=== PATIENT | female | born 1990 | race Caucasian/White ===

== ENCOUNTER 2021-10-05 15:44 | Outpatient (RCR) | payer OTHER, SELFPAY | END 2022-01-01 23:59 | disposition home or self-care (01) | LOC: ANHLAB 15:44 | PROVIDERS: Visit Provider Obstetrics & Gynecology Gynecology | DX: O26.851 Spotting complicating pregnancy, first trimester (principal); Z3A.00 Weeks of gestation of pregnancy not specified | CPT/HCPCS: 36415; 84702 ==

== ENCOUNTER 2021-10-06 07:20 | Emergency (ER) | payer OTHER, SELFPAY ==
[2021-10-06] VITALS (10 sets, daily range): BP systolic 105–130; BP diastolic 71–97; PULSE 81–110; RESP 13–16; TEMP 36.6; O2SAT 97–100
--- NOTE | ~2021-10-06 | US_ITS ---
EXAMINATION: US OB <=14 wk fetus w TV DATE: 10/06/2021 08:28 INDICATION: Vaginal bleeding during first trimester TECHNIQUE: Real-time pelvic transabdominal and transvaginal ultrasound was performed. COMPARISON: None. FINDINGS: The uterus measures 8.1 x 5.7 x 4.3 cm. Images obtained at 0805 hours demonstrate an approx imately 1.8 x 0.8 cm fluid collection in the endometrial canal. Subsequent images obtained at 0813 ho urs no longer demonstrate the fluid collection in the endometrial canal, likely due to interval passa ge. No definite pole is identified. The left ovary is not visualized however no left adnexal ab normality is seen. The right ovary measures 2.4 x 1.7 x 1.5 cm. There is normal vascular flow in the right ovary. There is a small volume of free fluid in the pelvis. IMPRESSION: 1. Findings consistent with in progress. Reviewed, dictated and finalized at location B[facility]
[2021-10-06 07:58] LABS: Basophils Percent Auto 0.4 % (0.2-1.2); Eosinophils Absolute Auto 0.1 K/mm3 (0-0.3); Eosinophils Percent Auto 0.7 % (0-4.4); Hematocrit 38.2 % (37.0-47.0); Hemoglobin 12.9 g/dL (12.0-15.0); Immature Granulocyte Absolute 0.03 K/mm3 (0.00-0.031); Immature Granulocyte Percent A 0.4 % (0-0.5); Lymphocytes Percent Auto 13.1 % (18.3-44.2); Mean Corpuscular HGB Conc 33.8 g/dl (32-36); Mean Corpuscular Hemoglobin 30.9 pg (26-34); Mean Corpuscular Volume 91.4 fl (80-100); Mean Platelet Volume 9.7 fl (7.4-10.4); Monocytes Absolute Auto 0.5 K/mm3 (0.1-0.6); Monocytes Percent Auto 5.9 % (2.6-8.5); Neutrophils Absolute Auto 6.1 K/mm3 (1.3-6.7); Neutrophils Percent Auto 79.5 % (45.5-73.1); Platelet Count Result 238 k/mm3 (150-375); Red Blood Count 4.18 M/mm3 (4.2-5.4); Red Cell Distribution Width 11.8 % (11.5-14.5); White Blood Count 7.6 K/mm3 (4.5-10.0)
[2021-10-06 08:07] LABS: Alanine Aminotransferase 22 U/L (4-35); Albumin Level 4.5 g/dL (3.5-5.1); Alkaline Phosphatase 47 U/L (38-126); Anion Gap 8 mmol/L (8-16); Aspartate Amino Transferase 30 U/L (14-36); Bilirubin,Total 0.6 mg/dL (0.2-1.3); Blood Urea Nitrogen 8 mg/dL (7-17); Calcium 8.7 mg/dL (8.4-10.2); Carbon Dioxide 25 mmol/L (22-30); Chloride 106 mmol/L (98-107); Estimated Glomerular Filt Rate > 60; Glucose 103 mg/dL (65-110); Potassium 4.3 mmol/L (3.4-5.0); Sodium 139 mmol/L (137-145)
[2021-10-06 08:13] LABS: INR 1.1; Prothrombin Time 13.5 Seconds (11.1-14.7)
[2021-10-06 08:14] LABS: Partial Thromboplastin Time 26.7 SECONDS (22.3-36.8)
[2021-10-06] MEDS: SODIUM CHLORIDE 0.9% IV 1,000 ML 999 ML IV CONT (08:28)
[2021-10-06] MEDS: MORPHINE SULFATE (*CRX) 4 MG/ML INJ IV PUSH ×2 (08:29→10:04)
[2021-10-06] MEDS: METHYLERGONOVINE MALEATE 0.2 MG/ML VIAL IM (10:29)
[2021-10-06] MEDS: KETOROLAC 30 MG/ML VIAL (*BKC) IV PUSH (12:04)
--- NOTE | 2021-10-06 12:56 | ED.FEMALEGU ---
HPI - Female Genitourinary General Chief complaint: Vaginal Bleeding Stated complaint: Vaginal Bleeding Time Seen by Provider: 10/06/21 07:27 History of Present Illness HPI Narrative: Patient is a 31-year-old female who presents ER with vaginal bleeding. Patient started having vaginal bleeding 4 days ago and was seen in [facility] and diagnosed with a threatened miscarriage. She has been following with Dr. Marin and her beta hCG has been decreasing. Patient did receive a RhoGam shot due to the fact that she has a negative blood type. Patient reports she woke this morning and started having heavy vaginal bleeding with clots. Blood was bright red did not appear old. She is having lower abdominal cramping. Related Data Home Medications Medication Instructions Recorded Confirmed bisacodyl [Biscolax] PO 10/06/21 10/06/21 bupropion HCl 300 mg PO QAM 10/06/21 doxylamine succinate [Unisom 10/06/21 (doxylamine)] ergocalciferol (vitamin D2) 1,000 unit PO DAILY 10/06/21 [id number] [Pre-F tablet PO 10/06/21 Vitamin] Allergies Allergy/AdvReac Type Severity Reaction Status Date / Time vancomycin Allergy Unknown Verified 10/06/21 07:34 Review of Systems Review of Systems: All systems reviewed & are unremarkable except as noted in HPI and below Constitutional: Constitutional: Denies chills and Denies fatigue Cardiovascular: Cardiovascular: Denies chest pain, Denies rapid heart rate and Denies radiating jaw, neck or arm pain Respiratory: Respiratory: Denies cough, Denies dyspnea and Denies wheezing Gastrointestinal: Gastrointestinal: Reports abdominal pain, Denies constipation, Denies nausea and Denies vomiting Genitourinary: Genitourinary: Reports abnormal vaginal bleeding, Denies nocturia, Denies dysuria and Denies vaginal discharge PMFSH Past Medical History Medical History (Updated 10/06/21 @ 13:05 by López Nuñez MD) Healthy female adult Surgical History Surgical History (Updated 10/06/21 @ 13:05 by López Nuñez MD) No pertinent past surgical history Social History Social History (Updated 10/06/21 @ 13:05 by López Nuñez MD) Smoking status: Never smoker Exam Narrative: GENERAL: Well-appearing, well-nourished, and in no acute distress. HEAD: Normocephalic, atraumatic. CHEST: Clear to auscultation. No respiratory distress. HEART: Regular rate and rhythm. Normal peripheral pulses. ABDOMEN: Soft, nontender, nondistended. : Normal external genitalia, moderate mount of blood filling the vaginal vault. 4 separate 4 x 4's used to absorb the fluid. Cervix visualized and open approximately 1 cm. No active hemorrhage. No discharge. No cervical lesions. EXTREMITIES: Normal range of motion. No edema. SKIN: Warm, dry, no rash. NEURO: Alert and oriented x3. PSYCH: Normal mood and affect. Course Course Emergency Course: Discussed case with Dr. Marin. Recommends giving patient IM Methergine. Observed for 2 hours. If bleeding decreases patient may be discharged. After observation patient has had decreased amount of bleeding feels comfortable with discharge home. Vital Signs Vital signs: Vital Signs Temperature 97.8 F 10/06/21 07:20 Pulse Rate 110 H 10/06/21 07:20 Respiratory Rate 16 10/06/21 07:20 Blood Pressure 130/97 H 10/06/21 07:20 Pulse Oximetry 97 10/06/21 07:20 Temperature 97.8 F 10/06/21 07:20 Pulse Rate 100 10/06/21 08:32 Respiratory Rate 16 10/06/21 07:20 Blood Pressure 105/75 10/06/21 10:31 Pulse Oximetry 100 10/06/21 10:31 MDM - Female Genitourinary Lab Data Result diagrams: 10/06/21 07:52 10/06/21 07:52 Labs: Lab Results 10/06/21 10/06/21 10/06/21 Range/Units 07:52 07:52 07:52 WBC 7.6 (4.5-10.0) K/mm3 RBC 4.18 L (4.2-5.4) M/mm3 Hgb 12.9 (12.0-15.0) g/dL Hct 38.2 (37.0-47.0) % MCV 91.4 (80-100) fl MCH 30.9 (26-3
== END 2021-10-06 13:46 | disposition home or self-care (01) ==
PROVIDERS: Emergency Provider Emergency Medicine
DX: O03.9 Complete or unspecified spontaneous abortion without complication (principal)
CPT/HCPCS: 36415; 76801; 76817; 80053; 84702; 85025; 85610; 85730; 86850; 86880; 86900; 86901; 86902; 96361; 96372; 96374; 96375; 96376; 99284; J1885; J2210; J2270; J7030

== ENCOUNTER 2021-11-02 17:14 | Outpatient (RCR) | payer OTHER, SELFPAY ==
[2021-10-14 18:29] LABS: Beta HCG Quantitative 32.84 mIU/ML
[2021-10-24 17:15] LABS: Beta HCG Quantitative 6.98 mIU/ML
[2021-11-02 17:54] LABS: Beta HCG Quantitative < 2.39 mIU/ML
== END 2022-01-12 23:59 | disposition home or self-care (01) ==
LOC: ANHLAB 17:14
PROVIDERS: Visit Provider Obstetrics & Gynecology Gynecology
DX: O03.9 Complete or unspecified spontaneous abortion without complication (principal)
CPT/HCPCS: 36415; 84702

== ENCOUNTER 2022-06-09 17:39 | Outpatient (RCR) | payer OTHER, SELFPAY ==
[2022-06-07 17:41] LABS: Beta HCG Quantitative 576.28 mIU/ML
== END 2022-09-05 23:59 | disposition home or self-care (01) ==
LOC: ANHLAB 17:39
PROVIDERS: Visit Provider Obstetrics & Gynecology Gynecology
DX: O26.21 Pregnancy care for patient with recurrent pregnancy loss, first trimester (principal); Z3A.00 Weeks of gestation of pregnancy not specified
CPT/HCPCS: 36415; 84702

== ENCOUNTER 2022-06-13 17:59 | Outpatient (RCR) | payer OTHER, SELFPAY ==
[2022-06-14] MEDS: RHO(D) IMMUNE GLOBULIN 300 MCG/2 ML SYRINGE IM (07:16)
== END 2022-09-11 23:59 | disposition home or self-care (01) ==
LOC: ANHLAB 17:59
PROVIDERS: Visit Provider Obstetrics & Gynecology Gynecology
DX: O26.21 Pregnancy care for patient with recurrent pregnancy loss, first trimester (principal); Z29.13 Encounter for prophylactic Rho(D) immune globulin; O36.0110 Maternal care for anti-D [Rh] antibodies, first trimester, not applicable or unspecified; Z3A.00 Weeks of gestation of pregnancy not specified
CPT/HCPCS: 36415; 85461; 86850; 86900; 86901; 90384; 96372; J2790

== ENCOUNTER 2022-06-15 17:17 | Outpatient (CLI) | payer OTHER, SELFPAY | END 2022-06-15 17:18 | disposition home or self-care (01) | LOC: ANHLAB 17:20 | PROVIDERS: Visit Provider Obstetrics & Gynecology Gynecology | DX: O26.851 Spotting complicating pregnancy, first trimester (principal); Z3A.00 Weeks of gestation of pregnancy not specified | CPT/HCPCS: 36415; 84702 ==

== ENCOUNTER 2022-07-02 11:11 | Emergency (ER) | payer OTHER, SELFPAY ==
--- NOTE | ~2022-07-02 | US_ITS ---
EXAMINATION: US OB <=14 wk fetus w TV DATE: 07/02/2022 12:24 INDICATION: Vaginal bleeding. Subchorionic hemorrhage. TECHNIQUE: Real-time transabdominal and transvaginal obstetric ultrasound. FINDINGS: No prior studies for comparison. The uterus measures 8.2 x 6 x 7.1 cm. There is an intrauterine gestational sac, with pole ident ified. There is a subchorionic hemorrhage measuring 1.3 x 1.2 x 1.9 cm The crown rump length measures 1.65 cm, which correlates with a estimated gestational age of 8 weeks 0 days. heart tones ar e identified measuring 173. IMPRESSION: 1. SL IUP with an EGA of 8 weeks, 0 days (EDC by current ultrasound of 02/11/2023). 2: Subchorionic hemorrhage measuring 1.3 x 1.9 x 1.2 cm. Reviewed, dictated and finalized at location A. COVERER IMPRESSION: 1. SL IUP with an EGA of 8 weeks, 0 days (EDC by current ultrasound of 3). 2: Subchorionic hemorrhage measuring 1.3 x 1.9 x 1.2 cm.
[2022-07-02 11:14] VITALS: BP 123/72; PULSE 94; RESP 16; TEMP 36.5; O2SAT 100
--- NOTE | 2022-07-02 11:41 | ED.FEMALEGU ---
HPI - Female Genitourinary General Chief complaint: Vaginal Bleeding Stated complaint: 8 weeks preg, bleeding Time Seen by Provider: 07/02/22 11:17 Source: patient and old records reviewed Mode of arrival: ambulatory Limitations: no limitations History of Present Illness HPI Narrative: Patient is a 32-year-old female who presents the ED with report of vaginal bleeding. Patient is and currently around 8 weeks gestation, Hx of miscarriage in September 2021. Patient has had a previous ultrasound confirming IUP for this current . Ultrasound did reveal a subchorionic hematoma. Patient reports this morning, she passed two thumb sized blood clots. She has had some mild dark red vaginal bleeding since then. She is concerned she may be miscarrying again. She denies any significant abdominal pain, worsening nausea or vomiting, fevers. Related Data Home Medications Medication Instructions Recorded Confirmed bisacodyl 5 mg tablet,delayed PO 10/06/21 10/06/21 release bupropion HCl 300 mg 24 hr tablet, 300 mg PO QAM 10/06/21 extended release doxylamine succinate 25 mg tablet 10/06/21 (Unisom (doxylamine)) ergocalciferol (vitamin D2) 1,000 1,000 unit PO DAILY 10/06/21 unit capsule [id number] 1 mg tablet PO 10/06/21 tablet Allergies Allergy/AdvReac Type Severity Reaction Status Date / Time vancomycin Allergy Unknown Verified 07/02/22 11:22 Review of Systems Review of Systems: CONSTITUTIONAL: Denies fever, chills, or sweats. CARDIOVASCULAR: Denies chest pain. RESPIRATORY: Denies dyspnea. GASTROINTESTINAL: Denies abdominal pain, nausea, vomiting. GENITOURINARY: Reports vaginal bleeding. Denies dysuria or hematuria. All systems reviewed & are unremarkable except as noted in HPI and below PMFSH Past Medical History Medical History Healthy female adult Surgical History Surgical History No pertinent past surgical history Social History Social History Smoking status: Never smoker Exam Narrative: GENERAL: Well appearing, well-nourished, non-toxic, in no acute distress. HEAD: Normocephalic, atraumatic. NECK: Supple. No adenopathy, no masses. RESPIRATORY: Airway patent, respirations nonlabored. Clear to auscultation bilaterally, no rales, rhonchi, wheezing. CARDIOVASCULAR: Regular rate and rhythm without murmurs, rubs, or gallops. Peripheral pulses 2+ and equal bilaterally. ABDOMINAL: Soft, no significant tenderness throughout abdomen, nondistended, no hepatosplenomegaly. Normoactive BS. PELVIC: Normal external genitalia. Mild amount of dark brown vaginal bleeding. No bright red bleeding or clots. Cervix appears closed. No pooling of blood or signs of hemorrhage. No significant CMT. MUSCULOSKELETAL: Moves all extremities. Strength/ROM intact without gross deformities. SKIN: Warm, dry, normal color. No rashes. NEURO: A&O X3. Speech clear. Cranial nerves II-XII grossly intact. Steady gait. No ataxic movements. PSYCHIATRIC: Appropriate mood and affect. Normal interaction. Course Consultations Consultation #1: Discussed case with Dr. Peck, GROUND INTELLIGENCE OFFICER on-call for [place], agrees with plan. No further recommendations at this time. Date: 07/02/22 Vital Signs Vital signs: Vital Signs Temperature 97.7 F 07/02/22 11:14 Pulse Rate 94 07/02/22 11:14 Respiratory Rate 16 07/02/22 11:14 Blood Pressure 123/72 07/02/22 11:14 Pulse Oximetry 100 07/02/22 11:14 Temperature 97.7 F 07/02/22 11:14 Pulse Rate 94 07/02/22 11:14 Respiratory Rate 16 07/02/22 11:14 Blood Pressure 123/72 07/02/22 11:14 Pulse Oximetry 100 07/02/22 11:14 MDM - Female Genitourinary MDM Narrative Medical decision making narrative: Patient presented to ED with report of vaginal bleeding, G2, P0,
[2022-07-02 12:32] LABS: Basophils Percent Auto 0.3 % (0.2-1.2); Eosinophils Percent Auto 0.3 % (0-4.4); Hematocrit 37.7 % (37.0-47.0); Immature Granulocyte Absolute 0.02 K/mm3 (0.00-0.031); Immature Granulocyte Percent A 0.3 % (0-0.5); Lymphocytes Absolute Auto 1.28 K/mm3 (0.9-3.2); Lymphocytes Percent Auto 16.4 % (18.3-44.2); Mean Corpuscular HGB Conc 34.5 g/dl (32-36); Mean Corpuscular Hemoglobin 31.4 pg (26-34); Mean Corpuscular Volume 91.1 fl (80-100); Mean Platelet Volume 9.6 fl (7.4-10.4); Monocytes Absolute Auto 0.6 K/mm3 (0.1-0.6); Monocytes Percent Auto 8.1 % (2.6-8.5); Neutrophils Absolute Auto 5.8 K/mm3 (1.3-6.7); Neutrophils Percent Auto 74.6 % (45.5-73.1); Platelet Count Result 250 k/mm3 (150-375); Red Blood Count 4.14 M/mm3 (4.2-5.4); Red Cell Distribution Width 11.1 % (11.5-14.5); White Blood Count 7.8 K/mm3 (4.5-10.0)
[2022-07-02 12:50] LABS: Alanine Aminotransferase 26 U/L (6-35); Albumin Level 4.5 g/dL (3.5-5.1); Alkaline Phosphatase 40 U/L (38-126); Anion Gap 4 mmol/L (8-16); Aspartate Amino Transferase 23 U/L (14-36); Bilirubin,Total 0.5 mg/dL (0.2-1.3); Blood Urea Nitrogen 12 mg/dL (7-17); Calcium 8.6 mg/dL (8.4-10.2); Carbon Dioxide 29 mmol/L (22-30); Chloride 101 mmol/L (98-107); Estimated CRCL calculation 125 ml/min; Estimated Glomerular Filt Rate > 60; Glucose 96 mg/dL (65-110); Potassium 3.5 mmol/L (3.4-5.0); Sodium 134 mmol/L (137-145)
[2022-07-02] MEDS: RHO(D) IMMUNE GLOBULIN 300 MCG/2 ML SYRINGE IM (15:28)
[2022-07-02 15:32] VITALS: BP 110/74; PULSE 82; RESP 18; O2SAT 100
== END 2022-07-02 15:34 | disposition home or self-care (01) ==
PROVIDERS: Emergency Provider Physician Assistant; PCP Family Medicine
DX: O20.0 Threatened abortion (principal); Z3A.08 8 weeks gestation of pregnancy
CPT/HCPCS: 36415; 76801; 76817; 80053; 84702; 85025; 85461; 86850; 86880; 86900; 86901; 86902; 90384; 96372; 99284; J2790

== ENCOUNTER 2022-07-26 17:56 | Emergency (ER) | payer OTHER, SELFPAY ==
[2022-07-26 18:51] VITALS: BP 118/67; PULSE 99; RESP 20; TEMP 37.4; O2SAT 99
[2022-07-26 22:09] VITALS: BP 111/69; PULSE 87; O2SAT 100
[2022-07-26 22:29] LABS: Add Urine Microscopic? YES; Appearance Urine Clear (Clear); Bilirubin Urine Negative (Negative); Blood Urine Negative (Negative); Color Urine Light Yellow (Yellow); Glucose Urine UA Negative (Negative); Ketones Urine 3+ mg/dL (Negative); Leukocyte Esterase Ur Negative LEU/UL (Negative); Nitrate Urine Negative (Negative); Protein Urine Negative (Negative); pH Urine 8.5 (5.0-9.0)
[2022-07-26] MEDS: diphenhydrAMINE HCl INJ 50 MG/ML VIAL 25 MG IV PUSH (22:30)
[2022-07-26] MEDS: METOCLOPRAMIDE HCL INJ 10 MG/2 ML VIAL IV PUSH (22:30)
[2022-07-26] MEDS: LACTATED RINGERS 1,000 ML 999 ML IV CONT (22:30)
[2022-07-26 22:35] LABS: Bacteria Urine Trace /hpf; Mucus Urine Rare /lpf; Squamous Epithelial Cell Urine Occasional /hpf (Few); WBC Urine 0-3 /hpf
[2022-07-26 22:46] VITALS: BP 111/64; PULSE 88; O2SAT 98
[2022-07-26 23:02] LABS: Influenza A QL RT-PCR Negative (Negative); Influenza B QL RT-PCR Negative (Negative); RSV RNA, RT-PCR Negative (Negative); SARS-CoV-2 RNA PCR Negative
[2022-07-27] MEDS: LACTATED RINGERS 1,000 ML 999 ML IV CONT (00:17)
--- NOTE | 2022-07-27 00:46 | ED.NAVMDI ---
HPI - Nausea/Vomiting/Diarrhea General Chief complaint: Upper Respiratory Infection Stated complaint: FLU S/SX 11WKS IUP Time Seen by Provider: 07/26/22 22:08 History of Present Illness HPI Narrative: Patient is 11 weeks , has been dealing with hyperemesis, tried Reglan at home which did not help, cannot keep anything down. Also having some URI symptoms. Related Data Home Medications Medication Instructions Recorded Confirmed bisacodyl 5 mg tablet,delayed PO 10/06/21 10/06/21 release bupropion HCl 300 mg 24 hr tablet, 300 mg PO QAM 10/06/21 extended release doxylamine succinate 25 mg tablet 10/06/21 (Unisom (doxylamine)) ergocalciferol (vitamin D2) 1,000 1,000 unit PO DAILY 10/06/21 unit capsule [id number]-FA 1 mg tablet PO 10/06/21 tablet Allergies Allergy/AdvReac Type Severity Reaction Status Date / Time vancomycin Allergy Unknown Verified 07/02/22 11:22 Review of Systems Review of Systems: CONST: Chills HEENT: Congestion C/V: No chest pain RESP cough GI: Reports abdominal pain, nausea, vomiting : No dysuria. M/S: Muscle aches SKIN: No rash. NEURO: [HILL w/o focal numbness or weakness] PSYCH: [No depression] [facility] Past Medical History Medical History Healthy female adult Surgical History Surgical History No pertinent past surgical history Social History Social History Smoking status: Never smoker Exam Narrative: EXAMINATION OF ORGAN SYSTEMS/BODY AREAS: Constitutional: Vital signs per nursing GENERAL: Appears quite uncomfortable in bed HEAD: Normal with no signs of head trauma. EYES: EOMI, conjunctiva normal ENT: Hearing grossly intact LUNGS: Nonlabored breathing. HEART: [Regular rate and rhythm] ABD: [Soft], [nontender to palpation] EXT: Normal range of motion SKIN: [No rashes or lesions.] NEURO: [Alert and oriented x 3. No gross focal sensory or strength deficits.] PSYCH: Normal affect Course Vital Signs Vital signs: Vital Signs Temperature 99.4 F 12/28/22 18:51 Pulse Rate 99 07/26/22 18:51 Respiratory Rate 20 07/26/22 18:51 Blood Pressure 118/67 07/26/22 18:51 Pulse Oximetry 99 07/26/22 18:51 Oxygen Delivery Room Air 07/26/22 18:51 Temperature 99.4 F 07/26/22 18:51 Pulse Rate 88 07/26/22 22:46 Respiratory Rate 20 07/26/22 18:51 Blood Pressure 111/64 07/26/22 22:46 Pulse Oximetry 98 07/26/22 22:46 Oxygen Delivery Room Air 07/26/22 18:51 MDM - Nausea/Vomiting/Diarrhea MDM Narrative Medical decision making narrative: 32-year-old female at 11 weeks presents with nausea, vomiting. Vital signs stable, she will be given IV fluids here and Reglan. On reevaluation, she is feeling much better. Virtually resolved. 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 Lab Data Labs: Lab Results 07/26/22 07/26/22 Range/Units 22:20 22:20 Urine Color Light yellow (Yellow) Urine Appearance Clear (Clear) Urine pH 8.5 (5.0-9.0) Ur Specific [place] 1.010 (1.001-1.035) Urine Protein Negative (Negative) mg/dL Urine Glucose (UA) Negative (Negative) mg/dL Urine Ketones 3+ H (Negative) mg/dL Ur Blood (Man) Negative (Negative) Urine Nitrate Negative (Negative) Urine Bilirubin Negative (Negative) Urine Urobilinogen 1.0 (<2.0) mg/dL Leukocyte Esterase Rfl Negative (Negative) ALEJO/UL Urine RBC 3-5 H (0-2) /hpf Urine WBC 0-3 /hpf Ur Squamous Epith Cells Occasional (Few) /hpf Urine Bacteria Trace /hpf Urine Mucus Rare /lpf Influenza A (RT-PCR) Negative (Negative) Influenza B (RT-PCR) Negative (Negative) RSV (RT-PCR) Negative (Negative) SARS-CoV-2 RNA (RT-PCR) Negative Discharge Plan Discharge Clinical Impression: Nausea &
== END 2022-07-27 00:48 | disposition home or self-care (01) ==
PROVIDERS: Emergency Provider Emergency Medicine; PCP Family Medicine
DX: O21.0 Mild hyperemesis gravidarum (principal); Z20.822 Contact with and (suspected) exposure to COVID-19; Z3A.11 11 weeks gestation of pregnancy
CPT/HCPCS: 81001; 87637; 96361; 96365; 96375; 99284; J0131; J1200; J2765; J7120

== ENCOUNTER 2022-10-09 10:20 | Outpatient (CLI) | payer OTHER, SELFPAY ==
[2022-10-09 10:45] VITALS: BMI 26.6
== END 2022-10-09 11:50 | disposition home or self-care (01) ==
LOC: ANHOBOP 10:26 → ANHOBPP 10:27
PROVIDERS: PCP Family Medicine; Visit Provider Obstetrics & Gynecology Gynecology
DX: O13.9 Gestational [pregnancy-induced] hypertension without significant proteinuria, unspecified trimester (principal)
CPT/HCPCS: 99199

== ENCOUNTER 2022-11-18 14:39 | Outpatient (RCR) | payer OTHER, SELFPAY ==
[2022-11-18 15:24] VITALS: BP 102/65; PULSE 84
== END 2022-12-29 17:36 | disposition hospice, home (50) ==
LOC: ANHOBOP 14:39
PROVIDERS: PCP Family Medicine; Visit Provider Obstetrics & Gynecology Gynecology
DX: O36.8120 Decreased fetal movements, second trimester, not applicable or unspecified (principal); Z3A.27 27 weeks gestation of pregnancy
CPT/HCPCS: 59025

== ENCOUNTER 2022-12-16 19:45 | Inpatient (IN) | payer OTHER, SELFPAY ==
[2022-12-16] VITALS (48 sets, daily range): BP systolic 97–121; BP diastolic 54–67; PULSE 60–80; RESP 12–20; O2SAT 97–100
--- NOTE | 2022-12-16 20:34 | PM.IMHP ---
H&P: HPI History of Present Illness Date/Time: 12/16/22 20:34 Chief Complaint: pain Narrative: Aline is a 32yo @ 32.1wk who presented to L&D with severe pain. She was found to be 7cm dilated. No VB or LOF. Her is complicated by: - Breech malpresentation - Bicornuate uterus PMFSH Past Medical History Medical History Healthy female adult Surgical History Surgical History No pertinent past surgical history Social History Social History Smoking status: Never smoker Meds Home Medications and Allergies Home Medications Medication Instructions Recorded Confirmed Type bisacodyl 5 mg tablet,delayed PO 10/06/21 10/06/21 History release bupropion HCl 300 mg 24 hr tablet, 300 mg PO QAM 10/06/21 History extended release doxylamine succinate 25 mg tablet 10/06/21 History (Unisom (doxylamine)) ergocalciferol (vitamin D2) 1,000 1,000 unit PO DAILY 10/06/21 History unit capsule hydrocodone 5 mg-acetaminophen 325 1 tablet PO Q6H PRN pain #12 tabs 10/06/21 Rx mg tablet methylergonovine 0.2 mg tablet 0.2 mg PO TID 5 days #15 tabs 10/06/21 Rx (Methergine) [id number] 1 mg tablet PO 10/06/21 History tablet Allergies Allergy/AdvReac Type Severity Reaction Status Date / Time vancomycin Allergy Unknown Verified 07/02/22 11:22 Vital Signs Vital Signs - 24 hr 12/16/22 20:03 12/16/22 20:15 12/16/22 20:30 Pulse Rate 60 62 65 Blood Pressure 101/58 L 112/65 104/60 Exam Const: General: cooperative, healthy appearing and in distress moderate (with contractions) Resp: Effort & Inspection: normal respiratory effort Cardio: Rate: regular rate : Other: FHTs: 140/ mod stanislav/ + accels/ no decels - cat 1 Cervix: 7cm, bulging bag breech presentation on bedside US Skin: General skin exam: normal color Neuro: General: patient oriented x3 Extrem: General: normal to inspection Psych: Appearance: grossly normal Assessment and Plan Assessment and plan (1) labor: Qualifiers: labor trimester: third trimester labor delivery status: with delivery in third trimester Fetus number: single or unspecified fetus Qualified Code(s): O60.14X0 - labor third trimester with delivery third trimester, not applicable or unspecified Code(s): O60.00 - labor without delivery, unspecified trimester Status: Acute (2) Breech presentation: Qualifiers: Fetus number: single or unspecified fetus Qualified Code(s): O32.1XX0 - Maternal care for breech presentation, not applicable or unspecified Code(s): O32.1XX0 - Maternal care for breech presentation, not applicable or unspecified Status: Acute Plan - breech malpresentation on bedside US in active labor - proceed with primary
--- NOTE | 2022-12-16 20:41 | WPDHPUPDATE1 ---
History and Physical Update Update Date/Time: 12/16/22 20:41 History and Physical has been reviewed, including an updated exam of the patient. There are NO changes in the patient's condition. Risks, benefits, and alternatives have been discussed and questions answered. Patient agrees to proceed with procedure.
[2022-12-16 20:47] LABS: Basophils Percent Auto 0.2 % (0.2-1.2); Eosinophils Percent Auto 0.1 % (0-4.4); Hematocrit 37.5 % (37.0-47.0); Hemoglobin 13.3 g/dL (12.0-15.0); Immature Granulocyte Absolute 0.12 K/mm3 (0.00-0.031); Immature Granulocyte Percent A 0.7 % (0-0.5); Lymphocytes Absolute Auto 1.25 K/mm3 (0.9-3.2); Lymphocytes Percent Auto 7.4 % (18.3-44.2); Mean Corpuscular HGB Conc 35.5 g/dl (32-36); Mean Corpuscular Hemoglobin 30.9 pg (26-34); Mean Platelet Volume 10.1 fl (7.4-10.4); Monocytes Absolute Auto 0.8 K/mm3 (0.1-0.6); Monocytes Percent Auto 4.7 % (2.6-8.5); Neutrophils Absolute Auto 14.7 K/mm3 (1.3-6.7); Neutrophils Percent Auto 86.9 % (45.5-73.1); Platelet Count Result 212 k/mm3 (150-375); Red Blood Count 4.31 M/mm3 (4.2-5.4); Red Cell Distribution Width 11.9 % (11.5-14.5)
--- NOTE | 2022-12-16 20:49 | P.PNAN_ITS ---
Anes - Eval Pre Procedure Procedure: c section Date/Time: 12/16/22 20:49 Surgeon: Jaiden Preop Diagnosis: Breech presentation Pre Op Diagnosis: Contractions Patient Data Age: 32 Gender: F Height: Weight: Last Vital Signs Pulse 65 12/16/22 20:45 BP 121/67 12/16/22 20:45 Allergies Allergy/AdvReac Type Severity Reaction Status Date / Time vancomycin Allergy Unknown Verified 07/02/22 11:22 Home Medications Medication Instructions Recorded Confirmed Type bisacodyl 5 mg tablet,delayed PO 10/06/21 10/06/21 History release bupropion HCl 300 mg 24 hr tablet, 300 mg PO QAM 10/06/21 History extended release doxylamine succinate 25 mg tablet 10/06/21 History (Unisom (doxylamine)) ergocalciferol (vitamin D2) 1,000 1,000 unit PO DAILY 10/06/21 History unit capsule hydrocodone 5 mg-acetaminophen 325 1 tablet PO Q6H PRN pain #12 tabs 10/06/21 Rx mg tablet methylergonovine 0.2 mg tablet 0.2 mg PO TID 5 days #15 tabs 10/06/21 Rx (Methergine) [id number]-nge-Dj-FA 1 mg tablet PO 10/06/21 History tablet Laboratory Tests 12/16/22 20:42 WBC Pending RBC Pending Hgb Pending Hct Pending MCV Pending MCH Pending MCHC Pending RDW Pending Plt Count Pending MPV Pending Immature Gran % (Auto) Pending Neut % (Auto) Pending Lymph % (Auto) Pending [place] % (Auto) Pending Eos % (Auto) Pending Baso % (Auto) Pending Lymph # (Auto) Pending [place] # (Auto) Pending Eos # (Auto) Pending Baso # (Auto) Pending Abs Immat Gran (auto) Pending Absolute Neuts (auto) Pending Absolute Nucleated RBC Pending Nucleated RBC % Pending RPR Pending Patient hx anesthesia problems: none Family hx anesthesia problems: none Results Review: All pre-operative results and documents have been reviewed as part of the pre- operative evaluation. [facility] Past Medical History Medical History (Updated 12/16/22 @ 20:49 by Carrington Quintana CRNA) Healthy female adult and not yet delivered labor Surgical History Surgical History No pertinent past surgical history Social History Social History Smoking status: Never smoker Exam Day of Procedure 12/16/22 20:49 Patient weight: overweight
[2022-12-16] MEDS: FAMOTIDINE 20 MG/2 ML VIAL IV PUSH (21:00)
[2022-12-16] MEDS: ONDANSETRON INJ 4 MG/2 ML VIAL IV PUSH (21:00)
[2022-12-16] MEDS: OXYTOCIN 30 UNITS/NS 500 ML 30 UNITS/500 ML BAG 999 UNITS IV CONT (21:10)
[2022-12-16] MEDS: OXYTOCIN 30 UNITS/NS 500 ML 30 UNITS/500 ML BAG 125 UNITS IV CONT (21:18)
[2022-12-16] MEDS: KETOROLAC 15 MG/ML VIAL (*BKC) IV PUSH (21:27)
[2022-12-16] MEDS: ceFAZolin 2 GM/D5W 50 ML 2 GM/50 ML BAG 100 GM (21:50)
--- NOTE | 2022-12-16 21:52 | P.PCNOB_ITS ---
OB - Delivery Note Procedure Delivery date: 12/16/22 Procedure: Procedures Operation Date: 12/16/22 21:00 <No data on this case meets the specified criteria> Events: Breech Presentation and Other ( labor) Route of delivery: Quantitative Blood Loss (ml): 685 Anesthesia type: Spinal Disposition: PACU Baby Date of : 12/16/22 Time of : 21:09 Weeks of gestation at delivery: 32 Infant gender: Male Weight (pounds): 4 Weight (ounces): 4 presentation: hadley breech Placenta delivery description: Expressed Cord Vessel Description: 3 Vessels score one minute: 2 score five minutes: 6 score ten minutes: 8 Narrative: She was counseled on all risks and benefits in detail. She was taken to the o perating room where spinal was placed. She was then prepped and draped in the normal sterile fashion. She received 2g Ancef and a time out was performed. A Pfannenstiel incision was made in the skin and carried down to the underlying fascia. The fascia was nicked on either side of the midline and the fascial incision was extended laterally and superiorly. The rectus muscles were then in the midline and the peritoneum was entered bluntly. Once adequate exposure was obtained, a Mobius self retractor was placed within the abdomen. A low transverse incision was made on the lower uterine segment and clear fluid was noted. The buttocks were delivered and normal breech maneuvers were performed. The head was difficult to deliver and decision was made to proceed with T incision using bandage scissors. The head was then delivered. The cord was clamped and cut and the infant was handed off to the awaiting pediatric team. A segment of the cord was collected for cord gases. With pitocin infusing, the placenta delivered with gentle traction on the cord without complications. The uterus was then cleared out of all clots and debris using a clean, moist lap. The hysterotomy was then repaired. The upper incision was closed in a running, interlocking fashion using 0 Vicryl. The low transverse incision was then repaired in a running interlocking fashion. A second layer imbricating suture was then made using 0 Vicryl. The hysterotomy was found to be hemostatic and good uterine tone was noted. The bilateral adnexa were examined and found to be normal. Multiple fibroids were noted. The pelvis was cleared of all clots and fluid. The Mobius retractor was removed from the abdomen. The peritoneum, muscle, and fascia were examined and made hemostatic with bovie cautery. The fascia was then repaired using a 0 Vicryl suture in a running fashion. The subcutaneous tissue was then irrigated and made hemostatic with bovie cautery. The subcutaneous tissue was then reapproximated using 2-0 Vicryl. The skin was then closed using 4-0 Monocryl in a running subcuticular fashion. Sponge, lap, needle and instrument counts were correct at the end of the procedure x2. The patient tolerated the procedure well and was taken to recovery in a stable condition. [facility] [place] Delivery Billing Delivery Delivery: Delivery Charge
[2022-12-16] MEDS: MORPHINE SULFATE INJ (*CRX) 10 MG/ML AMP 2 MG IV PUSH (23:34)
[2022-12-17] VITALS (22 sets, daily range): BP systolic 78–100; BP diastolic 45–67; PULSE 65–81; RESP 16–18; TEMP 36.4–36.9; O2SAT 95–100
[2022-12-17] MEDS: MORPHINE SULFATE INJ (*CRX) 10 MG/ML AMP 2 MG IV PUSH ×3 (00:33→01:14)
--- NOTE | 2022-12-17 01:38 | LDADM ---
This patient, Aline Arriola, was admitted to Labor/Delivery/Recovery 106 on 12/16/22 at 19:45. Plans for labor, pain management and were discussed with patient. Patient/family oriented to hospital policies and general routines including ID bracelet, bed and alarms, visiting hours, pain management, procedures, bathroom and other care routines, personal items, smoking policy, room service/diet and guest tray routines, security routines, and visiting hours. Patient/Family are encouraged to report perceived risks to care and to ask questions if they do not understand what they are told or what they should do. See OBIX for further documentation.
[2022-12-17] MEDS: HYDROcodone/acetaminophen (*CRX) 10-325 MG TABLET 1 TAB PO ×7 (01:45→21:17)
[2022-12-17] MEDS: diphenhydrAMINE HCl INJ 50 MG/ML VIAL 25 MG IV PUSH ×2 (03:27→21:18)
[2022-12-17] MEDS: DEXTROSE 5%/0.45% SOD CHL 1,000 ML 125 ML IV CONT (03:28)
[2022-12-17 06:08] LABS: Basophils Percent Auto 0.1 % (0.2-1.2); Eosinophils Percent Auto 0.1 % (0-4.4); Immature Granulocyte Absolute 0.06 K/mm3 (0.00-0.031); Immature Granulocyte Percent A 0.5 % (0-0.5); Lymphocytes Absolute Auto 1.11 K/mm3 (0.9-3.2); Lymphocytes Percent Auto 8.8 % (18.3-44.2); Mean Corpuscular HGB Conc 34.4 g/dl (32-36); Mean Corpuscular Hemoglobin 30.5 pg (26-34); Mean Corpuscular Volume 88.6 fl (80-100); Mean Platelet Volume 10.5 fl (7.4-10.4); Monocytes Absolute Auto 0.9 K/mm3 (0.1-0.6); Monocytes Percent Auto 7.1 % (2.6-8.5); Neutrophils Absolute Auto 10.6 K/mm3 (1.3-6.7); Neutrophils Percent Auto 83.4 % (45.5-73.1); Platelet Count Result 168 k/mm3 (150-375); Red Blood Count 3.61 M/mm3 (4.2-5.4); Red Cell Distribution Width 11.8 % (11.5-14.5); White Blood Count 12.7 K/mm3 (4.5-10.0)
[2022-12-17] MEDS: KETOROLAC 30 MG/ML VIAL (*BKC) IV PUSH ×3 (07:42→21:20)
[2022-12-17] MEDS: DOCUSATE SODIUM 100 MG CAPSULE PO ×2 (07:43→16:17)
[2022-12-17] MEDS: LANOLIN (LANSINOH) 7.5 GM CREAM 1 APPLIC TOPICAL (07:43)
[2022-12-17] MEDS: MULTIVIT/MIN/PREN/FOL AC/IRON TABLET 1 TAB PO (07:43)
--- NOTE | 2022-12-17 08:20 | WPDANLDPN2 ---
Anes-Prog Note L&D Date/Time: 12/17/22 08:20 Comfortable throughout: section Neuraxial method: spinal Epidural/Spinal procedure site: clean & non-tender Neuro status: Neuro function grossly intact. Cardiovascular status: normal Respiratory status: normal Airway patency: baseline Mental status: baseline Post-Op hydration status: normal Vital Signs: Last Vital Signs Temp 98.1 F 12/17/22 05:20 Pulse 79 12/17/22 05:20 Resp 16 12/17/22 05:20 BP 87/51 L 12/17/22 05:20 Pulse Ox 98 12/17/22 05:20 O2 Del Method Room Air 12/17/22 02:00 Pain score (VAS): 4 I/O: Intake & Output 12/16/22 12/17/22 12/17/22 23:59 07:59 15:59 Intake Total 400 Output Total 548 4211 Balance -685 -1059 Post-procedural complaints: none Patient feedback: Patient satisfied with anesthetic care.
--- NOTE | 2022-12-17 08:20 | WPDANLDNPN2 ---
Anes-Prog Note L&D-Neuraxial Date/Time: 12/17/22 08:20 Neuraxial medications: intrathecal PF morphine Opiod-related complaints: none Patient feedback: Patient satisfied with post-operative pain management.
--- NOTE | 2022-12-17 08:46 | PM.OBPNVD ---
OB - PN: Subj Subjective Date/time seen: 12/17/22 08:46 Narrative: POD#1 Aline reports doing ok today. 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 Her pain is controlled when taking the PO pain meds and not moving. She has tolerating snacks; just received her breakfast. The moe catheter is still in place. She has not passed gas or ambulated. She denies any issues with her incision. She is pumping as her son was transferred to [facility] overnight. OB - PN: Obj Data Labs 12/17/22 05:27 Labs: Laboratory Results - last 24 hr 12/16/22 12/17/22 20:42 05:27 WBC 17.0 H 12.7 H RBC 4.31 3.61 L Hgb 13.3 11.0 L Hct 37.5 32.0 L MCV 87.0 88.6 MCH 30.9 30.5 MCHC 35.5 34.4 RDW 11.9 11.8 Plt Count 212 168 MPV 10.1 10.5 H Immature Gran % (Auto) 0.7 H 0.5 Neut % (Auto) 86.9 H 83.4 H Lymph % (Auto) 7.4 L 8.8 L [place] % (Auto) 4.7 7.1 Eos % (Auto) 0.1 0.1 Baso % (Auto) 0.2 0.1 L Lymph # (Auto) 1.25 1.11 [place] # (Auto) 0.8 H 0.9 H Eos # (Auto) 0.0 0.0 Baso # (Auto) 0.0 0.0 Abs Immat Gran (auto) 0.12 H 0.06 H Absolute Neuts (auto) 14.7 H 10.6 H Absolute Nucleated RBC 0.0 0.0 Nucleated RBC % 0.0 0.0 Blood Type A Negative Antibody Screen Negative OB - PN A/P Assessment and Plan (1) Delivery by section using T-shaped incision: Code(s): O82 - Encounter for delivery without indication Status: Acute Assessment and Plan: - pt informed of t-incision and would not be a candidate for TOLAC (2) Breech presentation: Qualifiers: Fetus number: single or unspecified fetus Qualified Code(s): O32.1XX0 - Maternal care for breech presentation, not applicable or unspecified Code(s): O32.1XX0 - Maternal care for breech presentation, not applicable or unspecified Status: Acute (3) labor: Qualifiers: Fetus number: single or unspecified fetus labor delivery status: with delivery in third trimester labor trimester: third trimester Qualified Code(s): O60.14X0 - labor third trimester with delivery third trimester, not applicable or unspecified Code(s): O60.00 - labor without delivery, unspecified trimester Status: Acute Plan day: 1 Plan: routine care Time Spent With Patient Time: Total time spent is greater than 50% in coordination of care (as documented) at patient's floor/unit and/or counseling patient: Review of Systems Constitutional: Constitutional: Denies chills, Denies fever(s) and Denies headache(s) Eyes: Eyes: Denies change in vision ENT: Denies dizziness and Denies headache(s) Cardiovascular: Cardiovascular: Denies chest pain, Denies palpitations and Denies dyspnea Respiratory: Respiratory: Denies cough and Denies dyspnea Gastrointestinal: Gastrointestinal: Denies nausea and Denies vomiting Genitourinary: Comments: normal bleeding Neurologic: Denies dizziness and Denies headache(s) Endocrine: Endocrine: Denies palpitations Exam Const: General: cooperative, healthy appearing, comfortable and no acute distress Orientation/consciousness: patient oriented x3 Resp: Effort & Inspection: normal respiratory effort Auscultation: clear to auscultation bilaterally Cardio: Rate: regular rate GI: Inspection: non-distended and incision (covered with clean dressing) GI Palp: Yes abdominal tenderness (appropriate) and Yes Soft to palpation Auscultation: normal bowel sounds : Other: fundus firm Urinary Catheter: Urinary Catheter: patent and draining and urine clear Skin: General skin exam: normal color Neuro: General: patient oriented x3 Extrem: General: normal to inspection Psych: Appearance: grossly normal Affect: normal affect Attitude: cooperative
[2022-12-17] MEDS: LORATADINE 10 MG TABLET PO (12:42)
[2022-12-18] MEDS: HYDROcodone/acetaminophen (*CRX) 5-325 MG TABLET 1 TAB PO (03:51)
[2022-12-18] MEDS: SIMETHICONE 80 MG TAB.CHEW PO ×2 (03:51→07:27)
[2022-12-18] MEDS: IBUPROFEN 600 MG TABLET PO ×2 (03:54→10:35)
[2022-12-18] MEDS: DOCUSATE SODIUM 100 MG CAPSULE PO (07:26)
[2022-12-18] MEDS: MULTIVIT/MIN/PREN/FOL AC/IRON TABLET 1 TAB PO (07:26)
[2022-12-18] MEDS: HYDROcodone/acetaminophen (*CRX) 10-325 MG TABLET 1 TAB PO ×3 (07:27→13:39)
[2022-12-18 07:50] VITALS: BP 100/61; PULSE 74; RESP 16; TEMP 36.7; O2SAT 100
[2022-12-18 09:45] LABS: Rapid Plasma Reagin Non-Reactive (NonReactive)
--- NOTE | 2022-12-18 11:27 | PM.OBPNVD ---
OB - PN: Subj Subjective Date/time seen: 12/18/22 11:27 Patient comments: no complaints and pain well controlled baby status: doing well (extubated on cpap now) OB - PN: Obj Data Labs 12/17/22 05:27 Labs: Laboratory Results - last 24 hr 12/16/22 20:42 RPR Non-reactive OB - PN A/P Plan day: 2 Plan: routine care, discharge home, follow up 6 weeks (and 1 week) and other (micronor for bc) Time Spent With Patient Time: Total time spent is greater than 50% in coordination of care (as documented) at patient's floor/unit and/or counseling patient: Exam Narrative: bandage intact : Bimanual exam- vagina & uterus: other (Uterus firm, nt @U)
--- NOTE | 2022-12-18 11:28 | PM.OBDSVD ---
DS: Admitting Diagnosis Discharge Date 12/18/22 Admitting Diagnosis IUP 32 weeks in active labor; breech; bicornuate uterus DS: Discharge Diagnosis Discharge Diagnosis (1) Delivery by section using T-shaped incision: Code(s): O82 - Encounter for delivery without indication Status: Acute OB - DS: Summary OB Procedures : Ultrasound OB Procedures Intrapartum: (LTCS with T-extension) OB Procedures: : None Peripartum Data Infant Delivery Method: Section Procedures: Procedures Operation Date: 12/16/22 21:00 Actual Procedure Side Surgeon p Section Angela Bautista MD complications: none Status at Discharge Functional status at discharge: independent ambulation Overall status at discharge: patient is progressing back to baseline Time Spent with Patient Time attestation: Total time spent providing and/or coordinating discharge services: DS: Data Data Completed and Pending Labs on day of discharge: Labs from last 24 hours 12/16/22 20:42 RPR Non-reactive Discharge Plan Discharge Attending physician on discharge: Sade Marin Discharging Clinician: Sade Marin Anticipated Discharge Date/Time: 12/18/22 11:30 Patient Disposition: Home, Self-Care Activity: may shower, may drive after 2 weeks and pelvic rest Diet: regular Wound Care Instructions: keep dressing dry Patient Instructions: Antibiotic Form Stand Alone Forms: General Discharge Information Follow-up/Referrals: Sade Marin MD [Physician] - 1 Week (and 6 wk) Discharge Medications: Continued bupropion HCl 300 mg Tablet Extended Release 24 Hr 300 mg PO QAM Pre-F Vitamin 1 mg Tablet PO bisacodyl [Biscolax] 5 mg Tablet,Delayed Release (Dr/Ec) PO Unisom (doxylamine) 25 mg Tablet ergocalciferol (vitamin D2) 1,000 unit Capsule 1,000 unit PO DAILY methylergonovine [Methergine] 0.2 mg tablet 0.2 mg PO TID 5 Days Qty: 15 0RF hydrocodone-acetaminophen 5-325 mg tablet 1 tablet PO Q6H PRN (Reason: pain) Qty: 30 0RF Date of admission: 12/16/22 19:45 Primary Care Provider: LichaMaria Antonia Admitting Provider: Sade Marin Attending physician on admission: Sade Marin Condition: Stable Health Concerns: ADMITTED and delivered by Dr. Angela BAUTISTA
== END 2022-12-18 14:10 | disposition home or self-care (01) | DRG 788 ==
LOC: ANHLDR 20:21 → ANHOB2 12-17 01:58
PROVIDERS: Admitting Provider Obstetrics & Gynecology; PCP Family Medicine; Visit Provider Obstetrics & Gynecology Gynecology
PROC: 10D00Z1 Extraction of Products of Conception, Low, Open Approach (ICD-10-PCS; CPT 59514; principal; 2022-12-16 21:00)
DX: O60.14X0 Preterm labor third trimester with preterm delivery third trimester, not applicable or unspecified (principal); O32.1XX0 Maternal care for breech presentation, not applicable or unspecified; O34.03 Maternal care for unspecified congenital malformation of uterus, third trimester; Q51.3 Bicornate uterus; Z3A.32 32 weeks gestation of pregnancy; Z37.0 Single live birth; O34.13 Maternal care for benign tumor of corpus uteri, third trimester; D25.9 Leiomyoma of uterus, unspecified; Z3A.49 Greater than 42 weeks gestation of pregnancy
CPT/HCPCS: 36415; 85025; 86592; 86850; 86900; 86901; A9270; J0690; J1200; J1885; J2250; J2270; J2274; J2405; J2590

== ENCOUNTER 2023-03-05 14:00 | Emergency (ER) | payer OTHER, SELFPAY ==
[2023-03-05] VITALS (12 sets, daily range): BP systolic 107–117; BP diastolic 78–84; PULSE 88–101; RESP 0–22; TEMP 36.3; O2SAT 96–100
--- NOTE | ~2023-03-05 | CT_ITS ---
EXAMINATION: CT brain wo con DATE: 03/05/2023 16:24 INDICATION: Headache. TECHNIQUE: Computed tomography (CT) of the head was performed without intravenous contrast. The mA wa s adjusted according to patient size. Iterative reconstruction technique was employed. The dose-lengt h product was 605.33 mGy-cm. COMPARISON: None FINDINGS: There is no intracranial hemorrhage, acute infarction, or abnormal intracranial mass lesion . The ventricles are normal in size. The paranasal sinuses are clear. The mastoid air cells are sushma l. IMPRESSION: 1. Normal brain. Reviewed, dictated and finalized at location A. IMPRESSION: 1. Normal brain.
--- NOTE | ~2023-03-05 | XR_ITS ---
EXAMINATION: XR chest 2V DATE: 03/05/2023 14:44 INDICATION: Dizziness. TECHNIQUE: Frontal and lateral views of the chest were obtained. COMPARISON: None. FINDINGS: There is no pneumonia, pleural effusion, or pneumothorax. The heart size is normal. IMPRESSION: 1. No acute cardiopulmonary disease. Reviewed, dictated and finalized at location A.
--- NOTE | 2023-03-05 14:13 | ECG_ITS ---
Measurements Intervals [place] Rate: 93 P: 48 MN: 120 QRS: 39 QRSD: 74 T: -2 QT: 346 QTc: 432 Interpretive Statements SINUS RHYTHM NORMAL ELECTROCARDIOGRAM NO PREVIOUS ECG AVAILABLE FOR COMPARISON Electronically Signed On 03-06-2023 13:07:33 CDT by Richard Stoddard M.D.
[2023-03-05 14:29] LABS: Basophils Percent Auto 0.5 % (0.2-1.2); Eosinophils Absolute Auto 0.1 K/mm3 (0-0.3); Hematocrit 41.6 % (37.0-47.0); Hemoglobin 13.7 g/dL (12.0-15.0); Immature Granulocyte Absolute 0.01 K/mm3 (0.00-0.031); Immature Granulocyte Percent A 0.2 % (0-0.5); Lymphocytes Absolute Auto 1.38 K/mm3 (0.9-3.2); Lymphocytes Percent Auto 23.9 % (18.3-44.2); Mean Corpuscular HGB Conc 32.9 g/dl (32-36); Mean Corpuscular Hemoglobin 29.5 pg (26-34); Mean Corpuscular Volume 89.5 fl (80-100); Mean Platelet Volume 9.1 fl (7.4-10.4); Monocytes Absolute Auto 0.5 K/mm3 (0.1-0.6); Monocytes Percent Auto 8.3 % (2.6-8.5); Neutrophils Absolute Auto 3.8 K/mm3 (1.3-6.7); Neutrophils Percent Auto 66.1 % (45.5-73.1); Platelet Count Result 254 k/mm3 (150-375); Red Blood Count 4.65 M/mm3 (4.2-5.4); Red Cell Distribution Width 11.5 % (11.5-14.5); White Blood Count 5.8 K/mm3 (4.5-10.0)
[2023-03-05 14:39] LABS: Alanine Aminotransferase 38 U/L (6-35); Albumin Level 4.8 g/dL (3.5-5.1); Alkaline Phosphatase 72 U/L (38-126); Anion Gap 9 mmol/L (8-16); Aspartate Amino Transferase 33 U/L (14-36); Bilirubin,Total 0.5 mg/dL (0.2-1.3); Blood Urea Nitrogen 20 mg/dL (7-17); Calcium 9.5 mg/dL (8.4-10.2); Carbon Dioxide 24 mmol/L (22-30); Chloride 104 mmol/L (98-107); Estimated CRCL calculation 76 ml/min; Estimated Glomerular Filt Rate > 60; Glucose 102 mg/dL (65-110); Potassium 4.2 mmol/L (3.4-5.0); Sodium 137 mmol/L (137-145)
[2023-03-05 15:32] LABS: Appearance Urine Clear (Clear); Bacteria Urine None Seen /hpf; Bilirubin Urine Negative (Negative); Color Urine Yellow (Yellow); Glucose Urine UA Negative (Negative); Ketones Urine Negative (Negative); Leukocyte Esterase Ur 2+ LEU/UL (Negative); Nitrate Urine Negative (Negative); Non Pathogenic Casts 0-2; Protein Urine Negative (Negative); Specific Grav Ur 1.021 (1.001-1.035); Squamous Epithelial Cell Urine None seen /hpf (Few); Urobilinogen Urine 0.2 mg/dL (<2.0); WBC Urine 21-50 /hpf
[2023-03-05 15:38] LABS: Add Urine Microscopic? YES
[2023-03-05] MEDS: MECLIZINE HCL 25 MG TABLET 50 MG PO (16:30)
--- NOTE | 2023-03-05 16:33 | ED.DIZZY ---
HPI - Dizziness General Chief Complaint: Dizziness Stated Complaint: dizziness Time Seen by Provider: 03/05/23 15:41 History of Present Illness HPI Narrative: Pt presents with dizziness when she moves her head or turns her head side to side. It improves when her head is still. Pt has a mild HILL. Pt is a little nauseated but no vomiting and no one sided weakness. Related Data Home Medications Medication Instructions Recorded Confirmed bisacodyl 5 mg tablet,delayed PO 10/06/21 10/06/21 release bupropion HCl 300 mg 24 hr tablet, 300 mg PO QAM 10/06/21 extended release doxylamine succinate 25 mg tablet 10/06/21 (Unisom (doxylamine)) ergocalciferol (vitamin D2) 1,000 1,000 unit PO DAILY 10/06/21 unit capsule ocjoblrf-rhy-Um-FA 1 mg tablet PO 10/06/21 tablet Allergies Allergy/AdvReac Type Severity Reaction Status Date / Time vancomycin Allergy Unknown Verified 07/02/22 11:22 Review of Systems Review of Systems: All systems reviewed & are unremarkable except as noted in HPI and below PMFSH Past Medical History Medical History (Updated 03/05/23 @ 18:12 by Nohemi Painter III, DO) Healthy female adult and not yet delivered labor Surgical History Surgical History No pertinent past surgical history Social History Social History Smoking status: Never smoker Second hand tobacco smoke exposure: No Lack of Transportation: No Lack of Food: Never True Current Housing: I Have Housing Concerned About Future Housing: No Difficulty Paying Gas/Electric Bills: No Difficulty Paying for Meds: No Currently Unemployed: No Education: Bachelor's Degree Difficulty w/ Childcare or Family Care: No Spiritual care concerns: No Exam Const: General: healthy appearing Nutritional Appearance: well nourished Orientation/consciousness: patient oriented x3 Limitations: no limitations HENMT: Head: normal to inspection Ears: TM's normal bilaterally Mouth: Yes Normal oral and palatal mucosa present Eyes: Conjunctivae: conjunctivae normal Pupils: Equal, round and reactive pupils present EOM: EOMs intact bilaterally Direct Ophthalmoscopy: no photophobia Neck: Neck: normal visual inspection Resp: Effort & Inspection: normal respiratory effort Cardio: Rate: regular rate Rhythm: regular rhythm Skin: General skin exam: normal color Neuro: General: patient oriented x3, moves all extremities, no meningeal signs, no focal motor deficits and CN's II-XI intact bilaterally Cranial nerves: Yes Nystagmus present horizontal and with right lateral gaze Speech: normal speech Other: dizziness reproduced with head movement and better when still Extrem: General: normal to inspection and no clubbing, cyanosis or edema Psych: Mental Status: mental status grossly normal Affect: normal affect Attitude: cooperative Course Vital Signs Vital signs: Vital Signs Temperature 97.3 F L 03/05/23 14:14 Pulse Rate 97 03/05/23 14:14 Respiratory Rate 18 03/05/23 14:14 Blood Pressure 117/83 03/05/23 14:14 Pulse Oximetry 100 03/05/23 14:14 Oxygen Delivery Room Air 03/05/23 14:14 Temperature 97.3 F L 03/05/23 14:14 Pulse Rate 91 03/05/23 16:01 Respiratory Rate 20 03/05/23 16:01 Blood Pressure 107/82 03/05/23 16:01 Pulse Oximetry 100 03/05/23 16:01 Oxygen Delivery Room Air 03/05/23 14:50 MDM - Dizziness MDM Narrative Medical decision making narrative: seems vertiginous but will CT because of hill. will give antivert and tylenol . antivert helped dizziness CT neg ok to go home on antivert Differential Diagnosis Differential diagnosis: Likely benign paroxysmal positional vertigo and acute vestibular neuronitis Lab Data 03/05/23 14:23 03/05/23 14:23 Labs: Lab Results 03/05/23 03/05/23
[2023-03-05] MEDS: SODIUM CHLORIDE 0.9% IV 1,000 ML 999 ML IV CONT (16:38)
[2023-03-05] MEDS: ACETAMINOPHEN 500 MG TABLET 1000 MG PO (16:41)
== END 2023-03-05 18:18 | disposition home or self-care (01) ==
PROVIDERS: Emergency Provider Emergency Medicine; PCP Family Medicine
DX: H81.10 Benign paroxysmal vertigo, unspecified ear (principal); Z79.899 Other long term (current) drug therapy
CPT/HCPCS: 36415; 70450; 71046; 80053; 81001; 81025; 85025; 87086; 87088; 93005; 96360; 96361; 99284; A9270; J7030

== ENCOUNTER 2024-04-22 15:50 | Outpatient (CLI) | payer OTHER, SELFPAY ==
--- NOTE | ~2024-04-22 | US_ITS ---
EXAMINATION: US OB <= 14 weeks fetus DATE: 04/22/2024 16:09 INDICATION: Uncertain dating of first trimester presenting with vaginal spotting TECHNIQUE: Real-time pelvic ultrasound utilizing transabdominal probe was performed. The maribell leone radiologist was not present for the study. COMPARISON: None. FINDINGS: The uterus measures 9.9 x 7.4 x 6.9 cm. There is an intrauterine gestational sac. A yolk sac and fet al pole are identified. The crown rump length measures 11.5 mm, which correlates with an estimated ge stational age of 7 weeks and 2 days. heart motion is identified measuring 166 beats per minute (bpm) by M-mode Doppler. No evident subchorionic hematoma. The right ovary measures 2.6 x 2.1 x 1.8 cm. The left ovary measures 3.4 x 2.7 x 1.7 cm. There is no free fluid in the pelvis. IMPRESSION: 1. Single living fetus with heart rate of 166 bpm. No evident subchorionic hematoma. 2. Gestational age by ultrasound of 7 weeks 2 day(s) +/- 5 day(s) with ultrasound estimated date of delivery (CODY) of 12/07/2024. Reviewed, dictated and finalized at location A. IMPRESSION: 1. Single living fetus with heart rate of 166 bpm. No evident subchorioni c hematoma. 2. Gestational age by ultrasound of 7 weeks 2 day(s) +/- 5 day(s) with ultraso und estimated date of delivery (CODY) of 12/07/2024.
== END 2024-04-22 15:51 | disposition home or self-care (01) ==
LOC: MICIMG 15:51
PROVIDERS: PCP Family Medicine; Visit Provider Advanced Practice Midwife
DX: O26.851 Spotting complicating pregnancy, first trimester (principal); Z3A.00 Weeks of gestation of pregnancy not specified
CPT/HCPCS: 76801

== ENCOUNTER 2024-05-16 07:22 | Outpatient (CLI) | payer OTHER, SELFPAY ==
[2024-05-16 08:26] LABS: Basophils Percent Auto 0.5 % (0.2-1.2); Eosinophils Percent Auto 0.6 % (0-4.4); Hematocrit 40.1 % (37.0-47.0); Hemoglobin 13.5 g/dL (12.0-15.0); Immature Granulocyte Absolute 0.04 K/mm3 (0.00-0.031); Immature Granulocyte Percent A 0.6 % (0-0.5); Lymphocytes Absolute Auto 1.13 K/mm3 (0.9-3.2); Mean Corpuscular HGB Conc 33.7 g/dl (32-36); Mean Corpuscular Hemoglobin 29.6 pg (26-34); Mean Corpuscular Volume 87.9 fl (80-100); Monocytes Absolute Auto 0.4 K/mm3 (0.1-0.6); Neutrophils Absolute Auto 4.6 K/mm3 (1.3-6.7); Neutrophils Percent Auto 73.3 % (45.5-73.1); Platelet Count Result 270 k/mm3 (150-375); Red Blood Count 4.56 M/mm3 (4.2-5.4); White Blood Count 6.3 K/mm3 (4.5-10.0)
[2024-05-16 09:11] LABS: HIV 1/2 Ab P24 Ag Result Negative (Negative)
[2024-05-16 09:25] LABS: Vitamin D 25 Hydroxy 78.7 ng/mL
[2024-05-16 09:42] LABS: Hepatitis B Surface Antigen Negative (Negative); Rubella IgG Antibody 41.1 IU/ML
[2024-05-16 10:01] LABS: Hepatitis C Virus Antibody Negative (Negative)
[2024-05-16 10:12] LABS: Hemoglobin A1C 5.4 % (<5.7)
[2024-05-16 12:42] LABS: Rapid Plasma Reagin Non-Reactive (NonReactive)
== END 2024-05-16 07:23 | disposition home or self-care (01) ==
PROVIDERS: Visit Provider Obstetrics & Gynecology Gynecology
DX: Z36.9 Encounter for antenatal screening, unspecified (principal)
CPT/HCPCS: 36415; 82306; 82728; 83036; 85025; 86592; 86703; 86762; 86803; 86850; 86900; 86901; 87340; G0432

== ENCOUNTER 2024-05-26 09:53 | Outpatient (CLI) | payer OTHER, SELFPAY ==
--- NOTE | ~2024-05-26 | US_ITS ---
EXAMINATION: US OB <= 14 weeks fetus DATE: 05/26/2024 10:52 INDICATION: Threatened . TECHNIQUE: Real-time transabdominal pelvic ultrasound was performed. COMPARISON: Ultrasound 04/22/2024 FINDINGS: The uterus measures 12.3 x 7.9 x 10.3 cm. There is an intrauterine gestational sac. The crown r ump length measures 6.4 cm, which correlates with an estimated gestational age of 12 weeks and 6 days . heart motion is identified measuring 178 beats per minute (bpm) by M-mode Doppler. There is a small subchorionic hematoma. There is a 3.4 cm subserosal fibroid. The right ovary is not visualized . The left ovary measures 4.2 x 1.5 x 2.5 cm. There is no free fluid in the pelvis. IMPRESSION: 1. Single living intrauterine gestation with estimated date of delivery of 12/07/2024 based on the ul trasound from 04/22/2024. 2. Small subchorionic hematoma. 3. Uterine fibroid. Reviewed, dictated and finalized at location B. IMPRESSION: 1. Single living intrauterine gestation with estimated date of delivery of 11/27 based on the ultrasound from 04/22/2024. 2. Small subchorionic hematoma. 3. Uterine fibroid.
== END 2024-05-26 09:54 | disposition home or self-care (01) ==
LOC: ANHIMG 09:54
PROVIDERS: Visit Provider Obstetrics & Gynecology Gynecology
DX: O20.0 Threatened abortion (principal); O34.10 Maternal care for benign tumor of corpus uteri, unspecified trimester; O43.899 Other placental disorders, unspecified trimester; Z3A.00 Weeks of gestation of pregnancy not specified
CPT/HCPCS: 76801

== ENCOUNTER 2024-06-06 15:31 | Outpatient (CLI) | payer OTHER, SELFPAY ==
--- NOTE | ~2024-06-06 | US_ITS ---
EXAMINATION: US OB follow up DATE: 06/06/2024 15:56 INDICATION: Subchronic hematoma TECHNIQUE: Real-time ultrasound of the pelvis was performed. The interpreting radiologist was not pre sent for the study. COMPARISON: None. FINDINGS: There is a single living fetus in stable presentation. The placenta is anterior with caudal margin 3 .0 cm from the internal cervical os. No evident subchorionic hematoma heart rate is 170 beats p er minute (bpm). The amniotic fluid volume is subjectively normal. 2.9 x 2.1 x 2.7 cm hypoechoic fibr oid at the left uterine fundus. IMPRESSION: 1. Single living fetus in variable presentation with heart rate of 170 bpm. 2. Resolution of prior subchorionic hematoma. 3. Uterine fibroid. Reviewed, dictated and finalized at location B. RDS ASSOCIATE IMPRESSION: 1. Single living fetus in variable presentation with heart rate of 170 bp m. 2. Resolution of prior subchorionic hematoma. 3. Uterine fibroid.
== END 2024-06-06 15:32 | disposition home or self-care (01) ==
LOC: MICIMG 15:32
PROVIDERS: PCP Obstetrics & Gynecology Gynecology; Visit Provider Obstetrics & Gynecology Gynecology
DX: O36.8910 Maternal care for other specified fetal problems, first trimester, not applicable or unspecified (principal); D25.9 Leiomyoma of uterus, unspecified; Z3A.00 Weeks of gestation of pregnancy not specified
CPT/HCPCS: 76816

== ENCOUNTER 2024-09-15 07:01 | Outpatient (CLI) | payer OTHER, SELFPAY ==
--- OUTSIDE RECORDS SUMMARY | 2024-09-15 07:06 | XMS_ITS | Referral Summary ---
Author Organization [facility] Address [address] [place] [address] Care Team Providers Care Musical Performer Name Role Phone No, Physician Primary Care Provider [phone] Allergies Active Allergy Reactions Criticality Noted Date Comments Zolpidem Other (See comments) Low 10/02/2019 Insomnia,nightmares. Vancomycin Hives Medium 10/02/2019 Medications ibuprofen (ADVIL,MOTRIN) 600 mg tablet Take 600 mg by mouth every 6 (six) hours as needed for pain Active baclofen (LIORESAL) 10 mg tablet Take 10 mg by mouth 3 (three) times a day Active [id number] cb,nv-snqae-wvo- dha 27-1-50-250 mg combo pack Take by mouth Active DULoxetine DR (CYMBALTA) 20 mg capsule Take 20 mg by mouth daily Active levonorgestreL-e thinyl estrad (LUTERA) 0.1-20 mg-mcg per tablet Take 1 tablet by mouth daily Active Active Problems No known active problems Social History Tobacco Use Types Packs/Day Years Used Date Smoking Tobacco: Never Smokeless Tobacco: Never Alcohol Use Standard Drinks/Week Comments Yes 5 (1 standard drink = 0.6 oz pur e alcohol) Personal Safety Answer Date Recorded Getting School Help Needed Not on file 09/29 Comments No Sex and Gender Information Value Date Recorded Sex Assigned at Not on file Legal Sex Female 12:46 PM [employer] Gender Identity Not on file Sexual Orientation Not on file Last Filed Vital Signs Vital Sign Reading Time Taken Comments Blood Pressure 126/75 10/02/2019 1:13 PM [employer]BESTOS MICROSCOPIST Pulse 87 10/02/2019 1:13 PM [employer]BESTOS MICROSCOPIST Temperature - - Respiratory Rate - - Oxygen Saturation - - Inhaled Oxygen Concentration - - Weight 63.5 kg (140 lb) 10/21/2019 8:08 PM CDT Height 170.2 cm (5' 7 ) 10/21/2019 8:08 PM CDT Body Mass Index 21.93 10/21/2019 8:08 PM CDT Plan of Treatment Not on file Insurance [facility] CHOICE [facility] CLAIMS Care Teams Musical Performer Relationship Specialty Start Date End Date No, Physician PCP - General 09/22/19
--- OUTSIDE RECORDS SUMMARY | 2024-09-15 07:06 | XMS_ITS | Patient Health Summary ---
Author Organization [facility] Address [address] [place] [address] Care Team Providers Care Supervisor [employer] Name Role Phone Benedict Spears MD Primary Care Provider [phone] Note from [facility],non-owned Affiliates and Associated Physician Practices is amultiple site organization consisting of ambulatory clinics and hospital sitesin [place], [place], [place] and [place]. This disclosure is being madepursuant to the Care Everywhere program and may not contain all information available regarding this patient. Last updated 18.[facility] Allergies * Zolpidem(Other) -Medium Criticality * Lunesta(Other,Psychiatric) -Medium Criticality * Trazodone(Shortness of Breath) -High Criticality * Vancomycin(Itching,Rash) -Medium Criticality Medications * Be aware that medications may not be up to date on this document. Alwaysverify current medications with the patient. * docusate sodium (Colace) 100 MG capsule(Started 03/08/2022) Take 1 (one) capsule by mouth 2 times daily as needed for Constipation * vitamin D (Cholecaciferol) 125 MCG (5000 UT) capsule(Started 06/14/2020) Take 1 (one) capsule by mouth once daily * MV-Min-Fe Fum-FA-DHA (/FOLIC ACID+DHA PO)(Started 06/14/2015) Take 1 tablet by mouth once daily * cyclobenzaprine (Flexeril) 10 MG tablet(Started 03/15/2023) Take 1 (one) tablet by mouth 3 times daily as needed for Muscle Spasms * amoxicillin-clavulanate (Augmentin) 875-125 MG tablet(Started 11/15/2023) Take 1 (one) tablet by mouth 2 times daily with morning and evening meal for 7 days * Vyvanse 30 MG capsule(Started 02/11/2024) * vilazodone (Viibryd) 20 MG tablet * methylPREDNISolone (Medrol Dosepak) 4 MG tablet(Started 04/18/2024) Take by mouth as directed Take as directed by mouth per package instructions. * amoxicillin-clavulanate (Augmentin) 875-125 MG tablet(Started 11/15/2023) TAKE ONE TABLET BY MOUTH 2 TIMES A DAY WITH MORNING AND EVENING MEAL FOR 7 DAYS Ended Medications* ondansetron, disintegrating, (Zofran ODT) 4 MG tablet(Started 01/29/2024)(Discontinued) Take 1 (one) tablet by mouth every 6 hours as needed for Nausea/Vomiting Allow tablet to dissolve on the tongue Active Problems Problem Noted Date Diagnosed Date Attention deficit hyperactivity disorder 024 11/14/2023 Pain in throat 10/15/2023 10/30/2023 Skin eruption 07/31/2023 10/30/2023 Poor concentration 05/09/2023 10/30/2023 Chronic back pain 04/03/2023 10/30/2023 Headache 04/03/2023 10/30/2023 Onychomycosis of toenail 04/03/2023 024 Pruritic rash 04/03/2023 10/30/2023 Post-operative state 03/14/2023 External hemorrhoids 10/23/2022 10/30/2023 Cervicalgia 06/30/2022 Degeneration of intervertebral disc of lumbar re gion 06/30/2022 Herniated lumbar intervertebral disc 06/30/2022 Low back pain 06/30/2022 Major depressive disorder, recurrent, mild 06/30 Personal history of other co mplications of , childbirth and the puerperium 06/30/2022 Vitamin D deficiency 06/30/2022 Bilateral tinnitus 02/20/2022 Chronic constipation 02/20/2022 10/30/2023 Lumbar spondylosis 02/20/2022 10/30/2023 Mixed anxiety and depressive disorder 02/09/2022 10/30/2023 Resolved Problems Problem Noted Date Diagnosed Date Resolved Date Cough 07/19/2023 10/30/2023 11/27/2023 Immunizations * INFLUENZA VACCINE, TRIV. (AFLURIA, FLUZONE TRIVALENT; 6MO+) (IIV3)(Given 06/03/2011) * ANTHRAX, HISTORIC VACCINE(Given 11/08/2009, 10/05/2009) * COVID ZOHRA PRIMARY 18+YR(Given 02/08/2021) * Covid Moderna primary monovalent 12+ yr 0.5mL(Given 08/18/2021) * HEP A/HEP B(Given 10/05/2009, 03/06/2009, 04/02/2008, 02/05/2008) * Human Papilloma Virus Quadrivalent Vaccine(Given 11/02/2011) * INFLUENZA A B3Y6-71 VACCINE(Given 08/08/2009) * INFLUENZA VACCINE(Given 04/14/2023, 04/09/2021, 03/30/2020, 04/25/2019, 04/10/2017, 05/20/2016, 04/29/2014, 04/29/2012, 03/30/2011, 06/15/2008) * INFLUENZA VACCINE, QUADR. (AFLURIA, FLUZONE QUADRIVALENT; 6MO+) (IIV4)(Given 07/02/2010, 08/08/2009) * MENINGOCOCCAL CONJUGATE (MCV4P)(Given 02/05/2008) * MMR(Given 02/06/2008) * PNEUMOCOCCAL PPSV23(Given 06/15/2016) * POLIO IPV(Given 02/05/2008) * Rho D Immune Globulin(Given 10/02/2021) * SMALLPOX (VACCINIA) VACCINE, LIVE(Given 10/05/2009) * TD (ADULT), 5 LF TETANUS TOXOID, ADSORBED, PF(Given 07/11/2018) * TDAP (7yrs+)(Given 03/14/2019, 02/05/2008, 07/30/2007, 01/27/2007) * TYPHOID IM(Given 10/05/2009) Social History Tobacco Use Types Packs/Day Years Used Date Smoking Tobacco: Never Smokeless Tobacco: Former Chew Quit: 12/28/2022 Tobacco Cessation:Counseling Given: Not Answered Alcohol Use Standard Drinks/Week Comments Yes 3 (1 standard drink = 0.6 oz pur e alcohol) AUDIT-C Answer Date Recorded Q1: How often do you have a drink containing alc ohol? Never 10/02/2021 Average Number of Drinks Not on file 022 Frequency of Binge Drinking Not on file 12/2021 Hunger Vital Sign Answer Date Recorded Within the past 12 months, y ou worried that your food would run out before you got the money to buy more. Never true 03/15/20 23 Within the past 12 months, t he food you bought just didn't last and you didn't have money to get more. Never true 03/15/2023 Comments Yes Sex and Gender Information Value Date Recorded Sex Assigned at Not on file Gender Identity Not on file Sexual Orientation Not on file Last Filed Vital Signs Vital Sign Reading Time Taken Comments Blood Pressure 116/84 03/10/2024 2:58 PM CDT Pulse 94 03/10/2024 2:58 PM CDT Temperature 36.7 C (98 F) 03/10/2024 2:58 PM CDT Respiratory Rate 16 03/10/2024 2:58 PM CDT Oxygen Saturation 99% 03/15/2023 3:35 PM CDT Inhaled Oxygen Concentration - - Weight 73.9 kg (163 lb) 04/18/2024 9:36 AM CDT Height 167.6 cm (5' 6 ) 04/18/2024 9:36 AM CDT Body Mass Index 26.31 04/18/2024 9:36 AM CDT Medical Devices Implanted Type Area Global Professional Device Identifier Shelf Expiration Date Model / Serial / Lot 1.6mm K Wires Implanted:Qty: 2 on 03/08/2022 by Ganesh Escalante MD at [facility] 10/25/2025 [id number] / [id number] / [id number] Procedures * PAIN MANAGEMENT PROCEDURE TIME(Performed 03/10/2024) Performed for Lumbar radiculopathy * XR FOOT BILAT WT BEARING 2VW(Performed 02/20/2024) Performed for Toe pain, bilateral * VITAMIN D 25-HYDROXY(Performed 12/25/2023) Performed for Avitaminosis D * HEMOGLOBIN A1C(Performed 12/25/2023) Performed for Avitaminosis D * URINALYSIS REFLEX MICROSCOPIC REFLEX CULTURE(Performed 12/25/2023) Performed for Avitaminosis D * TSH REFLEX FREE T4(Performed 12/25/2023) Performed for Avitaminosis D * LIPID PROFILE(Performed 12/25/2023) Performed for Avitaminosis D * COMPREHENSIVE METABOLIC PANEL(Performed 12/25/2023) Performed for Avitaminosis D * CBC W AUTO DIFFERENTIAL(Performed 12/25/2023) Performed for Avitaminosis D * IMAGING/RADIOLOGY/XRAY RESULTS ORDER(Performed 11/14/2023) * XR CERVICAL SPINE 4 OR 5VW(Performed 10/30/2023) Performed for Cervicalgia * XR HIP LEFT 2VW OR MORE(Performed 08/10/2023) Performed for Left hip pain * WV SONO EXAM, TRANSVAGINAL(Performed 07/12/2023) Performed for Uterine anomaly * WV SONO EXAM, HYSTEROSONOGRAPHY(Performed 07/12/2023) Performed for Uterine anomaly * WV CATH/INJECT HYSTEROSALPINGOGRAM(Performed 07/12/2023) Performed for Uterine anomaly * HCG URINE QUALITATIVE - POINT OF CARE (AMB)(Performed 07/12/2023) Performed for Uterine anomaly * IMAGING/RADIOLOGY/XRAY RESULTS ORDER(Performed 07/12/2023) * IMAGING/RADIOLOGY/XRAY RESULTS ORDER(Performed 07/12/2023) * XR FOOT LEFT WT BEARING 3VW(Performed 06/05/2023) Performed for Left foot pain * CARDIAC RHYTHM STRIP ORDER(Performed 03/16/2023) * CBC W/O DIFFERENTIAL(Performed 03/15/2023) Performed for Post-operative state * FIBRINOGEN ACTIVITY(Performed 03/14/2023) Performed for Post-operative state * PTT(Performed 03/14/2023) Performed for Post-operative state * PT-INR(Performed 03/14/2023) Performed for Post-operative state * CBC W AUTO DIFFERENTIAL(Performed 03/14/2023) Performed for Post-operative state * PATHOLOGY TISSUE EXAM (STL)(Performed 03/14/2023) Performed for Diagnosis unknown * HCG URINE QUAL POCT NOTIFICATION(Performed 03/14/2023) * WV HYSTEROSCOPY,ENDOMET ABLATION(Performed 03/14/2023) Performed for Diagnosis unknown * TYPE + SCREEN PANEL(Performed 03/14/2023) * HCG URINE QUALITATIVE - POCT (IP) INTERFACED(Performed 03/14/2023) * WV SONO EXAM, TRANSVAGINAL(Performed 03/07/2023) Performed for Uterine anomaly * IMAGING/RADIOLOGY/XRAY RESULTS ORDER(Performed 03/06/2023) * WV SONO FU OR REPEAT(Performed 11/22/2022) Performed for Uterine congenital anomaly in , second trimester ([facility]), Uterine fibroids affecting in second trimester ([facility]), Encounter for ultrasound to assess growth ([facility]) * IMAGING/RADIOLOGY/XRAY RESULTS ORDER(Performed 11/22/2022) * HGB HCT PANEL(Performed 11/13/2022) Performed for Visit for screening ([facility]) * HIV-1 HIV-2 ANTIBODY + HIV P24 AG PANEL(Performed 11/13/2022) Performed for Visit for screening ([facility]) * VITAMIN D 25-HYDROXY(Performed 11/13/2022) Performed for Visit for screening ([facility]) * GTT 1 HR (50G) GESTATIONAL SCREEN(Performed 11/13/2022) Performed for Visit for screening ([facility]) * XR SHOULDER RIGHT 2VW OR MORE(Performed 10/09/2022) Performed for Acute pain of right shoulder * WV SONO COMPLETE(Performed 09/26/2022) Performed for Personal history of other complications of , childbirth and the puerperium, Uterine congenital anomaly in , second trimester ([facility]), Encounter for anatomic survey([facility]), Uterine fibroids affecting in second trimester ([facility]), Encounter for screening for cervical length ([facility]) * WV ULTRASND,PREG UTER,TRANSVAGIN(Performed 09/26/2022) Performed for Personal history of other complications of , childbirth and the puerperium, Uterine congenital anomaly in , second trimester ([facility]), Encounter for anatomic survey([facility]), Uterine fibroids affecting in second trimester ([facility]), Encounter for screening for cervical length ([facility]) * IMAGING/RADIOLOGY/XRAY RESULTS ORDER(Performed 09/26/2022) * XR WRIST RIGHT 3VW OR MORE(Performed 09/12/2022) Performed for Subluxation of right thumb, subsequent encounter * MRI LUMBAR SPINE WO CONTRAST(Performed 08/11/2022) Performed for Chronic low back pain, unspecified back pain laterality, unspecified whether sciaticapresent, Lumbar radiculopathy * IMAGING/RADIOLOGY/XRAY RESULTS ORDER(Performed 08/01/2022) Performed for Encounter for repeat ultrasound for subchorionic hemorrhage, antepartum (HCC) * TYPE + SCREEN PANEL(Performed 07/28/2022) Performed for First trimester screening (HCC), screening encounter ([facility]) * HEPATITIS B SURFACE ANTIGEN W RFLX CONFIRMATION(Performed 07/28/2022) Performed for screening encounter (HCC) * SYPHILIS ANTIBODY CASCADING REFLEX(Performed 07/28/2022) Performed for screening encounter (HCC) * HEPATITIS C ANTIBODY(Performed 07/28/2022) Performed for screening encounter (HCC) * HIV-1 HIV-2 ANTIBODY + HIV P24 AG PANEL(Performed 07/28/2022) Performed for screening encounter (HCC) * RUBELLA ANTIBODY IGG(Performed 07/28/2022) Performed for screening encounter (HCC) * CBC W AUTO DIFFERENTIAL(Performed 07/28/2022) Performed for screening encounter (HCC) * FERRITIN(Performed 07/28/2022) Performed for screening encounter (HCC) * HEMOGLOBIN A1C(Performed 07/28/2022) Performed for screening encounter (HCC) * VITAMIN D 25-HYDROXY(Performed 07/28/2022) Performed for screening encounter (HCC) * US OB LESS THAN 14 WEEKS(Performed 07/14/2022) Performed for Subchorionic hematoma in first trimester, single or unspecified fetus ([facility]) * US OB LESS 14 WKS W TRANSV W DOPP(Performed 06/16/2022) Performed for Spotting affecting in first trimester ([facility]) * XR HAND RIGHT 3VW OR MORE(Performed 05/29/2022) Performed for Right hand pain * XR HAND RIGHT 3VW OR MORE(Performed 04/11/2022) Performed for Subluxation of right thumb, subsequent encounter * XR HAND RIGHT 3VW OR MORE(Performed 03/14/2022) Performed for Subluxation of right thumb, subsequent encounter * LARYNGEAL MASK AIRWAY(Performed 03/08/2022) * PERCUTANEOUS FIXATION FINGER/THUMB (PHALANX)(Performed 03/08/2022) Performed for Subluxation of right thumb, subsequent encounter * HCG URINE QUALITATIVE - POCT (IP) INTERFACED(Performed 03/08/2022) * XR HAND RIGHT 3VW OR MORE(Performed 02/28/2022) Performed for Right hand pain * XR HAND RIGHT 3VW OR MORE(Performed 02/02/2022) Performed for Right hand pain * XR HAND RIGHT 3VW OR MORE(Performed 01/31/2022) Performed for Right hand pain * URINE MICROSCOPIC ONLY REFLEX TO CULTURE(Performed 10/02/2021) * URINALYSIS REFLEX MICROSCOPIC REFLEX CULTURE(Performed 10/02/2021) * CULTURE URINE(Performed 10/02/2021) * US OB LESS THAN 14 WEEKS(Performed 10/02/2021) Performed for Vaginal bleeding in , first trimester (HCC) * BLOOD TYPE ABO+ RH PANEL(Performed 10/02/2021) * HCG BETA BLOOD QUANTITATIVE(Performed 10/02/2021) Results * Pain Management Procedure Time (03/10/2024 3:27 PM CDT) Anatomical Region Laterality Modality Radio Fluoroscop y Narrative 03/10/2024 2:56 PM CDT Donny Florez MD 03/10/2024 3:47 PM PATIENT NAME: Aline Arriola PATIENT DATE OF SURGERY: 03/10/2024 TITLE OF PROCEDURE: Interlaminar Lumbar Epidural Steroid Injection with fluoroscopic guidance LEVEL ENTERED: L4-L5 PREOPERATIVE DIAGNOSES: M54.16 Lumbar radiculopathy POSTOPERATIVE DIAGNOSES: Same SURGEON: Donny Florez MD ANESTHESIA: Local DESCRIPTION OF OPERATIVE PROCEDURE: Informed consent was obtained. The patient was brought to the Procedure Room and they positioned themselves to their comfort in the prone position. Time-out was conducted with all members of the care team. Standard prep and drape were performed. The appropriate level of the lumbar spine was identified with AP fluoroscopy. 2 ml of lidocaine 1% was injected in the subcutaneous tissue to provide superficial anesthesia. Following this, a 9cm 20 gauge tuohy needle was guided into the epidural space using A/P and lateral or contralateral oblique fluoroscopic images and with a loss of resistance to saline. Correct needle position was confirmed under continuous fluoroscopy with 1 ml of contrast dye. Good dye spread was noted in both the AP and lateral projections, without evidence of intraneural, intrathecal, or intravascular injection. After a negative aspiration, a swirled mixture of PF NS (1ml), 10mg dexamethasone, and 1ml Lidocaine 0.5% for a total volume of 3ml was incrementally injected into the epidural space. A final fluoroscopic image was taken to confirm appropriate medication spread.The needle was then withdrawn. The surgical site preparation was washed off of the patient. Band-Aids were applied. The patient was brought to the recovery area. The patient did very well and the procedure results were discussed. Standard discharge instructions were given to the patient. The patient knows how to contact the clinic should they have any questions or problems. COMPLICATIONS: None -- pt had vasovagal - dizziness and nausea immediately postprocedural - HR 40s BP 60/40s -- improved with soda and crackers -- returned to pt baseline of HR 80s and BP 107/60s -- pt felt better and advised to wait in waiting room until back to baseline. EBL: minimal PLAN: 2 week phone call Donny Florez MD DIAGNOSTIC IMAGIN G ORDERABLES * XR FOOT BILAT WT BEARING 2VW (02/20/2024 8:10 AM CDT) Anatomical Region Laterality Modality Ankle / Foot, Lower Extremity Ra diographic Imaging 02/20/2024 10:1 5 AM CDT Impressions 02/20/2024 10:17 AM CDT IMPRESSION: Normal foot radiographs. > Interpreting Provider: Yina Easley MD on 02/20/2024 10:17 AM Narrative 02/20/2024 10:17 AM CDT PROCEDURE: XR FOOT BILAT WT BEARING 2VW DATE/TIME OF EXAM: 02/20/2024 8:10 AM CLINICAL INFORMATION: None relevant/not provided if blank. Indication: M79.674: Pain in right toe(s) M79.675: Pain in left toe(s) Additional History: COMPARISON: 06/05/2023 FINDINGS: Left foot: There is no fracture. Alignment is normal. Joint spaces are normal. There is no appreciable soft tissue abnormality. Right foot: There is no fracture. Alignment is normal. Joint spaces are normal. There is no appreciable soft tissue abnormality. Procedure Note Yina Easley MD - 02/20/2024 PROCEDURE: XR FOOT BILAT WT BEARING 2VW DATE/TIME OF EXAM: 02/20/2024 8:10 AM CLINICAL INFORMATION: None relevant/not provided if blank. Indication: M79.674: Pain in right toe(s) M79.675: Pain in left toe(s) Additional History: COMPARISON: 06/05/2023 FINDINGS: Left foot: There is no fracture. Alignment is normal. Joint spaces are normal. There is no appreciable soft tissue abnormality. Right foot: There is no fracture. Alignment is normal. Joint spaces are normal. There is no appreciable soft tissue abnormality. IMPRESSION: Normal foot radiographs. > Interpreting Provider: Yina Easley MD on 02/20/2024 10:17 AM Sisi Rodriguez MD DIAGNOSTIC IMAGING O RDERABLES * HEMOGLOBIN A1C (12/25/2023 3:00 PM CDT) Only the most recent of2 resultswithin the time period is included. Hemoglobin A1c 5.3 <5.7 % 12/25/2023 3:26 PM CDT [facility] Estimated Average Glucose 105 mg/dL 12/25/2023 3:26 PM CDT [facility] Blood BLOOD SPECIMEN / Unknown Lab Venipuncture / Unknown 12/25/2023 3:00 PM CDT 12/25/2023 3:06 PM CDT [facility] - 12/25/2023 3:26 PM CDT HbA1c Interpretation: Normal: < 5.7% Pre-diabetes: 5.7-6.4% Diabetes: Equal to or greater than 6.5% Test results diagnostic of diabetes should be repeated for confirmation. Treatment target values recommended by ADA and other clinical organizations should be used to evaluate metabolic control in patients. This test should not replace glucose testing for patients with Type 1 diabetes, pediatric patients, or women. Falsely low HbA1c results may be observed in patients with clinical conditions that shorten erythrocyte life span or decrease mean erythrocyte age such as the presence of unstable hemoglobin variants, elevated hemoglobin F level or other causes of hemolytic anemia. HbA1c may not accurately reflect glycemic control when clinical conditions that affect erythrocyte survival are present. Severe Iron deficiency anemia may yield falsely high results. Hemoglobin A1c assay should not be used to diagnose or monitor diabetes in patients with malignancy, recent blood transfusion, chronic kidney or liver disease. This method may yield falsely low results when hemoglobin (HbF) exceeds 5% in the specimen. The [place] Alinity assay for the measurement of HbA1c is a National Glycohemoglobin Standardization Program (NGSP) certified method. Benedict Spears MD LAB - CHEMISTRY ORDOctavia [place] Performing Organization Address [facility] de Phone Number [facility] [address] [place] [address] [phone] * (ABNORMAL) VITAMIN D 25-HYDROXY (12/25/2023 3:00 PM CDT) Only the most recent of3 resultswithin the time period is included. Vitamin D, 25 Hydroxy 81.3(H) 30 - 80 ng/mL 12/25/2023 4:00 PM CDT [facility] Blood BLOOD SPECIMEN / Unknown Lab Venipuncture / Unknown 12/25/2023 3:00 PM CDT 12/25/2023 3:06 PM CDT Narrative [facility] - 12/25/2023 4:00 PM CDT Vitamin D Status: Deficiency <20 ng/mL Insufficiency 20-30 ng/mL Sufficiency 30-100 ng/mL Toxicity >100 ng/mL Benedict Spears MD LAB - CHEMISTRY ABDIEL [place] Performing Organization Address [facility] de Phone Number [facility] [address] [place] [address] [phone] * (ABNORMAL) URINALYSIS REFLEX MICROSCOPIC REFLEX CULTURE (12/25/2023 2:59 PM CDT) Only the most recent of2 resultswithin the time period is included. Color UA Straw Straw, Yellow 12/25/2023 3:21 PM CDT [facility] Clarity UA Slt Cloudy(A) Clear 12/25/2023 3:21 PM CDT [facility] Glucose UA Negative Negative 12/25/2023 3:21 PM CDT [facility] Bilirubin UA Negative Negative 12/25/2023 3:21 PM CDT [facility] Ketone UA Negative Negative 12/25/2023 3:21 PM CDT [facility] Specific [place] UA 1.004(L) 1.005 - 1.030 12/25/2023 3:21 PM CDT [facility] Blood UA Negative Negative 12/25/2023 3:21 PM CDT [facility] pH UA 6.0 5.0 - 8.0 pH 12/25/2023 3:21 PM CDT [facility] Protein UA Negative Negative 12/25/2023 3:21 PM CDT [facility] Urobilinogen UA Negative Negative mg/dL 12/25/2023 3:21 PM CDT [facility] Nitrite UA Negative Negative 12/25/2023 3:21 PM CDT [facility] Leukocyte UA Negative Negative 12/25/2023 3:21 PM CDT [facility] Urine Microscopy Urine microscopy not indicated 12/25/2023 3:21 PM CDT [facility] Reflex Status Culture not indicated 12/25/2023 3:21 PM CDT [facility] Urine URINE SPECIMEN OBTAINED BY CLEAN CATCH PROCEDURE / Unknown Collection / Unknown 12/25/2023 2:59 PM CDT 12/25/2023 3:06 PM CDT Narrative [facility] - 12/25/2023 3:21 PM CDT Benedict Spears MD LAB - URINALYSIS ORD ERABLES Performing Organization Address City/[facility]/ZIP Co de Phone Number [facility] [address] [place] [phone] * TSH REFLEX FREE T4 (12/25/2023 2:55 PM CDT) TSH 0.951 0.350 - 4.940 uIU/mL 12/25/2023 4:00 PM CDT [facility] Blood BLOOD SPECIMEN / Unknown Lab Venipuncture / Unknown 12/25/2023 2:55 PM CDT 12/25/2023 3:06 PM CDT Benedict Spears MD LAB - CHEMISTRY ORDE RABSCARLETT Performing Organization Address City/[facility]/ZIP Co de Phone Number [facility] [address] [place] [address] * (ABNORMAL) LIPID PROFILE (12/25/2023 2:54 PM CDT) Cholesterol 224(H) <200 mg/dL 12/25/2023 3:41 PM CDT [facility] Triglycerides 69 <150 mg/dL 12/25/2023 3:41 PM CDT [facility] HDL Cholesterol 72 >40 mg/dL 4 3:41 PM CDT [facility] LDL Calculated 138(H) <130 mg/dL 12/25/2023 3:41 PM CDT [facility] VLDL Calculated 14 <=30 mg/dL 3:41 PM CDT [facility] Chol HDL Ratio 3.1 <4.5 12/25/2023 3:41 PM CDT [facility] LDL/HDL Ratio 1.9 <5.0 12/25/2023 3:41 PM CDT [facility] Blood BLOOD SPECIMEN / Unknown Lab Venipuncture / Unknown 12/25/2023 2:54 PM CDT 12/25/2023 3:06 PM CDT Benedict Spears MD [facility] Organization Address City/State/ZIP Co de Phone Number [facility] [address] [place] [address] * COMPREHENSIVE METABOLIC PANEL (12/25/2023 2:53 PM CDT) Glucose 93 70 - 105 mg/dL 12/25/2023 3:32 PM CDT [facility] Sodium 139 136 - 145 mmol/L 12/25/2023 3:32 PM CDT [facility] Potassium 3.7 3.5 - 5.1 mmol/L 12/25/2023 3:32 PM CDT [facility] Chloride 101 98 - 107 mmol/L 12/25/2023 3:32 PM CDT [facility] CO2 25 22 - 29 mmol/L 12/25/2023 3:32 PM CDT [facility] Calcium 9.5 8.4 - 10.4 mg/dL 12/25/2023 3:32 PM CDT [facility] Anion Gap 13 6 - 16 mmol/L 12/25/2023 3:32 PM CDT [facility] BUN 9 5.3 - 18.7 mg/dL 12/25/2023 3:32 PM CDT [facility] Creatinine 0.79 0.57 - 1.11 mg/dL 12/25/2023 3:32 PM CDT [facility] Alkaline Phosphatase 73 40 - 150 U/L 12/25/2023 3:32 PM CDT [facility] ALT 16 0 - 55 U/L 12/25/2023 3:32 PM CDT [facility] AST 18 5 - 34 U/L 12/25/2023 3:32 PM CDT [facility] Protein Total 7.7 6.4 - 8.3 gm/dL 12/25/2023 3:32 PM CDT [facility] Albumin 4.5 3.4 - 5.0 gm/dL 12/25/2023 3:32 PM CDT [facility] Bilirubin Total 0.9 0.2 - 1.2 mg/dL 12/25/2023 3:32 PM CDT [facility] eGFR by CKD-EPI >90 >=90 mL/min/1.7 3 m2 12/25/2023 3:32 PM CDT [facility] Blood BLOOD SPECIMEN / Unknown Lab Venipuncture / Unknown 12/25/2023 2:53 PM CDT 12/25/2023 3:06 PM CDT Benedict Spears MD [facility] Organization Address City/State/[facility] Co de Phone Number [facility] [address] [place] [address] * CBC WITH DIFFERENTIAL (12/25/2023 2:52 PM CDT) Only the most recent of3 resultswithin the time period is included. WBC 6.0 4.0 - 10.7 x10E9/L 12/25/2023 3:18 PM CDT [facility] RBC Count 4.61 3.90 - 5.20 x10E12/L 12/25/2023 3:18 PM CDT [facility] Hemoglobin 13.0 11.9 - 15.8 g/dL 12/25/2023 3:18 PM CDT [facility] Hematocrit 40.1 34.8 - 46.1 % 12/25/2023 3:18 PM CDT [facility] MCV 87.0 80.0 - 98.0 fL 12/25/2023 3:18 PM CDT [facility] MCH 28.2 26.7 - 33.6 pg 12/25/2023 3:18 PM CDT [facility] MCHC 32.4 31.7 - 36.3 g/dL 12/25/2023 3:18 PM [facility] RDW-CV 11.5 11.3 - 14.8 % 12/25/2023 3:[facility] Platelet Count 286 150 - 420 x10E9/L 12/25/2023 3:18 PM CDT [facility] MPV 9.5 7.8 - 11.4 fL 12/25/2023 3:18 PM [facility] Neutrophil % 69.4 41.0 - 74.0 % 12/25/2023 3:18 PM [facility] Lymphocyte % 24.4 17.0 - 47.0 % 12/25/2023 3:18 [address] [facility] Monocyte % 5.2 3.0 - 11.0 % 12/25/2023 3:18 PM [facility] Eosinophil % 0.3 0.0 - 7.0 % 12/25/2023 3:18 [address] [facility] Basophil % 0.5 0.0 - 1.6 % 12/25/2023 3:18 PM [facility] Immature Granulocytes % 0.2 0.0 - 1.0 % 12/25/2023 3:18 PM [facility] Neutrophil Absolute 4.15 1.60 - 7.50 x10E9/L 12/25/2023 3:18 PM [facility] Lymphocyte Absolute 1.46 1.00 - 4.40 x10E9/L 12/25/2023 3:18 PM CDT [facility] Monocyte Absolute 0.31 0.15 - 1.00 x10E9/L 12/25/2023 3:18 PM CDT [facility] Eosinophil Absolute 0.02 0.00 - 0.60 x10E9/L 12/25/2023 3:18 PM CDT [facility] Basophil Absolute 0.03 0.00 - 0.13 x10E9/L 12/25/2023 3:18 PM CDT [facility] Blood BLOOD SPECIMEN / Unknown Lab Venipuncture / Unknown 12/25/2023 2:52 PM CDT 12/25/2023 3:06 PM CDT Benedict Spears MD LAB - HEMATOLOGY ORD ERABLES [facility] [address] [place] [address] * IMAGING RADIOLOGY XRAY RESULTS ORDER (11/14/2023) Only the most recent of7 resultswithin the time period is included. Anatomical Region Laterality Modality Other 11/14/2023 Narrative 11/14/2023 Ordered by an unspecified provider. Scanned Document IMAGING * XR CERVICAL SPINE 4 OR 5VW (10/30/2023 2:51 PM CDT) Anatomical Region Laterality Modality Spine Radiographic Melissa ging 10/30/2023 3:29 PM CDT Impressions 10/30/2023 3:32 PM CDT IMPRESSION: As above. > Interpreting Provider: Richard Blue MD on 10/30/2023 3:32 PM Narrative 10/30/2023 3:32 PM CDT PROCEDURE: XR CERVICAL SPINE 4 OR 5VW DATE/TIME OF EXAM: 10/30/2023 2:51 PM CLINICAL INFORMATION: None relevant/not provided if blank. Indication: M54.2: Cervicalgia Additional History: COMPARISON: None. FINDINGS: There is minimal approximately 2 mm retrolisthesis of C3 on C4 during extension which normalizes in neutral and flexion. Up to moderate multilevel degenerative disc disease most pronounced at C6-7. Vertebral body heights are maintained. No evidence of prevertebral soft tissue swelling. Procedure Note Richard Blue MD - 10/30/2023 PROCEDURE: XR CERVICAL SPINE 4 OR 5VW DATE/TIME OF EXAM: 10/30/2023 2:51 PM CLINICAL INFORMATION: None relevant/not provided if blank. Indication: M54.2: Cervicalgia Additional History: COMPARISON: None. FINDINGS: There is minimal approximately 2 mm retrolisthesis of C3 on C4 during extension which normalizes in neutral and flexion. Up to moderate multilevel degenerative disc disease most pronounced at C6-7. Vertebral body heights are maintained. No evidence of prevertebral soft tissue swelling. IMPRESSION: As above. > Interpreting Provider: Richard Blue MD on 10/30/2023 3:32 PM David Manriquez MD DIAGNOSTIC IMAGING O RDERABLES * XR HIP LEFT 2VW OR MORE (08/10/2023 1:02 PM TEST DESK SUPERVISOR) Anatomical Region Laterality Modality Pelvis, Lower Extremity Radiogra phic Imaging 08/10/2023 1:17 PM TEST DESK SUPERVISOR Impressions 08/10/2023 1:19 PM TEST DESK SUPERVISOR IMPRESSION: Normal left hip x-ray. Report dictated by Yemi Taylor DO (radiology practitioner assistant). I, Aung Webster MD have personally reviewed and interpreted this examination/study. > Interpreting Provider: Aung Webster MD on 08/10/2023 1:19 PM Narrative 08/10/2023 1:19 PM TEST DESK SUPERVISOR PROCEDURE: XR HIP LEFT 2VW OR MORE, DATE/TIME OF EXAM: 08/10/2023 1:02 PM, LOCATION [facility] INDICATION: M25.552: Left hip pain ADDITIONAL CLINICAL INFORMATION: Ordering Provider Reason For Exam: pain Technologist Note: Additional: COMPARISON: None. FINDINGS: The osseous structures are intact and well aligned without acute fracture or dislocation. The hip joint space is preserved. Bone density and texture are normal. Procedure Note Aung Webster MD - 08/10/2023 PROCEDURE: XR HIP LEFT 2VW OR MORE, DATE/TIME OF EXAM: 08/10/2023 1:02PM, LOCATION [facility] INDICATION: M25.552: Left hip pain ADDITIONAL CLINICAL INFORMATION: Ordering Provider Reason For Exam: pain Technologist Note: Additional: COMPARISON: None. FINDINGS: The osseous structures are intact and well aligned without acutefracture or dislocation. The hip joint space is preserved. Bone density andtexture are normal. IMPRESSION: Normal left hip x-ray. Report dictated by Yemi Taylor DO (radiology practitioner assistant). I, Aung Webster MD have personally reviewed and interpreted this examination/study. > Interpreting Provider: Aung Webster MD on 08/10/2023 1:19 PM Ree Neville MD DIAGNOSTIC IMAGING O RDERABLES * WV CATH/INJECT HYSTEROSALPINGOGRAM, W[place] SONO EXAM, HYSTEROSONOGRAPHY, [place] SONO EXAM, TRANSVAGINAL (07/12/2023 9:28 AM TEST DESK SUPERVISOR) Narrative Aline Daniel - 07/12/2023 9:28 AM TEST DESK SUPERVISOR Aline Daniel 07/12/2023 9:29 AM Documentation in digisonics Richard Thompson MD PROCEDURE/MINOR EMILIE GICAL ORDERABLES * HCG URINE QUALITATIVE - POINT OF CARE (AMB) (07/12/2023 8:00 AM TEST DESK SUPERVISOR) HCG Qual Urine Negative Negative [facility] [address] QC Verified Yes Yes [facility] [address] Urine URINE / Unknown 07/12/2023 8 :00 AM TEST DESK SUPERVISOR Richard Thompson MD LAB - POINT OF CARE ORDERABLES [facility] [address] [place] [address], [facility] [phone] * XR FOOT LEFT WT BEARING 3VW (06/05/2023 3:49 PM TEST DESK SUPERVISOR) Anatomical Region Laterality Modality Ankle / Foot Radiographic Melissa ging 06/06/2023 10:3 4 AM TEST DESK SUPERVISOR Impressions 06/06/2023 10:35 AM TEST DESK SUPERVISOR Impression: No evidence of fracture. > Interpreting Provider: Hernandez Barton MD on 06/06/2023 10:35 AM Narrative 06/06/2023 10:35 AM TEST DESK SUPERVISOR Procedure: XR FOOT LEFT WT BEARING 3VW Exam Date: 06/05/2023 3:49 PM Location: [facility] Indication: M79.672: Pain in left foot Injury Findings: There is no evidence of fracture. The joint spaces are well-maintained. There is no bony destruction. Procedure Note Hernandez Barton MD - 06/06/2023 Procedure: XR FOOT LEFT WT BEARING 3VW Exam Date: 06/05/2023 3:49 PM Location: [facility] Indication: M79.672: Pain in left foot Injury Findings: There is no evidence of fracture. The joint spaces are well-maintained. There is no bony destruction. Impression: No evidence of fracture. > Interpreting Provider: Hernandez Barton MD on 06/06/2023 10:35 AM Nita Benjamin PA-C DIAGNOSTIC IMAGING ORDERABLES * CARDIAC RHYTHM STRIP ORDER (03/16/2023 6:44 PM CDT) Narrative 03/16/2023 6:44 PM CDT Ordered by an unspecified provider. Scanned Document CARDIAC SERVICES ORD ERABLES * (ABNORMAL) CBC W/O DIFFERENTIAL (03/15/2023 4:27 AM CDT) WBC 7.9 4.4 - 10.7 x10E9/L 03/15/2023 5:18 AM CDT [facility] RBC 3.77(L) 3.80 - 5.20 x10E12/L 03/15/2023 5:18 AM CDT [facility] Hemoglobin 11.5(L) 12.0 - 15.6 gm/dL 03/15/2023 5:18 AM CDT [facility] Hematocrit 33.7(L) 35.9 - 45.5 % 03/15/2023 5:18 AM CDT [facility] MCV 89.4 80.7 - 98.3 fl 03/15/2023 5:18 AM CDT [facility] MCH 30.5 26.7 - 34.0 pg 03/15/2023 5:18 AM CDT [facility] MCHC 34.1 30.8 - 35.9 gm/dL 03/15/2023 5:18 AM CDT [facility] Platelet Count 215 153 - 416 x10E9/L 03/15/2023 5:18 AM CDT [facility] RDW-CV 11.5(L) 12.1 - 14.9 % 03/15/2023 5:18 AM CDT [facility] MPV 10.1 9.4 - 12.9 fl 03/15/2023 5:18 AM CDT [facility] Blood BLOOD SPECIMEN / Unknown Lab Venipuncture / Unknown 03/15/2023 4:27 AM CDT 03/15/2023 4:50 AM CDT Richard Thompson MD LAB - HEMATOLOGY OR DERABLES Performing Organization Address [facility] de Phone Number [facility] [address] [place], [place] [id number] * FIBRINOGEN ACTIVITY (03/14/2023 7:37 PM CDT) Fibrinogen 259 200 - 400 mg/dL 03/14/2023 8:14 PM CDT [facility] Blood BLOOD SPECIMEN / Unknown Lab Venipuncture / Unknown 03/14/2023 7:37 PM CDT 03/14/2023 7:57 PM CDT Richard Thompson MD LAB - COAGULATION O HODA Performing Organization Address [facility] de Phone Number [facility] [address] [place], [place] [phone] * PTT (03/14/2023 7:37 PM CDT) PTT 27.8 23.0 - 38.4 sec 03/14/2023 8:14 PM CDT [facility] Blood BLOOD SPECIMEN / Unknown Lab Venipuncture / Unknown 03/14/2023 7:37 PM CDT 03/14/2023 7:57 PM CDT Narrative [facility] - 03/14/2023 8:14 PM CDT Heparin Therapeutic Range for PTT: 69.0 - 110.0 seconds. Richard Thompson MD LAB - COAGULATION O HODA Performing Organization Address [facility] Co de Phone Number [facility] [address] [place] [phone] * PT-INR (03/14/2023 7:37 PM CDT) PT 13.6 12.1 - 14.8 sec 03/14/2023 8:14 PM CDT [facility] INR 1.1 0.9 - 1.1 03/14/2023 8:14 PM CDT [facility] Blood BLOOD SPECIMEN / Unknown Lab Venipuncture / Unknown 03/14/2023 7:37 PM CDT 03/14/2023 7:57 PM CDT Narrative [facility] - 03/14/2023 8:14 PM CDT Conventional Warfarin Anticoagulant Therapy: INR Reference Range: 2.0-3.0 Intensive Warfarin Anticoagulant Therapy: INR Reference Range: 2.5-3.5 Richard Thompson MD LAB - COAGULATION O RDERABLES [facility] [address] [place] [address] * PATHOLOGY TISSUE EXAM (STL) (03/14/2023 1:19 PM CDT) Case Report Surgical Pathology Report Case: [id number] Authorizing Provider: Richard Thompson MD Collected: 03/14/2023 01:19 PM Ordering Location: [facility] Received: 03/14/2023 02:13 PM Pathologist: Grant Vargas MD Specimen: Soft Tissue, intrauterine adhesions 03/15/2023 3:01 PM CDT [facility] Final Diagnosis Intrauterine adhesions, lysis and removal: - Inactive endometrium with tubal metaplasia - 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 03/15/2023 3:01 PM CDT [facility] Gross Description The specimen is identified with patient's name and date of . Received in formalin, specimen A , intrauterine adhesions is an aggregate of pink-red tissues, and associated material (4 x 2 x 0.3 cm). Entirely submitted in cassette A1-A2. LJ 03/15/2023 3:01 PM CDT [facility] Microscopic Description Microscopic examination substantiates the above diagnosis. 03/15/2023 3:01 PM CDT [facility] Pathologist Location at [facility] 03/15/2023 3:01 PM CDT [facility] Disclaimer All histochemical and/or immunohistochemical results are interpreted with controls that demonstrate appropriate staining reactions before reporting results. Note on use of immunocytochemistry reagents: This test was developed and its performance characteristic determined by [facility], Department of Laboratory Medicine. It has not been cleared or approved by the U.S. Food and Drug Administration (FDA). The FDA has determined that such clearance or approval is not necessary. The test is used for clinical purpose. It should not be regarded as investigational or for research. This laboratory is certified to perform high complexity testing. The performance characteristics of the IHC/MARCE assays have been validated on formalin-fixed paraffin embedded tissues only. The assays have not been validated on decalcified tissues. Results should be interpreted with caution. 03/15/2023 3:01 PM CDT [facility] Embedded Images 03/15/2023 3:01 PM CDT [facility] Pathology/Cytolo gy SOFT TISSUE BIOPSY SPECIMEN / Unknown 03/14/2023 1:19 PM CDT 03/14/2023 2:13 PM CDT Comment:Pre-op diagnosis: Diagnosis unknown [R69] Richard Thompson MD LAB - PATHOLOGY/CYT OLOGY ORDERABLES [facility] [address] [place] [address] * HCG URINE QUAL POCT NOTIFICATION (03/14/2023 12:00 PM CDT) Comment Notification Label Only - See Separate Report 03/14/2023 12:00 PM CDT [facility] Urine URINE / Unknown 10:46 AM CDT Richard Thompson MD LAB - URINALYSIS OR DERABLES Performing Organization Address [facility] Co de Phone Number [facility] [address] [place] [phone] * TYPE + SCREEN PANEL (03/14/2023 11:09 AM CDT) Only the most recent of2 resultswithin the time period is included. ABO Rh A NEG 03/14/2023 11:57 AM CDT [facility] Comment:History checked. Antibody Screen NEG 11:57 AM CDT [facility] Blood Bank BLOOD SPECIMEN / Unknown Venipuncture / Unknown 03/14/2023 11:09 AM CDT 03/14/2023 11:12 AM CDT Richard Thompson MD LAB - BLOOD BANK OR DERABLES Performing Organization Address [facility] Co de Phone Number [facility] [address] [place] [address] * HCG URINE QUALITATIVE - POCT (IP) INTERFACED (03/14/2023 10:57 AM CDT) Only the most recent of2 resultswithin the time period is included. HCG Qual Urine Negative Negative 03/14/2023 11:02 AM CDT [facility] Urine URINE / Unknown 03/14/2023 1 0:57 AM CDT 03/14/2023 11:02 AM CDT Richard Thompson MD LAB - POINT OF CARE ORDERABLES Performing Organization Address [facility] Co de Phone Number [facility] [address] [place] [id number] * [place] SONO EXAM, TRANSVAGINAL (03/07/2023 8:23 AM CDT) Narrative Aline Daniel - 03/07/2023 8:23 AM CDT Aline Daniel 03/07/2023 8:23 AM Documentation in digisonics Richard Thompson MD PROCEDURE/MINOR EMILIE GICAL ORDERABLES * W[place] SONO FU OR REPEAT (11/22/2022 3:40 PM CDT) Narrative Fredy Aline - 11/22/2022 3:40 PM CDT Aline Daniel 11/22/2022 3:40 PM Documentation in digisonics Nataliia Gutierrez MD PROCEDURE/MARIPOSA R SURGICAL ORDERABLES * HIV-1 HIV-2 ANTIBODY + HIV P24 AG PANEL (11/13/2022 10:20 AM CDT) Only the most recent of2 resultswithin the time period is included. [facility] HIV1/2 Ab + P24 Ag Non Reactive Non Reactive 11/13/2022 11:04 AM CDT [facility] Blood BLOOD SPECIMEN / Unknown Lab Venipuncture / Unknown 11/13/2022 10:20 AM CDT 11/13/2022 10:19 AM CDT Narrative [facility] - 11/13/2022 11:04 AM CDT No Laboratory evidence of HIV infection. Cristina Mccann APRN-BRAD LAB - CHEMISTRY ORDERABLES [facility] [address] [place], [place] [phone] * HGB HCT PANEL (11/13/2022 10:20 AM CDT) [facility] Hemoglobin 12.6 12.0 - 15.6 gm/dL 11/13/2022 10:26 AM CDT [facility] Hematocrit 37.7 35.9 - 45.5 % 11/13/2022 10:26 AM CDT [facility] Blood BLOOD SPECIMEN / Unknown Lab Venipuncture / Unknown 11/13/2022 10:20 AM CDT 11/13/2022 10:19 AM CDT Cristina Mccann APRN-BRAD LAB - HEMATOLOG Y ORDERABLES [facility] [address] [place] [id number] * GTT 1 HR (50G) GESTATIONAL SCREEN (11/13/2022 9:35 AM CDT) Glucose Dose Gestational 50 gm 11/13/2022 10:43 AM CDT [facility] Gestational Diabetes Screen 88 54 - <140 mg/dL 11/13/2022 10:43 AM CDT [facility] Blood BLOOD SPECIMEN / Unknown Lab Venipuncture / Unknown 11/13/2022 9:35 AM CDT 11/13/2022 10:19 AM CDT Cristina Mccann APRN-MONYM LAB - CHEMISTRY ORDERABLES [facility] [address] [place] [address] * XR SHOULDER RIGHT 2VW OR MORE (10/09/2022 9:24 AM CDT) Anatomical Region Laterality Modality Upper Extremity Radiographic Melissa ging 10/09/2022 9:53 AM CDT Impressions 10/09/2022 10:32 AM CDT IMPRESSION: Unremarkable study. Edited by Annemarie Luther on 10/09/2022 10:07 AM > Interpreting Provider: Killian Mckinney MD on 10/09/2022 10:32 AM Narrative 10/09/2022 10:32 AM CDT PROCEDURE: XR SHOULDER RIGHT 2VW OR MORE, DATE/TIME OF EXAM: 10/09/2022 9:25 AM, LOCATION [facility] INDICATION: M25.511: Pain in right shoulder FINDINGS: Views of the right shoulder demonstrate no fracture or dislocation or lytic or blastic lesion. Procedure Note Killian Mckinney MD - 10/09/2022 PROCEDURE: XR SHOULDER RIGHT 2VW OR MORE, DATE/TIME OF EXAM: 10/09/2022 9:25 AM, LOCATION [facility] INDICATION: M25.511: Pain in right shoulder FINDINGS: Views of the right shoulder demonstrate no fracture or dislocation orlytic or blastic lesion. IMPRESSION: Unremarkable study. Edited by Annemarie Luther on 10/09/2022 10:07 AM > Interpreting Provider: Killian Mckinney MD on 10/09/2022 10:32 AM Ree Neville MD DIAGNOSTIC IMAGING O RDERABLES * WV ULTRASND,PREG UTER,TRANSVAGIN, [place] SONO COMPLETE (09/26/2022 3:17 PM TEST DESK SUPERVISOR) Narrative Aline Daniel - 09/26/2022 3:17 PM TEST DESK SUPERVISOR Aline Daniel 09/26/2022 3:18 PM Documentation in digisonics Tara Hunter MD PROCEDU RE/MINOR SURGICAL ORDERABLES * XR WRIST RIGHT 3VW OR MORE (09/12/2022 8:02 AM TEST DESK SUPERVISOR) Anatomical Region Laterality Modality Wrist / Hand Radiographic Melissa ging 09/12/2022 10:3 1 AM TEST DESK SUPERVISOR Impressions 09/12/2022 10:32 AM TEST DESK SUPERVISOR IMPRESSION: Unremarkable > Interpreting Provider: Ira Houston MD on 09/12/2022 10:32 AM Narrative 09/12/2022 10:32 AM TEST DESK SUPERVISOR PROCEDURE: XR WRIST RIGHT 3VW OR MORE, DATE/TIME OF EXAM: 09/12/2022 8:03 AM, LOCATION [facility] INDICATION: S63.101D: Unspecified subluxation of right thumb, subsequent encounter ADDITIONAL CLINICAL INFORMATION: Ordering Provider Reason For Exam: right thumb pain Technologist Note: Additional: COMPARISON: None. FINDINGS: There is no fracture, dislocation or joint space narrowing. No soft tissue swelling. Procedure Note Ira Houston MD - 09/12/2022 PROCEDURE: XR WRIST RIGHT 3VW OR MORE, DATE/TIME OF EXAM: 38:03 AM, LOCATION [facility] INDICATION: S63.101D: Unspecified subluxation of right thumb, subsequent encounter ADDITIONAL CLINICAL INFORMATION: Ordering Provider Reason For Exam: right thumb pain Technologist Note: Additional: COMPARISON: None. FINDINGS: There is no fracture, dislocation or joint space narrowing. No softtissue swelling. IMPRESSION: Unremarkable > Interpreting Provider: Ira Houston MD on 09/12/2022 10:32 AM Cyndy Shannon [place] DIAGNOSTIC IMAGING ORDERABLES * MRI LUMBAR SPINE WO CONTRAST (08/11/2022 5:30 PM TEST DESK SUPERVISOR) Anatomical Region Laterality Modality Spine Magnetic Resonan ce 08/14/2022 8:12 AM TEST DESK SUPERVISOR Narrative 08/14/2022 8:17 AM TEST DESK SUPERVISOR MRI Lumbar Spine Indication for examination: Low back pain, lumbar radiculopathy. Patient is 14 weeks .. Technique: Noncontrast T1 and T2-weighted sagittal and axial images of the lumbar spine are obtained. No prior lumbar imaging studies are available. Sagittal images demonstrate degenerative change with reduced height L5-S1 with mild broad-based annular bulge at L5-S1. There is early degenerative change L4-5, with localized right lateral disc protrusion at L4-5 which results in mild encroachment right L4 foramen bilaterally. There is early degenerative change at L1-L2. No other disc protrusion identified in sagittal projection. Thecal sac terminates at L5-S1. There is no spinal stenosis or high-grade thecal sac compression. There is no soft tissue mass or fluid collection. No abnormal signal intensity identified at the conus. Bony structures demonstrate normal marrow signal intensity. Axial images are obtained from T12-L1 through the level of L5-S1. T12-L1: Normal in axial projection. L1-L2: Normal in axial projection. Foramina are patent. L2-3, L3-4: Normal in axial projection. L4-5: Localized right lateral disc protrusion, with mild encroachment right L4 foramen bilaterally. Mild facet hypertrophy. No high-grade thecal sac compression. L5-S1: Mild broad-based annular bulge most prominent centrally. No nerve root or foraminal encroachment. No thecal sac compression. CONCLUSION: Degenerative change L5-S1 with mild broad-based annular bulge most prominent centrally. No nerve root or foraminal encroachment identified at this level. No thecal sac compression. Degenerative change with small right lateral disc protrusion L4-5. There is mild encroachment right L4 foramen bilaterally at this level. No thecal sac compression. Early degenerative change L1-L2.. > Interpreting Provider: Marcus Salvador MD on 08/14/2022 8:17 AM Procedure Note Marcus Salvador MD - 08/14/2022 MRI Lumbar Spine Indication for examination: Low back pain, lumbar radiculopathy. Patientis 14 weeks .. Technique: Noncontrast T1 and T2-weighted sagittal and axial images ofthe lumbar spine are obtained. No prior lumbar imaging studies areavailable. Sagittal images demonstrate degenerative change with reduced heightL5-S1 with mild broad-based annular bulge at L5-S1. There is earlydegenerative change L4-5, with localized right lateral disc protrusion at L4-5 which results in mild encroachment right L4 foramen bilaterally. There isearly degenerative change at L1-L2. No other disc protrusion identified in sagittal projection. Thecal sac terminates at L5-S1. There is no spinal stenosis orhigh-grade thecal sac compression. There is no soft tissue mass or fluid collection. No abnormal signal intensity identified at the conus. Bony structures demonstrate normal marrow signal intensity. Axial images are obtained from T12-L1 through the level of L5-S1. T12-L1: Normal in axial projection. L1-L2: Normal in axial projection. Foramina are patent. L2-3, L3-4: Normal in axial projection. L4-5: Localized right lateral disc protrusion, with mild encroachmentright L4 foramen bilaterally. Mild facet hypertrophy. No high-grade thecal sac compression. L5-S1: Mild broad-based annular bulge most prominent centrally. No nerve root or foraminal encroachment. No thecal sac compression. CONCLUSION: Degenerative change L5-S1 with mild broad-based annular bulge most prominent centrally. No nerve root or foraminal encroachment identifiedat this level. No thecal sac compression. Degenerative change with small right lateral disc protrusion L4-5. Thereis mild encroachment right L4 foramen bilaterally at this level. No thecalsac compression. Early degenerative change L1-L2.. > Interpreting Provider: Marcus Salvador MD on 08/14/2022 8:17 AM David Manriquez MD MR ORDERABLES * SYPHILIS ANTIBODY CASCADING REFLEX (07/28/2022 5:05 PM TEST DESK SUPERVISOR) [facility] Treponema pallidum Antibody Non Reactive Non Reactive 07/29/2022 11:39 AM TEST DESK SUPERVISOR [facility] Comment: No Laboratory evidence of syphilis infection. Note: Circulating antibodies may be low or undetectable in early infection. If recent exposure is suspected, re-draw sample in 2-4 weeks and repeat testing. Blood BLOOD SPECIMEN / Unknown Lab Venipuncture / Unknown 07/28/2022 5:05 PM TEST DESK SUPERVISOR 07/29/2022 6:37 AM TEST DESK SUPERVISOR Sade Marin MD LAB - SEROLOGY ABDIEL EAGLE Performing Organization Address City/[facility]/ZIP Co de Phone Number [facility] [address] [place], [place] [id number] * RUBELLA ANTIBODY IGG (07/28/2022 5:05 PM TEST DESK SUPERVISOR) Rubella Antibody 3.36 Immune >0.99 index 07/30/2022 7:07 AM TEST DESK SUPERVISOR [facility] ([facility]) Comment: Non-immune <0.90 Equivocal 0.90 - 0.99 Immune >0.99 Blood BLOOD SPECIMEN / Unknown Lab Venipuncture / Unknown 07/28/2022 5:05 PM TEST DESK SUPERVISOR 07/28/2022 5:20 PM TEST DESK SUPERVISOR Narrative [facility] ([facility]) - 07/30/2022 7:07 AM TEST DESK SUPERVISOR Performed at: - [facility] [id number] Geometry Tutor: Michael Fernandez PhD, Phone: [phone] Sade Marin MD LAB - SEROLOGY ABDIEL EAGLE Performing Organization Address City/[facility] Co de Phone Number [facility] ([facility]) [address] [place] [address] * HEPATITIS B SURFACE ANTIGEN W RFLX CONFIRMATION (07/28/2022 5:05 PM TEST DESK SUPERVISOR) HBsAg Non Reactive Non Reactive 07/29/2022 11:39 AM TEST DESK SUPERVISOR [facility] Blood BLOOD SPECIMEN / Unknown Lab Venipuncture / Unknown 07/28/2022 5:05 PM TEST DESK SUPERVISOR 07/29/2022 6:37 AM TEST DESK SUPERVISOR Sade Marin MD LAB - CHEMISTRY ORD MAYCOL Performing Organization Address City/[facility]/ZIP Co de Phone Number [facility] [address] [place] [address] * HEPATITIS C ANTIBODY (07/28/2022 5:05 PM TEST DESK SUPERVISOR) Pathologist [facility] HCV Antibody Screen Non Reactive Non Reactive 07/28/2022 6:06 PM TEST DESK SUPERVISOR [facility] Blood BLOOD SPECIMEN / Unknown Lab Venipuncture / Unknown 07/28/2022 5:05 PM TEST DESK SUPERVISOR 07/28/2022 5:20 PM TEST DESK SUPERVISOR Narrative [facility] - 07/28/2022 6:06 PM TEST DESK SUPERVISOR Non Reactive - Antibodies to Hepatitis C virus (HCV) were not detected, result does not exclude early acute HCV infection. Sade Marin MD LAB - CHEMISTRY ORD ERABLES [facility] [address] [place] [address] * FERRITIN (07/28/2022 5:04 PM TEST DESK SUPERVISOR) [facility] Ferritin 143 5 - 204 ng/mL 07/28/2022 6:02 PM TEST DESK SUPERVISOR [facility] Blood BLOOD SPECIMEN / Unknown Lab Venipuncture / Unknown 07/28/2022 5:04 PM TEST DESK SUPERVISOR 07/28/2022 5:20 PM TEST DESK SUPERVISOR Sade Marin MD LAB - CHEMISTRY ORD ERABLES Performing Organization Address City/[facility]/ZIP Co de Phone Number [facility] [address] [place] [address] * US OB LESS THAN 14 WEEKS (07/14/2022 8:38 AM TEST DESK SUPERVISOR) Only the most recent of2 resultswithin the time period is included. Anatomical Region Laterality Modality Abdomen Ultrasound 07/14/2022 8:50 AM TEST DESK SUPERVISOR Impressions 07/14/2022 9:29 AM TEST DESK SUPERVISOR IMPRESSION: 1.Single live intrauterine gestation, 10 weeks, 0 days. 2.Small subchorionic hemorrhage . > Dictated by Sendy Darnell MD (radiology practitioner assistant). I, Ira Houston MD have personally reviewed and interpreted this examination/study. > Interpreting Provider: Ira Houston MD on 07/14/2022 9:29 AM Narrative 07/14/2022 9:29 AM TEST DESK SUPERVISOR PROCEDURE: US OB LESS THAN 14 WEEKS, DATE/TIME OF EXAM: 07/14/2022 8:38 AM, LOCATION [facility] INDICATION: O41.8X10: Other specified disorders of amniotic fluid and membranes, first trimester, not applicable or unspecified O46.8X1: Other antepartum hemorrhage, first trimester COMPARISON: Ultrasound OB less than 14 weeks with transvaginal Doppler dated 06/16/2022. TECHNIQUE: Real time transvaginal pelvic ultrasound was performed by the costing manager with DICOM image capture. Obstetric follow-up care is recommended possibly including follow-up laboratory evaluation and dedicated obstetric ultrasound examinations at OB's discretion. This exam does not constitute a survey. FINDINGS: A gestational sac is seen within the uterus. A pole is identified. Evaluation of anatomy was not performed. cardiac activity is identified, with the heart rate measuring 172 bpm. The crown-rump length measures 31 mm. Estimated date of delivery by ultrasound: 02/09/2023 Estimated gestational age by ultrasound: 10 weeks and 0 days Estimated delivery date by LMP: 01/31/2023 Estimated gestational age by LMP: 11 weeks and 2 days Uterus: 11.3 x 7.4 x 6.5 cm There is redemonstration of a bicornuate uterus. There is redemonstration of a heterogenous, primarily hypoechoic, structure of the uterus measuring 2.4 x 2.7 x 2.2 cm, likely representing a fibroid. There is a small crescentic fluid collection with elevation of the chorionic membrane measuring 0.8 x 0.4 x 0.6 cm, most consistent with a subchorionic hemorrhage. Right ovary: 3.9 x 2.0 x 2.1 cm Left ovary: 3.9 x 2.0 x 2.1 cm No adnexal masses are identified. Procedure Note Ira Houston MD - 07/14/2022 PROCEDURE: US OB LESS THAN 14 WEEKS, DATE/TIME OF EXAM: 28:38 AM, LOCATION [facility] INDICATION: O41.8X10: Other specified disorders of amniotic fluid and membranes,first trimester, not applicable or unspecified O46.8X1: Other antepartum hemorrhage, first trimester COMPARISON: Ultrasound OB less than 14 weeks with transvaginal Doppler dated 06/16/2022. TECHNIQUE: Real time transvaginal pelvic ultrasound was performed by thesonographer with DICOM image capture. Obstetric follow-up care is recommended possibly including follow-up laboratory evaluation and dedicated obstetric ultrasound examinations at OB's discretion. This exam does not constitute a survey. FINDINGS: A gestational sac is seen within the uterus. A pole is identified. Evaluation of anatomy was not performed. cardiac activity is identified, with the heart rate measuring 172 bpm. The crown-rump length measures 31 mm. Estimated date of delivery by ultrasound: 02/09/2023 Estimated gestational age by ultrasound: 10 weeks and 0 days Estimated delivery date by LMP: 01/31/2023 Estimated gestational age by LMP: 11 weeks and 2 days Uterus: 11.3 x 7.4 x 6.5 cm There is redemonstration of a bicornuate uterus. There isredemonstration of a heterogenous, primarily hypoechoic, structure of the uterusmeasuring 2.4 x 2.7 x 2.2 cm, likely representing a fibroid. There is a small crescentic fluid collection with elevation of the chorionic membrane measuring 0.8 x 0.4 x 0.6 cm, most consistent with a subchorionic hemorrhage. Right ovary: 3.9 x 2.0 x 2.1 cm Left ovary: 3.9 x 2.0 x 2.1 cm No adnexal masses are identified. IMPRESSION: 1.Single live intrauterine gestation, 10 weeks, 0 days. 2.Small subchorionic hemorrhage . > Dictated by Sendy Darnell MD (radiology practitioner assistant). I, Ira Houston MD have personally reviewed and interpreted this examination/study. > Interpreting Provider: Ira Houston MD on 07/14/2022 9:29 AM Sade Marin MD US ORDERABLES * US OB LESS14 WK TRANS/TRNSAB/DOP (06/16/2022 3:20 PM TEST DESK SUPERVISOR) Anatomical Region Laterality Modality Pelvis Ultrasound 06/16/2022 4:24 PM TEST DESK SUPERVISOR Impressions 06/16/2022 4:49 PM TEST DESK SUPERVISOR IMPRESSION: 1. Bicornuate uterus. 2. Probable fibroid at the anterior aspect of the uterus. 3. Single live intrauterine with a heart rate of 130 bpm. The gestational age is 6 weeks 0 days by ultrasound. There is a small subchorionic hematoma. 4. Small complex cyst or follicle at the right ovary which is most likely a corpus luteum cyst. Edited by Evelyn Greenberg on 06/16/2022 4:34 PM > Interpreting Provider: Dieudonne Ward MD on 06/16/2022 4:49 PM Narrative 06/16/2022 4:49 PM TEST DESK SUPERVISOR PROCEDURE: US OB LESS 14 WKS W TRANSV W DOPP, DATE/TIME OF EXAM: 06/16/2022 3:20 PM, LOCATION [facility] INDICATION: O26.851: Spotting complicating , first trimester HISTORY: . COMPARISON: None. TECHNIQUE: Real time transvaginal pelvic ultrasound was performed by the costing manager with DICOM image capture. Obstetric follow-up care is recommended possibly including follow-up laboratory evaluation and dedicated obstetric ultrasound examinations at OB's discretion. This exam does not constitute a survey. FINDINGS: Ultrasound images of the pelvis were performed. There is a bicornuate uterus. There is a heterogenous but primarily hypoechoic structure of the uterus which appears to be more anterior which measures 31 x 27 x 21 mm and is most likely a fibroid. There is a single live intrauterine with a heart rate of 130 bpm. The crown-rump length is 3.3 mm corresponding to a 6 week 0 day gestation. There is a small area of decreased echogenicity adjacent to the gestational sac which is probably a subchorionic hematoma measuring 10 x 7 mm. The right ovary measures 24 x 13 x 15 mm. There is a heterogenous primarily hypoechoic structure at the right ovary measuring 19 x 22 x 16 mm which is likely a corpus luteum cyst. There is normal flow at the right ovary on color Doppler. The left ovary measures 24 x 17 x 16 mm diameter and is normal in echogenicity. There is normal flow at the left ovary on color Doppler. There is no free fluid at the pelvic cul-de-sac. Procedure Note Dieudonne Ward MD - 06/16/2022 PROCEDURE: US OB LESS 14 WKS W TRANSV W DOPP, DATE/TIME OF EXAM: 06/16/2022 3:20 PM, LOCATION [facility] INDICATION: O26.851: Spotting complicating , first trimester HISTORY: . COMPARISON: None. TECHNIQUE: Real time transvaginal pelvic ultrasound was performed by thesonographer with DICOM image capture. Obstetric follow-up care is recommended possibly including follow-up laboratory evaluation and dedicated obstetric ultrasound examinations at OB's discretion. This exam does not constitute a survey. FINDINGS: Ultrasound images of the pelvis were performed. There is a bicornuate uterus. There is a heterogenous but primarily hypoechoic structure ofthe uterus which appears to be more anterior which measures 31 x 27 x 21 mmand is most likely a fibroid. There is a single live intrauterine with a heart rate of 130 bpm. The crown-rump length is 3.3 mmcorresponding to a 6 week 0 day gestation. There is a small area of decreased echogenicity adjacent to the gestational sac which is probably a subchorionic hematoma measuring 10 x 7 mm. The right ovary measures 24 x 13 x 15 mm. There is a heterogenousprimarily hypoechoic structure at the right ovary measuring 19 x 22 x 16 mm whichis likely a corpus luteum cyst. There is normal flow at the right ovary on color Doppler. The left ovary measures 24 x 17 x 16 mm diameter and is normal in echogenicity. There is normal flow at the left ovary on color Doppler. There is no free fluid at the pelvic cul-de-sac. IMPRESSION: 1. Bicornuate uterus. 2. Probable fibroid at the anterior aspect of the uterus. 3. Single live intrauterine with a heart rate of 130 bpm. The gestational age is 6 weeks 0 days by ultrasound. There is a small subchorionic hematoma. 4. Small complex cyst or follicle at the right ovary which is most likelya corpus luteum cyst. Edited by Evelyn Greenberg on 06/16/2022 4:34 PM > Interpreting Provider: Dieudonne Ward MD on 06/16/2022 4:49 PM Sade Marin MD US ORDERABLES * XR HAND RIGHT 3VW OR MORE (05/29/2022 8:16 AM CDT) Only the most recent of6 resultswithin the time period is included. Anatomical Region Laterality Modality Wrist / Hand Radiographic Melissa ging 05/29/2022 9:45 AM CDT Impressions 05/29/2022 9:58 AM CDT IMPRESSION: Unremarkable study. > Interpreting Provider: Killian Mckinney MD on 05/29/2022 9:58 AM Narrative 05/29/2022 9:58 AM CDT PROCEDURE: XR HAND RIGHT 3VW OR MORE, DATE/TIME OF EXAM: 05/29/2022 8:17 AM, LOCATION [facility] INDICATION: M79.641: Pain in right hand FINDINGS: Views of the right hand are compared to a prior exam of 04/11/2022. K-wires have been removed at the base of the thumb. There is no fracture or dislocation or lytic or blastic lesion. Procedure Note Killian Mckinney MD - 05/29/2022 PROCEDURE: XR HAND RIGHT 3VW OR MORE, DATE/TIME OF EXAM: 28:17 AM, LOCATION [facility] INDICATION: M79.641: Pain in right hand FINDINGS: Views of the right hand are compared to a prior exam of 04/11/2022.K-wires have been removed at the base of the thumb. There is no fracture or dislocation or lytic or blastic lesion. IMPRESSION: Unremarkable study. > Interpreting Provider: Killain Mckinney MD on 05/29/2022 9:58 AM Cnydy Shannon PA-C DIAGNOSTIC IMAGING ORDERABLES * LARYNGEAL MASK AIRWAY (03/08/2022 3:28 PM CDT) Narrative Karrie Nguyen APRN-JELLY MAKER - 03/08/2022 3:28 PM CDT Karrie Nguyen APRN-CRNA 03/08/2022 3:56 PM LMA Placement Procedure/LDA Note: LMA Insertion Date/Time: 03/08/2022 3:11 PM Procedure: LMA. Pretreatment: 100% O2 Induction: standard IV Patient position: sniffing. Mask Ventilation: easy Type: LMA Size: 3 Number of Attempts: 1. Cuff volume (mL): 10 Placement verified by: direct visualization, bilateral breath sounds and CO2 monitor Procedure Start Time: 03/08/2022 3:11 PM. Procedure End Time: 03/08/2022 3:50 PM. Procedure Total Time: 39 minutes. Staff Section Anesthesia Provider: Karrie Nguyen APRN-STEWART, Performed the procedure Provider #1: Maciel Villar MD, Performed the procedure. Maciel Villar MD GENERAL ANESTHESIA O RDERABLES * (ABNORMAL) URINE MICROSCOPIC ONLY REFLEX TO CULTURE (10/02/2021 9:02 AM TEST DESK SUPERVISOR) Reflex Status Culture to follow 10/02/2021 9:24 AM TEST DESK SUPERVISOR [facility] RBC UA >100(A) None Seen, 0-2, 3-5 # /hpf 10/02/2021 9:24 AM TEST DESK SUPERVISOR [facility] WBC UA 6-10(A) None Seen, 0-5 # /hpf 10/02/2021 9:24 AM TEST DESK SUPERVISOR [facility] Bacteria UA Trace(A) None Seen 10/02/2021 9:24 AM TEST DESK SUPERVISOR [facility] Squamous Epithelial Cells 3-5 None Seen, 0-2, 3-5 /hpf 10/02/2021 9:24 AM TEST DESK SUPERVISOR [facility] Mucus UA 1+ /LPF 10/02/2021 9:24 AM TEST DESK SUPERVISOR [facility] Urine URINE SPECIMEN OBTAINED BY CLEAN CATCH PROCEDURE / Unknown Collection / Unknown 10/02/2021 9:02 AM TEST DESK SUPERVISOR 10/02/2021 9:07 AM TEST DESK SUPERVISOR Narrative [facility] - 10/02/2021 9:24 AM TEST DESK SUPERVISOR José Miguel Henson MD LAB - URINALYSIS ORDERABLES [facility] [address] [place], [place] [address] * CULTURE URINE (10/02/2021 9:02 AM TEST DESK SUPERVISOR) Culture Urine <10,000 CFU/mL urogenital sherry JUAN 10/04/2021 12:56 AM TEST DESK SUPERVISOR [facility] Urine URINE SPECIMEN OBTAINED BY CLEAN CATCH PROCEDURE / Unknown Collection / Unknown 10/02/2021 9:02 AM TEST DESK SUPERVISOR 10/02/2021 9:07 AM TEST DESK SUPERVISOR José Miguel Henson MD LAB - MICROBIOLO GY ORDERABLES [facility] [address] [place] [address], [facility] [phone] * BLOOD TYPE ABO+ RH PANEL (10/02/2021 8:17 AM TEST DESK SUPERVISOR) ABO Rh A NEG 10/02/2021 8:5 6 AM TEST DESK SUPERVISOR [facility] Blood BLOOD SPECIMEN / Unknown Venipuncture / Unknown 10/02/2021 8:17 AM TEST DESK SUPERVISOR 10/02/2021 8:23 AM TEST DESK SUPERVISOR José Miguel Henson MD LAB - BLOOD BANK ORDERABLES Performing Organization Address City/[facility]/ZIP Co de Phone Number [facility] [address] * (ABNORMAL) HCG BETA BLOOD QUANTITATIVE (10/02/2021 8:17 AM TEST DESK SUPERVISOR) hCG Quantitative 6,453.26( H) 0.0 - 5 mIU/mL 10/02/2021 8:51 AM TEST DESK SUPERVISOR [facility] Blood BLOOD SPECIMEN / Unknown Venipuncture / Unknown 10/02/2021 8:17 AM TEST DESK SUPERVISOR 10/02/2021 8:23 AM TEST DESK SUPERVISOR Narrative [facility] - 10/02/2021 8:51 AM TEST DESK SUPERVISOR Interpretation Comment: Non- pre-menopausal........ < 5.0 mIU/mL Post-menopausal........ < 9.5 mIU/mL HCG LEVELS IN WEEKS FROM LAST MENSTRUAL PERIOD (GESTATIONAL AGE) 3 Weeks LMP: 5-50 mIU/mL 4 Weeks LMP: 5-426 mIU/mL 5 Weeks LMP: 18-7,340 mIU/mL 6 Weeks LMP: 1,080-56,500 mIU/mL 7-8 Weeks LMP: 7,650-229,000 mIU/mL 9-12 Weeks LMP: 25,700-288,000 mIU/mL 13-16 Weeks LMP: 13,300-254,000 mIU/mL 17-24 Weeks LMP: 4,060-165,400 mIU/mL 25-40 Weeks LMP: 3,640-117,000 mIU/mL Non- females: <5.0 mIU/mL Postmenopausal females: <9.5 mIU/mL José Miguel Henson MD LAB - CHEMISTRY ORDERABLES [facility] [address] [place] [place] [id number] [place] [address] Care Teams Supervisor Electric Motor Testing Relationship Specialty Start Date End Date Benedict Spears MD [address] [place] [address] PCP - General Family Medicine 12/25/23
--- OUTSIDE RECORDS SUMMARY | 2024-09-15 07:06 | XMS_ITS ---
Author Organization [facility] Address [address] [facility] [address] [place] [address] Care Team Providers Care Sterilizer Machine Operator Name Role Phone Regan HENRY, [facility] Primary Care Provider UnavailJm Blecher Unavailable [phone] REASON FOR VISIT vyvanse Medications Medication SIG (Take, Route, Frequency, Duration) Notes Start Date End Date Status Lisdexamfetamine Dimesylate 50 MG 1 capsule in the morning Orally Once a day for 30 days 08/19/2024 Active Social History Sex Assigned At : Social History Observation Description Sex Assigned At Female Encounters Encounter Location Date Provider Diagnosis [facility] [employer] [address] [address] 08/18/2024 Jm Waters Attention deficit hyperactivity disorder (ADHD), combined type F90.2 Assessments Encounter Date Diagnosis (ICD Code) Assessment Notes Treatment Notes Treatment Clinical Notes Section Notes 08/18/2024 Attention deficit hyperactivity disorder (ADHD), combined type (ICD-10 - F90.2) Plan Of Treatment Medication Medication Name Sig Start Date Stop Date Notes Lisdexamfetamine Dimesylate 50 MG 1 caps ule in the morning Orally Once a day for 30 days 08/19/2024 Progress Notes * ZAFAR CERDADOB:1989 (34 yo F)Acc No.[id number]:08/18/2024 Patient: ZAFAR PARTIDA :1990 A ge:34 Y S ex:Female Address:[address] [facility], [place], [address] * Refills Refill Lisdexamfetamine Dimesylate Capsule, 50 MG, Orally, 30 Capsule, 1 capsule in the morning, Once a day, 30 days, Refills=0 * true * Date: Generated for Johnnie little/Justine/Yoni on: 0 09/15/2024 07:06 AM 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
--- OUTSIDE RECORDS SUMMARY | 2024-09-15 07:06 | XMS_ITS | Clinical Summary ---
Author Organization [facility] Address [address] [place] [address] Care Team Providers Care Quality Specialist Name Role Phone No, Physician Primary Care Provider [phone] Allergies Active Allergy Reactions Criticality Noted Date Comments Zolpidem Other (See comments) Low 10/02/2019 Insomnia,nightmares. Vancomycin Hives Medium 10/02/2019 Medications ibuprofen (ADVIL,MOTRIN) 600 mg tablet Take 600 mg by mouth every 6 (six) hours as needed for pain Active baclofen (LIORESAL) 10 mg tablet Take 10 mg by mouth 3 (three) times a day Active WVC29-vesl cb,we-gupdh-edo- dha 27-1-50-250 mg combo pack Take by mouth Active DULoxetine DR (CYMBALTA) 20 mg capsule Take 20 mg by mouth daily Active levonorgestreL-e thinyl estrad (LUTERA) 0.1-20 mg-mcg per tablet Take 1 tablet by mouth daily Active Active Problems No known active problems Family History Medical History Relation Name Comments Heart disease Paternal Grandfather Heart disease Paternal Grandmother Relation Name Status Comments Paternal Grandfather Paternal Grandmother Social History Tobacco Use Types Packs/Day Years [...] on file Legal Sex Female 12:46 PM [facility] Gender Identity Not on file Sexual Orientation Not on file Obstetrics History Last Filed Vital Signs Vital Sign Reading Time Taken Comments Blood Pressure 126/75 10/02/2019 1:13 PM [facility] Pulse 87 10/02/2019 1:13 PM [facility] Temperature - - Respiratory Rate - - Oxygen Saturation - - Inhaled Oxygen Concentration - - Weight 63.5 kg (140 lb) 10/21/2019 8:08 PM CDT Height 170.2 cm (5' 7 ) 10/21/2019 8:08 PM CDT Body Mass Index 21.93 10/21/2019 8:08 PM CDT Plan of Treatment Health Maintenance Due Date Last Done Comments Cervical Cancer Screening 1989 Depression Screening 1989 Hepatitis C Screening 1989 Varicella Vaccines (1 of 2 - 13+ 2-dose series) 2002 Hepatitis B Screening 2007 Regular Well Visit/Exam 18-64 2007 Influenza Vaccine (#1) 2024 05/10/2023 DTaP/Tdap/Td Vaccine (2 - Td or Tdap) 07/20/2027 07/20/2017 HPV Vaccines Aged Out No longer eligi ble based on patient's age to complete this topic Pneumococcal vaccine <65 Aged Out No longer eligible based on patient's age to complete this topic Insurance [facility] CHOICE [facility] CLAIMS Care Teams Quality Specialist Relationship Specialty Start Date End Date No, Physician PCP - General 09/22/19
--- OUTSIDE RECORDS SUMMARY | 2024-09-15 07:06 | XMS_ITS | Clinical Summary ---
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 34.5 mm 20w 6d68% Hadlock Humerus 33.6 mm 21w 3d90% Sofía HC / AC 1.08 7%Nicolaides Weight Calculation: EFW 438 g 21w 3d 98%Hadlock EFW (lb,oz) 0 lb 15 oz EFW by Hadlock ([id number]) Head / Face / Neck Biometry: Meter Readers Supervisor 5.7 mm CM 3.6 mm 10%Nicolaides Outer IOD 34.8 mm 22w 1d 73%Sofía Extremities / Bony Struc Biometry: FL / BPD 0.69 38%Hadlock FL / HC 0.18 24%Hadlock FL / AC 0.20 5%Hadlock GENERAL EVALUATION ----- Cardiac activity present. FHR 148 bpm. movements: present.Presentation: cephalic Placenta: Placental site: anterior Umbilical cord: Cord vessels: 3 vessel cord. Insertion site: placentalinsertion: normal Amniotic fluid: Amount of AF: normal amount. MVP 4.6 cm ANATOMY ----- The following structures appear normal: Head / Neck Cranium. Lateral ventricles. Choroid plexus.Midline falx. Cavum septi pellucidi. Cerebellum. Cisterna magna. Nuchal fold. Face Lips. Profile. Nose. Palate. Orbits. Heart / Thorax LVOT view. 3-vessel view. 0-twujtr-qswsjjq view.Situs. Aortic arch view. Ductal arch view. Superior vena cava. Inferior vena cava. High short axis view.Cardiac rhythm. Diaphragm. Abdomen Cord insertion. Stomach. Kidneys. Bladder. Extremities / Arms. Right hand. Legs. Right foot. Left foot. Skeleton The following structures could not be adequately visualized: Heart / Thorax 4-chamber view. RVOT view. Spine Cervical spine. Thoracic spine. Lumbar spine.Sacral spine. Extremities / Left hand. Skeleton MATERNAL STRUCTURES ----- Cervix Visualized Approach - Transvaginal: Cervical length 12.5 mm Right Ovary Not visualized Left Ovary Not visualized GROWTH OVERVIEW ----- Exam date GA BPD (mm) HC (mm) AC (mm) FL(mm) HL (mm) EFW (g) 07/21/2024 20w 1d 49.9 85% 188.2 83% 174.7 96%34.5 68% 33.6 90% 438 98% COMMENT ----- Patient's name and date of were verified by the security systems technician beforethe exam. Saida Irvin RN was present for the transvaginal ultrasound and served as achaperone. IMPRESSION ----- Rao @ 20w 1d complicated by resected uterine septum andprior . - The biometry is consistent with dates. - Amniotic fluid indices are within normal limits. - The placenta is anterior with a central cord insertion and no evidenceof previa or low-lying placenta. - Visualized anatomy is unremarkable. However some views werelimited due to persistent poor position and maternal body acoustics. - Transvaginal ultrasound was performed to evaluate the cervix; the cervixis short measuring 1.1 cm in length. The findings were discussed with the patient over video. The increasedrisk of PTB was discussed as well as management strategies. She opts for cerclage. She will come to [facility] to be admitted forpossible cerclage today. Dr. Cruz aware. Phone call out to Dr. James to inform her as well. Cristina Mccann NP informed ofresults and recommendations. A follow up ultrasound is scheduled in 4 weeks to check growth andto complete the anatomy. Thank you for allowing us to participate in the care of your patient. ADDENDUM ----- re-trigger order us Sade James MD ORDERABLES Edited Re sult - Final from Last 3 Months Insurance [employer] [facility]
--- OUTSIDE RECORDS SUMMARY | 2024-09-15 07:06 | XMS_ITS | Clinical Summary ---
Author Organization [facility] Address [address] [place] [address] Care Team Providers Care Chief Risk Officer Name Role Phone Benedict Spears MD Primary Care Provider [phone] Source Comments [facility],non-owned Affiliates and Associated Physician Practices is amultiple site organization consisting of ambulatory clinics and hospital sitesin [place], [place] and [place]. This disclosure is being madepursuant to the Care Everywhere program and may not contain all information available regarding this patient. Last updated 18.[facility] Allergies Active Allergy Reactions Criticality Noted Date Comments Zolpidem Other Medium 10/02/2019 Insomnia,nightmares. Lunesta Other,Psychiatric Medium 05/10/2012 Night walking, nightmares Trazodone Shortness of Breath High 05/10/2012 Vancomycin Itching,Rash Medium 10/02/2021 Medications * Be aware that medications may not be up to date on this document. Alwaysverify current medications with the patient. Medication Sig Dispensed Refills Start Date End Date Status docusate sodium (Colace) 100 MG capsule Take 1 (one) capsule by mouth 2 times daily as needed for Constipation 30 capsule 03/08/2022 Active vitamin D (Cholecaciferol) 125 MCG (5000 UT) capsule Take 1 (one) capsule by mouth once daily 06/14/2020 Active MV-Min-Fe Fum-FA-DHA (/FOLIC ACID+DHA PO) Take 1 tablet by mouth once daily 06/14/2015 Active cyclobenzaprine (Flexeril) 10 MG tablet Take 1 (one) tablet by mouth 3 times daily as needed for Muscle Spasms 10 tablet 03/15/2023 Active amoxicillin-clav ulanate (Augmentin) 875-125 MG tablet Take 1 (one) tablet by mouth 2 times daily with morning and evening meal for 7 days 14 tablet 11/15/2023 Active Additional Information Patient taking differently:875 mg Oral 2 TIMES DAILY WITH MEALS,Ends 11/22/23- TS, Reported on 11/15/2023 Vyvanse 30 MG capsule 02/11/2024 Active vilazodone (Viibryd) 20 MG tablet Active methylPREDNISolo ne (Medrol Dosepak) 4 MG tablet Take by mouth as directed Take as directed by mouth per package instructions. 21 tablet 04/18/2024 Active amoxicillin-clav ulanate (Augmentin) 875-125 MG tablet TAKE ONE TABLET BY MOUTH 2 TIMES A DAY WITH MORNING AND EVENING MEAL FOR 7 DAYS 14 tablet 11/15/2023 5 Active ondansetron, disintegrating, (Zofran ODT) 4 MG tablet Take 1 (one) tablet by mouth every 6 hours as needed for Nausea/Vomiting Allow tablet to dissolve on the tongue 20 tablet 01/29/2024 Discontinue d(No Pharm No AVS) Active Problems Problem Noted Date Diagnosed Date [...] Mixed anxiety and depressive disorder 02/09/2022 10/30/2023 Comments Yes Resolved Problems Problem Noted Date Diagnosed Date Resolved Date Cough 07/19/2023 10/30/2023 11/27/2023 Immunizations Name Administration Dates Next Due INFLUENZA VACCINE, TRIV. (AF LURIA, FLUZONE TRIVALENT; 6MO+) (IIV3) 06/03/2011 ANTHRAX, HISTORIC VACCINE 11/08/2009,10/05/2009 COVID ZOHRA PRIMARY 18+YR 02/08/2021 Covid Moderna primary monova lent 12+ yr 0.5mL 08/18/2021 HEP A/HEP B 10/05/2009, 9,04/02/2008,02/04 Human Papilloma Virus Chichi valent Vaccine 11/02/2011 INFLUENZA A [id number] VACCINE 08/08/2009 INFLUENZA VACCINE 04/14/2023, 1,03/30/2020,04/25,04/10/2017,05/20/2016,04/29/2014 ,04/29/2012,03/30/2011,06/15/2008 INFLUENZA VACCINE, QUADR. (A FLURIA, FLUZONE QUADRIVALENT; 6MO+) (IIV4) 07/02/2010,08/08/2009 MENINGOCOCCAL CONJUGATE (MCV4P) 02/05/2008 MMR 02/06/2008 PNEUMOCOCCAL PPSV23 06/15/2016 POLIO IPV 02/05/2008 Rho D Immune Globulin 10/02/2021 SMALLPOX (VACCINIA) VACCINE, LIVE 10/05/2009 TD (ADULT), 5 LF TETANUS TOX OID, ADSORBED, PF 07/11/2018 TDAP (7yrs+) 03/14/2019, 8,07/30/2007,01/27 TYPHOID IM 10/05/2009 Family History Medical History Relation Name Comments CAD (Coronary Artery Disease) Father Relation Name Status Comments Father Social History Tobacco Use Types Packs/Day Years [...] Mass Index 26.31 04/18/2024 9:36 AM CDT Plan of Treatment Health Maintenance Due Date Last Done Comments PAP SMEAR 1989 HPV VACCINE (2 - 3-dose series) 11/30/2011 11/02/2011 COVID-19 VACCINE ( season) 2024 08/18/2021, 02/08/2021 DEPRESSION SCREENING 07/30/2024 DTAP/TDAP/TD VACCINES (6 - Td or Tdap) 03/14/2029 03/14/2019, 07/11/2018, 02/05/2008, Additional history exists ZOSTER VACCINE (1 of 2) 2039 Respiratory Syncytial Virus (RSV) Vaccine Pt: or over 60 yrs (1 - 1-dose 75+ series) 2064 MENINGOCOCCAL VACCINE Completed 02/05/2008 HEPATITIS B VACCINE Completed 10/05/2009, 03/06/2009, 04/02/2008, Additional history exists PNEUMOCOCCAL VACCINE Aged Out 06/15/2016 No long er eligible based on patient's age to complete this topic HEPATITIS C SCREENING Completed 07/28/2022 HIV SCREENING Completed 11/13/2022, 07/28/2022 INFLUENZA VACCINE Completed 05/10/2024, , 04/29/2022, Additional history exists HIB VACCINE Aged Out No longer eligi ble based on patient's age to complete this topic MENINGOCOCCAL (Group B) VACCINE Aged Out No longer eligible based on patient's age to complete this topic Medical Devices Implanted Type Area Tool Keeper Device Identifier Shelf Expiration Date Model / Serial / Lot 1.6mm K Wires Implanted:Qty: 2 on 03/08/2022 by Ganesh Escalante MD at [facility] 10/25/2025 [id number] / [id number] / [id number] Procedures Procedure Name Priority Date/Time Associated Diagnosis Comments HIV-1 HIV-2 ANTIBODY + HIV P24 AG PANEL Routine 11/13/2022 10:20 AM CDT Visit for screening (HCC) GTT 1 HR (50G) GESTATIONAL SCREEN Routine 11/13/2022 9:35 AM CDT Visit for screening (HCC) HEPATITIS C ANTIBODY Routine 07/28/2022 5:05 PM ARCADE TECHNICIAN screening encounter (HCC) from Last 3 Months or Most Recently Relevant to Health Maintenance Results * HIV-1 HIV-2 ANTIBODY + HIV P24 AG PANEL (11/13/2022 10:20 AM CDT) HIV1/2 Ab + P24 Ag Non Reactive Non Reactive 11/13/2022 11:04 AM CDT [facility] Blood BLOOD SPECIMEN / Unknown Lab Venipuncture / Unknown 11/13/2022 10:20 AM CDT 11/13/2022 10:19 AM CDT Narrative [facility] - 11/13/2022 11:04 AM CDT No Laboratory evidence of HIV infection. Cristina Mccann APRN-BRAD LAB - CHEMISTRY ORDERABLES Performing Organization Address [facility] Co de Phone Number [facility] [address] [place] [phone] * GTT 1 HR (50G) GESTATIONAL SCREEN (11/13/2022 9:35 AM CDT) Pathologist [facility] Glucose Dose Gestational 50 gm 11/13/2022 10:43 AM CDT [facility] Gestational Diabetes Screen 88 54 - <140 mg/dL 11/13/2022 10:43 AM CDT [facility] Blood BLOOD SPECIMEN / Unknown Lab Venipuncture / Unknown 11/13/2022 9:35 AM CDT 11/13/2022 10:19 AM CDT Cristina Mccann APRN-BRAD LAB - CHEMISTRY ORDERABLES Performing Organization Address [facility] Co de Phone Number [facility] [address] [place] [phone] * HEPATITIS C ANTIBODY (07/28/2022 5:05 PM ARCADE TECHNICIAN) [facility] HCV Antibody Screen Non Reactive Non Reactive 07/28/2022 6:06 PM ARCADE TECHNICIAN [facility] Blood BLOOD SPECIMEN / Unknown Lab Venipuncture / Unknown 07/28/2022 5:05 PM ARCADE TECHNICIAN 07/28/2022 5:20 PM ARCADE TECHNICIAN Narrative [facility] - 07/28/2022 6:06 PM ARCADE TECHNICIAN Non Reactive - Antibodies to Hepatitis C virus (HCV) were not detected, result does not exclude early acute HCV infection. Sade Marin MD LAB - CHEMISTRY ORD ERABLES [facility] [address] [place] [address] [phone] from Last 3 Months or Most Recently Relevant to Health Maintenance Care Teams Chief Risk Officer Relationship Specialty Start Date End Date Benedcit Spears MD [address] [place] [phone] PCP - General Family Medicine 12/25/23
--- OUTSIDE RECORDS SUMMARY | 2024-09-15 07:06 | XMS_ITS | Referral Summary ---
Author Organization [facility] Address [address] [place] [address] Care Team Providers Care Cork Insulation Installer Name Role Phone Benedict Spears MD Primary Care Provider [phone] Source Comments [facility],non-owned Affiliates and Associated Physician Practices is amultiple site organization consisting of ambulatory clinics and hospital sitesin [place], [place], [place] and [place]. This disclosure is being madepursuant to the Care Everywhere program and may not contain all information available regarding this patient. Last updated 18.[facility] [employer] Allergies Active Allergy Reactions Criticality Noted Date [...] Virus Chichi valent Vaccine 11/02/2011 INFLUENZA A [id number] VACCINE 08/08/2009 INFLUENZA VACCINE 04/14/2023, 1,03/30/2020,04/25,04/10/2017,05/20/2016,04/29/2014 ,04/29/2012,03/30/2011,06/15/2008 INFLUENZA VACCINE, QUADR. (A FLURIA, FLUZONE QUADRIVALENT; 6MO+) (IIV4) 07/02/2010,08/08/2009 MENINGOCOCCAL CONJUGATE (MCV4P) 02/05/2008 MMR 02/06/2008 PNEUMOCOCCAL PPSV23 06/15/2016 POLIO IPV 02/05/2008 Rho D Immune Globulin 10/02/2021 SMALLPOX (VACCINIA) VACCINE, LIVE 10/05/2009 TD (ADULT), 5 LF TETANUS TOX OID, ADSORBED, PF 07/11/2018 TDAP (7yrs+) 03/14/2019, 8,07/30/2007,01/27 TYPHOID IM 10/05/2009 Social History Tobacco Use Types Packs/Day Years [...] 04/18/2024 9:36 AM CDT Plan of Treatment Not on file Medical Devices Implanted Type Area Medical Claims Analyst Device Identifier Shelf Expiration Date Model / Serial / Lot 1.6mm K Wires Implanted:Qty: 2 on 03/08/2022 by Ganesh Escalante MD at [facility] 10/25/2025 [id number] / [id number] / [id number] Procedures Procedure Name Priority Date/Time Associated Diagnosis Comments HIV-1 HIV-2 ANTIBODY + HIV P24 AG PANEL Routine 11/13/2022 10:20 AM CDT Visit for screening (HCC) GTT 1 HR (50G) GESTATIONAL SCREEN Routine 11/13/2022 9:35 AM CDT Visit for screening (HCC) HEPATITIS C ANTIBODY Routine 07/28/2022 5:05 PM PROPERTY SUPERVISOR screening encounter (HCC) from Last 3 Months or Most Recently Relevant to Health Maintenance Results * HIV-1 HIV-2 ANTIBODY + HIV P24 AG PANEL (11/13/2022 10:20 AM CDT) HIV1/2 Ab + P24 Ag Non Reactive Non Reactive 11/13/2022 11:04 AM CDT [facility] Blood BLOOD SPECIMEN / Unknown Lab Venipuncture / Unknown 11/13/2022 10:20 AM CDT 11/13/2022 10:19 AM CDT Narrative [facility] - 11/13/2022 11:04 AM CDT No Laboratory evidence of HIV infection. Cristnia Mccann [facility] LAB - CHEMISTRY ORDERABLES Performing Organization Address City/[facility]/ZIP Co de Phone Number [facility] [address] [place], [place] [id number] * GTT 1 HR (50G) GESTATIONAL SCREEN (11/13/2022 9:35 AM CDT) Glucose Dose Gestational 50 gm 11/13/2022 10:43 AM CDT [facility] Gestational Diabetes Screen 88 54 - <140 mg/dL 11/13/2022 10:43 AM CDT [facility] Blood BLOOD SPECIMEN / Unknown Lab Venipuncture / Unknown 11/13/2022 9:35 AM CDT 11/13/2022 10:19 AM CDT Cristina Mccann [facility] LAB - CHEMISTRY ORDERABLES [facility] [address] [place] [address] * HEPATITIS C ANTIBODY (07/28/2022 5:05 PM PROPERTY SUPERVISOR) HCV Antibody Screen Non Reactive Non Reactive 07/28/2022 6:06 PM PROPERTY SUPERVISOR [facility] Blood BLOOD SPECIMEN / Unknown Lab Venipuncture / Unknown 07/28/2022 5:05 PM PROPERTY SUPERVISOR 07/28/2022 5:20 PM PROPERTY SUPERVISOR Narrative [facility] - 07/28/2022 6:06 PM PROPERTY SUPERVISOR Non Reactive - Antibodies to Hepatitis C virus (HCV) were not detected, result does not exclude early acute HCV infection. Sade Marin MD LAB - CHEMISTRY ORD ERABLES [facility] [address] [place] [address] from Last 3 Months or Most Recently Relevant to Health Maintenance Care Teams Cork Insulation Installer Relationship Specialty Start Date End Date Benedict Spears MD [address] [place] [phone] PCP - General Family Medicine 12/25/23
--- OUTSIDE RECORDS SUMMARY | 2024-09-15 07:07 | XMS_ITS ---
Author Organization [facility] [employer] Address [address] [place] [address] Care Team Providers Care Supervisor Dimension Warehouse Name Role Phone Regan HENRY, [facility] Primary Care Provider UnavailJm Belcher Unavailable [phone] REASON FOR VISIT Lisdexamfetamine chewable pa Social History Sex Assigned At : Social History Observation Description Sex Assigned At Female Encounters Encounter Location Date Provider Diagnosis [facility] [employer] [facility] [address] [place] [address] 08/19/2024 Jm Waters Attention deficit hyperactivity disorder (ADHD), combined type F90.2 Assessments Encounter Date Diagnosis (ICD Code) Assessment Notes Treatment Notes Treatment Clinical Notes Section Notes 08/19/2024 Attention deficit hyperactivity disorder (ADHD), combined type (ICD-10 - F90.2) Electronic Prior Authorization was requested for Lisdexamfetamine Dimesylate 50 MG Capsule. Provider can order medication once approval received. Plan Of Treatment Treatment Notes Assessment Notes Attention deficit hyperactiv ity disorder (ADHD), combined type Electronic Prior Authorization was reque sted for Lisdexamfetamine Dimesylate 50 MG Capsule. Provider can order medication once approval received. Progress Notes * ZAFAR CERDADOB:1989 (34 yo F)Acc No.[id number]:08/19/2024 Patient: Asha ZAFAR SHOEMAKER :1990 A ge:34 Y S ex:Female Address:[address] [place] [address] Subjective: * Chief Complaints: * L isdexamfetamine chewable pa * Medical History: * Surgical History: * Hospitalization/Major Diagno stic Procedure: * Medications: Objective: * Vitals: * Physical Examination: Assessment: * Assessment: 1. A ttention deficit hyperactivity disorder (ADHD), combined type - F90.2 (Primary) Plan: * Treatment: * Procedure Codes: * true * Date: Generated for Johnnie little/Justine/Yoni on: 0 09/15/2024 07:07 AM PRODUCTION COST ESTIMATOR
--- OUTSIDE RECORDS SUMMARY | 2024-09-15 07:07 | XMS_ITS | Data Portability ---
Author Organization [place] [facility] [employer], Main Office Address [address] [place] [address] Care Team Providers [employer] Consultant Name Role Phone BENEDICT SPEARS Primary Care Provider [phone] Assessment Encounter Date Assessment Date Assessment LastModified by Organization Details LastModified Time 12/13/2023 12/13/2023 33 yo F with - WELL ADULT VISIT - CHRONIC CONSTIPATION - ADD - BIPOLAR DEPRESSION - ANXIETY - CHRONIC NECK AND LOW BACK PAIN - VIT D DEFICIENCY - OVERWEIGHT CT head wo: 03/05/23. D/w pt about her findings, recent labs & imagines and further plan of care. Will do routine labs. Will refer pt to Psych. Until then, will take care of [place]. [place] Meds as directed. Diet and exercise explained in detail. Advised pt to avoid any strenuous activities until cleared by Ortho. F/u with Psych as per schedule. Cont f/u with Ortho at [facility] as per schedule. Cont f/u with [facility] as per schedule. Educated pt about alarming symptoms to monitor at home. HM: WWE - 03/21, normal as per pt. Cont f/u with Gyne as per schedule. Flu - 05/21. Tdap - 2020. Gardasil - Pt had it. F/u in 2-3 weeks. Pt to bring MRI results. Annual labs in 12/21. [email or web address] Not available 12/13/2023 17:59:28 01/28/2024 01/28/2024 33 yo F with - HLD, new - CHRONIC CONSTIPATION - ADD - BIPOLAR DEPRESSION - ANXIETY - CHRONIC NECK AND LOW BACK PAIN - OVERWEIGHT - H/O VIT D DEFICIENCY Annual labs: 12/25/23. CT head wo: 03/05/23. D/w pt about her findings, recent labs & imagines and further plan of care. Pt declined for any statin at this time. [place]. Meds as directed. Diet and exercise explained in detail. Advised pt to avoid any strenuous activities until cleared by Ortho. F/u with Psych as per schedule. [facility]. Cont f/u with [facility] as per schedule. Educated pt about alarming symptoms to monitor at home. HM: WWE - 03/21, normal as per pt. Cont f/u with Gyne as per schedule. Flu - 05/21. Tdap - 2020. Gardasil - Pt had it. F/u in 3-4 months. Lipids in 05/22. Pt to bring MRI results. Annual labs in 12/21. [email or web address] Not available 01/28/2024 18:02:43 05/05/2024 05/05/2024 34 yo F with - HLD (diet controlled), improved - CHRONIC CONSTIPATION - ADD - BIPOLAR DEPRESSION - ANXIETY - CHRONIC NECK AND LOW BACK PAIN - H/O OVERWEIGHT - H/O VIT D DEFICIENCY Annual labs: 12/25/23. CT head wo: 03/05/23. D/w pt about her findings, recent labs & imagines and further plan of care. Pt declined for any statin at [place] time. [place] Meds as directed. Diet and exercise explained in detail. Advised pt to avoid any strenuous activities until cleared by Ortho. Cont f/u with Psych at [facility] as per schedule. Cont f/u with Ortho at [facility] as per schedule. Cont f/u with Gyne as per schedule. Educated pt about alarming symptoms to monitor at home. HM: WWE - 03/21, normal as per pt. Cont f/u with Gyne as per schedule. Flu - Pt gets at her work. Tdap - 2020. Gardasil - Pt had it. F/u PRN/Annually. Pt to bring MRI results. Annual labs in 12/21. [email or web address] Not available 05/05/2024 18:01:30 Plan of Treatment Reminders Order Date Submit Date Provider Last Modified By Organization Details Last Modified Time Details Appointments Physical/ Annual Wellness 30 2024 04:30P Kenneth Spears MD Not available Not available Not available Lab lipid panel, serum [address] (Lab), [address] [place], [address], 04/28/2024 10:45:22 glycohemo globin, total, blood [address] (Lab), [address] [place], [address], 12/20/2023 07:59:24 CBC w/ auto diff [address] (Lab), [address] [place], [address], 12/20/2023 07:59:23 CMP, serum or plasma [address] (Lab), [address] [place], [address], 12/20/2023 07:59:23 lipid panel, serum [address] (Lab), [address] [place], [address], 12/20/2023 07:59:23 TSH, serum, reflex free T4 [address] (Lab), [address] [place], [address], 12/20/2023 07:59:23 urinalysi s complete, reflex culture [address] (Lab), [address] [place], [address], 12/20/2023 07:59:23 vitamin D, 25-hydrox y, total, serum [address] (Lab), [address] [place], [address], 12/20/2023 07:59:23 Referral psychiatr ist referral 2023 024 [email or web address] Roderick Mckeon MD, [address], [facility] [address], [place], [address], 12/20/2023 17:15:41 Procedures None recorded. Surgeries None recorded. Imaging None recorded. Medication Orders docusate sodium 100 mg capsule 2023 [facility] #00731, [address] [place], [place], [id number], 05/05/2024 17:55:07 ciproflox acin 500 mg tablet [address] [facility] #59768, [address] [place], [place], [id number], 05/05/2024 17:50:50 phenazopy ridine 200 mg tablet [address] [facility] #30487, [address] [place], [place], [id number], 05/05/2024 17:50:58 lurasidon e 40 mg tablet [address] [facility] #74284, [address] [place], [place], [id number], 05/05/2024 17:51:51 venlafaxi ne ER 75 mg capsule,e xtended release 24 hr [address]23 [address] [facility] [address] [place], [place], [id number], 05/05/2024 17:51:11 methylphe nidate ER 54 mg tablet,ex tended release 24 hr [address] [facility] #56861, [address] [facility], [place], [place], [id number], 05/05/2024 17:51:46 methylphe nidate ER 54 mg tablet,ex tended release 24 hr [address] [facility] #33335, [address] [facility], [place], [place], [id number], 05/05/2024 17:51:46 lurasidon e 40 mg tablet [address] [facility] #16422, [address] [facility], [place], [place], [id number], 05/05/2024 17:51:51 venlafaxi ne ER 75 mg capsule,e xtended release 24 hr [address] [facility] #06361, [address] [facility], [place], [place], [id number], 05/05/2024 17:51:11 methylphe nidate ER 36 mg tablet,ex tended release 24 hr 2023 024 [email or web address] [facility] #34145, [address], [place], [id number], 11/21/2023 13:16:12 triamcino lone acetonide 0.1 % topical cream 2023 024 REBECCA [facility] #14439, [address] [facility], [place], [place], [id number], 08/01/2023 14:50:38 Patient TargetsNo targets recorded. Patient Instructions Encounter Date Encounter Id Patient Instructions Last Modified By Organization Details Last Modified Time 01/28/2024 [id number] high cholesterol : care instructions [email or web address] Not available 01/28/2024 17:55:48 05/05/2024 [id number] high cholesterol : care instructions Not available 05/05/2024 17:53:14 Reason for Referral Psychiatrist Referral for At tention deficit hyperactivity disorder, predominantly inattentive type ADHD, bipolar, anxiety - Full management Referring Physician: Benedict Spears, Family Medicine, Encounter Date: 12/13/2023 Results Created Date Observation Date Name Description Value Unit Range Abnormal Flag Note LastModifiedBy Organization Detail LastModifiedTime 04/22/20 24 04/22/2024 US, obste tric, 1st trime ster No observ ation record ed. [facility] [address], [place], [address], 05/05/2024 17:50:21 Result Notes None recorded. Problems Name Problem SNOMED Code Status Onset Date Resolution Date Notes Provider Name and Address Organization Details Recorded Time Mixed anxiety and depressive disorder 287870934 Active 2021 Not Available [facility] 3 00:58:23 Chronic constipati on 141135970 Active 2021 Not Available [facility] 3 00:58:23 Lumbar spondylosi s 976373575 Active 2021 Not Available [facility] 3 00:58:23 Bilateral tinnitus 3143422872429 Active 2021 Not Available [facility] 3 00:58:23 Hemorrhoid s 55667637 Active 2022 Maria Antonia Ding MD [address], [facility] [address], [place], [address] , [employer] 3 16:11:21 External hemorrhoid s 87472312 Active 2022 Maria Antonia Ding MD [address] [facility] [address], [place], [address] , [employer] 3 12:35:27 Onychomyco sis of toenails 327581720 Active 2022 KASSIE Turner [address], [place], [address] , [employer] 3 08:34:08 Headache 05974724 Active 2022 Fredrick LeonardoCORINNE savageP [address], [address], [place], [address] , [employer] [place] [facility] [employer] [facility] 3 08:42:23 Pruritic rash 02436188 Active 2022 Fredrick LeonardoCORINNE savageP [address], [address], [place], [address] , [employer] [place] [employer] [facility] 3 08:47:49 Chronic back pain 560843069 Active 2022 Fredrick CORINNE SykesP [address], [address], [place], [address] , [employer] [place] [employer] [facility] [employer] 3 13:25:02 Poor concentrat ion 00526919 Active 2022 Maria Antonia Ding MD [address], [address], [place], [address] , [employer] [facility] [employer] [facility] 3 14:21:11 Cough 73269582 Active 2022 Maria Antonia Ding MD [address], [address], [place], [address] , [employer] [facility] 3 12:46:51 Eruption 435400216 Active 2023 Maria Antonia Ding MD [address], [address], [place], [address] , [employer] [facility] 4 14:47:06 Pain in throat 540857053 Active 2023 Maria Antonia Ding MD [address], [address], [place], [address] , [employer] [place] [employer] [facility] 4 13:21:33 Attention deficit hyperactiv ity disorder 915786121 Active 2023 Maria Antonia Ding MD [address], [address], [place], [address] , [employer] [place] [facility] 4 17:15:32 Bipolar disorder 51313729 Active 2023 Benedict Spears MD [address], [address], [place], [address] , [employer] [employer] [facility] 4 17:33:41 Depressive disorder 13686085 Active 2023 Benedict Spears MD [address], [address], [place], [address] , [employer] [facility] 4 17:33:47 Anxiety disorder 763508110 Active 2023 Benedict Spears MD [address], [address], [place], [address] , [employer] [facility] 4 17:33:53 Chronic neck pain 0536974775028 Active 2023 Benedict Spears MD [address], [place] [address], [place], [address] , [employer] [facility] 4 17:34:12 Chronic low back pain 569779265 Active 2023 Benedict Spears MD [address], [address], [place], [address] , [employer] [facility] 4 17:34:20 Overweight 881541739 Active 2023 Benedict Spears MD [address], [place] [address], [place], [address] , [facility] [facility] [employer] [facility] 4 17:34:41 Chronic idiopathic constipati on 11207570 Active 2023 Benedict Spears MD [address], [address], [place], [address] , [employer] [facility] [employer] [facility] 4 17:34:55 Vitamin D deficiency 63385607 Active 2023 Benedict Spears MD [address], [address], [place], [address] , [employer] [facility] [employer] [facility] 4 17:35:12 Attention deficit hyperactiv ity disorder, predominan tly inattentiv e type 34844143 Active 2023 Benedict Spears MD [address], [address], [place], [address] , [employer] 17:38:49 Urinary tract infectious disease 20949471 Active 2023 Benedict Spears MD [address], [address], [place], [address] , [employer] 17:51:24 Hyperlipid emia 35131099 Active 2023 Benedict Spears MD [address], [address], [place], [address] , [employer] 17:54:30 Problem Notes None recorded. Procedures Surgical History Date Name Laterality Status Provider Name and Address Organization Details Recorded Time 03/14/20 23 excision of septum of uterus completed KASSIE Turner [address], [address], [place], [address], [employer] 04/03/2023 08:40:59 03/08/20 22 open reduction of fracture with internal fixation completed Not Available [facility] 09/28/2022 00:57:24 07/30/19 22 Date of Last Pap Smear completed Benedict Spears MD [address], [address], [place], [address], [employer] 12/13/2023 17:29:18 nasal septoplasty completed Not Available [facility] 09/28/2022 00:57:24 Imaging Results Imaging Date Name Status LastModified by Organiz ation Details LastModified Time 04/22/2024 US, obstetric, 1st trimester completed [email or web address] [facility] [address], [place], [address], 05/05/2024 17:50:21 Procedure Notes None recorded. Medical Equipment None Reported. Allergies Allergen ID Allergen Name Allergen Category Reaction Reaction Severity Criticality Documentation Date Start Date Code Code System Note Provider Name and Address Organization Details Recorded Time 43196 vancomyci n medicatio n Not available Not available Not available 09/28/2022 19400 RxNorm Red Man Not Available [employer] 3 00:59:51 19449 vaccine adjuvant system, AS01B liposomal medicatio n rash Not available Not available 09/28/2022 19977 UNK Not Available [facility] 3 00:59:52 Medications Name Sig Start Date Stop Date Status Note LastModified by Organization Details LastModified Time cyclobenzap rine 10 mg tablet Take 1 tablet 3 times a day by oral route as needed. active Not Available Not Available No t Available venlafaxine ER 37.5 mg capsule,ext ended release 24 hr 05/05 completed Not Available Not Available Not Available venlafaxine ER 75 mg capsule,ext ended release 24 hr Take 1 tab po once a day as directed. 05/05 completed Not Available Not Available Not Available azithromyci n 250 mg tablet TAKE 2 TABLETS (500 MG) BY ORAL ROUTE ONCE DAILY FOR 1 DAY THEN 1 TABLET (250 MG) BY ORAL ROUTE ONCE DAILY FOR 4 DAYS 08/01 completed Not Available Not Available Not Available fluconazole 150 mg tablet 05/05 completed Not Available Not Available Not Available hydrocodone 5 mg-acetamin ophen 325 mg tablet TAKE 1 TABLET BY MOUTH EVERY 6 HOURS NEEDED FOR PAIN 04/03 completed Not Available Not Available Not Available phenazopyri dine 200 mg tablet Take 1 tablet every 8 hours by oral route as needed for 10 days. 05/05 completed Not Available Not Available Not Available methylpheni date 5 mg tablet 05/05 completed Not Available Not Available Not Available prednisone 20 mg tablet 02/09 completed Not Available Not Available Not Available sertraline 100 mg tablet Take 1.5 tablets every day by oral route. 04/03 completed Not Available Not Available Not Available venlafaxine ER 150 mg capsule,ext ended release 24 hr Take 1 capsule(s ) every day by oral route. 10/31 completed Not Available Not Available Not Available methylergon ovine 0.2 mg tablet TAKE 1 TABLET BY MOUTH THREE TIMES DAILY FOR 5 DAYS 04/03 completed Not Available Not Available Not Available methylpheni date ER 54 mg tablet,exte nded release 24 hr Take 1 tablet every day by oral route. 05/05 completed Not Available Not Available Not Available tretinoin 0.05 % topical cream 05/05 completed Not Available Not Available Not Available ciprofloxac in 500 mg tablet Take 1 tablet every 12 hours by oral route as directed for 5 days. 05/05 completed Not Available Not Available Not Available sulfamethox azole 800 mg-trimetho prim 160 mg tablet 05/05 completed Not Available Not Available Not Available acetaminoph en 500 mg tablet TAKE 1 TABLET BY MOUTH EVERY 6 HOURS NEEDED FOR FEVER OR PAIN. MAX 8 TABLETS IN 24 HOURS 04/03 completed Not Available Not Available Not Available triamcinolo ne acetonide 0.1 % topical cream APPLY A THIN LAYER TO THE AFFECTED AREA(S) BY TOPICAL ROUTE 2 TIMES PER DAY prn rash 12/06 completed Not Available Not Available Not Available butalbital- acetaminoph en-caffeine 50 mg-325 mg-40 mg tablet 04/03 completed Not Available Not Available Not Available hydrocortis one 2.5 % topical cream with perineal applicator APPLY A THIN LAYER TO THE AFFECTED AREA(S) BY TOPICAL ROUTE 2-4 TIMESDAIL Y prn 12/06 completed Not Available Not Available Not Available amoxicillin 875 mg tablet Take 1 tablet every 12 hours by oral route for 7 days. 10/31 completed Not Available Not Available Not Available citalopram 20 mg tablet Take 1 tablet(s) every day by oral route. 04/03 completed Not Available Not Available Not Available meclizine 25 mg tablet 04/03 completed Not Available Not Available Not Available nystatin 100,000 unit/gram topical cream 12/12 completed Not Available Not Available Not Available docusate sodium 100 mg capsule TAKE 1 CAPSULE BY MOUTH TWICE DAILY NEEDED FOR CONSTIPAT ION 2023 active Not Available Not Available Not Avai lable lidocaine HCl 3 % topical cream APPLY TO THE AFFECTED AREA(S) BY TOPICAL ROUTE 2 TIMES PER DAY 12/12 completed Not Available Not Available Not Available ibuprofen 600 mg tablet TAKE 1 TABLET BY MOUTH EVERY 6 HOURS NEEDED FOR PAIN 04/03 completed Not Available Not Available Not Available methylpredn isolone 4 mg tablets in a dose pack 05/05 completed Not Available Not Available Not Available norethindro ne (contracept miguelito) 0.35 mg tablet 05/05 completed Not Available Not Available Not Available ondansetron 4 mg disintegrat ing tablet DISSOLVE 1 TABLET ON THE TONGUE EVERY 6 HOURS NEEDED FOR NAUSEA OR VOMITING active Not Available Not Available No t Available methylpheni date ER 36 mg tablet,exte nded release 24 hr Take 1 tablet every day by oral route. 11/20 completed Not Available Not Available Not Available metoclopram faisal 10 mg tablet TAKE 1 TABLET BY MOUTH EVERY 6 HOURS NEEDED 12/12 completed Not Available Not Available Not Available oxycodone 5 mg tablet 04/03 completed Not Available Not Available Not Available hydroxyzine pamoate 25 mg capsule Take 1 capsule 4 times a day by oral route as needed. 04/03 completed Not Available Not Available Not Available escitalopra m 10 mg tablet 1/2 po qday with food x 2 weeks then increase to 1 po qday with food active Not Available Not Available No t Available atomoxetine 25 mg capsule 10/31 completed Not Available Not Available Not Available atomoxetine 60 mg capsule 10/31 completed Not Available Not Available Not Available bupropion HCl XL 300 mg 24 hr tablet, extended release 1 po qday with 150 mg daily active Not Available Not Available No t Available bupropion HCl XL 150 mg 24 hr tablet, extended release 1 po qday with 300 mg tablet 10/31 completed Not Available Not Available Not Available nitrofurant oin monohydrate /macrocryst als 100 mg capsule 01/27 completed Not Available Not Available Not Available Vyvanse 30 mg capsule active Not Available Not Available N ot Available Vyvanse 50 mg capsule active Not Available Not Available N ot Available Vitamin D 2,000 unit capsule active Not Available Not Available Not Available 10 mg-400 mcg capsule 1 capsule every day by oral route. 2004 active Not Available Not Available Not Avai lable lurasidone 40 mg tablet TAKE 1 TABLET BY MOUTH EVERY DAY DIRECTED 05/05 completed Not Available Not Available Not Available vilazodone 20 mg tablet active Not Available Not Available Not Available vilazodone 10 mg tablet 05/05 completed Not Available Not Available Not Available + DHA active Not Available Not Available Not Available Nurtec ODT 75 mg disintegrat ing tablet 12/06 completed Not Available Not Available Not Available ID NOW COVID-19 Test Kit USE 1 KIT TODAY DIRECTED 12/12 completed Not Available Not Available Not Available Vitals Date Recorded Body height Body mass index (BMI) Body weight Body temperature Heart rate Oxygen saturation Oxygen saturation in Arterial blood by Pulse oximetry Systolic blood pressure Diastolic blood pressure Provider Name and Address Organization Details Last Updated DateTime 4 170.18 cm 27.3 kg/m2 81553.0 7 g 97.7 [degF] 94 /min 99 % 99 % 122 mm[Hg] 80 mm[Hg] Yashira Daniel RN [facility] [employer] 14:33:45 Date Recorded Body height Body mass index (BMI) Body weight Body temperature Heart rate Oxygen saturation Oxygen saturation in Arterial blood by Pulse oximetry Provider Name and Address Organization Details Last Updated DateTime 4 170.18 cm 27.6 kg/m2 10221.2 6 g 98 [degF] 87 /min 96 % 96 % Yashira Daniel RN [facility] 4 16:58:43 Date Recorded Systolic blood pressure Diastolic blood pressure Provider Name and Address Organization Details Last Updated DateTime 11/01/2023 138 mm[Hg] 79 mm[Hg] Maria Antonia Ding MD [address] [place] [address], [address], [place] [employer] [facility] [employer] 11/01/2023 17:07:43 Date Recorded Body height Body mass index (BMI) Body weight Body temperature Heart rate Respiratory rate Oxygen saturation Oxygen saturation in Arterial blood by Pulse oximetry Systolic blood pressure Diastolic blood pressure Provider Name and Address Organization Details Last Updated DateTime 4 170.18 cm 27.3 kg/m2 07296.0 7 g 98.1 [degF] 78 /min 16 /min 97 % 97 % 106 mm[Hg] 78 mm[Hg] Eleazar Calixto [employer] [facility] [employer] 4 17:27:14 Date Recorded Body height Body mass index (BMI) Body weight Body temperature Heart rate Respiratory rate Oxygen saturation Oxygen saturation in Arterial blood by Pulse oximetry Systolic blood pressure Diastolic blood pressure Provider Name and Address Organization Details Last Updated DateTime 4 170.18 cm 25.5 kg/m2 34962.9 1 g 98.1 [degF] 76 /min 20 /min 98 % 98 % 110 mm[Hg] 70 mm[Hg] Eleazar Calixto [facility] 4 17:45:19 Date Recorded Body height Body mass index (BMI) Body weight Body temperature Heart rate Respiratory rate Oxygen saturation Oxygen saturation in Arterial blood by Pulse oximetry Systolic blood pressure Diastolic blood pressure Provider Name and Address Organization Details Last Updated DateTime 4 170.18 cm 24.6 kg/m2 58559 g 98.1 [degF] 80 /min 20 /min 98 % 98 % 102 mm[Hg] 70 mm[Hg] Eleazar Calixto [facility] 4 17:48:06 Social History Question Answer Notes LastModified by [employer] ion Details LastModified Time Tobacco Smoking Status [email or web address]/01/2023 14:29:20 Do You Have An Advance Directive? No [email or web address] Information not available 12/13/2023 What Is Your Level Of Alcohol Consumption? Moderate [email or web address] Information not available 12/13/2023 What Is Your Level Of Caffeine Consumption? Moderate [email or web address] Information not available 12/13/2023 How Much Tobacco Do You Chew? 2-4/day [email or web address] Information not available 12/13/2023 What Type Of Diet Are You Following? REGULAR [id number] Information not available 09/28/2022 What Was The Date Of Your Most Recent Tobacco Screening? 02/09/2022 [email or web address] Information not available 08/01/2023 What Is Your Relationship Status? Information not available 12/13/2023 Do You Or Have You Ever Used Smokeless Tobacco? Former Smokeless Tobacco User [email or web address] Information not available 12/13/2023 How Much Tobacco Do You Smoke? No [email or web address] Information not available 12/13/2023 Do You Have Any Dietary Restrictions? No [email or web address] Information not available 08/01/2023 How Many Years Have You Used Smokeless Tobacco? 10 [email or web address] Information not available 12/13/2023 Sex: Unknown Functional Status Question Answer Note LastModified by Organization D etails LastModified Time What is your exercise level? Moderate [email or web address] Information not available 12/13/2023 Mental Status None recorded. Family History Relationship Description Onset Age of this Age Resolved Age Notes LastModified by Organization Details LastModified Time Father Heart disease [id number] Not available 09/28/2022 00:57:24 Mother Seizure disorder [email or web address] Not available 2023 17:29:07 Mother Seizure 1 [email or web address] Not available 12/13/2023 17:29:07 Maternal Grandmother Seizure 1 [email or web address] Not available 11/27 17:29:07 Medical History Condition Response BLINDNESS N RHEUMATIC FEVER N BLADDER PROBLEMS N KIDNEY STONES N MRSA N OTHER # 1 N POLIO N LUNG DISEASE/DISORDER N HISTORY OF DRUG ABUSE N RADIATION / CHEMOTHERAPY N COPD N Other # 2 N BLOOD DISEASES N SURGERY N EAR OR HEARING PROBLEMS N MUMPS N SHINGLES N BOWEL PROBLEMS N DEPRESSION (INCLUDING POST ) N FEMALE PROBLEMS / INFECTIONS N STROKE/TIA N THYROID DISEASE N ULCERS N BENIGN PROSTATIC HYPERPLASIA N MEASLES N CERVICALGIA N TB SKIN TEST N HYPOTENSION N MYOCARDIAL INFARCTION N PARAPELGIA N OBESITY N GERD/NAUSEA N ANEURYSM N URINARY/BLADDER/KIDNEY PROBLEMS N CORONARY ARTERY DISEASE (CAD) N MENIERE'S DISEASE N ADDICTION CONCERNS N ENDOMETRIOSIS N USE OF BLOOD THINNERS N SKIN PROBLEMS N EMPHYSEMA N GASTROINTESTINAL DISORDER N MUSCLE,JOINT OR BONE PROBLEMS N GASTROINTESTINAL BLEEDING N BLOOD CLOTS N ASTHMA N CATARACTS N ERECTILE DYSFUNCTION N GI PROBLEMS N CHF N Low Testosterone N NEUROPATHY N INFERTILITY N AIDS/HIV N FRACTURES N CHEMOTHERAPY / RADIATION N VISION/EYE PROBLEMS N LIVER DISEASE N MALE HYPOGONADISM N HYPERTENSION N TOURETTE'S N ANXIETY DISORDER N BLOOD TRANSFUSION N ANEMIA/BLOOD DISORDER N CHRONIC EAR INFECTIONS N BRONCHITIS N TUBERCULOSIS N GLAUCOMA N FOOT PROBLEM N DIVERTICULITIS N SLEEP APNEA N CHICKENPOX N ALLERGIES/HAYFEVER N INFECTIOUS DISEASE N PROSTATE N HEART ARRHYTHMIA N INSOMNIA N HIGH CHOLESTEROL / HYPERLIPIDEMIA N EYE PROBLEMS N HYPERTHYROIDISM N EATING DISORDER N EDEMA N CHRONIC PAIN SYNDROME N CAROTID BLOCKAGE N CONSTIPATION N BACK / NECK PROBLEMS N HAVE YOU BEEN HOSPITALIZED OR SEEN IN [facility] IN THE PAST YEAR ? N ATHEROSCLEROSIS N BREAST PROBLEMS N DIALYSIS N ECZEMA N FIBROMYALGIA N OSTEOPOROSIS N ARTHRITIS N NO SIGNIFICANT PAST MEDICAL HISTORY N APPENDICITIS N DIABETES, TYPE N BAD TEETH N HEARTBURN / REFLUX N ADD/ADHD N AUTISM SPECTRUM DISORDER (ASD) N HEPATITIS / LIVER DISEASE N PULMONARY DISEASE N GOUT N SLEEP DISORDER N ALZHEIMER'S DISEASE N PAIN N DEMENTIA N HERPES N SEIZURES/EPILEPSY N HEADACHES/MIGRAINES N VASCULAR DISEASE N PACEMAKER N DIZZINESS N HEART DISEASE/HEART PROBLEMS N KIDNEY DISEASE N SCARLET FEVER N MULTIPLE SCLEROSIS N DEVELOPMENTAL OR BEHAVIORAL DISORDERS N MENTAL DISORDER/ILLNESS N CANCER: SPECIFY N CARDIAC ARRHYTHMIA N PNEUMONIA N ATRIAL FIBRILLATION N Gall Stones N PULMONARY EMBOLISM N AUTOIMMUNE DISEASE N Gynecological History Statement/Question Response Abnormal Pap N Date of LMP 04/26/2022 Sexually Active? Y STIs/STDs N HPV Vaccine Y Date of Last Pap Smear 07/30/2021 Current Control Method None Age at Menarche 10 N Obstetrics History GPAL:G 0 P 0 0 0 0 Immunizations Vaccine Type Date Status Note Provider Nam e and Address Organization Details Recorded Time Influenza, adjuvanted, quadrivalent, PF 05/13/2023 completed Benedict Spears MD [address] [facility], [place], [address], [facility] [employer] 12/13/2023 17:29:02 SARS-COV-2 (COVID-19) vaccine, UNSPECIFIED 02/15/2021 completed Benedict Spears MD [address] [facility], [address], [place], [address], [employer] 12/13/2023 17:29:02 SARS-COV-2 (COVID-19) vaccine, UNSPECIFIED 02/15/2022 completed Benedict Spears MD [address] [facility], [address], [place], [address], [employer] 12/13/2023 17:29:02 Past Encounters Encounter ID Performer Location Encounter Start Date Encounter Closed Date Diagnosis/Indication Diagnosis SNOMED-CT Code Diagnosis ICD10 Code Diagnosis Note [id number] [facility] [place] [facility] [address] [facility] [address] [place] [address] 02/09/2022 00:00:00 02/20/2022 16:24:03 [id number] S_G Primary Care [facility] [address] [facility] [address] [place] [place] [address] 03/20/2022 00:00:00 03/20/2022 08:23:[id number] [facility] Primary Care [facility] jacobe [address] [place] [address] [address] [place] [place], [place] [address] 04/24/2022 00:00:00 04/24/2022 08:19:[id number] [facility] Primary Care Sander jamese [address] [place] [address] [address] [place] [address] 05/29/2022 00:00:00 05/29/2022 08:16:[id number] [facility] [place] Sander jamese [address] [place] [address] [address] [place] [address] 07/10/2022 00:00:00 07/10/2022 08:17:01 [id number] S_[facility] Primary Care [place] [address] [place] [address] [address] [place] [address] 08/09/2022 00:00:00 08/09/2022 08:21:00 [id number] Maria Antonia Ding MD [facility] Primary Care [place] [address] [place] [address] [address] [place] [address] 10/24/2022 12:07:21 10/24/2022 12:54:50 External hemorrhoids 46677559 K64.4 Avoid dry toilet paperIncre ase water/fibe r and avoid straining with stoolsSitz baths TID prnf/u in 1 week or sooner if needed [id number] KASSIE Turner [place] [place] [address] [place] [address] [address] [place] [address] 04/03/2023 08:09:22 04/03/2023 09:52:54 Mixed anxiety and depressive disorder 126865561 F41.8 Improved but not to goal on current dose. Will add venlafaxin e 75mg back to the 150mg. Highly encouraged pt to consider counseling . Denies any SI/HI at this time. Pt to stop medication and be seen if s/e develop. Pt to call or send update through portal in 2 weeks. Onychomyco sis of toenails 785239819 B35.1 ChronicCon tinue with topical antifungal treatment. Unable to take oral meds as she is still breastfeed ing. Advised to perform brown mouthwash soaks and apply vapor rub to affected nails daily in the meantime.R TO 3-6 months for f/u Headache 47570872 R51.9 New problemNot able to manage with otc pain relievers alone.Head ache prevention techniques reviewed. Importance of lifestyle measures reviewed including managing stress, good sleep hygiene, avoiding headache triggers. Ensure take daily preventati ve meds, avoid overuse of headache treatment meds. Will give trial of Nurtec as topiramate , and other migraine meds, may impact milk supply and pt is still breastfeed ing her 3 month-old. Pruritic rash 77580485 L 28.2 New problemLik tomy candidal. Advised to apply otc topical yeast medication to external tissues.Cu stomary discussion of prescribed medication benefits, side effects, and compliance was done. Patient was instructed on proper skin care. If no improvemen t over the next week, will consider rx strength medication . [id number] Maria Antonia Ding MD [facility] Primary Care [address] [place] [address] 08/01/2023 14:28:31 08/01/2023 14:52:45 Eruption [id number] R21 eczemadisc ussed care of dry, sensitive skinshorte r, cooler showersavo id lotions/so aps/produc ts with perfumes/d yesemollie nt lotions regularly [id number] Maria Antonia Ding MD [facility] Primary Care [address] [place] [address] 11/01/2023 16:49:38 11/01/2023 17:18:35 Attention deficit hyperactivity disorder 741611688 F90.9 Dx by psychiatry failed nonstimula ntstrial of methylphen idate ER 36 mg dailyPt understand s this medication has risk for abuse/depe ndence and agrees to take it only as prescribed and to guard from loss/theft f/u in 4 weeks or sooner if needed [id number] Benedict Spears MD [address] [address] 12/13/2023 17:21:01 12/13/2023 17:58:15 Adult health examination [id number] Z00.00 Bipolar disorder 2103772 4 F31.9 Depressive disorder 3548 9007 F32.A Anxiety disorder 9703020 06 F41.9 Chronic neck pain 573199 0608 107 M54.2 Chronic low back pain 27 1611568 M54.50 Overweight 466706365 E66 .3 Chronic id iopathic constipation 98811627 K59.04 Vitamin D deficiency 347 31425 E55.9 Attention deficit hyperactivity disorder, 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 [id number] Benedict Spears MD [place] [address] 01/28/2024 17:39:47 01/28/2024 17:59:48 Bipolar disorder 12763047 F31.9 Depressive disorder 3548 9007 F32.A Anxiety disorder 9623646 06 F41.9 Chronic neck pain 667480 2987 107 M54.2 Chronic low back pain 27 8112634 M54.50 Overweight 710948578 E66 .3 Chronic id iopathic constipation 34379406 K59.04 Vitamin D deficiency 347 67551 E55.9 Improved Attention deficit hyperactivity disorder, predominantly inattentive type 63997551 F90.0 Urinary tr act infectious disease 10197181 N39.0 Hyperlipidemia 26034948 E78.5 [id number] Benedict Spears MD [place] [address] 05/05/2024 17:37:46 05/05/2024 17:57:56 Depressive disorder 44429593 F32.A Bipolar disorder 0417325 4 F31.9 Anxiety disorder 4712050 06 F41.9 Chronic neck pain 400919 5207 107 M54.2 Chronic low back pain 27 4848599 M54.50 Chronic id iopathic constipation 75241069 K59.04 Vitamin D deficiency 347 33477 E55.9 Improved Attention deficit hyperactivity disorder, predominantly inattentive type 18191587 F90.0 Hyperlipidemia 59708290 E78.5 Diet controlled Health Concerns Section Related Observation LastModified by Organization Detai ls LastModified Time None Recorded Concern Status LastModified by Organization Details LastModified Time None Recorded Advance Directives Directive N: Payers Encounter Date Sequence Insurance Name Policy Number Policy Garcia Covered Member ID Garcia Member ID Guarantor Name 08/01/2023 1 [place] - DOS PRIOR TO 2024 - [employer] ( - PPO) Trevor Zeinab [id number] Aline Arriola 11/01/2023 1 [place] - [place] PRIOR TO 2024 - [employer] - [employer] ( - PPO) Trevorhiram Arriola [id number] Aline Arriola 12/13/2023 1 [place] - DOS PRIOR TO 2024 - [employer] - [employer] ( - PPO) Trevorhiram Arriola [id number] Aline Arriola 01/28/2024 1 [place] - DOS PRIOR TO 2024 - [employer] - [employer] ( - PPO) Trevorhiram Arriola [id number] Aline Arriola 05/05/2024 1 [place] - DOS PRIOR TO 2024 - [employer] - [employer] ( - PPO) Trevorabimbola Arriola [id number] Aline Arriola Notes Date Note Type Note Provider Name and Address Organization Details Recorded Time 08/01/2023 text/html Weight is stable but needs to be down to 165 at her 1 year weigh in for work some vaginal dryness, decreased libido, no painful intercourse. Venlafaxine was decreased recently and latuda was started, will be started on atomoxetine. Will be d/c norethindrone soon. Has rash gluteal cleft, improved but not resolved. Still very itchy-hydrocortison e, frequent showers but not yet resolved. Maria Antonia Ding MD [address], [address], [place], [address], [facility] [employer] 08/29/2023 11:59:50 11/01/2023 text/html did not notice a ny improvement with nonstimulant medication for ADHD. She was doing telehealth with psychiatry and they referred her back here since they cannot prescribe stimulants from his state. No chest pain or sob. Focus/concentration issues affect her quality of life. Maria Antonia Ding MD [address], [address], [place], [address], [employer] 12/10/2023 09:49:55 12/13/2023 text/html New pt visit: 33 yo F is here to establish her care. Pt was seeing PCP at [place] in the past. Pt needs refill on her meds. Pt was seeing Psychiatrist in the past and her previous PCP was managing her meds. Pt says she is doing well with this regimen and wants to cont with it. Denies any mood swings/SI/HI. Pt is planning to become too. Pt has chronic neck and low back pain due to workman's comp and she is f/u with Ortho at [facility] for it. Benedict Spears MD [address], [facility] [address], [place], [address], [employer] 12/13/2023 17:59:42 01/28/2024 text/html Pt is here for f /u on her annual labs. Doing overall better. Denies any problem with meds. C/o urinary urgency, burning and frequency for last 2 days. Pt has UTI in the past and it feels same. Pt has tried some azos for this. Pt needs refill on her meds. Pt was seeing Psychiatrist in the past and her previous PCP was managing her meds. Pt says she is doing well with this regimen and wants to cont with it. Denies any mood swings/SI/HI. Pt is planning to become too. Pt has chronic neck and low back pain due to workman's comp and she is f/u with Ortho at [facility] for it. Benedict Spears MD [address], [facility] [address], [place], [address], [employer] 01/28/2024 18:03:20 05/05/2024 text/html Pt is here for f /u on her lab and chronic conditions. Doing overall better. Denies any problem with meds. Pt is 9 weeks . A0 and she is f/u with her OB for this. Her OB and her Psych has talked about her medications to continue during this . Pt is f/u with Psych at [place] for her mood and is on meds by them. Denies any mood swings/SI/HI. Pt has chronic neck and low back pain due to workman's comp and she is f/u with Ortho at [facility] for it. Benedict Spears MD [address] [place] [address], [place], [address], [place] [facility] 05/05/2024 18:01:52 OBGyn Episode No OBEpisode recorded.
--- OUTSIDE RECORDS SUMMARY | 2024-09-15 07:07 | XMS_ITS | Continuity of Care Document ---
Author Name [facility] Organization [facility] Care Team Providers Care Anesthesiology Teacher Name Role Phone [facility] Unavailable Unavailable Problems Combined list of problems from Department of Defense and Veterans Affairs facilities. It does not include entries that were removed or entered in error. Problem Status Onset Date Problem Type Date of Resolution Comments Source Allergic rhinitis due to allergen Active Condition [facility] Cervicalgia Active Condition [facility] Cervicovaginal cytology: Low grade squamous intraepithelial lesion (SNOMED CT 189629249) Active Condition May 10, 2012 Entered By: PETRA WOODWARD PA-C Comment: colposcopy 10/2011 [facility] CN - Constipation Active Condition [facility] Depressive disorder Active Condition [facility] Dysmenorrhea Active Condition [facility] Dysmenorrhoea Active Condition [facility] FAMILY HISTORY Active Condition May Entered By: DULCE MATHIS Comment: MGM: epilepsy, grand mal seizureNov 2009 Entered By: DULCE MATHIS Comment: MGF: , unknown causeNov 2009 Entered By: DULCE MATHIS Comment: PGM: old age, 70sNov 2009 Entered By: DULCE MATHIS Comment: Dad: crohnsNov 2009 Entered By: DULCE MATHIS Comment: Mom: seizure d/o, healthyNov 2009 Entered By: DULCE MATHIS Comment: paternal uncles/nephew: crohnsNov 2009 Entered By: DULCE MATHIS Comment: Sister: addiction, biopolar, borderline personality d/oNov 2009 Entered By: DULCE MATHIS Comment: brother: healthyNov 2009 Entered By: DULCE MATHIS Comment: no children [facility] Insomnia (SNOMED CT 843641550) Active Condition [facility] Irritable bowel syndrome characterised by alternating bowel habit Active Condition [facility] Low back pain (SNOMED CT 454667970) Active Condition [facility] Low Back Pain * (ICD-9-CM 724.2) Active Condition [facility] Lumbar radiculopathy Active Condition [facility] Oral contraception Active Condition [facility] Other and unspecified ovarian cyst Active Condition May 10, 2012 Entered By: PETRA WOODWARD PA-C Comment: functional cysts, controlled w/ OCPs [facility] Past surgical history Active Condition May 30, 2010 Entered By: DULCE MATHIS Comment: surgical resection of MRSA infection, abdomen 2009 Entered By: DULCE MATHIS Comment: wisdom tooth resection [facility] Superficial mixed 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 [facility] Tinnitus Active Condition [facility] Tobacco use Active Condition [facility] Vitamin D deficiency Active Condition [facility] gastroenteritis Active Condition Do[facility] axis V global assess of functioning (GAF) scale ___ (100-0) Active Condition [facility] adjustment disorder Active Condition Do[facility] interpersonal relationship problems Inactive Condition [facility] Other Physical Therapy Active Condition Do[facility] contusion with intact skin surface Inactive Condition [facility] dysmenorrhea Active Condition Do[facility] amenorrhea Active Condition Do[facility] insomnia Active Condition Do[facility] intervertebral disc degeneration - lumbar Active Condition DoD herniated intervertebral disc lumbar Active Condition DoD nicotine dependence Active Condition DoD lumbar radiculopathy Active Condition DoD lumbago Active Condition DoD bulging disc (L5 - S1) Active Condition Do[facility] visit for: services physical Active Condition [facility] assessment of patient condition work-related Active Condition DoD pharyngitis Inactive Condition DoD viral syndrome Inactive Condition DoD herniated disc (L5 - S1) right Active Condition DoD tingling (paresthesia) Active Condition Do[facility] joint pain, localized in the hip Active Condition DoD finger sprain right hand Active Condition DoD non-neoplastic nevus Active Condition DoD foot pain (soft tissue) Active Condition DoD upper respiratory infection Active Condition DoD patellofemoral syndrome Active Condition Do[facility] visit for: screening exam Active Condition DoD acute meniscal tear Active Condition DoD dizziness Inactive Condition DoD [employer] Fitting Monofocal Except For Aphakia Active Condition DoD knee sprain Active Condition DoD severe menstrual pain (dysmenorrhea) Active Condition DoD plantar fasciitis Inactive Condition St retches ordered and demonstrated. DoD congenital foot deformity - pes cavus Inactive Condition [employer], arch supports issued. DoD astigmatism Active Condition [facility] visit for: examination of subpopulation Active Condition [facility] visit for: ears / hearing exam Inactive Condition DoD Patient Education - Injury Prevention Active Condition DoD assess patient condition work-related occupational disease Active Condition DoD Diagnosis: ICD-10-CM F31.31 Bipolar disorder, current episode depressed, mild Active Diagnosis [facility] Medications Combined list of outpatient medications from Department of Defense and Veterans Affairs facilities.Medications provided include 1) outpatient medications from the last 15 months, and 2) patient-reported medications. Medication Details Route Status Patient Instructions Prescription Expires Prescription Number Last Dispense Date Ordering Provider Order Date Order Qty Source AMOXICILLIN (AMOXICILLI N), 875MG, TABLET, ORAL, [facility], 100 ea. BOTTLE Active [id number] 2023 14 Pharmac y Data Transac tion Service Facilit y ATOMOXETINE HCL (atomoxetin e HCl), 25 MG, CAPSULE, ORAL, CAMBER PHARMACE, 30 ea. BOTTLE Cancele d [id number] : 2023 0 Pharmac y Data Transac tion Service Facilit y ATOMOXETINE HCL (atomoxetin e HCl), 25 MG, CAPSULE, ORAL, CAMBER PHARMACE, 30 ea. BOTTLE Active [id number] 2023 30 Pharmac y Data Transac tion Service Facilit y ATOMOXETINE HCL (atomoxetin e HCl), 25 MG, CAPSULE, ORAL, CAMBER PHARMACE, 30 ea. BOTTLE Active [id number] 2023 30 Pharmac y Data Transac tion Service Facilit y ATOMOXETINE HCL (atomoxetin e HCl), 60 MG, CAPSULE, ORAL, CAMBER PHARMACE, 30 ea. BOTTLE Cancele d [id number] : 2023 0 Pharmac y Data Transac tion Service Facilit y ATOMOXETINE HCL (atomoxetin e HCl), 60 MG, CAPSULE, ORAL, CAMBER PHARMACE, 30 ea. BOTTLE Active [id number] 2023 30 Pharmac y Data Transac tion Service Facilit y ATOMOXETINE HCL (atomoxetin e HCl), 60 MG, CAPSULE, ORAL, CAMBER PHARMACE, 30 ea. BOTTLE Active [id number] 2023 30 Pharmac y Data Transac tion Service Facilit y AZITHROMYCI N (azithromyc in), 250 MG, TABLET, ORAL, AUROBINDO PHARM, 6 ea. BLIST PACK Active [id number] 3 2022 6 Pharmac y Data Transac tion Service Facilit y BUPROPION XL (bupropion HCl), 150 MG, TAB ER 24H, ORAL, LUPIN PHARMACEU, 90 ea. BOTTLE Active [id number] 2023 30 Pharmac y Data Transac tion Service Facilit y CHOLECALCIF JOB 25MCG (1,000UNIT) TAB TAKE ONE TABLET BY MOUTH ONCE DAILY ORAL ACTIVE AMINA WOODWARD PA-C 2017 [facility] CHOLECALCIF JOB 50MCG (2,000UNIT) TAB TAKE ONE TABLET BY MOUTH ONCE A DAY ORAL ACTIVE LUCIANO RIVERA 2020 [facility] CITALOPRAM HYDROBROMID E 40MG TAB TAKE ONE-HALF TABLET BY MOUTH EVERY MORNING ORAL ACTIVE SAMANTA SHIRLEY 2022 [facility] FLUCONAZOLE (FLUCONAZOL E), 150 MG, TABLET, ORAL, [facility], 1 ea. BLIST PACK Active [id number] 2023 1 Pharmac y Data Transac tion Service Facilit y HYDROCODONE 5/ACETAMINO PHEN 500MG TAB TAKE ONE TABLET BY MOUTH PRN ORAL ACTIVE ESTEBAN WALDRON 2009 [facility] IBUPROFEN TAB TAKE BY MOUTH EVERY 8 HOURS ORAL ACTIVE SADIE RAGLAND MD 2014 [facility] LURASIDONE HCL (lurasidone HCl), 40 MG, TABLET, ORAL, [employer], 30 ea. BOTTLE Cancele d [id number] : 2023 0 Pharmac y Data Transac tion Service Facilit y LURASIDONE HCL (lurasidone HCl), 40 MG, TABLET, ORAL, [employer], 30 ea. BOTTLE Active [id number] 2023 30 Pharmac y Data Transac tion Service Facilit y LURASIDONE HCL (lurasidone HCl), 40 MG, TABLET, ORAL, AUROBINDO PHARM, 30 ea. BOTTLE Active [id number] 2023 30 Pharmac y Data Transac tion Service Facilit y LURASIDONE HCL (lurasidone HCl), 40 MG, TABLET, ORAL, A[employer]O PHARM, 30 ea. BOTTLE Active [id number] 2023 30 Pharmac y Data Transac tion Service Facilit y LURASIDONE HCL (lurasidone HCl), 40 MG, TABLET, ORAL, AUROBINDO PHARM, 30 ea. BOTTLE Active [id number] 2023 30 Pharmac y Data Transac tion Service Facilit y LURASIDONE HCL (lurasidone HCl), 40 MG, TABLET, ORAL, [employer], 30 ea. BOTTLE Active [id number] 2023 30 Pharmac y Data Transac tion Service Facilit y LURASIDONE HCL (lurasidone HCl), 40 MG, TABLET, ORAL, [employer]ARMA, 30 ea. BOTTLE Active [id number] 2023 30 Pharmac y Data Transac tion Service Facilit y LURASIDONE HCL (lurasidone HCl), 40 MG, TABLET, ORAL, SUN PHARMACEUTI , 30 ea. BOTTLE Active [id number] 2022 30 Pharmac y Data Transac tion Service Facilit y LURASIDONE HCL 40MG TAB TAKE ONE TABLET BY MOUTH ONCE A DAY ORAL ACTIVE SAMANTA SHIRLEY 2023 [facility] METHYLPHENI DATE ER (methylphen idate HCl), 36 MG, TAB ER 24, ORAL, [employer] [facility], 100 ea. BOTTLE Active [id number] 2023 30 Pharmac y Data Transac tion Service Facilit y METHYLPHENI DATE ER (methylphen idate HCl), 54 MG, TAB ER 24, ORAL, [employer], 100 ea. BOTTLE Active [id number] 2023 30 Pharmac y Data Transac tion Service Facilit y METHYLPHENI DATE ER (methylphen idate HCl), 54 MG, TAB ER 24, ORAL, [employer], 100 ea. BOTTLE Active [id number] 2023 30 Pharmac y Data Transac tion Service Facilit y METHYLPHENI DATE HCL (EQV-CONCER TA) 36MG TAB,SA TAKE ONE TABLET BY MOUTH ONCE A DAY ORAL ACTIVE SAMANTA SHIRLEY 2023 [facility] METHYLPHENI DATE HCL (METHYLPHEN IDATE HCL), 5 MG, TABLET, ORAL, MALLINCKROD T PH, 100 ea. BOTTLE Active [id number] 2023 30 Pharmac y Data Transac tion Service Facilit y METHYLPREDN ISOLONE (methylpred nisolone), 4 MG, TAB DS PK, ORAL, [employer], 21 ea. DOSE-PACK Active [id number] 2023 21 Pharmac y Data Transac tion Service Facilit y METOCLOPRAM PRETTY HCL (METOCLOPRA MIDE HCL), 10MG, TABLET, ORAL, [employer] [place], 500 ea. BOTTLE Active [id number] 3 2022 30 Pharmac y Data Transac tion Service Facilit y MULTIVITAMI N W/MINERALS () CAP/TAB TAKE BY MOUTH ONCE DAILY ORAL ACTIVE SADIE RAGLAND MD 2017 [facility] MULTIVITAMI NS W/MINERALS, CAP/TAB TAKE ONE TABLET BY MOUTH ONCE A DAY ORAL ACTIVE LUCIANO RIVERA 2020 [facility] NITROFURANT OIN MONO-MACRO (nitrofuran toin monohydrate /macrocryst als), 100 MG, CAPSULE, ORAL, ReInnervate PHARMA, 100 ea. BOTTLE Active [id number] 2023 10 Pharmac y Data Transac tion Service Facilit y TEMAZEPAM CAP,ORAL TAKE BY MOUTH EVERY DAY ORAL ACTIVE ESTEBAN WALDRON 2009 [facility] Tretionin ([employer] 1 TUBE in 1 CARTON > 20 g in 1 TUBE Active [id number] 12/25/19 2 4 2023 20 Pharmac y Data Transac tion Service Facilit y TRIAMCINOLO NE ACETONIDE (TRIAMCINOL ONE ACETONIDE), 0.1%, CREAM(GM), TOPICAL, [employer], 30 g TUBE Cancele d [id number] : 2023 0 Pharmac y Data Transac tion Service Facilit y VENLAFAXINE HCL 75MG 24HR TAB,SA TAKE ONE TABLET BY MOUTH ONCE A DAY ORAL ACTIVE BETTEQUSEAN, SAMANTA 2023 [facility] VENLAFAXINE HCL ER (VENLAFAXIN E HCL), 150 MG, CAP ER 24H, ORAL, [employer] PHARM, 90 ea. BOTTLE Cancele d [id number] : 2023 0 Pharmac y Data Transac tion Service Facilit y VENLAFAXINE HCL ER (VENLAFAXIN E HCL), 75 MG, CAP ER 24H, ORAL, [employer]O PHARM, 90 ea. BOTTLE Active [id number] 2023 30 Pharmac y Data Transac tion Service Facilit y VENLAFAXINE HCL ER (VENLAFAXIN E HCL), 75 MG, CAP ER 24H, ORAL, [employer]O PHARM, 90 ea. BOTTLE Active [id number] 2023 30 Pharmac y Data Transac tion Service Facilit y VENLAFAXINE HCL ER (VENLAFAXIN E HCL), 75 MG, CAP ER 24H, ORAL, AUROBINDO PHARM, 90 ea. BOTTLE Active [id number] 2023 30 Pharmac y Data Transac tion Service Facilit y VENLAFAXINE HCL ER (VENLAFAXIN E HCL), 75 MG, CAP ER 24H, ORAL, A[employer]O PHARM, 90 ea. BOTTLE Active [id number] 2023 30 Pharmac y Data Transac tion Service Facilit y Allergies, Adverse Reactions, Alerts Combined list of allergies from Department of Defense and Veterans Affairs facilities. It does not include entries that were removed or entered in error. Substance Category Reaction Severity Reaction type Status Date Reported Comments Source AMBIEN Propensity to adverse reactions to drug (finding) active 2 [facility] LUNESTA Propensity to adverse reactions to drug (finding) Nightmares active 2 [facility] TRAZODONE Propensity to adverse reactions to drug (finding) active 2 [facility] VANCOMYCIN Propensity to adverse reactions to drug (finding) Eruption active 0 [place] [facility] VANCOMYCIN Propensity to adverse reactions to drug (finding) Itching, Urticaria active 2 [facility] VANCOMYCIN Propensity to adverse reactions to drug (finding) Urticaria active 9 [facility] VANCOMYCIN HCL (VANCOMYCIN HCL) Drug allergy (disorder) Rash active 9 [place] [address] Immunizations Combined list of available immunizations from the Department of Defense and Veterans Affairs facilities. 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 (MOD) Not Given COVID-19, mRNA, LNP-S, PF, 100 mcg or 50 mcg dose [facility] INFLUENZA, UNSPECIFIED FORMULATION 2020 88 complet [facility] DIVISIO N COVID-19 (ZOHRA), VECTOR-NR, RS-AD26, PF, 0.5 ML 1 2020 212 complet [facility] ARE [facility] COVID-19 vaccine, vector-nr, rS-Ad26, PF, 0.5 mL 2020 JULI [employer] (JSN) Not Given COVID-19 vaccine, vector-nr , rS-Ad26, PF, 0.5 mL [facility] INFLUENZA, UNSPECIFIED FORMULATION 2019 88 complet ed [facility] INFLUENZA, UNSPECIFIED FORMULATION 2018 88 complet ed [facility] TDAP 2018 115 complet ed Right Deltoid [facility] TD (ADULT), 5 LF TETANUS TOXOID, PRESERVATIVE FREE, ADSORBED 2017 113 complet ed [facility] INFLUENZA, UNSPECIFIED FORMULATION 2016 88 complet ed received at [facility] PNEUMOCOCCAL POLYSACCHARID E PPV23 2015 NONE 33 complet ed Right Deltoid [facility] INFLUENZA, UNSPECIFIED FORMULATION 2015 88 complet ed [facility] INFLUENZA, UNSPECIFIED FORMULATION 2013 88 complet [facility] INFLUENZA, UNSPECIFIED FORMULATION 2011 88 complet [facility] HPV, QUADRIVALENT 2011 SARA CHONG 62 complet ed [facility] INFLUENZA (HISTORICAL) 2010 88 complet [facility] Influenza, seasonal, injectable 1 2010 [id number] 141 [employer] (SKB) complet ed Influenza , seasonal, injectabl e DoD INFLUENZA, UNSPECIFIED FORMULATION 2010 88 complet [facility] INFLUENZA (HISTORICAL) 2009 88 complet [facility] influenza virus vaccine, split virus (incl. purified surface antigen)-reti red CODE 1 2009 [id number] Unknown (UNK) comple t ed influenza virus vaccine, split virus (incl. purified surface antigen)- retired CODE [facility] anthrax vaccine 2 2009 [id number] [employer] [place] ([facility]) complet ed anthrax vaccine DoD HEP A-HEP B 2009 104 complet [facility] anthrax vaccine 1 2009 [id number] [employer] [place] (MIP) complet ed anthrax vaccine DoD vaccinia (smallpox) vaccine 1 2009 [id number] 75 [facility] ([facility]) complet ed vaccinia (smallpox ) vaccine DoD typhoid Vi capsular polysaccharid e vaccine 1 2009 [id number] Sanofi Pasteur (PMC) complet ed typhoid Vi capsular polysacch aride vaccine DoD INFLUENZA (HISTORICAL) 2009 88 complet [facility] influenza virus vaccine, split virus (incl. purified surface antigen)-reti red CODE 1 2009 UNK 15 Unknown (UNK) comple t ed influenza virus vaccine, split virus (incl. purified surface antigen)- retired CODE DoD Novel influenza-H1N 1-09, injectable 1 2009 UNK 127 Unknown (UNK) comple t ed Novel influenza -U1W5-16, injectabl e DoD HEP A-HEP B 2008 104 complet [facility] hepatitis A and hepatitis B vaccine 3 2008 [id number] 104 [employer] (SKB) complet ed hepatitis A and hepatitis B vaccine DoD INFLUENZA (HISTORICAL) 2007 88 complet [facility] influenza virus vaccine, live, attenuated, for intranasal use 1 2007 [id number] [employer]. (MED) complet influenza virus vaccine, live, attenuate d, for intranasa l use DoD HEP A-HEP B 2007 104 complet [facility] hepatitis A and hepatitis B vaccine 2 2007 [id number] 104 [employer] (SKB) complet ed hepatitis A and hepatitis B vaccine DoD MMR 2007 03 complet [facility] measles, mumps and rubella virus vaccine 1 2007 UNK 03 Unknown (UNK) Not Given measles, mumps and rubella virus vaccine DoD varicella virus vaccine 1 2007 UNK 21 Unknown (UNK) Not Given varicella virus vaccine DoD TDAP 2007 115 complet [facility] poliovirus vaccine, inactivated 1 2007 [id number] Sanofi Pasteur (PMC) complet ed polioviru s vaccine, inactivat ed [facility] hepatitis A and hepatitis B vaccine 1 2007 [id number] 104 [employer] (SKB) complet ed hepatitis A and hepatitis B vaccine DoD meningococcal polysaccharid e (groups A, C, Y and W-135) diphtheria toxoid conjugate vaccine (MCV4P) 1 2007 [id number] Sanofi Pasteur (PMC) complet ed meningoco ccal polysacch aride (groups A, C, Y and W-135) diphtheri a toxoid conjugate vaccine (MCV4P) [facility] tetanus toxoid, reduced diphtheria toxoid, and acellular pertu is vaccine, adsorbed 1 2007 [id number] 115 Sanofi Pasteur (PMC) complet ed tetanus toxoid, reduced diphtheri a toxoid, and acellular pertussis vaccine, adsorbed DoD TDAP 2007 115 complet ed [place] [facility] [id number] ULAR PERTUSSIS (ADULT) (HISTORICAL) 2006 139 complet ed [facility] Encounters Combined list of: 1) Encounters from Department of Veterans Affairs facilities going backup to the last 18 months, not all VA inpatient encounters are included; 2) Encounters from the Department of Defense facilities going backup to 280 months. Location Location Details Encounter Type Encounter Number Reason For Visit Attending Provider ADM Date DC Date Status Disposition Source [facility] GERARD Dunn(IEP Hearing Conservat ion Exam) OUTPATIENT [id number] LUKE COCO Fadi 02/03 Released w/o Limitations [facility] Simone Hayes [facility] GERARD Corea(IEP Hearing Conserv ation Exam) [facility] Simone Hayes [facility] GERARD Corea(IEP Optometry ) OUTPATIENT [id number] ISIDRO IBARRA 02/10 Released w/o Limitations [facility] Simone Hayes [facility] GERARD Corea(IEP Optomet ry) [facility] Simone Hayes [facility] GERARD Corea(C-TMC Er Module) OUTPATIENT [id number] foot pain BETZAIDA WEEMS 03/12 Released with Work/Duty Limitations [facility] GERARD Dunn(C-TM C Er Module) [place] [address](FMS , [employer]) OUTPATIENT [id number] SCALL MARILINA SOILA JESS 04/20 Released with Work/Duty Limitations [facility] [place] [address](F MS, [employer] [place]) [place] [address](BDO Optometry [facility]) OUTPATIENT [id number] CARLYN Farrell 04/27 Released w/o Limitations [facility] [place] [address](B DO Optomet ry [facility]) [place] [address](FMS , [employer]) OUTPATIENT [id number] SARAH PRINCE 05/04 Released with Work/Duty Limitations [facility] [place] [address](F MS, [employer]) [place] [address](FMS , [employer]) OUTPATIENT [id number] YONATAN BLAIR 05/12 Released w/o Limitations [facility] [place] [address](F MS, [employer]) [place] [address](FMS , [employer]) OUTPATIENT [id number] SELFCAR Octavia GLYNN TY Berenice 05/19 Released w/o Limitations [facility] [place] [address](F MS, [employer]) [place] [address](FMS , [employer]) OUTPATIENT [id number] YONATAN BLAIR 05/21 Released w/o Limitations [facility] [place] [address](F MS, [employer]) [place] [address](FMS , [employer]) OUTPATIENT [id number] SELFCAR E ORTEGAJIME YENNY, TALA 05/27 Released w/o Limitations [facility] [place] [address](F MS, [employer]) [place] [address](FMS , [employer]) OUTPATIENT [id number] SELF CARE ORTEGAJIME YENNY, TALA 06/03 Released w/o Limitations [facility] [place] [address](F MS, [employer]) [place] [address](FMS , [employer]) OUTPATIENT [id number] WALK/TR ERMIAS GARAY L 06/12 Released w/o Limitations [facility] [place] [address](F MS, [employer]) [place] [address](FMS , [employer]) OUTPATIENT [id number] SANTO JEONG L 06/16 Released w/o Limitations [facility] [place] [address](F MS, [employer]) [place] [address](FMS , [employer]) OUTPATIENT [id number] HECTOR MCGOVERN L 06/16 Released w/o Limitations [facility] [place] [place] [address](F MS, [employer]) [place] [address](FMS , [employer]) OUTPATIENT [id number] SUSHILA VYASMONLILI TateCINDYENRIQUE MORALES 07/07 Released w/o Limitations [facility] [place] [address](F MS, [employer]) [place] [address](Ort hotic Prostheti c Lab [facility]) OUTPATIENT [id number] NUVIA Perez 07/07 Released w/o Limitations [facility] [place] [address](O rthotic Prosthe tic Lab [facility]) [place] [address](FMS , [employer]) OUTPATIENT [id number] SARAH PRINCE 07/16 Released with Work/Duty Limitations [facility] [place] [address](F MS, [employer]) LOTTIE Mata([facility]) OUTPATIENT [id number] GURPREET JIMENEZ 11/09 Released w/o Limitations LOTTIE Mata([facility]) LOTTIE Mata([facility]) OUTPATIENT [id number] right back and leg sx KYRA MASSEY 11/09 Released w/o Limitations [facility] [place], [place]([facility] ) [facility] [place]) OUTPATIENT [id number] right anterio r pelvis and right leg sx NIEBUHR, KYRA A 11/10 Released w/o Limitations [facility] [place] ) [facility] [place]) OUTPATIENT [id number] GURPREET Jimenez 11/10 Released with Work/Duty Limitations [facility] [place]) [facility] [place]([facility]) OUTPATIENT [id number] right pelvis and leg sx NIEBUHR, KYRA A 11/11 Released w/o Limitations [facility] [place] [place] [facility] [place] OUTPATIENT [id number] right low back and leg sx NIEBUHR, KYRA A 11/15 Released w/o Limitations [facility] [place] [place] [facility] [place] [facility]IENT [id number] inproce ssing CHIARELLI, PETRA NEBZYDOS 11/17 Released w/o Limitations [facility] [place] [facility] [facility] [place] [facility]PATIENT [id number] c/o dizzine ss, bodyach es, headach e, sorethr oat CHIARELLI, PETRA NEBZYDOS 11/18 Sick at Home/Quarter s [facility] [place] [facility] [facility] [place] [facility] OUTPATIENT [id number] [facility] YANET GU R 11/18 Released with Work/Duty Limitations [facility] [place] [facility] [place] [facility] [place] [facility] [id number] Herniat ed disc (L5 - S1) right NENA HOLLAND 11/19 Released with Work/Duty Limitations [facility] [place] [facility] [place] [facility] [id number] YANET GU 11/25 Released with Work/D[place]itations [facility] [place] [facility] [place] [facility] [place] [facility] [id number] initial f/u PENNFRANH A 11/29 Released w/o Limitations [facility] [place] [facility] [facility] [place] [id number] Pas entered the order MARYANA MAY R 11/30 [place]ased [place]itations [facility] [place] [facility] [place] [facility] [id number] Weekly Case Managem ent Appoint [facility] YANET GU 11/30 Released with Work/D[place]itations [facility] [place] [facility] [facility] [place]) [place] [id number] MARYANA MAY 12/02 Released w[place]o Limitations [facility] [place] [facility] [place] [id number] MARYANA MAY 12/03 Released w/o Limitations [facility] [place] [facility] [place] [facility] [id number] YANET GU 12/07 Released with Work/D[place] Limitations [facility] [place] [facility] [facility] [place] [id number] MARYANA MAY R 12/08 [place]ased w[place]o Limitations [facility] [place] [facility] [place] [facility] [id number] c/o sleepin g issues HUONG PENN A 12/10 Released with Work/Duty Limitations [facility] [place] [facility] [facility] [place] [id number] BAGDADMARYANA R 12/10 Released w/o Limitations [facility] [place] [facility] [place] [facility] [id number] GAO CLINT, YANET R 12/14 Released with Work/Duty Limitations [facility] [place] [facility] [facility] [place] [facility] [id number] GAO CLINT, YANET R 12/21 Released w/o Limitations [facility] [place] [facility] [place] [facility] [facility] [place] [id number] BAGDADMARYANA R 12/23 Released w/o Limitations [facility] [place] [facility] [place] [id number] follow up after PT NENA HOLLAND 12/23 Released with Work/D[place] Limitations [facility] [place] [facility] [place] [id number] BAGDAD MARYANA R 12/28 Released w/o Limitations [facility] [place] [facility] [place] [facility] [id number] GAO CLINT, YANET R 12/28 Released w/o Limitations [facility] [place] [facility] [facility] [place] [facility] [id number] med refill/ issue BOTU, BANKOLE O 12/29 Released with Work/Duty Limitations [facility] [place] [facility] [facility] [place] [facility] [id number] YANET GU 01/04 Released w/o Limitations [facility] [place] [facility] [facility] [place] [facility] [id number] LILY GUTIERREZ 01/05 Released with Work/Duty Limitations [facility] [place] [facility] [facility] [place] [id number] MARYANA MAY R 01/07 Released w/o Limitations [facility] [place] [facility] [place] [facility] [id number] JAZ CHACKO 01/11 Released w/o Limitations [facility] [place] [facility] [place] [facility] [place] [facility] [id number] periodi c f/u BOTU, BANKOLE O 01/14 Released with Work/Duty Limitations [facility] [place] [facility] [facility] [place] [id number] MARYANA MAY R 01/18 Released w[place]o Limitations [facility] [place] [facility] [place] [id number] SERGIO TINSLEY 01/19 Released w[place]o Limitations [facility] [place] [facility] [place] [facility] [id number] LISA MARSHALL 01/19 Released w/o Limitations [facility] [place] [facility] [facility] [place] [facility] [id number] f/u from ER for left had injury LILY GUTIERREZ R 01/20 Released with Work/Duty Limitations [facility] [place] [facility] [facility] [place] [id number] SERGIO TINSLEY 01/21 Released w/o Limitations [facility] [place] [facility] [place] [facility] [id number] YANET GU R 01/24 Released w/o Limitations [facility] [place] [facility] [facility] [place] [id number] SERGIO TINSLEY 01/25 Released w[place]o Limitations [facility] [place] [facility] [place] [id number] PAM RESENDIZ 01/25 Released w[place]o Limitations [facility] [place] [facility] [place] [id number] SERGIO TINSLEY 01/27 Released w/o Limitations [facility] [place] [facility] [place] [id number] follow up after PT NENA HOLLAND 01/27 Released with Work/Duty Limitations [facility] [place] [facility] [place] [facility] [id number] u periodi c f/u BOTU, BANKOLE O 02/01 Released with Work/Duty Limitations [facility] [place] [facility] [facility] [place] [facility] [id number] YANET GU R 02/01 Released with Work/Duty Limitations [facility] [place] [facility] [facility] [place] [id number] HUYEN HORTON 02/03 Released w/o Limitations [facility] [place] [facility] [place] [facility] [id number] YANET GU R 02/08 Released with Work/Duty Limitations [facility] [place] [facility] [place] [facility] [place] [id number] f/u MARYANA MAY R 02/08 Released w/o Limitations [facility] [place] [facility] [place] [facility] [id number] DYSMENO RRHEA ANA GOLDSMITH 02/14 Released w/o Limitations [facility] [place] [facility] [facility] [place] [facility] [id number] VIERA, RAZA R 02/15 Released with Work/Duty Limitations [facility] [place] [facility] [facility] [place] [facility] [id number] VIERA, RAZA R 02/22 Released with Work/Duty Limitations [facility] [place] [facility] [facility] [place] [facility] [id number] LILY Montez R 02/22 Released with Work/Duty Limitations [facility] [place] [facility] [facility] [place] [facility] [id number] wtu periodi c f/u BOTU, BANKOLE O 03/01 Released with Work/Duty Limitations [facility] [place] [facility] [facility] [place] [facility] [id number] VIERA, RAZA R 03/01 Released with Work/Duty Limitations [facility] [place] [facility] [facility] [place] [id number] f/u per maryanaMARYANA Rocha R 03/02 Released w/o Limitations [facility] [place] [facility] [place] [facility] [id number] YANET GU R 03/08 Released with Work/Duty Limitations [facility] [place] [facility] [facility] [place] [id number] LALOMARYANA PARTIDA R 03/08 Released w/o Limitations [facility] [place] [facility] [place] [id number] PAM RESENDIZ 03/11 Released w/o Limitations [facility] [place] [facility] [place] [id number] SERGIO TINSLEY 03/14 Released w/o Limitations [facility] [place] [facility] [place] [facility] [id number] YANET GU R 03/15 Released with Work/Duty Limitations [facility] [place] [facility] [facility] [place] [facility] [id number] c/o of vomitin g BOTU, BANKOLE O 03/15 Released with Work/Duty Limitations [facility] [place] [facility] [facility] [place] [id number] SERGIO TINSLEY 03/16 Released w/o Limitations [facility] [place] [facility] [place] [facility] [id number] Weekly Case Managem ent Appoint YANET Smith R 03/25 Released with Work/Duty Limitations [facility] [place] [facility] [place] [facility] [facility]) OUTPATIENT [id number] SERGIO TINSLEY 03/28 Released w/o Limitations [facility] OUTPATIENT [id number] YANET UG R 03/28 Released with Work/Duty Limitations [facility] OUTPATIENT [id number] MARYANA Vaughn 03/31 Released w/o Limitations [facility] Outpatient Encounter [id number] Dar SHIRLEY HERE 04/16 [facility] Outpatient Encounter [id number] DARNELL CORNEJO 08/24 [facility] Outpatient Encounter [id number] LUTHER BARRIENTOS I 09/27 [facility] OFFICE O/P EST MOD 30 MIN [id number] Diagnos is: ICD-10- CM F31.31 Bipolar disorde r, current episode depress ed, mild MCQUAIDE,T HERESA 11/05 [facility] Procedures Combined list of: 1) Procedures from Department of Veterans Affairs facilities going back up to thelast 18 months, not all VA non-surgical procedures are included; 2) All procedures from the Department of Defense facilities. Procedure Procedure Type Code Date Perfomer Comments Sour e HEPATITIS A AND HEPATITIS B VACCINE (HEPA-HEPB), ADULT DOSAGE, FOR INTRAMUSCULAR USE 04/06/20 08 [facility] ORTHOTIC(S) MANAGEMENT AND TRAINING (INCLUDING ASSESSMENT AND FITTING WHEN NOT OTHERWISE REPORTED),UPPER EXTREMITY(IES),LOW ER EXTREMITY(IES) AND/OR TRUNK,INITIAL ORTHOTIC(S) ENCOUNTER,EACH 15 MINUTES 03/12/20 08 [facility] FITTING OF SPECTACLES, EXCEPT FOR APHAKIA; MONOFOCAL 02/11/20 08 [facility] BUPRENORPHINE IMPLANT, 74.2 MG 02/06/20 08 [facility] EAR MOLD/INSERT, NOT DISPOSABLE, ANY TYPE 02/04/20 08 [facility] COLLECTION OF VENOUS BLOOD BY VENIPUNCTURE 02/03/20 08 [facility] INJECTION, KETOROLAC TROMETHAMINE, PER 15 MG 08/01/19 09 [facility] FOOT, ARCH SUPPORT, REMOVABLE, PREMOLDED, LONGITUDINAL, EACH 07/07/20 08 [facility] BUPRENORPHINE IMPLANT, 74.2 MG 05/15/20 08 [facility] FITTING OF SPECTACLES, EXCEPT FOR APHAKIA; MONOFOCAL 04/27/20 08 [facility] LIGHT COMPRESSION BANDAGE, ELASTIC, KNITTED/WOVEN, WIDTH LESS THAN THREE INCHES, PER YARD 04/18/20 08 [facility] THERAPEUTIC PROCEDURE, 1 OR MORE AREAS, EACH 15 MINUTES; THERAPEUTIC EXERCISES TO DEVELOP STRENGTH AND ENDURANCE, RANGE OF MOTION AND FLEXIBILITY 03/31/20 10 [facility] APPLICATION OF A MODALITY TO 1 OR MORE AREAS; HOT OR COLD PACKS 03/28/20 10 [facility] APPLICATION OF A MODALITY TO 1 OR MORE AREAS; ELECTRICAL STIMULATION (MANUAL), EACH 15 MINUTES 03/16/20 10 [facility] APPLICATION OF A MODALITY TO 1 OR MORE AREAS; HOT OR COLD PACKS 03/14/20 10 [facility] APPLICATION OF A MODALITY TO 1 OR MORE AREAS; ELECTRICAL STIMULATION (MANUAL), EACH 15 MINUTES 03/11/20 10 [facility] APPLICATION OF A MODALITY TO 1 OR MORE AREAS; ELECTRICAL STIMULATION (MANUAL), EACH 15 MINUTES 03/08/20 10 [facility] THERAPEUTIC PROCEDURE, 1 OR MORE AREAS, EACH 15 MINUTES; THERAPEUTIC EXERCISES TO DEVELOP STRENGTH AND ENDURANCE, RANGE OF MOTION AND FLEXIBILITY 03/02/20 10 [facility] CASE MANAGEMENT, EACH 15 MINUTES 03/01/20 10 [facility] CASE MANAGEMENT, EACH 15 MINUTES 02/23/20 10 [facility] CASE MANAGEMENT, EACH 15 MINUTES 02/16/20 10 [facility] INDIVIDUAL PSYCHOTHERAPY, INSIGHT ORIENTED, BEHAVIOR MODIFYING AND/OR SUPPORTIVE, IN AN OFFICE OR OUTPATIENT FACILITY, APPROXIMATELY 45 TO 50 MINUTES [id number] WITH THE PATIENT 02/12/20 10 [facility] PSYCHIATRIC DIAGNOSTIC INTERVIEW EXAMINATION 02/10/20 10 [facility] THERAPEUTIC PROCEDURE, 1 OR MORE AREAS, EACH 15 MINUTES; THERAPEUTIC EXERCISES TO DEVELOP STRENGTH AND ENDURANCE, RANGE OF MOTION AND FLEXIBILITY 02/09/20 10 [facility] APPLICATION OF A MODALITY TO 1 OR MORE AREAS; ELECTRICAL STIMULATION (MANUAL), EACH 15 MINUTES 02/04/20 10 [facility] COORDINATED CARE FEE, MAINTENANCE RATE 02/03/20 10 [facility] APPLICATION OF A MODALITY TO 1 OR MORE AREAS; HOT OR COLD PACKS 01/28/20 10 [facility] THERAPEUTIC PROCEDURE, 1 OR MORE AREAS, EACH 15 MINUTES; THERAPEUTIC EXERCISES TO DEVELOP STRENGTH AND ENDURANCE, RANGE OF MOTION AND FLEXIBILITY 01/26/20 10 [facility] APPLICATION OF A MODALITY TO 1 OR MORE AREAS; ELECTRICAL STIMULATION (MANUAL), EACH 15 MINUTES 01/26/20 10 [facility] APPLICATION OF A MODALITY TO 1 OR MORE AREAS; HOT OR COLD PACKS 01/22/20 10 [facility] CASE MANAGEMENT, EACH 15 MINUTES 01/20/20 10 [facility] APPLICATION OF A MODALITY TO 1 OR MORE AREAS; HOT OR COLD PACKS 01/20/20 10 [facility] APPLICATION OF A MODALITY TO 1 OR MORE AREAS; ELECTRICAL STIMULATION (MANUAL), EACH 15 MINUTES 01/19/20 10 [facility] APPLICATION OF A MODALITY TO 1 OR MORE AREAS; ELECTRICAL STIMULATION (MANUAL), EACH 15 MINUTES 01/08/20 10 [facility] INDIVIDUAL PSYCHOTHERAPY, INSIGHT ORIENTED, BEHAVIOR MODIFYING AND/OR SUPPORTIVE, IN AN OFFICE OR OUTPATIENT FACILITY, APPROXIMATELY 20 TO 30 MINUTES [id number] WITH THE PATIENT 01/06/20 10 [facility] APPLICATION OF A MODALITY TO 1 OR MORE AREAS; ELECTRICAL STIMULATION (MANUAL), EACH 15 MINUTES 12/29/19 10 [facility] APPLICATION OF A MODALITY TO 1 OR MORE AREAS; TRACTION, MECHANICAL 12/24/19 10 [facility] THERAPEUTIC PROCEDURE, 1 OR MORE AREAS, EACH 15 MINUTES; THERAPEUTIC EXERCISES TO DEVELOP STRENGTH AND ENDURANCE, RANGE OF MOTION AND FLEXIBILITY 12/11/19 10 [facility] PHYSICAL THERAPY RE-EVALUATION 12/09/19 10 [facility] THERAPEUTIC PROCEDURE, 1 OR MORE AREAS, EACH 15 MINUTES; THERAPEUTIC EXERCISES TO DEVELOP STRENGTH AND ENDURANCE, RANGE OF MOTION AND FLEXIBILITY 12/04/19 10 [facility] APPLICATION OF A MODALITY TO 1 OR MORE AREAS; TRACTION, MECHANICAL 12/03/19 10 [facility] APPLICATION OF A MODALITY TO 1 OR MORE AREAS; ELECTRICAL STIMULATION (MANUAL), EACH 15 MINUTES 12/01/19 10 [facility] INFECTIOUS AGENT ANTIGEN DETECTION BY IMMUNOASSAY WITH DIRECT OPTICAL (IE, VISUAL) OBSERVATION; STREPTOCOCCUS, GROUP A 11/20/19 10 [facility] INDIVIDUAL PSYCHOTHERAPY, INSIGHT ORIENTED, BEHAVIOR MODIFYING AND/OR SUPPORTIVE, IN AN OFFICE OR OUTPATIENT FACILITY, APPROXIMATELY 20 TO 30 MINUTES [id number] WITH THE PATIENT 11/19/19 10 [facility] APPLICATION OF A MODALITY TO 1 OR MORE AREAS; TRACTION, MECHANICAL 11/16/19 10 [facility] SELF-CARE/HOME MANAGMENT TRAIN (EG,ACT OF DAILY LIVING (ADL) &COMPENSAT TRAIN,MEAL PREPARATION,SAFETY PROCS,AND INSTRUCT IN USE OF ASST TECHNOLOGY DEV/ADPT EQUIP) DIR ONE-ON-ONE CONT,EA 15 MINUTES 11/12/19 10 [facility] APPLICATION OF A MODALITY TO 1 OR MORE AREAS; ULTRASOUND, EACH 15 MINUTES 11/11/19 10 [facility] APPLICATION OF A MODALITY TO 1 OR MORE AREAS; HOT OR COLD PACKS 11/10/19 10 [facility] SCREENING TEST OF VISUAL ACUITY, QUANTITATIVE, BILATERAL 10/07/19 10 [facility] IMMUNIZATION ADMINISTRATION (INCLUDES PERCUTANEOUS, INTRADERMAL, SUBCUTANEOUS, OR INTRAMUSCULAR INJECTIONS); EACH ADDITIONAL VACCINE (SINGLE OR COMBINATION VACCINE/TOXOID) 10/07/19 10 [facility] Physical Therapy: ___ Se ion Segments, 15 Minutes Each Physical Therapy: ___ Session Segments, 15 Minutes Each [id number] 03/31/20 10 [facility] Physical Therapy Service Re-Evaluation Physical Therapy Service Re-Evaluation [id number] 03/31/20 10 [facility] Modalities Heat Hot Packs Modalities Heat Hot Packs 34585 03/28/20 10 WALKER, SERGIO [facility] Modalities Electrical Stimulation Modalities Electrical Stimulation 32460 03/28/20 10 WALKER, SERGIO M [facility] Modalities Heat Hot Packs Modalities Heat Hot Packs 59890 03/16/20 10 WALKER SERGIO M [facility] Modalities Electrical Stimulation Modalities Electrical Stimulation 01521 03/16/20 10 WALKER SERGIO M [facility] Modalities Heat Hot Packs Modalities Heat Hot Packs 46208 03/14/20 10 WALKER, SERGIO M [facility] Modalities Electrical Stimulation Modalities Electrical Stimulation 00729 03/14/20 10 WALKER, SERGIO M [facility] Modalities Electrical Stimulation Modalities Electrical Stimulation 27297 03/11/20 10 ASTRID, October [facility] Modalities Heat Hot Packs Modalities Heat Hot Packs 99216 03/11/20 10 ASTRID, October [facility] Modalities Electrical Stimulation Modalities Electrical Stimulation 41562 03/08/20 10 [facility] Physical Therapy: ___ Se ion Segments, 15 Minutes Each Physical Therapy: ___ Session Segments, 15 Minutes Each 10188 03/08/20 10 BAGDAD, MARYANA R [facility] Physical Therapy Service Re-Evaluation Physical Therapy Service Re-Evaluation 17802 03/08/20 10 LALO, MARYANA R [facility] Modalities Heat Hot Packs Modalities Heat Hot Packs 49273 03/07/20 10 HUYEN HORTON [facility] Modalities Electrical Stimulation Modalities Electrical Stimulation 40527 03/07/20 10 HUYEN HORTON [facility] Physical Therapy: ___ Se ion Segments, 15 Minutes Each Physical Therapy: ___ Session Segments, 15 Minutes Each 14802 03/02/20 10 LALO, MARYANA R [facility] Physical Therapy Service Re-Evaluation Physical Therapy Service Re-Evaluation 90105 03/02/20 10 BAGDAD, MARYANA R [facility] Clinical Social Work Individual Outpatient Counseling 30 Minutes Clinical Social Work Individual Outpatient Counseling 30 Minutes [id number] 03/02/20 10 RAZ DODSON [facility] Case Management, each 15 minutes 03/01/20 10 RAZA VIERA R [facility] Case Management, each 15 minutes 02/24/20 10 RAZA VIERA [facility] Case Management, each 15 minutes 02/18/20 10 RAZA VIERA R [facility] Psychiatric Diagnostic Evaluation Comprehensive Examination Psychiatric Diagnostic Evaluation Comprehensive Examination 28017 02/15/20 10 KATIE COOK [facility] Clinical Social Work Individual Outpatient Counseling 45 Minutes Clinical Social Work Individual Outpatient Counseling 45 Minutes [id number] 02/12/20 10 PAM KEITH [facility] Physical Therapy: ___ Se ion Segments, 15 Minutes Each Physical Therapy: ___ Session Segments, 15 Minutes Each [id number] 02/09/20 10 BAGDAD, MARYANA R [facility] Physical Therapy Service Re-Evaluation Physical Therapy Service Re-Evaluation 54557 02/09/20 10 BAGDAD, MARYANA R [facility] Modalities Heat Hot Packs Modalities Heat Hot Packs 45143 02/04/20 10 SERGIO TINSLEY [facility] Modalities Electrical Stimulation Modalities Electrical Stimulation 54782 02/04/20 10 SERGIO TINSLEY [facility] Clinical Social Work Individual Outpatient Counseling 30 Minutes Clinical Social Work Individual Outpatient Counseling 30 Minutes [id number] 02/03/20 10 RAZ DODSON [facility] Modalities Electrical Stimulation Modalities Electrical Stimulation 58941 02/02/20 10 SERGIO TINSLEY [facility] Mod[facility] Heat Hot Packs Modalities Heat Hot Packs 35711 02/02/20 10 SERGIO TINSLEY [facility] Modalities Electrical Stimulation Modalities Electrical Stimulation 42258 01/28/20 10 SERGIO TINSLEY M [facility] Modalities Heat Hot Packs Modalities Heat Hot Packs 38465 01/28/20 10 SERGIO TINSLEY M [facility] Physical Therapy: ___ Se ion Segments, 15 Minutes Each Physical Therapy: ___ Session Segments, 15 Minutes Each [id number] 01/28/20 10 SERGIO TINSLEY M [facility] Physical Therapy: ___ Se ion Segments, 15 Minutes Each Physical Therapy: ___ Session Segments, 15 Minutes Each 59493 01/27/20 10 PAM RESENDIZ [facility] Mod[facility] Heat Hot Packs Modalities Heat Hot Packs 35614 01/25/20 10 SERGIO TINSLEY M [facility] Modalities Electrical Stimulation Modalities Electrical Stimulation 46389 01/25/20 10 SERGIO TINSLEY M [facility] Case Management, each 15 minutes 01/21/20 10 LISA MARSHALL [facility] Modalities Electrical Stimulation Modalities Electrical Stimulation 32582 01/19/20 10 BAGDAD, MARYANA R [facility] Physical Therapy Service Re-Evaluation Physical Therapy Service Re-Evaluation 18292 01/19/20 10 BAGDAD, MARYANA R [facility] Psychiatric Diagnostic Evaluation Comprehensive Examination Psychiatric Diagnostic Evaluation Comprehensive Examination 19915 01/08/20 10 RAZ DODSON [facility] Modalities Electrical Stimulation Modalities Electrical Stimulation [id number] 01/08/20 10 BAGDAD, MARYANA R [facility] Modalities Traction Modalities Traction 70343 01/08/20 10 BAGDAD, MARYANA R [facility] Physical Therapy Service Re-Evaluation Physical Therapy Service Re-Evaluation 63359 01/08/20 10 BAGDAD, MARYANA R [facility] Modalities Electrical Stimulation Modalities Electrical Stimulation 11481 12/29/19 10 BAGDAD, MARYANA R [facility] Modalities Traction Modalities Traction 90440 12/29/19 10 BAGDAD, MARYANA R [facility] Physical Therapy Service Re-Evaluation Physical Therapy Service Re-Evaluation 90913 12/29/19 10 BAGDAD, MARYANA R [facility] Modalities Traction Modalities Traction 37832 12/24/19 10 BAGDAD, MARYANA R [facility] Modalities Electrical Stimulation Modalities Electrical Stimulation 54420 12/24/19 10 BAGDAD, MARYANA R [facility] Physical Therapy Service Re-Evaluation Physical Therapy Service Re-Evaluation 76733 12/24/19 10 BAGDAD, MARYANA R [facility] Physical Therapy: ___ Se ion Segments, 15 Minutes Each Physical Therapy: ___ Session Segments, 15 Minutes Each 82996 12/11/19 10 BAGDAD, MARYANA R [facility] Physical Therapy Service Re-Evaluation Physical Therapy Service Re-Evaluation 45446 12/11/19 10 BAGDAD, MARYANA R [facility] Modalities Electrical Stimulation Modalities Electrical Stimulation 07734 12/11/19 10 BAGDAD, MARYANA R [facility] Physical Therapy Service Re-Evaluation Physical Therapy Service Re-Evaluation 36054 12/09/19 10 BAGDAD, MARYANA R [facility] Physical Therapy: ___ Se ion Segments, 15 Minutes Each Physical Therapy: ___ Session Segments, 15 Minutes Each 48829 12/09/19 10 BAGDAD, MARYANA R [facility] Modalities Electrical Stimulation Modalities Electrical Stimulation 20745 12/09/19 10 BAGDAD, MARYANA R [facility] Physical Therapy: ___ Se ion Segments, 15 Minutes Each Physical Therapy: ___ Session Segments, 15 Minutes Each 95456 12/04/19 10 BAGDAD, MARYANA R [facility] Modalities Electrical Stimulation Modalities Electrical Stimulation 68155 12/04/[address] [place] [address], MARYANA R [facility] Physical Therapy Service Re-Evaluation Physical Therapy Service Re-Evaluation 88191 12/04/19 10 BAGDAD, MARYANA R [facility] Modalities Traction Modalities Traction 83436 12/03/19 10 BAGDAD, MARYANA R [facility] Modalities Electrical Stimulation Modalities Electrical Stimulation 47611 12/03/[address] [place] [address], MARYANA R [facility] Physical Therapy Service Re-Evaluation Physical Therapy Service Re-Evaluation 84953 12/03/19 10 BAGDAD, MARYANA R [facility] Modalities Electrical Stimulation Modalities Electrical Stimulation 03439 12/01/19 10 BAGDAD, MARYANA R [facility] Modalities Traction Modalities Traction 02387 12/01/19 10 BAGDAD, MARYANA R [facility] Physical Therapy Service Evaluation Physical Therapy Service Evaluation 33380 12/01/19 10 BAGDAD, MARYANA R [facility] Clinical Social Work Individual Outpatient Counseling 30 Minutes Clinical Social Work Individual Outpatient Counseling 30 Minutes 37900 11/19/19 10 RAZ DODSON Traction Pelvic Traction Pelvic 54691 11/16/19 10 KYRA MASSEY Phys Therapy Education Self Care Training - Per 15 Minutes Phys Therapy Education Self Care Training - Per 15 Minutes 99280 11/16/19 10 KYRA MASSEY A isted Exercises For ROM Assisted Exercises For ROM 19729 11/16/19 10 BRYSON, KYRA A [facility] Phys Therapy Education Self Care Training - Per 15 Minutes Phys Therapy Education Self Care Training - Per 15 Minutes 86247 11/12/19 10 KYRA MASSEY A [place] Modalities Heat Hot Packs Modalities Heat Hot Packs 53580 11/12/19 10 KYRA MASSEY A [place] Modalities Electrical Stimulation Unattended Modalities Electrical Stimulation Unattended 70283 11/12/19 10 KYRA MASSEY A [place] A isted Exercises For ROM Assisted Exercises For ROM 09462 11/12/19 10 KYRA MASSEY A [place] Modalities Ultrasound Modalities Ultrasound 53593 11/11/19 10 KYRA MASSEY A [facility] Physical Therapy Neuromuscular Re-education Physical Therapy Neuromuscular Re-education 33507 11/11/19 10 KYRA MASSEY A 30 min of one on one time with physical therapist for neuromuscular re-education techniques and counterstrain techniques for the right rectus femoris muscle. [facility] Physical Therapy Service Evaluation Physical Therapy Service Evaluation 35123 11/10/19 10 KYRA MASSEY A [facility] Physical Therapy Neuromuscular Re-education Physical Therapy Neuromuscular Re-education 42277 11/10/19 10 KYRA MASSEY A [facility] Modalities Cryotherapy Cold Packs Modalities Cryotherapy Cold Packs 93312 11/10/19 10 KYRA MASSEY A [facility] Foot, arch support, removable, premolded, longitudinal, each 07/20/20 08 NUVIA BEY [facility] Spectacles Services Fitting Monofocal Except For Aphakia Spectacles Services Fitting Monofocal Except For Aphakia 37109 04/27/20 08 CARLYN TRIPP [facility] Physical Therapy Education Orthotics Training 03/12/20 08 BETZAIDA WEEMS [facility] Spectacles Services Fitting Monofocal Except For Aphakia Spectacles Services Fitting Monofocal Except For Aphakia 28061 02/12/20 08 ISIDRO IBARRA [facility] Screening Test Of Visual Acuity, Quantitative, Bilateral Screening Test Of Visual Acuity, Quantitative, Bilateral 25648 02/12/20 08 ISIDRO IBARRA [facility] Determination Of Refractive State Determination Of Refractive State 44301 02/12/20 08 ISIDRO IBARRA [facility] Audiometry Group Testing Audiometry Group Testing 64515 02/05/20 COCO MEEHAN [facility] Ear mold/insert, not disposable, any type 02/05/20 08 COCO BUTLER [facility] Social History Combined list of available smoking, tobacco, and other 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 Social History Type Response Date Comment Sourc e Tobacco smoking status NHIS VA-TOBACCO FORMER USER 11/06/2023 [facility] History of tobacco use VA-TOBACCO QUIT 1 TO < 5 YRS 11/06/2023 [facility] History of tobacco use VA-TOBACCO FORMER USER 10/31/2022 [facility] History of tobacco use VA-TOBACCO USER S OME DAYS 11/11/2021 [facility] History of tobacco use VA-TOBACCO USER E VERY DAY 03/04/2020 [facility] History of tobacco use VA-TOBACCO QUIT < 1 YEAR 03/03/2019 [facility] History of tobacco use VA-TOBACCO DOESNT USE WI 30 MIN WAKEUP 08/23/2017 [facility] History of tobacco use QUIT TOBACCO IN T HE LAST 12 MONTHS 05/24/2017 [facility] History of tobacco use TOBACCO OFFERRED PT MED[facility] (PROVIDER) 06/15/2016 [facility] History of tobacco use TOBACCO OFFERRED PT MEDS (PROVIDER) 10/09/2014 [facility] History of tobacco use TOBACCO OFFERRED PT MEDS (PROVIDER) 03/18/2014 [facility] History of tobacco use QUIT TOBACCO >12 MO and <7 YRS AGO 05/10/2012 [facility] History of tobacco use CURRENT TOBACCO USER 03/25/2012 [facility] History of tobacco use CURRENT TOBACCO USER 06/23/2011 [facility] History of tobacco use CURRENT TOBACCO USER 05/30/2010 [facility] This section is an empty social history section. DoD Plan of Care List of future care activities from Department of Veterans Affairs facilities. Additional future care activities may be listed in the Assessment and Plan section. Date/Time Care Activity Care Activity Detail Facili ty 09/23/2024 AMBULATORY - MEDICINE AMBULATORY - MEDICI NE [facility]
--- OUTSIDE RECORDS SUMMARY | 2024-09-15 07:07 | XMS_ITS ---
Author Organization [facility] [employer] [facility] Address [facility] [address] [facility] [address] [place] [address] Care Team Providers Care Devil Tender Name Role Phone Regan HENRY, [facility] Primary Care Provider UnavailJm Belcher Unavailable [phone] Medications Medication SIG (Take, Route, Frequency, Duration) Notes Start Date End Date Status Lisdexamfetamine Dimesylate 50 MG 1 capsule in the morning Orally Once a day for 30 days 08/19/2024 Active Social History Sex Assigned At : Social History Observation Description Sex Assigned At Female Encounters Encounter Location Date Provider Diagnosis [facility] [employer] [address] [address] 08/20/2024 Jm Waters Attention deficit hyperactivity disorder (ADHD), combined type F90.2 Assessments Encounter Date Diagnosis (ICD Code) Assessment Notes Treatment Notes Treatment Clinical Notes Section Notes 08/20/2024 Attention deficit hyperactivity disorder (ADHD), combined type (ICD-10 - F90.2) Plan Of Treatment Medication Medication Name Sig Start Date Stop Date Notes Lisdexamfetamine Dimesylate 50 MG 1 caps ule in the morning Orally Once a day for 30 days 08/19/2024 Progress Notes * ZAFAR CERDADOB:1989 (34 yo F)Acc No.[id number]:08/20/2024 Patient: ZAFAR PARTIDA :1990 A ge:34 Y S ex:Female Address:[address] [place], [address] * Refills Refill Lisdexamfetamine Dimesylate Capsule, 50 MG, Orally, 30 Capsule, 1 capsule in the morning, Once a day, 30 days, Refills=0 * true * Date: Generated for Johnnie little/Justine/Yoni on: 0 09/15/2024 07:06 AM [employer]
--- OUTSIDE RECORDS SUMMARY | 2024-09-15 07:07 | XMS_ITS | Patient Health Record ---
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 Primary Care Provider UnavailJm Belcher Unavailable [phone] Migration, Provider Unavailable Unavailable Allergies Allergen (clinical drug ingredient) Drug/Non Drug Allergy documented on EMR Reaction Allergy Type Onset Date Status VACCINE ADJUVANT SYSTEM, AS01B LIPOSOMAL (uncoded) Unknown Allergy Active zolpidem Ambien CR anaphylaxis Drug Allergy Activ e trazodone traZODone HCl shortness of breath Drug Allergy Active vancomycin Vancomycin Unknown Drug Allergy Activ e Results Component Value Reference Range Notes UDT Reviewed date:02/11/2024 03:35:01 PM Interpretation: Performing Lab: Notes/Report: THC Negative 0 - 50 ng/ml Cocaine Negative 0 - 300 ng/ml Amphetamine Negative 0 - 1000 ng/ml Buprenorphine (BUP) Negative 0 - 10 ng/ml Secobarbital (Bar) Negative 0 - 300 ng/ml Oxazepam (BZO) Negative 0 - 300 ng/ml 4-elbexzndoz-5,9-dlyphudy-0, 3-diphenylpyrrolidine (EDDP) Negative 0 - 300 ng/ml Methamphetamine (MET) Negative 0 - 1000 ng/ml Methylenedioxymethamphetamine (MDMA) Negative 0 - 500 ng/ml Morphine (MOP 300/[id number]) Negative 0 - 300 ng/ml Methadone (MTD) Negative 0 - 300 ng/ml Phencyclidine (PCP) Negative 0 - 25 ng/ml Propoxyphene (PPX) Negative 0 - 300 ng/ml Nortriptyline (TCA) Negative 0 - 1000 ng/ml Oxycodone Negative 0 - 300 ng/ml Reason For Referral No Information Medications Medication SIG (Take, Route, Frequency, Duration) Notes Start Date End Date Status Vilazodone HCl 20 MG 1 tablet with food Orally Once a day for 90 days Active Lisdexamfetamine Dimesylate 50 MG 1 capsule in the morning Orally Once a day for 30 days 09/10/2024 Active Social History Tobacco Use: Social History Observation Description Date Details (start date - stop date) Former Smoker 07/30/2009 - 03/30/2024 Sex Assigned At : Social History Observation Description Sex Assigned At Female Tobacco Control (Standard) Question Answer Notes Tobacco use: Former smoker When did you start smoking? 07/30/2009 When did you stop smoking? 03/30/2024 How long has it been since you last smoked? 1-3 months AUDIT-C (Standard) Question Answer Notes Points 4 Did you have a drink contain ing alcohol in the past year? Yes How often did you have six o r more drinks on one occasion in the past year? Less than monthly (1 point) How many drinks did you have on a typical day when you were drinking in the past year? 1 or 2 drinks (0 point) How often did you have a dri nk containing alcohol in the past year? 2 to 3 times a week (3 points) Problems Problem Type SNOMED Code ICD Code Onset Dates Problem Status W/U Status Risk Notes Problem 59649448 Generalized anxiety disorder (F41.1) Active confirmed Problem Attention deficit hyperactivity disorder (794886673) Attention deficit hyperactivity disorder (ADHD), combined type (F90.2) Active confirmed Problem [id number] Depression, major, recurrent, mild (F33.0) Active confirmed Problem Moderate recurrent major depression (53962361) Moderate recurrent major depression (F33.1) Active confirmed Vital Signs Heart Rate 69 /min 04/16/2024 Height-cm 167.64 cm 04/16/2024 Blood pressure diastolic 83 mm Hg 04/16/2024 Weight-kg 73.48 kg 04/16/2024 Height 66in in 02/11/2024 Blood pressure systolic 125 mm Hg 04/16/2024 Weight 162 lbs 04/16/2024 BMI 26.14 kg/m2 04/16/2024 Procedures Procedure Date Ordered Date Performed Result Body Sit e ADHD Testing 02/11/2024 N/A Encounters Encounter Location Date Provider Diagnosis [facility], [facility] [address] [place] [address] 02/11/2024 Jm Waters Moderate recurrent major depression F33.1 ; Generalized anxiety disorder F41.1 and Attention deficit hyperactivity disorder (ADHD), combined type F90.2 [facility], [facility] [address] [place] [address] 03/13/2024 Jm Waters Moderate recurrent major depression F33.1 ; Generalized anxiety disorder F41.1 and Attention deficit hyperactivity disorder (ADHD), combined type F90.2 [facility] [address] [place] [address] 04/16/2024 Jm Waters Moderate recurrent major depression F33.1 ; Generalized anxiety disorder F41.1 ; Attention deficit hyperactivity disorder (ADHD), combined type F90.2 and First trimester Z34.91 [facility] [address] [place] [address] 06/13/2024 Jm Waters Moderate recurrent major depression F33.1 ; Generalized anxiety disorder F41.1 ; Attention deficit hyperactivity disorder (ADHD), combined type F90.2 and Depression, major, recurrent, mild F33.0 [facility] [address] [place] [address] 12/15/2023 Provider Migration [facility], [facility] [address] [place] [address] 12/16/2023 Provider Migration [facility], [facility] [address] [place] [address] 03/17/2024 Jm Waters [facility] [address] [place] [address] 04/24/2024 Jm Waters Attention deficit hyperactivity disorder (ADHD), combined type F90.2 [facility] [address] [place] [address] 08/19/2024 Jm Waters Attention deficit hyperactivity disorder (ADHD), combined type F90.2 [facility] [address] [place] [address] 08/20/2024 Jm Waters Attention deficit hyperactivity disorder (ADHD), combined type F90.2 [facility], [facility] [address] [place] [address] 02/28/2024 Jm Waters [facility], [facility] [address] [place] [address] 03/10[facility], [facility] [address] [place] [address] 03/10/2024 Jm Waters [facility], [facility] [address] [place] [address] 03/18/2024 Jmphillip Briggsoza [facility], [facility] [address] [place] [address] 05/12/2024 Jm Waters Attention deficit hyperactivity disorder (ADHD), combined type F90.2 [facility] [address] [place] [address] 06/06/2024 Jm Waters Attention deficit hyperactivity disorder (ADHD), combined type F90.2 [facility] [address] [place] [address] 07/20/2024 Jm Waters Attention deficit hyperactivity disorder (ADHD), combined type F90.2 [facility] [address] [place] [address] 08/15/2024 Jm Waters Attention deficit hyperactivity disorder (ADHD), combined type F90.2 [facility] [address] [place] [address] 08/18/2024 Jm Waters Attention deficit hyperactivity disorder (ADHD), combined type F90.2 Assessments Encounter Date Diagnosis (ICD Code) Assessment Notes Treatment Notes Treatment Clinical Notes Section Notes 02/11/2024 Generalized anxiety disorder (ICD-10 - F41.1) 1. ADHD: - Continue methylphenidate ER 54mg daily - Add methylphenidate IR 5mg in the afternoon as needed - Perform ADHD test to evaluate the severity of symptoms - Consider changing medication to Vyvanse 30mg daily if symptoms persist 2. Depression and Anxiety: - Taper off Venlafaxine ER 75mg by reducing to 37.5mg daily for two weeks, then discontinue - Discontinue Latuda 40mg daily - Initiate Vilazodone 10mg daily for 14 days, then reevaluate - Consider newer antidepressants such as Viibryd or Trintellix if needed, pending OBGYN approval during 3. Bipolar Disorder (not meeting criteria): - Monitor mood fluctuations and symptoms - Reevaluate diagnosis if symptoms worsen or new symptoms emerge 4. planning: - Consult with OBGYN regarding medication safety during - Utilize [email or web address] for information on medication safety during and - Consider Abilify for mood stabilization if needed, as it is safe during and less sedating 5. Sleep issues: - Monitor sleep patterns and quality - Adjust medication timing if needed to improve morning wakefulness Follow-up: - Schedule a follow-up appointment in one month to evaluate medication changes and symptom management 02/11/2024 Moderate recurrent major depression (ICD-10 - F33.1) Electronic Prior Authorization was requested for Vilazodone HCl 10 MG Tablet. Provider can order medication once approval received. Electronic Prior Authorization was requested for Vilazodone HCl 20 MG Tablet. Provider can order medication once approval received. 1. ADHD: - Continue methylphenidate ER 54mg daily - Add methylphenidate IR 5mg in the afternoon as needed - Perform ADHD test to evaluate the severity of symptoms - Consider changing medication to Vyvanse 30mg daily if symptoms persist 2. Depression and Anxiety: - Taper off Venlafaxine ER 75mg by reducing to 37.5mg daily for two weeks, then discontinue - Discontinue Latuda 40mg daily - Initiate Vilazodone 10mg daily for 14 days, then reevaluate - Consider newer antidepressants such as Viibryd or Trintellix if needed, pending OBGYN approval during 3. Bipolar Disorder (not meeting criteria): - Monitor mood fluctuations and symptoms - Reevaluate diagnosis if symptoms worsen or new symptoms emerge 4. planning: - Consult with OBGYN regarding medication safety during - Utilize [email or web address] for information on medication safety during and - Consider Abilify for mood stabilization if needed, as it is safe during and less sedating 5. Sleep issues: - Monitor sleep patterns and quality - Adjust medication timing if needed to improve morning wakefulness Follow-up: - Schedule a follow-up appointment in one month to evaluate medication changes and symptom management 03/13/2024 Moderate recurrent major depression (ICD-10 - F33.1) 1. ADHD, Combined Type: - Patient reports inadequate symptom control with current lisdexamfetamine 30 mg daily. Plan: - Increase lisdexamfetamine to 50 mg daily. Prescription sent to pharmacy. 2. Major Depressive Disorder: - Patient reports significant depression symptoms, including difficulty taking care of themselves, feeling useless, frustrated, and helpless. - Currently on vilazodone 20 mg daily with no reported negative effects. Plan: - Continue vilazodone at 20 mg daily. 3. Medication-induced fatigue: - Patient reports fatigue and low motivation, possibly related to Latuda. Plan: - Decrease Latuda to 20 mg daily for four days, then discontinue. Patient has enough medication to break in half. 4. Discontinuation symptoms from venlafaxine taper: - Patient reports experiencing discontinuation symptoms after tapering from 75 mg to 37.5 mg. Plan: - Monitor and provide support as needed. 5. Counseling referral: - Patient requests virtual counseling options due to work schedule constraints. Plan: - Advise patient to check their insurance under [employer] for covered counselors offering virtual sessions. Follow-up: - Schedule a follow-up appointment to assess the effectiveness of the adjusted medication regimen and discuss progress in finding a virtual counselor. 04/16/2024 Generalized anxiety disorder (ICD-10 - F41.1) 1. ADHD: - Continue lisdexamfetamine 50 mg daily Plan: - Obtain clearance from OBGYN regarding the use of lisdexamfetamine during - Monitor for any changes in symptoms or side effects - Consider transitioning to short-acting stimulant medication during 2. Depression: - Continue vilazodone 20 mg daily Plan: - Monitor for any changes in symptoms or side effects - Encourage patient to continue weekly counseling sessions with [facility] - Reevaluate the need for a change in counselor if the patient does not feel a connection after several sessions 3. : Plan: - Collaborate with OBGYN to ensure safe medication management during - Monitor blood pressure and growth - Discuss potential risks and benefits of continuing lisdexamfetamine during and - Educate the patient on potential infant withdrawal symptoms and side effects if continuing stimulant medication during 4. Medication refill: Plan: - Refill lisdexamfetamine prescription - Instruct the patient to inform the provider if there are any issues with the pharmacy regarding the refill - Ensure no prior authorization is required for the refill 5. Follow-up: - Schedule a follow-up appointment to assess the patient's progress and medication management - Encourage the patient to reach out to the provider if any concerns or issues arise between appointments 04/16/2024 Moderate recurrent major depression (ICD-10 - F33.1) 1. ADHD: - Continue lisdexamfetamine 50 mg daily Plan: - Obtain clearance from OBGYN regarding the use of lisdexamfetamine during - Monitor for any changes in symptoms or side effects - Consider transitioning to short-acting stimulant medication during 2. Depression: - Continue vilazodone 20 mg daily Plan: - Monitor for any changes in symptoms or side effects - Encourage patient to continue weekly counseling sessions with [facility] - Reevaluate the need for a change in counselor if the patient does not feel a connection after several sessions 3. : Plan: - Collaborate with OBGYN to ensure safe medication management during - Monitor blood pressure and growth - Discuss potential risks and benefits of continuing lisdexamfetamine during and - Educate the patient on potential infant withdrawal symptoms and side effects if continuing stimulant medication during 4. Medication refill: Plan: - Refill lisdexamfetamine prescription - Instruct the patient to inform the provider if there are any issues with the pharmacy regarding the refill - Ensure no prior authorization is required for the refill 5. Follow-up: - Schedule a follow-up appointment to assess the patient's progress and medication management - Encourage the patient to reach out to the provider if any concerns or issues arise between appointments 05/12/2024 Attention deficit hyperactivity disorder (ADHD), combined type (ICD-10 - F90.2) 06/06/2024 Attention deficit hyperactivity disorder (ADHD), combined type (ICD-10 - F90.2) 06/13/2024 Generalized anxiety disorder (ICD-10 - F41.1) 1. (14 weeks): - Patient reports feeling better in the second trimester, with improved energy levels and reduced nausea. - Plan: Continue care with OB-INVESTMENT ASSOCIATE, including upcoming anatomy scan in June. Encourage patient to maintain a healthy lifestyle and report any concerns or changes in symptoms to the OB-INVESTMENT ASSOCIATE. 2. Depression, Anxiety: - Patient reports doing well on current medications and has approval from [facility]OC[facility]. - Continue Vilazodone 20 mg and Lisdexamfetamine 50 mg - Plan: Refill Lisdexamfetamine prescription and ensure the generic version is being dispensed. Follow up in three months or sooner if needed for medication adjustments or concerns. 06/13/2024 Moderate recurrent major depression (ICD-10 - F33.1) 1. (14 weeks): - Patient reports feeling better in the second trimester, with improved energy levels and reduced nausea. - Plan: Continue care with OB-INVESTMENT ASSOCIATE, including upcoming anatomy scan in June. Encourage patient to maintain a healthy lifestyle and report any concerns or changes in symptoms to the OB-INVESTMENT ASSOCIATE. 2. Depression, Anxiety: - Patient reports doing well on current medications and has approval from [facility]IN[facility]MENT [facility]OCI[facility]. - Continue Vilazodone 20 mg and Lisdexamfetamine 50 mg - Plan: Refill Lisdexamfetamine prescription and ensure the generic version is being dispensed. Follow up in three months or sooner if needed for medication adjustments or concerns. 07/20/2024 Attention deficit hyperactivity disorder (ADHD), combined type (ICD-10 - F90.2) 08/15/2024 Attention deficit hyperactivity disorder (ADHD), combined type (ICD-10 - F90.2) 08/18/2024 Attention deficit hyperactivity disorder (ADHD), combined type (ICD-10 - F90.2) 08/19/2024 Attention deficit hyperactivity disorder (ADHD), combined type (ICD-10 - F90.2) Electronic Prior Authorization was requested for Lisdexamfetamine Dimesylate 50 MG Capsule. Provider can order medication once approval received. 08/20/2024 Attention deficit hyperactivity disorder (ADHD), combined type (ICD-10 - F90.2) 06/13/2024 Attention deficit hyperactivity disorder (ADHD), combined type (ICD-10 - F90.2) 1. (14 weeks): - Patient reports feeling better in the second trimester, with improved energy levels and reduced nausea. - Plan: Continue care with OB-INVESTMENT ASSOCIATE, including upcoming anatomy scan in June. Encourage patient to maintain a healthy lifestyle and report any concerns or changes in symptoms to the OB-INVESTMENT ASSOCIATE. 2. Depression, Anxiety: - Patient reports doing well on current medications and has approval from [facility]IN[facility]STMENT ASSOCIATE. - Continue Vilazodone 20 mg and Lisdexamfetamine 50 mg - Plan: Refill Lisdexamfetamine prescription and ensure the generic version is being dispensed. Follow up in three months or sooner if needed for medication adjustments or concerns. 04/16/2024 Attention deficit hyperactivity disorder (ADHD), combined type (ICD-10 - F90.2) 1. ADHD: - Continue lisdexamfetamine 50 mg daily Plan: - Obtain clearance from OBGYN regarding the use of lisdexamfetamine during - Monitor for any changes in symptoms or side effects - Consider transitioning to short-acting stimulant medication during 2. Depression: - Continue vilazodone 20 mg daily Plan: - Monitor for any changes in symptoms or side effects - Encourage patient to continue weekly counseling sessions with [facility] - Reevaluate the need for a change in counselor if the patient does not feel a connection after several sessions 3. : Plan: - Collaborate with OBGYN to ensure safe medication management during - Monitor blood pressure and growth - Discuss potential risks and benefits of continuing lisdexamfetamine during and - Educate the patient on potential infant withdrawal symptoms and side effects if continuing stimulant medication during 4. Medication refill: Plan: - Refill lisdexamfetamine prescription - Instruct the patient to inform the provider if there are any issues with the pharmacy regarding the refill - Ensure no prior authorization is required for the refill 5. Follow-up: - Schedule a follow-up appointment to assess the patient's progress and medication management - Encourage the patient to reach out to the provider if any concerns or issues arise between appointments 03/13/2024 Generalized anxiety disorder (ICD-10 - F41.1) 1. ADHD, Combined Type: - Patient reports inadequate symptom control with current lisdexamfetamine 30 mg daily. Plan: - Increase lisdexamfetamine to 50 mg daily. Prescription sent to pharmacy. 2. Major Depressive Disorder: - Patient reports significant depression symptoms, including difficulty taking care of themselves, feeling useless, frustrated, and helpless. - Currently on vilazodone 20 mg daily with no reported negative effects. Plan: - Continue vilazodone at 20 mg daily. 3. Medication-induced fatigue: - Patient reports fatigue and low motivation, possibly related to Latuda. Plan: - Decrease Latuda to 20 mg daily for four days, then discontinue. Patient has enough medication to break in half. 4. Discontinuation symptoms from venlafaxine taper: - Patient reports experiencing discontinuation symptoms after tapering from 75 mg to 37.5 mg. Plan: - Monitor and provide support as needed. 5. Counseling referral: - Patient requests virtual counseling options due to work schedule constraints. Plan: - Advise patient to check their insurance under [employer] for covered counselors offering virtual sessions. Follow-up: - Schedule a follow-up appointment to assess the effectiveness of the adjusted medication regimen and discuss progress in finding a virtual counselor. 02/11/2024 Attention deficit hyperactivity disorder (ADHD), combined type (ICD-10 - F90.2) Electronic Prior Authorization was requested for Lisdexamfetamine Dimesylate 30 MG Capsule. Provider can order medication once approval received. 1. ADHD: - Continue methylphenidate ER 54mg daily - Add methylphenidate IR 5mg in the afternoon as needed - Perform ADHD test to evaluate the severity of symptoms - Consider changing medication to Vyvanse 30mg daily if symptoms persist 2. Depression and Anxiety: - Taper off Venlafaxine ER 75mg by reducing to 37.5mg daily for two weeks, then discontinue - Discontinue Latuda 40mg daily - Initiate Vilazodone 10mg daily for 14 days, then reevaluate - Consider newer antidepressants such as Viibryd or Trintellix if needed, pending OBGYN approval during 3. Bipolar Disorder (not meeting criteria): - Monitor mood fluctuations and symptoms - Reevaluate diagnosis if symptoms worsen or new symptoms emerge 4. planning: - Consult with OBGYN regarding medication safety during - Utilize [email or web address] for information on medication safety during and - Consider Abilify for mood stabilization if needed, as it is safe during and less sedating 5. Sleep issues: - Monitor sleep patterns and quality - Adjust medication timing if needed to improve morning wakefulness Follow-up: - Schedule a follow-up appointment in one month to evaluate medication changes and symptom management 04/24/2024 Attention deficit hyperactivity disorder (ADHD), combined type (ICD-10 - F90.2) Electronic Prior Authorization was requested for Lisdexamfetamine Dimesylate 50 MG Capsule. Provider can order medication once approval received. 03/13/2024 Attention deficit hyperactivity disorder (ADHD), combined type (ICD-10 - F90.2) 1. ADHD, Combined Type: - Patient reports inadequate symptom control with current lisdexamfetamine 30 mg daily. Plan: - Increase lisdexamfetamine to 50 mg daily. Prescription sent to pharmacy. 2. Major Depressive Disorder: - Patient reports significant depression symptoms, including difficulty taking care of themselves, feeling useless, frustrated, and helpless. - Currently on vilazodone 20 mg daily with no reported negative effects. Plan: - Continue vilazodone at 20 mg daily. 3. Medication-induced fatigue: - Patient reports fatigue and low motivation, possibly related to Latuda. Plan: - Decrease Latuda to 20 mg daily for four days, then discontinue. Patient has enough medication to break in half. 4. Discontinuation symptoms from venlafaxine taper: - Patient reports experiencing discontinuation symptoms after tapering from 75 mg to 37.5 mg. Plan: - Monitor and provide support as needed. 5. Counseling referral: - Patient requests virtual counseling options due to work schedule constraints. Plan: - Advise patient to check their insurance under [employer] for covered counselors offering virtual sessions. Follow-up: - Schedule a follow-up appointment to assess the effectiveness of the adjusted medication regimen and discuss progress in finding a virtual counselor. 04/16/2024 First trimester (ICD-10 - Z34.91) 8 weeks 1. ADHD: - Continue lisdexamfetamine 50 mg daily Plan: - Obtain clearance from OBGYN regarding the use of lisdexamfetamine during - Monitor for any changes in symptoms or side effects - Consider transitioning to short-acting stimulant medication during 2. Depression: - Continue vilazodone 20 mg daily Plan: - Monitor for any changes in symptoms or side effects - Encourage patient to continue weekly counseling sessions with [facility] - Reevaluate the need for a change in counselor if the patient does not feel a connection after several sessions 3. : Plan: - Collaborate with OBGYN to ensure safe medication management during - Monitor blood pressure and growth - Discuss potential risks and benefits of continuing lisdexamfetamine during and - Educate the patient on potential withdrawal symptoms and side effects if continuing stimulant medication during 4. Medication refill: Plan: - Refill lisdexamfetamine prescription - Instruct the patient to inform the provider if there are any issues with the pharmacy regarding the refill - Ensure no prior authorization is required for the refill 5. Follow-up: - Schedule a follow-up appointment to assess the patient's progress and medication management - Encourage the patient to reach out to the provider if any concerns or issues arise between appointments 06/13/2024 Depression, major, recurrent, mild (ICD-10 - F33.0) 1. (14 weeks): - Patient reports feeling better in the second trimester, with improved energy levels and reduced nausea. - Plan: Continue care with OB-INVESTMENT ASSOCIATE, including upcoming anatomy scan in June. Encourage patient to maintain a healthy lifestyle and report any concerns or changes in symptoms to the OB-INVESTMENT ASSOCIATE. 2. Depression, Anxiety: - Patient reports doing well on current medications and has approval from OB-INVESTMENT ASSOCIATE. - Continue Vilazodone 20 mg and Lisdexamfetamine 50 mg - Plan: Refill Lisdexamfetamine prescription and ensure the generic version is being dispensed. Follow up in three months or sooner if needed for medication adjustments or concerns. 02/11/2024 Other Learning About Depression Screening material was printed 1. ADHD: - Continue methylphenidate ER 54mg daily - Add methylphenidate IR 5mg in the afternoon as needed - Perform ADHD test to evaluate the severity of symptoms - Consider changing medication to Vyvanse 30mg daily if symptoms persist 2. Depression and Anxiety: - Taper off Venlafaxine ER 75mg by reducing to 37.5mg daily for two weeks, then discontinue - Discontinue Latuda 40mg daily - Initiate Vilazodone 10mg daily for 14 days, then reevaluate - Consider newer antidepressants such as Viibryd or Trintellix if needed, pending OBGYN approval during 3. Bipolar Disorder (not meeting criteria): - Monitor mood fluctuations and symptoms - Reevaluate diagnosis if symptoms worsen or new symptoms emerge 4. planning: - Consult with OBGYN regarding medication safety during - Utilize [email or web address].org for information on medication safety during and - Consider Abilify for mood stabilization if needed, as it is safe during and less sedating 5. Sleep issues: - Monitor sleep patterns and quality - Adjust medication timing if needed to improve morning wakefulness Follow-up: - Schedule a follow-up appointment in one month to evaluate medication changes and symptom management 06/13/2024 Other 14 weeks 1. (14 weeks): - Patient reports feeling better in the second trimester, with improved energy levels and reduced nausea. - Plan: Continue care with OB-INVESTMENT ASSOCIATE, including upcoming anatomy scan in June. Encourage patient to maintain a healthy lifestyle and report any concerns or changes in symptoms to the OB-INVESTMENT ASSOCIATE. 2. Depression, Anxiety: - Patient reports doing well on current medications and has approval from OB-INVESTMENT ASSOCIATE. - Continue Vilazodone 20 mg and Lisdexamfetamine 50 mg - Plan: Refill Lisdexamfetamine prescription and ensure the generic version is being dispensed. Follow up in three months or sooner if needed for medication adjustments or concerns. Plan Of Treatment Pending Test Test Name Order Date ADHD Testing 02/11/2024 Insurance Providers Payer Name Payer Address Payer Phone Subscriber Number Group Number Insured Name Patient Relationship to Insured Coverage Start Date Coverage End Date [facility] [address] [place] [address] [id number] ZAFAR ARRIOLA Self - patient is the insured Medical (General) History Medical History History ICD Code Past Psychiatric History: An xiety Disorder,Major Depressive Episode,Bipolar Disorder abdominal aortic aneurysm: No atrial fibrillation: No chronic fatigue syndrome: No essential tremor: No hyperlipidemia: Yes hypertension: No restless leg syndrome: No stroke: No subdural hematoma: No type 1 diabetes mellitus: No type 2 diabetes mellitus: No vitamin B12 deficiency: No vitamin D deficiency: Yes
--- OUTSIDE RECORDS SUMMARY | 2024-09-15 07:08 | XMS_ITS | Encounter Summary ---
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 This section includes the names of all active insurance providers for the patient. Insurance Provider Type of Coverage Plan Name Start of Policy Coverage End of Policy Coverage Group Number Member ID Insurance Provider's Telephone Number Policy Garcia's Name Patient's Relationship to Policy Garcia [facility] RESER VE SELEC T WNR Jul 26, 2021 [place] [id number] [place] SELE[place] T WNR Jun 30, 2018 SELECT [id number] ARACELIS CASTILLO PATIENT [facility] 2024 [place] RE SELEC T Jul 30, 2024 [facility] [id number] ARACELIS CASTILLO PATIENT Selected Encounter This section includes the information on record at [place] for the Encounter. Date/Time Encounter Type Encounter Description Reason Provider Source Nov 06, 2023 02:00 PM OFFICE O/P EST MOD 30 MIN PRIMARY CARE/MEDICINE ICD-10-CM F31.31 Bipolar disorder, current episode depressed, mild [place] Encounter Template Text not used by [place] Assessments - Encounter Diagnoses This section includes the primary and secondary diagnoses documented for the Encounter. Date/Time Primary/Secondary Diagnosis Diagnosis Name Provider Source Nov 06, 2023 02:25 PM PRIMARY Bipolar disorder, current episode depressed, mild [place] Nov 06, 2023 02:25 PM SECONDARY Attention and concentration deficit [facility] Nov 06, 2023 02:25 PM SECONDARY Cervicalgia [place] Nov 06, 2023 02:25 PM SECONDARY Obesity, unspecified [facility] Social History: Smoking Status (Most current) and Tobacco Use (All prior to encounter date) This section includes the most current, and the historical, smoking and tobacco- related health factors from the [place] facility where the Encounter took place. Current Smoking Status This section includes the most current smoking, or tobacco-related health factor, from the [place] facility where the Encounter took place. Date/Time Current Smoking Status Comment Sherri ity Nov 06, 2023 02:00 PM VA-TOBACCO FORMER USER [facility] Tobacco Use History This section includes a history of the smoking, or tobacco-related health factors, that were collected on or before the date of the Encounter. The data comes from the [place] facility where the Encounter took place. Date/Time Smoking Status/Tobacco Use Comment F acility Nov 06, 2023 02:00 PM VA-TOBACCO QUIT 1 TO < 5 YRS [facility] Oct 31, 2022 10:00 AM VA-TOBACCO FORMER USER [facility] Oct 31, 2022 10:00 AM VA-TOBACCO QUIT 1 TO < 5 YRS [facility] Nov 11, 2021 10:00 AM VA-TOBACCO DOESNT USE WI 30 MIN WAKEUP [facility] Nov 11, 2021 10:00 AM VA-TOBACCO USE < 1 YEAR [facility] Nov 11, 2021 10:00 AM VA-TOBACCO USE ADVICE [facility] Nov 11, 2021 10:00 AM VA-TOBACCO USE HEARING CARE PRACTITIONER NO [facility] Nov 11, 2021 10:00 AM VA-TOBACCO USE MED NO [facility] Nov 11, 2021 10:00 AM VA-TOBACCO USER SOME DAYS [facility] Mar 03, 2019 01:33 PM VA-TOBACCO FORMER USER [facility] Mar 03, 2019 01:33 PM VA-TOBACCO QUIT < 1 YEAR [facility] Encounter Notes: All associated encounter notes This section contains the clinical notes associated to the Encounter. Date/Time Encounter Note(s) Provider Source Nov 06, 2023 02:07 PM TELEHEALTH NOTE: LOCAL TITLE: PRIMARY CARE VIDEO CONNECT [facility] STANDARD TITLE: TELEHEALTH NOTE DATE OF NOTE: NOV 06, 2023@14:07 ENTRY DATE: NOV 06, 2023@14:08:06 AUTHOR: SAMANTA SHIRLEY COSIGNER: URGENCY: STATUS: COMPLETED PRIMARY CARE VVC CONNECT Chief Complaint: I would like to lose weight and have some degenerative changes in my neck and back. History of Present Illness: Bipolar disorder/ADD, being followed in private sector, reports she is taking Concerta 36mg daily, Latuda 40mg daily and Effexor XR 75mg daily. I feel better now that I have in some time. Denies SI/HI. 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 Completed C-spine x-ray and lumbar MRI, noted to have dengerative changes at C3/4. I would just to like to have the information in my record. s/p delivery of her son in 2022 per . Wants to conceieve later this year. Still breast-feeding until December 16, 2023. Weight is 175#. Expressing issues with weight loss and interested in assistance. 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 3) Irritable bowel syndrome characterised by alternating bowel habit 4) Allergic rhinitis due to allergen 5) Dysmenorrhoea 6) CN - Constipation 7) Cervicalgia Comment: SOCIAL HISTORY: NICOTINE: Nicotine User: Yes Type of Nicotine: Chewing tobacco Chewing Tobacco Mild Amount of usage/PPD Quit 02/2022 ILLICIT DRUGS: Never used Comment/Type of Drug: OTHER: ETOH - none Review of Systems: weight 175#, cervical and lumbar pain Allergies/Adverse Drug Reactions: VANCOMYCIN Active and Medication List: Active and Recently Outpatient Medications (excluding Supplies): Active Outpatient Medications Status 1) NICOTINE 14MG/24HR PATCH APPLY 1 PATCH TO SKIN SITE ACTIVE EVERY MORNING REMOVE OLD PATCH BEFORE APPLYING NEW ONE. ROTATE SITES. DO NOT SMOKE WHILE WEARING PATCH. 2) NICOTINE POLACRILEX 4MG MINI LOZENGE DISSOLVE 1 ACTIVE LOZENGE BY MOUTH EVERY 4 HOURS NEEDED .DO NOT SMOKE WHILE USING THIS MEDICATION. Inactive Outpatient Medications Status 1) NURSING TOP CREAM W/LANOLIN APPLY LIGHTLY TO AFFECTED AREA(S) ONCE A DAY FOR SKIN PROTECTION Active Non-VA Medications Status 1) Non-VA CHOLECALCIF 50MCG (D3-2,000UNIT) TAB 50MCG BY ACTIVE MOUTH ONCE A DAY 2) Non-VA CITALOPRAM HYDROBROMIDE 40MG TAB 20MG BY MOUTH ACTIVE EVERY MORNING 3) Non-VA MULTIVIT W/MINERALS, CAP/TAB 1 TABLET ACTIVE BY MOUTH ONCE A DAY 6 Total Medications Medication Reconciliation Completed: Most Recent Vital Signs: Measurement DT TEMP PULSE RESP BP HT WT F(C) IN(CM) LB(KG)[BMI] ---- ----- ---- -- ------ 10/31/2022 09:55 98.2(36.8) 92 16 108/71 66.0(168) 177(80.3)[29*] 11/11/2021 09:59 98.5(36.9) 82 20 121/82 66.0(168) 159(72.1)[26] Measurement DT CVP POx CG CMH20(MMHG) (L/MIN)(%) IN(CM) ------ 10/31/2022 09:55 97 11/11/2021 09:59 98 Measurement DT Pain ---- 10/31/2022 09:55 3 11/11/2021 09:59 2 Physical Exam General: General: Conversational, appropriate Labs CMP: SODIUM 137 mEq/L 11/11/2021 10:51 POTASSIUM 4.0 mEq/L 11/11/2021 10:51 CHLORIDE 104 mEq/L 11/11/2021 10:51 UREA NITROGEN 13 mg/dL 11/11/2021 10:51 CREATININE 0.80 mg/dL 11/11/2021 10:51 CALCIUM 9.2 mg/dL 11/11/2021 10:51 PROTEIN 7.9 g/dL 11/11/2021 10:51 ALBUMIN 4.7 g/dL 11/11/2021 10:51 ALKALINE PHOSPHATASE 48 U/L 11/11/2021 10:51 ALT/SGPT 20 U/L 11/11/2021 10:51 AST/SGOT 19 U/L 11/11/2021 10:51 TOTAL BILIRUBIN 0.7 mg/dL 11/11/2021 10:51 CARBON DIOXIDE 24 mEq/L 11/11/2021 10:51 GLUCOSE 95 mg/dL 11/11/2021 10:51 EGFR (CKD-EPI 2020) 100.33 11/11/2021 10:51 CBC: WBC 6.06 10*3/uL 11/11/2021 10:52 RBC 4.45 10*6/uL 11/11/2021 10:52 HGB 13.6 g/dL 11/11/2021 10:52 HCT 39.9 % 11/11/2021 10:52 MCV 89.7 fL 11/11/2021 10:52 MCH 30.6 pg 11/11/2021 10:52 MCHC 34.1 g/dL 11/11/2021 10:52 RDW 11.5 L % 11/11/2021 10:52 PLT 260 10*3/uL 11/11/2021 10:52 MPV 9.6 fL 11/11/2021 10:52 NEUTROPHILS, AUTO % 72.8 % 11/11/2021 10:52 LYMPHOCYTES, AUTO % 17.3 % 11/11/2021 10:52 MONOCYTES, AUTO % 8.7 % 11/11/2021 10:52 EOSINOPHILS, AUTO % 0.2 % 11/11/2021 10:52 BASOPHILS, AUTO % 0.7 % 11/11/2021 10:52 IMMATURE GRANS, AUTO % 0.3 % 11/11/2021 10:52 NEUTROPHILS, ABSOLUTE 4.41 10*3/uL 11/11/2021 10:52 LYMPHOCYTES, ABSOLUTE 1.05 10*3/uL 11/11/2021 10:52 MONOCYTES, ABSOLUTE 0.53 10*3/uL 11/11/2021 10:52 EOSINOPHILS, ABSOLUTE 0.01 10*3/uL 11/11/2021 10:52 BASOPHILS, ABSOLUTE 0.04 10*3/uL 11/11/2021 10:52 IMMATURE GRANS, AUTO ABS 0.02 10*3/uL 11/11/2021 10:52 INR: No INR EO data found HgA1C: HGB A1C Collection DT Specimen Test Name Result Units Ref Range 11/11/2021 10:52 BLOOD HGA1C 4.9 % 4.0 - 6.0 Lipid Panel: TRIGLYCERIDE 62 mg/dL 11/11/2021 10:51 CHOLESTEROL 204 H mg/dL 11/11/2021 10:51 HDL(New) 94 mg/dL 11/11/2021 10:51 CALCULATED LDL 98 mg/dL 11/11/2021 10:51 HIV: No HIV SCREENING EO data found Comment: Assessment/Plan: 1)Bipolar disorder/ADD, being followed in private sector, taking Concerta 36mg daily, Latuda 40mg daily and Effexor XR 75mg daily. Denies SI/HI. 2) Cervicalgia, chronic, discussed pt obtaining a copy of the report and CD of x-rays and MRI for her records. 3) Obesity, discussed with pt participating in MOVE program and then considering oral weight loss medication. Aware she will need to call and request to participate. Discussed medications would be considered when she stopped breast-feeding, voiced understanding. Follow-Up: >>>>>>>>>>>>>> AUG 2024 Suicide Screen: C-SSRS Screening [place]-Suicide Severity Rating Scale (C-SSRS Screener) 1. Over the past month, have you wished you were or wished you could go to sleep and not wake up? No 2. Over the past month, have you had any actual thoughts of killing yourself? No 3. Over the past month, have you been thinking about how you might do this? Response not required due to responses to other questions. 4. Over the past month, have you had these thoughts and had some intention of acting on them? Response not required due to responses to other questions. 5. Over the past month, have you started to work out or worked out the details of how to kill yourself? Response not required due to responses to other questions. 6. If yes, at any time in the past month did you intend to carry out this plan? Response not required due to responses to other questions. 7. In your lifetime, have you ever done anything, started to do anything, or prepared to do anything to end your life (for example, collected pills, obtained a gun, gave away valuables, went to the roof but didn't jump)? No 8. If YES, was this within the past 3 months? Response not required due to responses to other questions. Sexual Orientation: The patient thinks of their sexual orientation as: Straight or Heterosexual Alcohol Use Screen (AUDIT-C): Alcohol Screen: SCREEN FOR ALCOHOL (AUDIT-C) An alcohol screening test (AUDIT-C) was negative (score=3). 1. How often did you have a drink containing alcohol in the past year? Consider a drink to be a 12 ounce can or bottle of regular beer, 8 ounces of malt liquor, a 5 ounce glass of table wine, or a 1.5 ounce shot of liquor (like scotch, gin, or vodka). Two to three times per week 2. How many drinks containing alcohol did you have on a typical day when you were drinking in the past year? One or two drinks 3. How often did you have 4 or more drinks on one occasion in the past year? Never Cervical Cancer Screening: The patient declined a Pap smear. Comment: SCHEDULED WITH INTERACTIVE PRODUCER Depression Screening: Perform PHQ-2 A PHQ-2 screen was performed. The score was 0 which is a negative screen for depression. Over the past two weeks, how often have you been bothered by the following problems? 1. Little interest or pleasure in doing things Not at all 2. Feeling down, depressed, or hopeless Not at all Homelessness/Food Insecurity Screen: In the past 2 months, have you been living in stable housing that you own, rent, or stay in as part of a household? Yes - Living in stable housing. Are you worried or concerned that in the next 2 months you may NOT have stable housing that you own, rent, or stay in as part of a household? No - Not worried about housing near future The [facility]ie reports the following: Within the past 12 months, you worried whether your food would run out before you got money to buy more. Never true Within the past 12 months, the food you bought just didn't last and you didn't have money to get more. 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 Handwritten corrections, additions and/or deletions were made to the list, as appropriate. Corrected Outpatient Medication List was provided to the patient/caregiver. Tobacco Use Screening: The patient is a former tobacco user. The patient quit one to less than 5 years ago. /michelle/ SAMANTA ROTHMAN [facility] ADULT NURSE PRACTITIONER Signed: 11/06/2023 14:26 SAMANTA SHIRLEY [facility]
[2024-09-15 08:38] LABS: Hematocrit 38.8 % (37.0-47.0); Hemoglobin 12.8 g/dL (12.0-15.0)
[2024-09-15 08:50] LABS: Glucose 1 Hour PP 50gm Dose 116 mg/dL
[2024-09-15 09:14] LABS: Vitamin D 25 Hydroxy 58.1 ng/mL
[2024-09-15 09:31] LABS: HIV 1/2 Ab P24 Ag Result Negative (Negative)
[2024-09-15 10:07] LABS: Syphilis IgG/IgM Antibody Negative (Negative)
== END 2024-09-15 07:02 | disposition home or self-care (01) ==
LOC: ANHLAB 07:04
PROVIDERS: PCP Family Medicine; Visit Provider Obstetrics & Gynecology Gynecology
DX: Z34.93 Encounter for supervision of normal pregnancy, unspecified, third trimester (principal)
CPT/HCPCS: 36415; 82306; 82947; 85014; 85018; 86593; 86703; G0432

== ENCOUNTER 2024-10-30 13:07 | Observation (INO) | payer OTHER, SELFPAY ==
[2024-10-30] VITALS (97 sets, daily range): BP systolic 109–122; BP diastolic 72–84; PULSE 76–145; RESP 18; TEMP 36.3; O2SAT 87–100; BMI 29.0
--- OUTSIDE RECORDS SUMMARY | 2024-10-30 13:29 | XMS_ITS | Clinical Summary ---
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 Vancomycin Hives Medium 10/02/2019 Medications ibuprofen (ADVIL,MOTRIN) 600 mg tablet Take 600 mg by mouth every 6 (six) hours as needed for pain Active baclofen (LIORESAL) 10 mg tablet Take 10 mg by mouth 3 (three) times a day Active MDX85-klzb cb,ca-pjrez-zmy -dha 27-1-50-250 mg combo pack Take by mouth Active DULoxetine DR (CYMBALTA) 20 mg capsule Take 20 mg by mouth daily Active levonorgestreL- ethinyl estrad (LUTERA) 0.1-20 mg-mcg per tablet Take 1 tablet by mouth daily Active Vyvanse 50 mg capsule TAKE 1 CAPSULE BY MOUTH DAILY IN THE MORNING Active vilazodone (VIIBRYD) 20 mg tablet Take by mouth daily Active docusate sodium (COLACE) 100 mg capsule Take 1 capsule (100 mg total) by mouth 2 (two) times a day 03/08/2022 Active cholecalciferol (VITAMIN D-3) 25 mcg (1,000 unit) tablet Take 1 tablet (1,000 Units total) by mouth daily 11/13/2017 Active magnesium gluconate 200 mg tabletIndicatio ns:hypomagnesem ia 1 tablet (200 mg total) Active Active Problems No known active problems Encounters Date Type Department Care Team Description 09/25/2024 3:30 PM BRAND ANALYST Office Visit [facility] Surgery [address] [place] [address] Randell Man MD Hemorrhoids, unspecified hemorrhoid type from Last 3 Months Surgical History Surgery Date Site/Laterality Comments SECTION 07/30/2022 - 07/29/2023 SEPTOPLASTY 07/30/2022 - 07/29/2023 uterine Medical History Medical History Date Comments No pertinent past medical history Family History Medical History Relation Name Comments Crohn's disease Cousin No Known Problems Father No Known Problems Mother Heart disease Paternal Grandfather Heart disease Paternal Grandmother Relation Name Status Comments Cousin Father Mother Paternal Grandfather Paternal Grandmother Social History Tobacco Use Types Packs/Day Years Used Date Smoking Tobacco: Never Smokeless Tobacco: Never Tobacco Cessation:Counseling Given: Not Answered Alcohol Use Standard Drinks/Week Comments Yes 5 (1 standard drink = 0.6 oz pur e alcohol) Comments No Sex and Gender Information Value Date Recorded Sex Assigned at Not on file Legal Sex Female 12:46 PM BRAND ANALYST Gender Identity Not on file Sexual Orientation Not on file Obstetrics History Last Filed Vital Signs Vital Sign Reading Time Taken Comments Blood Pressure 132/80 09/25/2024 3:05 PM BRAND ANALYST Pulse 75 09/25/2024 3:05 PM BRAND ANALYST Temperature - - Respiratory Rate - - Oxygen Saturation 100% 09/25/2024 3:05 PM BRAND ANALYST Inhaled Oxygen Concentration - - Weight 79.8 kg (176 lb) 09/25/2024 3:05 PM BRAND ANALYST Height 167.6 cm (5' 6 ) 09/25/2024 3:05 PM BRAND ANALYST Body Mass Index 28.41 09/25/2024 3:05 PM BRAND ANALYST Plan of Treatment Health Maintenance Due Date Last Done Comments Cervical Cancer Screening 1989 Depression Screening 1989 Hepatitis C Screening 1989 Regular Well Visit/Exam 18-64 2007 Varicella Vaccines (1 of 2 - 13+ 2-dose series) 07/13/2008 HPV Vaccines (2 - 3-dose series) 11/30/2011 11/02/2011 Covid-19 Vaccine ( season) 2024 08/18/2021, 02/08/2021 Influenza Vaccine (Season Ended) 2025 05/10/2023, 04/14/2023, 04/29/2022, Additional history exists DTaP/Tdap/Td Vaccine (8 - Td or Tdap) 03/14/2029 03/14/2019, 07/11/2018, 07/20/2017, Additional history exists Hepatitis B Screening Completed 10/05/2009 , 03/06/2009, 04/02/2008, Additional history exists Pneumococcal vaccine <65 Aged Out 06/15/2016 No longer eligible based on patient's age to complete this topic Insurance [facility] CHOICE [facility] CLAIMS Care Teams Selenium Plant Operator Relationship Specialty Start Date End Date No, Physician PCP - General 2/24/20 Randell Man MD [id number] [place] [address] Surgeon Colon and Rectal Surgery 09/25/24
--- OUTSIDE RECORDS SUMMARY | 2024-10-30 13:29 | XMS_ITS ---
Author Organization [facility] Address [address] [place] [address] Care Team Providers Care Leather Stitcher Name Role Phone Regan HENRY, [facility] Primary Care Provider UnavailJm Belcher Unavailable [phone] REASON FOR VISIT New Refill Request Medications Medication SIG (Take, Route, Frequency, Duration) Notes Start Date End Date Status Lisdexamfetamine Dimesylate 50 MG 1 capsule in the morning Orally Once a day for 30 days 10/20/2024 Active Social History Sex Assigned At : Social History Observation Description Sex Assigned At Female Encounters Encounter Location Date Provider Diagnosis [facility] [place] [id number] [facility] [address] [facility] [address] [place] [address] 10/19/2024 Jm Waters Attention deficit hyperactivity disorder (ADHD), combined type F90.2 Assessments Encounter Date Diagnosis (ICD Code) Assessment Notes Treatment Notes Treatment Clinical Notes Section Notes 10/19/2024 Attention deficit hyperactivity disorder (ADHD), combined type (ICD-10 - F90.2) Plan Of Treatment Medication Medication Name Sig Start Date Stop Date Notes Lisdexamfetamine Dimesylate 50 MG 1 caps ule in the morning Orally Once a day for 30 days 10/20/2024 Next Appt Details Provider Name:Jm mccarty, 11/07/2024 03:45:00 PM, [address], [address], [place], [address], Progress Notes * ZAFAR CERDADOB:1989 (34 yo F)Acc No.[id number]:10/19/2024 Patient: ZAFAR PARTIDA :1990 A ge:34 Y S ex:Female Address:[address] [place] [id number] * Refills Refill Lisdexamfetamine Dimesylate Capsule, 50 MG, Orally, 30 Capsule, 1 capsule in the morning, Once a day, 30 days, Refills=0 * true * Date: Generated for Johnnie little/Justine/Jaileneitting on: 0 10/30/2024 01:29 PM CDT
--- OUTSIDE RECORDS SUMMARY | 2024-10-30 13:29 | XMS_ITS | Clinical Summary ---
Author Organization [facility] Address [address] [facility] [place] [address] Care Team Providers Care Merchant Tailor Name Role Phone Benedict Spears MD Primary Care Provider [phone] Source Comments [facility],non-owned Affiliates and Associated Physician Practices is amultiple site organization consisting of ambulatory clinics and hospital sitesin [place], [place], [place] and [place]. This disclosure is being madepursuant to the Care Everywhere program and may not contain all information available regarding this patient. Last updated 18.[facility] [employer] Allergies Active Allergy Reactions Criticality Noted Date [...] Virus Chichi valent Vaccine 11/02/2011 INFLUENZA A [id number] VACCINE 08/08/2009 INFLUENZA VACCINE 04/14/2023, 1,03/30/2020,04/25,04/10/2017,05/20/2016,04/29/2014 ,04/29/2012,03/30/2011,06/15/2008 INFLUENZA VACCINE, QUADR. (A FLURIA, FLUZONE QUADRIVALENT; 6MO+) (IIV4) 07/02/2010,08/08/2009 MENINGOCOCCAL ACWY (MCV4P) VAC IM 02/05/2008 MMR 02/06/2008 PNEUMOCOCCAL PPSV23 06/15/2016 POLIO [...] (1 - 1-dose 75+ series) 2064 MENINGOCOCCAL GROUPS A/C/Y/W VACCINE Completed 02/05/2008 HEPATITIS B VACCINE Completed [...] complete this topic MENINGOCOCCAL (Group B) VACCINE SHARED DECISION-MAKING Aged Out No longer eligible based on patient's age to complete this topic Medical Devices Implanted Type Area Contract Technician Device Identifier Shelf Expiration Date Model / Serial / Lot 1.6mm K Wires Implanted:Qty: 2 on 03/08/2022 by Ganesh Escalante MD at [facility] 10/25/2025 [id number] / [id number] / [id number] Procedures Procedure Name Priority Date/Time Associated Diagnosis Comments HIV-1 HIV-2 ANTIBODY + HIV P24 AG PANEL Routine 11/13/2022 10:20 AM CDT Visit for screening GTT 1 HR (50G) GESTATIONAL SCREEN Routine 11/13/2022 9:35 AM CDT Visit for screening HEPATITIS C ANTIBODY Routine 07/28/2022 5:05 PM ENVIRONMENTAL ISSUES INSTRUCTOR screening encounter from Last 3 Months or Most Recently Relevant to Health Maintenance Results * HIV-1 HIV-2 ANTIBODY + HIV P24 AG PANEL (11/13/2022 10:20 AM CDT) [facility] HIV1/2 Ab + P24 Ag Non Reactive Non Reactive 11/13/2022 11:04 AM CDT [facility] Blood BLOOD SPECIMEN / Unknown Lab Venipuncture / Unknown 11/13/2022 10:20 AM CDT 11/13/2022 10:19 AM CDT Narrative [facility] - 11/13/2022 11:04 AM CDT No Laboratory evidence of HIV infection. Cristina GALLOWAY LAB - CHEMISTRY ORDERABLES Performing Organization Address [facility] Co de Phone Number [facility] [address] [place] [address] * GTT 1 HR (50G) GESTATIONAL SCREEN (11/13/2022 9:35 AM CDT) Glucose Dose Gestational 50 gm 11/13/2022 10:43 AM CDT [facility] Gestational Diabetes Screen 88 54 - <140 mg/dL 11/13/2022 10:43 AM CDT [facility] Blood BLOOD SPECIMEN / Unknown Lab Venipuncture / Unknown 11/13/2022 9:35 AM CDT 11/13/2022 10:19 AM CDT Cristina Mccann APRN-BRAD LAB - CHEMISTRY ORDERABLES Performing Organization Address [facility] Co de Phone Number [facility] [address] [place] [address] * HEPATITIS C ANTIBODY (07/28/2022 5:05 PM ENVIRONMENTAL ISSUES INSTRUCTOR) [facility] HCV Antibody Screen Non Reactive Non Reactive 07/28/2022 6:06 PM ENVIRONMENTAL ISSUES INSTRUCTOR [facility] Blood BLOOD SPECIMEN / Unknown Lab Venipuncture / Unknown 07/28/2022 5:05 PM ENVIRONMENTAL ISSUES INSTRUCTOR 07/28/2022 5:20 PM ENVIRONMENTAL ISSUES INSTRUCTOR Narrative [facility] - 07/28/2022 6:06 PM ENVIRONMENTAL ISSUES INSTRUCTOR Non Reactive - Antibodies to Hepatitis C virus (HCV) were not detected, result does not exclude early acute HCV infection. Sade Marin MD LAB - CHEMISTRY ORD ERABLES [facility] [address] [place], [place] [id number] from Last 3 Months or Most Recently Relevant to Health Maintenance Care Teams Merchant Tailor Relationship Specialty Start Date End Date Benedict Spears MD [address] [place] [address] RAYO Ramírez [phone] PCP - General Family Medicine 12/25/23
--- OUTSIDE RECORDS SUMMARY | 2024-10-30 13:29 | XMS_ITS | Clinical Summary ---
Author Organization [facility] Address [address] [place] [id number] Care Team Providers Care News Production Assistant Name Role Phone Unavailable Primary Care Provider [...] daily. 60 Capsule 1 07/21/2024 5:48 PM LIBRARY MEDIA TECHNICIAN Active doxylamine (UNISOM) 25 mg Tablet Take by mouth. Activ e Active Problems Problem Noted Date Diagnosed Date Short cervix affecting 07/21/2024 Comments Yes Encounters Date Type Department Care Team Description 10/15/2024 External Device Data STL ABSTRACTION Provider, Abstract 10/15/2024 External Device Data STL ABSTRACTION Provider, Abstract 10/13/2024 7:08 AM CDT - 10/13/2024 11:59 PM CDT Hospital Encounter [facility] Maternal and Health [facility] [address] [place] [address] Sade Marin MD Discharge Disposition: Home or Self Care 10/04/2024 External Device Data STL ABSTRACTION Provider, Abstract 10/03/2024 External Device Data STL ABSTRACTION Provider, Abstract 09/30/2024 External Device Data STL ABSTRACTION Provider, Abstract 09/17/2024 External Device Data STL ABSTRACTION Provider, Abstract 09/16/2024 External Device Data STL ABSTRACTION Provider, Abstract 08/21/2024 7:11 AM LIBRARY MEDIA TECHNICIAN - 08/21/2024 11:59 PM LIBRARY MEDIA TECHNICIAN Hospital Encounter [facility] Maternal and Health [facility] [address] [place] [address] Miriam Chanel MD Discharge Disposition: Home or Self Care 08/20/2024 External Device Data STL ABSTRACTION Provider, Abstract 08/19/2024 External Device Data STL ABSTRACTION Provider, Abstract 08/12/2024 External Device Data STL ABSTRACTION Provider, Abstract 08/01/2024 1:00 PM LIBRARY MEDIA TECHNICIAN Video Visit [facility] Maternal and Medicine - [facility] [address] [facility] [address] [place] [address] Odette Cruz MD Short cervix affecting (Primary Dx) from Last 3 Months Social History Tobacco [...] Sex Assigned at Female 07/21/2024 9:38 AM LIBRARY MEDIA TECHNICIAN Legal Sex Female 7:37 PM CDT Gender Identity Not on file Sexual Orientation Not on file Last Filed Vital Signs Vital Sign Reading Time Taken Comments Blood Pressure 112/64 07/21/2024 5:15 PM LIBRARY MEDIA TECHNICIAN Pulse 88 07/21/2024 5:17 PM LIBRARY MEDIA TECHNICIAN Temperature 36.6 C (97.9 F) 07/21/2024 3:37 PM LIBRARY MEDIA TECHNICIAN Respiratory Rate 22 07/21/2024 5:17 PM LIBRARY MEDIA TECHNICIAN Oxygen Saturation 99% 07/21/2024 5:17 PM LIBRARY MEDIA TECHNICIAN Inhaled Oxygen Concentration - - Weight 74.4 kg (164 lb) 07/21/2024 11:15 AM LIBRARY MEDIA TECHNICIAN Height 167.6 cm (5' 6 ) 07/21/2024 11:15 AM LIBRARY MEDIA TECHNICIAN Body Mass Index 26.47 07/21/2024 11:15 AM LIBRARY MEDIA TECHNICIAN Plan of Treatment Upcoming Encounters Date Type Department Care Team (Late st Contact Info) Description 12/07/2024 Hospital Encounter [facility] Labor & [address] [place] [address] Odette Cruz MD [address] [place] [address] Health Maintenance Due Date Last Done Comments HPV/Cotest (21-29) 2010 HPV VACCINES (2 - 3-dose series) 11/30/2011 11/02/19 12 CERVICAL CANCER SCREENING 2019 HPV/Cotest (30-65) 2019 PAP SMEAR 2019 COVID-19 Vaccine (3 - 2023-2 5 [...] US OB FOLLOW UP PER FETUS Routine 10/13/2024 7:41 AM CDT Encounter for ultrasound to assess growth US OB FOLLOW UP PER FETUS Routine 08/21/2024 7:47 AM LIBRARY MEDIA TECHNICIAN History of delivery, currently from Last 3 Months Results * US OB FOLLOW UP PER FETUS (10/13/2024 7:41 AM CDT) Only the most recent of2 resultswithin the time period is included. Anatomical Region Laterality Modality Pelvis Ultrasound 10/13/2024 7:11 AM CDT Narrative 10/13/2024 8:23 AM CDT STL FOLLOW UP ----- Pat. Name: ALINE CERDA Study Date: 10/13/2024 7:11am Pat. NO: [id number] Referring MD: SADE MARIN MD Site: [facility] Case Loader Operator: Holly Petit RDMS : 1990 Age: 34 ----- INDICATION ----- Advanced Maternal Age (AMA), Multigravida w/History Labor Screening Follow-Up Cervix, Incompetent with or without Cerclage CODING ----- Diagnoses Z3A.32: Weeks of gestation O34.33: Maternal care for cervical incompetence Z36.2: Encounter for other screening follow-up O09.213: Supervision of with history of pre-term labor O09.523: Supervision of elderly multigravida Procedures 58764: Ultrasound, uterus, real time with image documentation, follow up, transabdominal approach per fetus HISTORY ----- OB History 3. Para 1 METHOD ----- Transabdominal ultrasound examination ----- Rao . Number of fetuses: 1 DATING ----- GA by prior assessment 32 w + 1 d CODY by prior assessment: 12/07/2024 Ultrasound examination on: 10/13/2024 GA by U/S based upon: AC, BPD, EFW, Femur, HC GA by U/S 33 w + 4 d CODY by U/S: 11/27/2024 Method of dating: Restore dating from previous exam Assigned: based on stated CODY, selected on 07/21/2024 Assigned GA 32 w + 1 d Assigned CODY: 12/07/2024 BIOMETRY ----- BPD 82.7 mm 33w 2d 74% Hadlock OFD 116.5 mm -/- >99% Sofía HC 319.2 mm 36w 0d 96% Hadlock AC 300.0 mm 34w 0d 92% Hadlock Femur 60.1 mm 31w 2d 16% Hadlock HC / AC 1.06 50% Nicolaides Weight Calculation: EFW 2,173 g 33w 0d 76% Hadlock EFW (lb,oz) 4 lb 13 oz EFW by Hadlock ([id number]) Extremities / Bony Struc Biometry: FL / BPD 0.73 FL / HC 0.19 FL / AC 0.20 GENERAL EVALUATION ----- Cardiac activity present. FHR 133 bpm. movements: present. Presentation: cephalic Placenta: Placental site: anterior Umbilical cord: Cord vessels: 3 vessel cord. Insertion site: placental insertion: normal Amniotic fluid: Amount of AF: normal amount. MVP 6.3 cm. MARK 17.3 cm. Q1 3.8 cm, Q2 6.3 cm, Q3 3.9 cm, Q4 3.3 cm ANATOMY ----- The following structures appear normal: Head / Neck Cranium. Choroid plexus. Midline falx. Cavum septi pellucidi. Cerebellum. Heart / Thorax Diaphragm. Abdomen Stomach. Kidneys. Bladder. GROWTH OVERVIEW ----- Exam date GA BPD (mm) HC (mm) AC (mm) FL (mm) HL (mm) EFW (g) 07/21/2024 20w 1d 49.9 85% 188.2 83% 174.7 96% 34.5 68% 33.6 90% 438 98% 08/21/2024 24w 4d 61.2 54% 236.4 72% 221.1 92% 46.1 61% 870 92% 10/13/2024 32w 1d 82.7 74% 319.2 96% 300.0 92% 60.1 16% 2,173 76% COMMENT ----- Patient's name and date of were verified by the paint prepper prior to the exam IMPRESSION ----- Impression: Rao viable intrauterine at 32w 1d in cephalic presentation. Estimated weight is 2173 g (76%ile) with abdominal circumference at the 92%ile. Amniotic fluid volume is normal amount (Amniotic fluid index = 17.3 cm, maximum vertical pocket = 6.3 cm). Recommendation: Follow up as clinically indicated. Thank you for inviting us to participate in your patient's care. Procedure Note Cyndi Urbina MD - 10/13/2024 STL FOLLOW UP ----- Pat. Name:Maikol CERDA Date:10/13/2024 7:11am Pat. NO: [id number] MD:SADE MARIN [facility]Holly Petit RDMS :1990Age:34 ----- INDICATION ----- Advanced Maternal Age (AMA), Multigravida w/History Labor Screening Follow-Up Cervix, Incompetent with or without Cerclage CODING ----- Diagnoses Z3A.32: Weeks of gestation O34.33: Maternal care for cervical incompetence Z36.2: Encounter for other screeningfollow-up O09.213: Supervision of with history ofpre-term labor O09.523: Supervision of elderly multigravida Procedures 60699: Ultrasound, uterus, real time withimage documentation, follow up, transabdominal approach per fetus HISTORY ----- OB History 3. Para 1 METHOD ----- Transabdominal ultrasound examination ----- Rao . Number of fetuses: 1 DATING ----- GA by prior [id number] w + 1 d CODY by prior assessment:12/07/2024 Ultrasound examination on:10/13/2024 GA by U/S based upon:AC, BPD, EFW, Femur, HC GA by U/S33 w + 4 d CODY by U/S:11/27/2024 Method of dating:Restore dating from previous exam Assigned:based on stated CODY, selected on 07/21/2024 Assigned GA32 w + 1 d Assigned CODY:12/07/2024 BIOMETRY ----- BPD 82.7 mm 33w 2d 74%Hadlock OFD 116.5 mm -/- >99%Sofía HC 319.2 mm 36w 0d 96%Hadlock AC 300.0 mm 34w 0d 92%Hadlock Femur 60.1 mm 31w 2d 16%Hadlock HC / AC 1.06 50%Nicolaides Weight Calculation: EFW 2,173 g 33w 0d76% Hadlock EFW (lb,oz) 4 lb 13 oz EFW by Hadlock ([id number]-FL) Extremities / Bony Struc Biometry: FL / BPD 0.73 FL / HC 0.19 FL / AC 0.20 GENERAL EVALUATION ----- Cardiac activity present. FHR 133 bpm. movements: present.Presentation: cephalic Placenta: Placental site: anterior Umbilical cord: Cord vessels: 3 vessel cord. Insertion site: placentalinsertion: normal Amniotic fluid: Amount of AF: normal amount. MVP 6.3 cm. MARK 17.3 cm. Q13.8 cm, Q2 6.3 cm, Q3 3.9 cm, Q4 3.3 cm ANATOMY ----- The following structures appear normal: Head / Neck Cranium. Choroid plexus. Midline falx. Cavum septipellucidi. Cerebellum. Heart / Thorax Diaphragm. Abdomen Stomach. Kidneys. Bladder. GROWTH OVERVIEW ----- Exam date GA BPD (mm) HC (mm) AC (mm) FL(mm) HL (mm) EFW (g) 07/21/2024 20w 1d 49.9 85% 188.2 83% 174.7 96%34.5 68% 33.6 90% 438 98% 08/21/2024 24w 4d 61.2 54% 236.4 72% 221.1 92%46.1 61% 870 92% 10/13/2024 32w 1d 82.7 74% 319.2 96% 300.0 92%60.1 16% 2,173 76% COMMENT ----- Patient's name and date of were verified by the paint prepper prior tothe exam IMPRESSION ----- Impression: Rao viable intrauterine at 32w 1d in cephalicpresentation. Estimated weight is 2173 g (76%ile) with abdominal circumference atthe 92%ile. Amniotic fluid volume is normal amount (Amniotic fluid index = 17.3 cm,maximum vertical pocket = 6.3 cm). Recommendation: Follow up as clinically indicated. Thank you for inviting us to participate in your patient's care. us Sade Marin MD ORDERABLES Final Res ult from Last 3 Months Insurance [employer] [facility]
--- OUTSIDE RECORDS SUMMARY | 2024-10-30 13:29 | XMS_ITS | Encounter Summary ---
Author Name [facility] Organization [facility] Address [address] [place] [address] Care Team Providers Care Ear Pull Machine Operator Name Role Phone GEOFFREY RAGLAND Primary Care Provider SAMANTA Crain Primary Care Provider Pallavi ble Insurance Providers: All historical and current Section Date Range: From patient's date of to the date document was created. This section includes the names of all active insurance providers for the patient. Insurance Provider Type of Coverage Plan Name Start of Policy Coverage End of Policy Coverage Group Number Member ID Insurance Provider's Telephone Number Policy Garcia's Name Patient's Relationship to Policy Garcia [facility] SELEC T WNR Jun 30, 2018 SELECT [id number] ARACELIS CASTILLO PATIENT [facility] 2024 TRICA RE SELEC T Jul 30, 2024 SELECT [id number] ARACELIS CASTILLO PATIENT Selected Encounter This section includes the information on record at [place] for the Encounter. Date/Time Encounter Type Encounter Description Reason Provider Source Nov 06, 2023 02:00 PM OFFICE O/P EST MOD 30 MIN PRIMARY CARE/MEDICINE ICD-10-CM F31.31 Bipolar disorder, current episode depressed, mild [place],THERE [facility] Encounter Template Text not used by [place] Assessments - Encounter Diagnoses This section includes the primary and secondary diagnoses documented for the Encounter. Date/Time Primary/Secondary Diagnosis Diagnosis Name Provider Source Nov 06, 2023 02:25 PM PRIMARY Bipolar disorder, current episode depressed, mild [facility],THERE [facility] Nov 06, 2023 02:25 PM SECONDARY Attention and concentration deficit [facility]ERE [facility] Nov 06, 2023 02:25 PM SECONDARY Cervicalgia [facility],THERE [facility] Nov 06, 2023 02:25 PM SECONDARY Obesity, unspecified [facility],THERE [facility] Social History: Smoking Status (Most current) and Tobacco Use (All prior to encounter date) This section includes the most current, and the historical, smoking and tobacco- related health factors from the [place] facility where the Encounter took place. Current Smoking Status This section includes the most current smoking, or tobacco-related health factor, from the [place] facility where the Encounter took place. Date/Time Current Smoking Status Comment Sherri lund Nov 06, 2023 02:00 PM VA-TOBACCO QUIT 1 TO < 5 YRS [facility] Tobacco Use History This section includes a history of the smoking, or tobacco-related health factors, that were collected on or before the date of the Encounter. The data comes from the [place] facility where the Encounter took place. Date/Time Smoking Status/Tobacco Use Comment F acility Nov 06, 2023 02:00 PM VA-TOBACCO QUIT 1 TO < 5 YRS [facility] Oct 31, 2022 10:00 AM VA-TOBACCO FORMER USER [facility] Oct 31, 2022 10:00 AM VA-TOBACCO QUIT 1 TO < 5 YRS [facility] Nov 11, 2021 10:00 AM VA-TOBACCO DOESNT USE WI 30 MIN WAKEUP [facility] Nov 11, 2021 10:00 AM VA-TOBACCO USE < 1 YEAR [facility] Nov 11, 2021 10:00 AM VA-TOBACCO USE ADVICE [facility] Nov 11, 2021 10:00 AM VA-TOBACCO USE PANEL BEATER NO [facility] Nov 11, 2021 10:00 AM VA-TOBACCO USE MED NO [facility] Nov 11, 2021 10:00 AM VA-TOBACCO USER SOME DAYS [facility] Mar 03, 2019 01:33 PM VA-TOBACCO FORMER USER [facility] Mar 03, 2019 01:33 PM VA-TOBACCO QUIT < 1 YEAR [facility] Encounter Notes: All associated encounter notes This section contains the clinical notes associated to the Encounter. Date/Time Encounter Note(s) Provider Source Nov 06, 2023 02:07 PM TELEHEALTH NOTE: LOCAL TITLE: PRIMARY CARE VIDEO CONNECT [facility] STANDARD TITLE: TELEHEALTH NOTE DATE [...] >>>>>>>>>>>>>> AUG 2024 Suicide Screen: C-SSRS Screening Crowley-Suicide Severity Rating Scale (C-SSRS Screener) 1. Over [...] declined a Pap smear. Comment: SCHEDULED WITH DIGITAL ASSISTANT Depression Screening: Perform PHQ-2 A PHQ-2 screen [...] Not worried about housing near future [facility] reports the following: Within the past 12 [...] (including active outpatient prescriptions dispensed from this [facility] (local) and dispensed from another [place] or DoD facility (remote) as well as inpatient orders (local pending and active), local clinic medications, locally documented non-VA medications, and local prescriptions that have or been discontinued in the past 90 days.) with the patient and/or his/her care-airveyor operator. Handwritten corrections, additions and/or deletions were made to the list, as appropriate. Corrected Outpatient Medication List was provided to the patient/caregiver. Tobacco Use Screening: The patient is a former tobacco user. The patient quit one to less than 5 years ago. /michelle/ SAMANTA ROTHMAN [facility] ADULT NURSE PRACTITIONER Signed: 11/06/2023 14:26 [facility]
--- OUTSIDE RECORDS SUMMARY | 2024-10-30 13:29 | XMS_ITS | Referral Summary ---
Author Organization [facility] Address [address] [place] [address] Care Team Providers Care Certified Marine Mechanic Name Role Phone No, Physician Primary Care Provider [phone] Randell Man MD Unavailable [phone] Encounters Date Type Department Care Team Description 09/25/2024 3:30 PM MARKETING ANALYST Office Visit [facility] Surgery [address] [place] [address] Medical Office Building [address] [place] [address] Randell Man MD Hemorrhoids, unspecified hemorrhoid type from Last 3 Months Allergies Active Allergy Reactions Criticality Noted Date Comments Zolpidem Other (See comments) Low 10/02/2019 Insomnia,nightmares. Vancomycin Hives Medium 10/02/2019 Medications ibuprofen (ADVIL,MOTRIN) 600 mg tablet Take 600 mg by mouth every 6 (six) hours as needed for pain Active baclofen (LIORESAL) 10 mg tablet Take 10 mg by mouth 3 (three) times a day Active TDN19-hpze cb,ie-eyarj-byw -dha 27-1-50-250 mg combo pack Take by [...] on file Legal Sex Female 12:46 PM MARKETING ANALYST Gender Identity Not on file Sexual Orientation Not on file Last Filed Vital Signs Vital Sign Reading Time Taken Comments Blood Pressure 132/80 09/25/2024 3:05 PM MARKETING ANALYST Pulse 75 09/25/2024 3:05 PM MARKETING ANALYST Temperature - - Respiratory Rate - - Oxygen Saturation 100% 09/25/2024 3:05 PM MARKETING ANALYST Inhaled Oxygen Concentration - - Weight 79.8 kg (176 lb) 09/25/2024 3:05 PM MARKETING ANALYST Height 167.6 cm (5' 6 ) 09/25/2024 3:05 PM MARKETING ANALYST Body Mass Index 28.41 09/25/2024 3:05 PM MARKETING ANALYST Plan of Treatment Not on file Insurance [facility] CHOICE [facility] CLAIMS Care Teams Certified Marine Mechanic Relationship Specialty Start Date End Date No, Physician PCP - General 09/22/19 Randell Man MD [phone] [place] [address] Surgeon Colon and Rectal Surgery 09/25/24
--- OUTSIDE RECORDS SUMMARY | 2024-10-30 13:30 | XMS_ITS | Data Portability ---
Author Organization [place] [facility] [employer], Main Office Address [address] [place] [address] Care Team Providers Care Sap Basis Consultant Name Role Phone BENEDICT SPEARS Primary Care Provider Assessment Encounter Date Assessment Date Assessment LastModified [...] bring MRI results. Annual labs in 12/21. [email or web address] Not available 12/13/2023 17:59:28 01/28/2024 01/28/2024 33 [...] bring MRI results. Annual labs in 12/21. Not available 01/28/2024 18:02:43 05/05/2024 05/05/2024 35 [...] by Ortho. Cont f/u with Psych at [facility] as per schedule. Cont f/u with Ortho at [facility] as per schedule. Cont f/u with Gyne as per schedule. Educated pt about alarming symptoms to monitor at home. HM: WWE - 03/21, normal as per pt. Cont f/u with Gyne as per schedule. Flu - Pt gets at her work. Tdap - 2020. Gardasil - Pt had it. F/u PRN/Annually. Pt to bring MRI results. Annual labs in 12/21. [email or web address] Not available 05/05/2024 18:01:30 Plan of Treatment Reminders Order Date Submit Date Provider Last Modified By Organization Details Last Modified Time Details Appointments Physical/ Annual Wellness 30 2024 04:30P Kenneth Spears MD Not available Not available Not available Lab lipid panel, serum [address] (Lab), [address] [place], [address], 04/28/2024 10:45:22 glycohemo globin, total, blood [address] (Lab), [address] [place], [address], 12/20/2023 07:59:24 CBC w/ auto diff [address] (Lab), [address] [place], [address], 12/20/2023 07:59:23 CMP, serum or plasma [address] (Lab), [address] [place], [address], 12/20/2023 07:59:23 lipid panel, serum [address] (Lab), [address] [place], [address], 12/20/2023 07:59:23 TSH, serum, reflex free T4 [address] (Lab), [address] [place], [address], 12/20/2023 07:59:23 urinalysi s complete, reflex culture [address] (Lab), [address] [place], [address], 12/20/2023 07:59:23 vitamin D, 25-hydrox y, total, serum [address] (Lab), [address] [place], [address], 12/20/2023 07:59:23 Referral psychiatr ist referral 2023 024 [email or web address] Roderick Mckeon MD, [address], [facility] [address], [place], [address], 12/20/2023 17:15:41 Procedures None recorded. Surgeries None recorded. Imaging None recorded. Medication Orders docusate sodium 100 mg capsule 2023 [facility]40891, [address] [place], [place], [id number], 05/05/2024 17:55:07 ciproflox acin 500 mg tablet [address] [facility] #81350, [address] [place], [place], [id number], 05/05/2024 17:50:50 phenazopy ridine 200 mg tablet [address] [facility] #52587, [address] [place], [place], [id number], 05/05/2024 17:50:58 lurasidon e 40 mg tablet [address] [facility] #36653, [address] [place], [place], [id number], 05/05/2024 17:51:51 venlafaxi ne ER 75 mg capsule,e xtended release 24 hr 2023 [address]24 [address], [address], [place], [id number], 05/05/2024 17:51:11 methylphe nidate ER 54 mg tablet,ex tended release 24 hr [address] [facility] #54811, [address] [facility], [place], [place], [id number], 05/05/2024 17:51:46 methylphe nidate ER 54 mg tablet,ex tended release 24 hr [address] [facility] #25363, [address] [facility], [place], [place], [id number], 05/05/2024 17:51:46 lurasidon e 40 mg tablet [address] [facility] #39606, [address] [facility], [place], [place], [id number], 05/05/2024 17:51:51 venlafaxi ne ER 75 mg capsule,e xtended release 24 hr [address] [facility] #25642, [address] [facility], [place], [place], [id number], 05/05/2024 17:51:11 methylphe nidate ER 36 mg tablet,ex tended release 24 hr 2023 024 [email or web address] [facility] #51540, [address], [place], [id number], 11/21/2023 13:16:12 triamcino lone acetonide 0.1 % topical cream 2023 024 REBECCA [facility] #37494, [address] [facility], [place], [place], [id number], 08/01/2023 14:50:38 Patient TargetsNo targets recorded. Patient Instructions Encounter Date Encounter Id Patient Instructions Last Modified By Organization Details Last Modified Time 01/28/2024 [id number] high cholesterol : care instructions [email or web address] Not available 01/28/2024 17:55:48 05/05/2024 [id number] high cholesterol : care instructions [email or web address] Not available 05/05/2024 17:53:14 Reason for Referral [...] trime ster No observ ation record ed. [email or web address] [facility] [address], [place], [address], 05/05/2024 17:50:21 Result Notes None recorded. Problems Name Problem SNOMED Code Status Onset Date Resolution Date Notes Provider Name and Address Organization Details Recorded Time Mixed anxiety and depressive disorder 384176413 Active 2021 Not Available [facility] 3 00:58:23 Chronic constipati on 969344417 Active 2021 Not Available [facility] 3 00:58:23 Lumbar spondylosi s 400195988 Active 2021 Not Available [facility] 3 00:58:23 Bilateral tinnitus 5265086455727 Active 2021 Not Available [facility] 3 00:58:23 Hemorrhoid s 04807917 Active 2022 Maria Antonia Ding MD [address], [address], [place], [address] , [employer] 3 16:11:21 External hemorrhoid s 80540620 Active 2022 Maria Antonia Ding MD [address], [place], [address] , [employer] 3 12:35:27 Onychomyco sis of toenails 584026010 Active 2022 KASSIE Turner [address], [place], [address] , [employer] 3 08:34:08 Headache 23007917 Active 2022 Fredrick LeonardoCORINNE savageP [address], [address], [place], [address] , [employer] [place] [employer] [facility] [employer] 3 08:42:23 Pruritic rash 99080491 Active 2022 Fredrick LeonardoCORINNE savageP [address], [address], [place], [address] , [employer] [place] [employer] [facility] 3 08:47:49 Chronic back pain 846989407 Active 2022 Fredrick CORINNE SykesP [address], [address], [place], [address] , [employer] [place] [employer] [facility] [employer] 3 13:25:02 Poor concentrat ion 53700808 Active 2022 Maria Antonia Ding MD [address], [address], [place], [address] , [employer] [facility] [employer] 3 14:21:11 Cough 79384752 Active 2022 Maria Antonia Ding MD [address], [address], [place], [address] , [employer] [facility] [employer] 3 12:46:51 Eruption 992247447 Active 2023 Maria Antonia Ding MD [address], [address], [place], [address] , [employer] [facility] 4 14:47:06 Pain in throat 466988306 Active 2023 Maria Antonia Ding MD [address], [address], [place], [address] , [employer] [place] [employer] [facility] 4 13:21:33 Attention deficit hyperactiv ity disorder 762490455 Active 2023 Maria Antonia Ding MD [address], [address], [place], [address] , [employer] [place] [facility] [employer] 4 17:15:32 Bipolar disorder 84432667 Active 2023 Benedict Spears MD [address], [address], [place], [address] , [employer] 4 17:33:41 Depressive disorder 88503507 Active 2023 Benedict Spears MD [address], [address], [place], [address] , [employer] 4 17:33:47 Anxiety disorder 353380207 Active 2023 Benedict Spears MD [address], [address], [place], [address] , [employer] 4 17:33:53 Chronic neck pain 8180755872916 Active 2023 Benedict Spears MD [address], [place] [address], [place], [address] , [employer] S [employer] [facility] 4 17:34:12 Chronic low back pain 259972298 Active 2023 Benedict Spears MD [address], [address], [place], [address] , [employer] [facility] 4 17:34:20 Overweight 892831791 Active 2023 Benedict Spears MD [address], [place] [address], [place], [address] , [employer] [facility] [employer] [facility] 4 17:34:41 Chronic idiopathic constipati on 41417845 Active 2023 Benedict Spears MD [address], [address], [place], [address] , [employer] [facility] [employer] [facility] 4 17:34:55 Vitamin D deficiency 36761260 Active 2023 Benedict Spears MD [address], [address], [place], [address] , [employer] [facility] [employer] [facility] 4 17:35:12 Attention deficit hyperactiv ity disorder, predominan tly inattentiv e type 10150635 Active 2023 Benedict Spears MD [address], [address], [place], [address] , [employer] 17:38:49 Urinary tract infectious disease 37195612 Active 2023 Benedict Spears MD [address], [address], [place], [address] , [employer] 17:51:24 Hyperlipid emia 96875580 Active 2023 Benedict Spears MD [address], [address], [place], [address] , [employer] 17:54:30 Problem Notes None recorded. Procedures Surgical History Date Name Laterality Status Provider Name and Address Organization Details Recorded Time 03/14/20 23 excision of septum of uterus completed KASSIE Turner [address], [address], [place], [address], [employer] 04/03/2023 08:40:59 03/08/20 22 open reduction of fracture with internal fixation completed Not Available [facility] 09/28/2022 00:57:24 07/30/19 22 Date of Last Pap Smear completed Benedict Spears MD [address], [address], [place], [address], [employer] 12/13/2023 17:29:18 nasal septoplasty completed Not Available [facility] 09/28/2022 00:57:24 Imaging Results Imaging Date Name Status LastModified by Organiz ation Details LastModified Time 04/22/2024 US, obstetric, 1st trimester completed [email or web address] [facility] [address], [place], [address], 05/05/2024 17:50:21 Procedure Notes None recorded. Medical Equipment None Reported. Allergies Allergen ID Allergen Name Allergen Category Reaction Reaction Severity Criticality Documentation Date Start Date Code Code System Note Provider Name and Address Organization Details Recorded Time 50484 vancomyci n medicatio n Not available Not available Not available 09/28/2022 02000 RxNorm Red Man Not Available [facility] 3 00:59:51 54904 vaccine adjuvant system, AS01B liposomal medicatio n rash Not available Not available 09/28/2022 04738 UNK Not Available [facility] 3 00:59:52 Medications Name Sig Start Date [...] Updated DateTime 4 170.18 cm 27.3 kg/m2 43453.0 7 g 97.7 [degF] 94 /min 99 % 99 % 122 mm[Hg] 80 mm[Hg] Yashira Daniel RN [facility] [employer] 14:33:45 Date Recorded Body height Body mass index (BMI) Body weight Body temperature Heart rate Oxygen saturation Oxygen saturation in Arterial blood by Pulse oximetry Provider Name and Address Organization Details Last Updated DateTime 4 170.18 cm 27.6 kg/m2 17122.2 6 g 98 [degF] 87 /min 96 % 96 % Yashira Daniel RN [facility] [employer] 4 16:58:43 Date Recorded Systolic blood pressure Diastolic blood pressure Provider Name and Address Organization Details Last Updated DateTime 11/01/2023 138 mm[Hg] 79 mm[Hg] Maria Antonia Ding MD [address] [place] [address], [address], [employer] [facility] [employer] 11/01/2023 17:07:43 Date Recorded Body height Body mass index (BMI) Body weight Body temperature Heart rate Respiratory rate Oxygen saturation Oxygen saturation in Arterial blood by Pulse oximetry Systolic blood pressure Diastolic blood pressure Provider Name and Address Organization Details Last Updated DateTime 4 170.18 cm 27.3 kg/m2 47589.0 7 g 98.1 [degF] 78 /min 16 /min 97 % 97 % 106 mm[Hg] 78 mm[Hg] Eleazar Calixto [employer] [facility] [employer] 4 17:27:14 Date Recorded Body height Body mass index (BMI) Body weight Body temperature Heart rate Respiratory rate Oxygen saturation Oxygen saturation in Arterial blood by Pulse oximetry Systolic blood pressure Diastolic blood pressure Provider Name and Address Organization Details Last Updated DateTime 4 170.18 cm 25.5 kg/m2 62394.9 1 g 98.1 [degF] 76 /min 20 /min 98 % 98 % 110 mm[Hg] 70 mm[Hg] Eleazar Calixto [facility] 4 17:45:19 Date Recorded Body height Body mass index (BMI) Body weight Body temperature Heart rate Respiratory rate Oxygen saturation Oxygen saturation in Arterial blood by Pulse oximetry Systolic blood pressure Diastolic blood pressure Provider Name and Address Organization Details Last Updated DateTime 4 170.18 cm 24.6 kg/m2 58949 g 98.1 [degF] 80 /min 20 /min 98 % 98 % 102 mm[Hg] 70 mm[Hg] Eleazar Calixto [facility] 4 17:48:06 Social History Question Answer Notes LastModified by [employer] ion Details LastModified Time Tobacco Smoking Status Never [facility] 08/01/2023 14:29:20 Do You Have An Advance Directive? No [email or web address] Information not available 12/13/2023 What Is Your Level Of Alcohol Consumption? Moderate [email or web address] Information not available 12/13/2023 What Is Your Level Of Caffeine Consumption? Moderate [email or web address] Information not available 12/13/2023 How Much Tobacco Do You Chew? 2-4/day [email or web address] Information not available 12/13/2023 What Type Of Diet Are You Following? REGULAR [id number] Information not available 09/28/2022 What Was The Date Of Your Most Recent Tobacco Screening? 02/09/2022 [email or web address] Information not available 08/01/2023 What Is Your Relationship Status? [email or web address] Information not available 12/13/2023 Do You Or Have You Ever Used Smokeless Tobacco? Former Smokeless Tobacco User [email or web address] Information not available 12/13/2023 How Much Tobacco Do You Smoke? No [email or web address] Information not available 12/13/2023 Do You Have Any Dietary Restrictions? No [email or web address] Information not available 08/01/2023 How Many Years Have You Used Smokeless Tobacco? 10 [email or web address] Information not available 12/13/2023 Sex: Unknown Functional Status Question Answer Note LastModified by Organization D etails LastModified Time What is your exercise level? Moderate Information not available 12/13/2023 Mental Status None recorded. Family History Relationship Description Onset Age of this Age Resolved Age Notes LastModified by Organization Details LastModified Time Father Heart disease [id number] Not available 09/28/2022 00:57:24 Mother Seizure disorder [email or web address] Not available 2023 17:29:07 Mother Seizure 1 Not available 12/13/2023 17:29:07 Maternal Grandmother Seizure 1 Not available 11/27 17:29:07 Medical History Condition Response BLINDNESS N RHEUMATIC FEVER N BLADDER PROBLEMS N KIDNEY STONES N MRSA N OTHER # 1 N POLIO N LUNG DISEASE/DISORDER N HISTORY OF DRUG ABUSE N RADIATION / CHEMOTHERAPY N COPD N Other # 2 N BLOOD DISEASES N SURGERY N EAR OR HEARING PROBLEMS N MUMPS N SHINGLES N DEPRESSION (INCLUDING POST ) N FEMALE PROBLEMS / INFECTIONS N BOWEL PROBLEMS N STROKE/TIA N THYROID DISEASE N ULCERS N BENIGN PROSTATIC HYPERPLASIA N MEASLES N CERVICALGIA N HYPOTENSION N TB SKIN TEST N MYOCARDIAL INFARCTION N PARAPELGIA N OBESITY [...] GLAUCOMA N FOOT PROBLEM N DIVERTICULITIS N CHICKENPOX N SLEEP APNEA N ALLERGIES/HAYFEVER N INFECTIOUS DISEASE N HEART ARRHYTHMIA N PROSTATE N INSOMNIA N HIGH CHOLESTEROL / HYPERLIPIDEMIA N HYPERTHYROIDISM N EYE PROBLEMS N EATING DISORDER N EDEMA N CHRONIC PAIN SYNDROME N CONSTIPATION N CAROTID BLOCKAGE N BACK / NECK PROBLEMS N HAVE YOU BEEN HOSPITALIZED OR SEEN IN [facility] IN THE PAST YEAR ? [...] DISORDER N ALZHEIMER'S DISEASE N PAIN N HERPES N DEMENTIA N HEADACHES/MIGRAINES N SEIZURES/EPILEPSY N VASCULAR DISEASE N PACEMAKER N DIZZINESS N HEART DISEASE/HEART PROBLEMS N KIDNEY DISEASE N DEVELOPMENTAL OR BEHAVIORAL DISORDERS N MULTIPLE SCLEROSIS N SCARLET FEVER N MENTAL DISORDER/ILLNESS N CARDIAC ARRHYTHMIA N CANCER: SPECIFY N PNEUMONIA N ATRIAL FIBRILLATION N Gall [...] PF 05/13/2023 completed Benedict Spears MD [address] [facility], [address], [place], [address], [employer] 12/13/2023 17:29:02 SARS-COV-2 (COVID-19) vaccine, UNSPECIFIED 02/15/2021 completed Benedict Spears MD [address] [facility], [address], [place], [address], [employer] 12/13/2023 17:29:02 SARS-COV-2 (COVID-19) vaccine, UNSPECIFIED 02/15/2022 completed Benedict Spears MD [address] [facility], [address], [place], [address], [employer] 12/13/2023 17:29:02 Past Encounters Encounter ID Performer Location Encounter Start Date Encounter Closed Date Diagnosis/Indication Diagnosis SNOMED-CT Code Diagnosis ICD10 Code Diagnosis Note [id number] [facility] [facility] [address] [facility] [facility] [place] [address] 02/09/2022 00:00:00 02/20/2022 16:24:03 [id number] S_G Primary Care [facility] [address] [facility] [place] [address] 03/20/2022 00:00:00 03/20/2022 08:23:17 [id number] [facility] Primary Care [facility] jacobe [address] [place] [address] [address] [place] [place], [place] [address] 04/24/2022 00:00:00 04/24/2022 08:19:45 [id number] [facility] Primary Care Sander jamese [address] [place] [address] [address] [place] [address] 05/29/2022 00:00:00 05/29/2022 08:16:56 [id number] [facility] [place] Sander jamese [address] [place] [address] [address] [place] [address] 07/10/2022 00:00:00 07/10/2022 08:17:01 [id number] S_[facility] Primary Care [place] [address] [place] [address] [address] [place] [address] 08/09/2022 00:00:00 08/09/2022 08:21:00 [id number] Maria Antonia Ding MD [facility] Primary Care [place] [address] [place] [address] [address] [place] [address] 10/24/2022 12:07:21 10/24/2022 12:54:50 External hemorrhoids 72785666 K64.4 Avoid dry toilet paperIncre ase water/fibe r and avoid straining with stoolsSitz baths TID prnf/u in 1 week or sooner if needed [id number] KASSIE Turner [place] [place] [address] [place] [address] [address] [place] [address] 04/03/2023 08:09:22 04/03/2023 09:52:54 Mixed anxiety and depressive disorder 817589929 F41.8 Improved but not to goal on current dose. Will add venlafaxin e 75mg back to the 150mg. Highly encouraged pt to consider counseling . Denies any SI/HI at this time. Pt to stop medication and be seen if s/e develop. Pt to call or send update through portal in 2 weeks. Onychomyco sis of toenails 881989876 B35.1 ChronicCon tinue with topical antifungal treatment. Unable to take oral meds as she is still breastfeed ing. Advised to perform brown mouthwash soaks and apply vapor rub to affected nails daily in the meantime.R TO 3-6 months for f/u Headache 57213914 R51.9 New problemNot able to manage with [...] breastfeed ing her 3 month-old. Pruritic rash 15763444 L 28.2 New problemLik tomy candidal. Advised to apply otc topical yeast medication to external tissues.Cu stomary discussion of prescribed medication benefits, side effects, and compliance was done. Patient was instructed on proper skin care. If no improvemen t over the next week, will consider rx strength medication . [id number] Maria Antonia Ding MD [facility] Primary Care [address] [place] [address] 08/01/2023 14:28:31 08/01/2023 14:52:45 Eruption 587151414 R21 eczemadisc ussed care of dry, sensitive skinshorte r, cooler showersavo id lotions/so aps/produc ts with perfumes/d yesemollie nt lotions regularly [id number] Maria Antonia Ding MD [facility] Primary Care [address] [place] [address] 11/01/2023 16:49:38 11/01/2023 17:18:35 Attention deficit hyperactivity disorder 259930439 F90.9 Dx by psychiatry failed nonstimula ntstrial of methylphen idate ER 36 mg dailyPt understand s this medication has risk for abuse/depe ndence and agrees to take it only as prescribed and to guard from loss/theft f/u in 4 weeks or sooner if needed [id number] Benedict Spears MD [address] [address] 12/13/2023 17:21:01 12/13/2023 17:58:15 Adult health examination 564188614 Z00.00 Bipolar disorder 8175606 4 F31.9 Depressive disorder 3548 9007 F32.A Anxiety disorder 1017493 06 F41.9 Chronic neck pain 704814 7041 107 M54.2 Chronic low back pain 27 1784995 M54.50 Overweight 009076938 E66 .3 Chronic id iopathic constipation 54463616 K59.04 Vitamin D deficiency 347 92412 E55.9 Attention deficit hyperactivity disorder, predominantly inattentive type 60696411 F90.0 [id number] Benedict Spears MD [place] [address] 01/28/2024 17:39:47 01/28/2024 17:59:48 Bipolar disorder 02717991 F31.9 Depressive disorder 3548 9007 F32.A Anxiety disorder 9457711 06 F41.9 Chronic neck pain 746214 2280 107 M54.2 Chronic low back pain 27 9840056 M54.50 Overweight 003724146 E66 .3 Chronic id iopathic constipation 71504183 K59.04 Vitamin D deficiency 347 19689 E55.9 Improved Attention deficit hyperactivity disorder, predominantly inattentive type 88645633 F90.0 Urinary tr act infectious disease 41712111 N39.0 Hyperlipidemia 67137087 E78.5 [id number] Benedict Spears MD [place] [address] 05/05/2024 17:37:46 05/05/2024 17:57:56 Depressive disorder 77585726 F32.A Bipolar disorder 1370549 4 F31.9 Anxiety disorder 0924526 06 F41.9 Chronic neck pain 455433 9102 107 M54.2 Chronic low back pain 27 0211434 M54.50 Chronic id iopathic constipation 50239006 K59.04 Vitamin D deficiency 347 27831 E55.9 Improved Attention deficit hyperactivity disorder, predominantly inattentive type 18656801 F90.0 Hyperlipidemia 39665141 E78.5 Diet controlled Health Concerns Section Related [...] - SELECT ( - PPO) Trevor Zeinab [id number] Aline Arriola 11/01/2023 1 EAST - DOS PRIOR TO 2024 - [employer] - [place] ( - PPO) Trevorhiram Arriola [id number] Aline Arriola 12/13/2023 1 EAST - DOS PRIOR TO 2024 - [employer] - [place] ( - PPO) Trevorhiram Arriola [id number] Aline Arriola 01/28/2024 1 EAST - DOS PRIOR TO 2024 - [employer] - [place] ( - PPO) Trevorhiram Arriola [id number] Aline Arriola 05/05/2024 1 EAST - DOS PRIOR TO 2024 - [employer] - [place] ( - PPO) Trevorabimbola Arriola [id number] Aline Arriola Notes Date Note Type Note [...] Maria Antonia Ding MD [address], [address], [place], [address], [facility] [employer] 08/29/2023 11:59:50 11/01/2023 text/html did not notice a ny improvement with nonstimulant medication for ADHD. She was doing telehealth with psychiatry and they referred her back here since they cannot prescribe stimulants from his state. No chest pain or sob. Focus/concentration issues affect her quality of life. Maria Antonia Ding MD [address], [address], [place], [address], [employer] 12/10/2023 09:49:55 12/13/2023 text/html New pt visit: 33 yo F is here to establish her care. Pt was seeing PCP at [facility] in the past. Pt needs refill on [...] and she is f/u with Ortho at [facility] for it. Benedict Spears MD [address], [facility] [address], [place], [address], [employer] 12/13/2023 17:59:42 01/28/2024 text/html Pt is here [...] and she is f/u with Ortho at [facility] for it. Benedict Spears MD [address], [facility] [address], [place], [address], [employer] 01/28/2024 18:03:20 05/05/2024 text/html Pt is here for f /u on her lab and chronic conditions. Doing overall better. Denies any problem with meds. Pt is 9 weeks . A0 and she is f/u with her OB for this. Her OB and her Psych has talked about her medications to continue during this . Pt is f/u with Psych at [facility] for her mood and is on meds by them. Denies any mood swings/SI/HI. Pt has chronic neck and low back pain due to workman's comp and she is f/u with Ortho at [facility] for it. Benedict Spears MD [address] [place] [address], [place], [address], [place] [facility] 05/05/2024 18:01:52 OBGyn Episode No OBEpisode recorded.
--- OUTSIDE RECORDS SUMMARY | 2024-10-30 13:30 | XMS_ITS ---
Author Organization [facility] [employer] Address [address] [place] [address] Care Team Providers Care Template Layout Worker Name Role Phone Regan HENRY, [facility] Primary Care Provider Jm Pfeiffer Unavailable [phone] REASON FOR VISIT Lisdexamfetamine chewable pa Social History Sex Assigned At : Social History Observation Description Sex Assigned At Female Encounters Encounter Location Date Provider Diagnosis [facility] [address] [place] [address] 08/19/2024 Jm Waters Attention deficit hyperactivity disorder [...] Provider can order medication once approval received. Next Appt Details Provider Name:Jm mccarty, 11/07/2024 03:45:00 PM, [address], [address], [place], [address], Progress Notes * ZAFAR CERDADOB:1989 (34 yo F)Acc No.[id number]:08/19/2024 Patient: ZAFAR PARTIDA :1990 A ge:34 Y S ex:Female Address:[address] [place] [address], [id number] Subjective: * Chief Complaints: * L isdexamfetamine chewable pa * Medical History: * Surgical History: * Hospitalization/Major Diagno stic Procedure: * Medications: Objective: * Vitals: * Physical Examination: Assessment: * Assessment: 1. A ttention deficit hyperactivity disorder (ADHD), combined type - F90.2 (Primary) Plan: * Treatment: * Procedure Codes: * true * Date: Generated for Johnnie little/Justine/Yoni on: 0 10/30/2024 01:29 PM CDT
--- OUTSIDE RECORDS SUMMARY | 2024-10-30 13:30 | XMS_ITS | Patient Health Record ---
Author Organization [facility] [employer] Address [address] [place] [address] Care Team Providers Care Verification Specialist Name Role Phone Regan HENRY, [facility] Primary Care Provider UnavailJm Belcher Unavailable [phone] Migration, Provider Unavailable Unavailable Allergies Allergen (clinical [...] Oxazepam (BZO) Negative 0 - 300 ng/ml 7-bpwyftoqyt-9,7-nopkwfbw-2, 3-diphenylpyrrolidine (EDDP) Negative 0 - 300 ng/ml Methamphetamine (MET) Negative 0 - 1000 ng/ml Methylenedioxymethamphetamine (MDMA) Negative 0 - 500 ng/ml Morphine (MOP 300/RCK1411) Negative 0 - 300 ng/ml Methadone (MTD) Negative 0 - 300 ng/ml Phencyclidine (PCP) Negative 0 - 25 ng/ml Nortriptyline (TCA) Negative 0 - 1000 ng/ml Oxycodone Negative 0 - 300 ng/ml x Negative 0 - 300 ng/ml Reason For Referral No Information Medications Medication SIG (Take, Route, Frequency, Duration) Notes Start Date End Date Status Lisdexamfetamine Dimesylate 50 MG 1 capsule in the morning Orally Once a day for 30 days 10/20/2024 Active Vilazodone HCl 20 MG TAKE 1 TABLET BY [facility] DAILY WITH FOOD for 90 Active Social History Tobacco Use: Social History [...] Problem Status W/U Status Risk Notes Problem [id number] Generalized anxiety disorder (F41.1) Active confirmed Problem Attention deficit hyperactivity disorder (087285238) Attention deficit hyperactivity disorder (ADHD), combined type (F90.2) Active confirmed Problem 908175118 Depression, major, recurrent, mild (F33.0) Active confirmed Problem Moderate recurrent major depression (50041136) Moderate recurrent major depression (F33.1) Active confirmed [...] N/A Encounters Encounter Location Date Provider Diagnosis [facility], [facility] [address] [place] [address] 02/11/2024 Jm Waters Moderate recurrent major depression F33.1 ; Generalized anxiety disorder F41.1 and Attention deficit hyperactivity disorder (ADHD), combined type F90.2 [facility], [facility] [address] [place] [address] 03/13/2024 Jm Waters Moderate recurrent major depression F33.1 ; Generalized anxiety disorder F41.1 and Attention deficit hyperactivity disorder (ADHD), combined type F90.2 [facility], [facility] [address] [place] [address] 04/16/2024 Jm Waters Moderate recurrent major depression F33.1 ; Generalized anxiety disorder F41.1 ; Attention deficit hyperactivity disorder (ADHD), combined type F90.2 and First trimester Z34.91 [facility] [address] [place] [address] 06/13/2024 Jm Waters Moderate recurrent major depression F33.1 ; Generalized anxiety disorder F41.1 ; Attention deficit hyperactivity disorder (ADHD), combined type F90.2 and Depression, major, recurrent, mild F33.0 [facility], [facility] [address] [place] [address] 12/15/2023 Provider Migration [facility], [facility] [address] [place] [address] 12/16/2023 Provider Migration [facility], [facility] [address] [place] [address] 03/17/2024 Jm Waters [facility], [facility] [address] [place] [address] 04/24/2024 Jm Waters Attention deficit hyperactivity disorder (ADHD), combined type F90.2 [facility], [facility] [address] [place] [address] 08/19/2024 Jm Waters Attention deficit hyperactivity disorder (ADHD), combined type F90.2 [facility], [facility] [address] [place] [address] 08/20/2024 Jm Waters Attention deficit hyperactivity disorder (ADHD), combined type F90.2 [facility], [facility] [address] [place] [address] 02/28/2024 Jm Waters [facility], [facility] [address] [place] [address] 03/10/2024 Jm Waters [facility], [facility] [address] [place] [address] 03/10/2024 Jmphillip Briggsoza [facility], [facility] [address] [place] [address] 03/18/2024 Jm Waters [facility], [facility] [address] [place] [address] 05/12/2024 Jm Waters Attention deficit hyperactivity disorder (ADHD), combined type F90.2 [facility], [facility] [address] [place] [address] 06/06/2024 Jm Waters Attention deficit hyperactivity disorder (ADHD), combined type F90.2 [facility] [address] [place] [address] 07/20/2024 Jm Waters Attention deficit hyperactivity disorder (ADHD), combined type F90.2 [facility], [facility] [address] [place] [address] 08/15/2024 Jm Waters Attention deficit hyperactivity disorder (ADHD), combined type F90.2 [facility] [address] [place] [address] 08/18/2024 Jm Waters Attention deficit hyperactivity disorder (ADHD), combined type F90.2 [facility], [facility] [address] [place] [address] 10/19/2024 Jm Waters Attention deficit hyperactivity disorder [...] OBGYN regarding medication safety during - Utilize [email or web address] for information on medication safety during and [...] OBGYN regarding medication safety during - Utilize [email or web address] for information on medication safety during and - Consider Abilify for mood stabilization if needed, as it is safe during and less sedating 5. Sleep issues: - Monitor sleep patterns and quality - Adjust medication timing if needed to improve morning wakefulness Follow-up: - Schedule a follow-up appointment in one month to evaluate medication changes and symptom management 04/16/2024 Generalized anxiety disorder (ICD-10 - F41.1) [...] reduced nausea. - Plan: Continue care with [facility], including upcoming anatomy scan in June. Encourage patient to maintain a healthy lifestyle and report any concerns or changes in symptoms to the [facility]. 2. Depression, Anxiety: - Patient reports doing well on current medications and has approval from [facility]. - Continue Vilazodone 20 mg and Lisdexamfetamine [...] reduced nausea. - Plan: Continue care with [facility], including upcoming anatomy scan in June. Encourage patient to maintain a healthy lifestyle and report any concerns or changes in symptoms to the [facility]. 2. Depression, Anxiety: - Patient reports doing well on current medications and has approval from [facility]. - Continue Vilazodone 20 mg and Lisdexamfetamine [...] disorder (ADHD), combined type (ICD-10 - F90.2) 10/19/2024 Attention deficit hyperactivity disorder (ADHD), combined type (ICD-10 - F90.2) 04/16/2024 Moderate recurrent major depression (ICD-10 - [...] concerns or issues arise between appointments 03/13/2024 Moderate recurrent major depression (ICD-10 - [...] Advise patient to check their insurance under [employer] online for covered counselors offering virtual sessions. Follow-up: - Schedule a follow-up appointment to assess the effectiveness of the adjusted medication regimen and discuss progress in finding a virtual counselor. 04/24/2024 Attention deficit hyperactivity disorder (ADHD), combined type (ICD-10 - F90.2) Electronic Prior Authorization was requested for Lisdexamfetamine Dimesylate 50 MG Capsule. Provider can order medication once approval received. 03/13/2024 Generalized anxiety disorder (ICD-10 - F41.1) [...] Advise patient to check their insurance under [employer] for covered counselors offering virtual sessions. Follow-up: - Schedule a follow-up appointment to assess the effectiveness of the adjusted medication regimen and discuss progress in finding a virtual counselor. 06/13/2024 Attention deficit hyperactivity disorder (ADHD), combined type (ICD-10 - F90.2) 1. (14 weeks): - Patient reports feeling better in the second trimester, with improved energy levels and reduced nausea. - Plan: Continue care with [facility], including upcoming anatomy scan in June. Encourage patient to maintain a healthy lifestyle and report any concerns or changes in symptoms to the OB[facility]. 2. Depression, Anxiety: - Patient reports doing well on current medications and has approval from [facility]. - Continue Vilazodone 20 mg and Lisdexamfetamine [...] any concerns or issues arise between appointments 02/11/2024 Attention deficit hyperactivity disorder (ADHD), combined [...] OBGYN regarding medication safety during - Utilize [email or web address].org for information on medication safety during and - Consider Abilify for mood stabilization if needed, as it is safe during and less sedating 5. Sleep issues: - Monitor sleep patterns and quality - Adjust medication timing if needed to improve morning wakefulness Follow-up: - Schedule a follow-up appointment in one month to evaluate medication changes and symptom management 06/13/2024 Depression, major, recurrent, mild (ICD-10 - F33.0) 1. (14 weeks): - Patient reports feeling better in the second trimester, with improved energy levels and reduced nausea. - Plan: Continue care with [facility], including upcoming anatomy scan in June. Encourage patient to maintain a healthy lifestyle and report any concerns or changes in symptoms to the [facility]. 2. Depression, Anxiety: - Patient reports doing well on current medications and has approval from [facility]. - Continue Vilazodone 20 mg and Lisdexamfetamine 50 mg - Plan: Refill Lisdexamfetamine prescription and ensure the generic version is being dispensed. Follow up in three months or sooner if needed for medication adjustments or concerns. 03/13/2024 Attention deficit hyperactivity disorder (ADHD), combined [...] Advise patient to check their insurance under [employer] online for covered counselors offering virtual sessions. Follow-up: [...] any concerns or issues arise between appointments 02/11/2024 Other Learning About Depression Screening material [...] OBGYN regarding medication safety during - Utilize [email or web address] for information on medication safety during and [...] reduced nausea. - Plan: Continue care with [facility], including upcoming anatomy scan in June. Encourage patient to maintain a healthy lifestyle and report any concerns or changes in symptoms to the [facility]. 2. Depression, Anxiety: - Patient reports doing well on current medications and has approval from [facility]. - Continue Vilazodone 20 mg and Lisdexamfetamine 50 mg - Plan: Refill Lisdexamfetamine prescription and ensure the generic version is being dispensed. Follow up in three months or sooner if needed for medication adjustments or concerns. Plan Of Treatment Pending Test Test Name Order Date ADHD Testing 02/11/2024 Next Appt Details Provider Name:Jm mccarty, 11/07/2024 03:45:00 PM, [address] [facility] [address], [facility] [address], [place], [address], Insurance Providers Payer Name Payer Address Payer Phone Subscriber Number Group Number Insured Name Patient Relationship to Insured Coverage Start Date Coverage End Date [facility] [address] [place] [address] [id number] ZAFAR ARRIOLA Self - patient is the [...]
--- OUTSIDE RECORDS SUMMARY | 2024-10-30 13:30 | XMS_ITS ---
Author Organization [facility] [employer] [facility] Address [address] [facility] [facility] [address] [place] [address] Care Team Providers Care Cistern Room Operator Name Role Phone Regan HENRY, [facility] Primary Care Provider UnavailJm Belcher Unavailable [phone] Medications Medication SIG (Take, Route, Frequency, Duration) Notes Start Date End Date Status Lisdexamfetamine Dimesylate 50 MG 1 capsule in the morning Orally Once a day for 30 days 08/19/2024 Active Social History Sex Assigned At : Social History Observation Description Sex Assigned At Female Encounters Encounter Location Date Provider Diagnosis [facility] [employer] [facility] [address] [facility] [address] [facility] [address] [place] [address] 08/20/2024 Jm Waters Attention deficit hyperactivity disorder [...] Once a day for 30 days 08/19/2024 Next Appt Details Provider Name:Jm mccarty, 11/07/2024 03:45:00 PM, [address], [address], [place], [address], Progress Notes * ZAFAR CERDADOB:1989 (34 yo F)Acc No.[id number]:08/20/2024 Patient: ZAFAR PARTIDA :1990 A ge:34 Y S ex:Female Address:[address] [place] [address], [place], [address] * Refills Refill Lisdexamfetamine Dimesylate Capsule, 50 MG, Orally, 30 Capsule, 1 capsule in the morning, Once a day, 30 days, Refills=0 * true * Date: Generated for Johnnie little/Justine/Jaileneitting on: 0 10/30/2024 01:29 PM CDT
--- OUTSIDE RECORDS SUMMARY | 2024-10-30 13:30 | XMS_ITS ---
Author Name [facility] Organization [facility] Address [address] [place] [address] Care Team Providers Care Bilingual Recruiter Name Role Phone GEOFFREY RAGLAND Primary Care [...] Garcia's Name Patient's Relationship to Policy Garcia [facility] SELEC T WNR Jun 30, 2018 [facility] [id number] ARACELIS CASTILLO PATIENT [facility] 2024 TRICA RE SELEC T Jul 30, 2024 [facility] [id number] [phone] ARACELIS CASTILLO PATIENT Selected Encounter This section includes the information on record at [place] for the Encounter. Date/Time Encounter Type Encounter Description Reason Provider Source Sep 23, 2024 11:00 AM OFFICE O/P EST MOD 30 MIN PRIMARY CARE/MEDICINE ICD-10-CM Z33.3 state, gestational carrier FERNTHERE IHE Encounter Template Text not used by [place] Assessments - Encounter Diagnoses This section includes the primary and secondary diagnoses documented for the Encounter. Date/Time Primary/Secondary Diagnosis Diagnosis Name Provider Source Sep 23, 2024 11:46 AM PRIMARY state, gestational [facility] Sep 23, 2024 11:46 AM SECONDARY Bipolar disorder, current episode depressed, mild [facility] Social History: Smoking Status (Most current) and [...] took place. Date/Time Current Smoking Status Comment Facil ity Nov 06, 2023 02:00 PM VA-TOBACCO FORMER USER [facility] Tobacco Use History This section includes a history of the smoking, or tobacco-related health factors, that were collected on or before the date of the Encounter. The data comes from the [place] facility where the Encounter took place. Date/Time Smoking Status/Tobacco Use Comment F acility Nov 06, 2023 02:00 PM VA-TOBACCO QUIT 1 TO < 5 YRS [facility] Oct 31, 2022 10:00 AM VA-TOBACCO FORMER USER [facility] Oct 31, 2022 10:00 AM VA-TOBACCO QUIT 1 TO < 5 YRS [facility] Nov 11, 2021 10:00 AM VA-TOBACCO DOESNT USE WI 30 MIN WAKEUP [facility] Nov 11, 2021 10:00 AM VA-TOBACCO USE < 1 YEAR [facility] Nov 11, 2021 10:00 AM VA-TOBACCO USE ADVICE [facility] Nov 11, 2021 10:00 AM VA-TOBACCO USE BELL SPINNER NO [facility] Nov 11, 2021 10:00 AM VA-TOBACCO USE MED NO [facility] Nov 11, 2021 10:00 AM VA-TOBACCO USER SOME DAYS [facility] Mar 03, 2019 01:33 PM VA-TOBACCO FORMER USER [facility] Mar 03, 2019 01:33 PM VA-TOBACCO QUIT < 1 YEAR [facility] Encounter Notes: All associated encounter notes This section contains the clinical notes associated to the Encounter. Date/Time Encounter Note(s) Provider Source Sep 23, 2024 11:09 AM TELEHEALTH NOTE: LOCAL TITLE: PRIMARY CARE VIDEO CONNECT ST STANDARD TITLE: TELEHEALTH NOTE DATE OF NOTE: SEP 23, 2024@11:09 ENTRY DATE: SEP 23, 2024@11:09:48 AUTHOR: SAMANTA SHIRLEY COSIGNER: URGENCY: STATUS: COMPLETED PRIMARY CARE VVC CONNECT Chief Complaint: I feel like every time I talk with you, I am History of Present Illness: [id number], overall doing well, followed in private sector. Schedule for a on 11/17/2024. Requesting breast feeding supplies. Bipolar disorder/ADD, being followed in private sector, taking Vyvanse 50mg daily and Cyred 20mg daily. Denies SI/ HI. Sleeping 8 hours/night. Past Medical History: Problem List 1) Lumbar [...] ETOH - none Review of Systems: weight stable, sleeping 8 hours/night Allergies/Adverse Drug Reactions: VANCOMYCIN Active and Medication List: Active and Recently Outpatient Medications (excluding Supplies): Active Non-VA Medications Status 1) Non-VA CHOLECALCIF 50MCG (D3-2,000UNIT) TAB 50MCG BY MOUTH ACTIVE ONCE A DAY 2) Non-VA CITALOPRAM HYDROBROMIDE 40MG TAB 20MG BY MOUTH EVERY ACTIVE MORNING Indication: FOR DEPRESSION 3) Non-VA LURASIDONE HCL 40MG TAB 40MG BY MOUTH ONCE A DAY ACTIVE Indication: FOR BIPOLAR DISORDER 4) Non-VA METHYLPHENIDATE 36MG SA TAB 36MG BY MOUTH ONCE A DAY ACTIVE Indication: FOR ADHD 5) Non-VA MULTIVIT W/MINERALS, CAP/TAB 1 TABLET BY ACTIVE MOUTH ONCE A DAY 6) Non-VA VENLAFAXINE HCL 75MG 24HR SA TAB 75MG BY MOUTH ONCE A ACTIVE DAY Indication: FOR DEPRESSION Medication Reconciliation Completed: g Most Recent Vital Signs: Measurement DT TEMP [...] 09:59 2 Physical Exam General: General: Conversational, appopriate Assessment/Plan: 1) Third tremester preganacy, followed in private sector, scheduled for on 11/17/2024. Ordered breast feeding supplies and lumbar brace as requested. 2) Bipolar disorder/ADD, being followed in private sector, taking Vyvanse 50mg daily and Cyred 20mg daily. Denies SI/ HI. Sleeping 8 hours/night. Follow-Up: =============> APR 2025 /michelle/ SAMANTA [facility]MAN [facility] ADULT NURSE PRACTITIONER Signed: 09/23/2024 11:46 SAMANTA SHIRLEY [facility]
--- OUTSIDE RECORDS SUMMARY | 2024-10-30 13:30 | XMS_ITS | Continuity of Care Document ---
Author Name [facility] Organization [facility] Care Team Providers Care Injection Molding Process Technician Name Role Phone [facility] Unavailable Unavailable Problems Combined list of problems from Department of Defense and Veterans Affairs facilities. It does not include entries that were removed or entered in error. Problem Status Onset Date Problem Type Date of Resolution Comments Source Allergic rhinitis due to allergen Active Condition [facility] Cervicalgia Active Condition [facility] Cervicovaginal cytology: Low grade squamous intraepithelial lesion (SNOMED CT 364135239) Active Condition May 10, 2012 Entered By: PETRA WOODWARD PA-C Comment: colposcopy 10/2011 [facility] CN - Constipation Active Condition [facility] Depressive disorder Active Condition [facility] Dysmenorrhea Active Condition [facility] Dysmenorrhoea Active Condition [facility] Active Condition May Entered By: [...] children [facility] Insomnia (SNOMED CT 673528083) Active Condition [facility] Irritable bowel syndrome characterised by alternating bowel habit Active Condition [facility] Low back pain (SNOMED CT 316940274) Active Condition [facility] Low Back Pain * (ICD-9-CM 724.2) Active Condition [facility] Lumbar radiculopathy Active Condition [facility] Oral contraception Active Condition [facility] [...] 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 [facility] Tinnitus Active Condition [facility] Tobacco use Active Condition [facility] Vitamin D deficiency Active Condition [facility] Diagnosis: ICD-10-CM Z33.3 state, gestational carrier Active Diagnosis [facility] Diagnosis: ICD-10-CM F31.31 Bipolar disorder, current episode depressed, mild Active Diagnosis [facility] Medications Combined list of outpatient medications from Department of Defense and Veterans Affairs facilities.Medications provided include 1) outpatient medications from the last 15 months, and 2) patient-reported medications. Medication Details Route Status Patient Instructions Prescription Expires Prescription Number Last Dispense Date Ordering Provider Order Date Order Qty Source CHOLECALCIF JOB 25MCG (1,000UNIT) TAB TAKE ONE TABLET BY MOUTH ONCE DAILY ORAL ACTIVE AMINA WOODWARD PA-C 2017 [facility] CHOLECALCIF JOB 50MCG (2,000UNIT) TAB TAKE ONE TABLET BY MOUTH ONCE A DAY ORAL ACTIVE LUCIANO RIVERA 2020 [facility] HYDROCODONE 5/ACETAMINO PHEN 500MG TAB TAKE ONE TABLET BY MOUTH PRN ORAL ACTIVE ESTEBAN WALDRON 2009 [facility] IBUPROFEN TAB TAKE BY MOUTH EVERY 8 HOURS ORAL ACTIVE SADIE RAGLAND MD 2014 [facility] LISDEXAMFET AMINE DIMESYLATE 50MG CAP,ORAL TAKE 1 CAPSULE BY MOUTH ONCE A DAY ORAL ACTIVE MCQUAIDE, SAMANTA 2024 [facility] MULTIVITAMI N W/MINERALS () CAP/TAB TAKE BY MOUTH ONCE DAILY ORAL ACTIVE SADIE RAGLAND MD 2017 [facility] MULTIVITAMI NS W/MINERALS, CAP/TAB TAKE ONE TABLET BY MOUTH ONCE A DAY ORAL ACTIVE LUCIANO RVIERA 2020 [facility] NURSING CREAM,TOP W/LANOLIN APPLY LIGHTLY TO AFFECTED AREA(S) ONCE A DAY TOPICA L ACTIVE 09/24/2025 [id number] MCQUAIDE, 2024 30 [facility] TEMAZEPAM CAP,ORAL TAKE BY MOUTH EVERY DAY ORAL ACTIVE TAWNYMARYBETH CERNAESTEBAN 2009 [facility] Allergies, Adverse Reactions, Alerts Combined list of allergies from Department of Defense and Veterans Affairs facilities. It does not include entries that were removed or entered in error. Substance Category Reaction Severity Reaction type Status Date Reported Comments Source AMBIEN Propensity to adverse reactions to drug (finding) active 2 [facility] Propensity to adverse reactions to drug (finding) Nightmares active 2 [facility] TRAZODONE Propensity to adverse reactions to drug (finding) active 2 [facility] VANCOMYCIN Propensity to adverse reactions to drug (finding) Eruption active 0 [facility] VANCOM[facility] Propensity to adverse reactions to drug (finding) Itching, Urticaria active 2 [facility]COM[facility] Propensity to adverse reactions to drug (finding) Urticaria active 9 [facility] Immunizations Combined list of available immunizations from the Department of Defense and Veterans Affairs facilities. Immunization Series Date Given Administered By Site Reaction Lot Number CVX Code Drug Truck Driving Instructor Status Comments Source INFLUENZA, UNSPECIFIED FORMULATION 2021 88 complet ed [facility] COVID-19 (MODERNA), MRNA, LNP-S, PF, 100 MCG/0.5ML DOSE OR 50 MCG/0.25ML DOSE 2 2021 207 complet ed [facility] INFLUENZA, UNSPECIFIED FORMULATION 2020 88 complet ed [facility] COVID-19 (ZOHRA), VECTOR-NR, [id number], PF, 0.5 ML 1 2020 212 complet ed [facility] INFLUENZA, UNSPECIFIED FORMULATION 2019 88 complet ed [facility] INFLUENZA, UNSPECIFIED FORMULATION 2018 88 complet ed [facility] TDAP 2018 115 complet ed Right Deltoid [facility] TD (ADULT), 5 LF TETANUS TOXOID, PRESERVATIVE FREE, ADSORBED 2017 113 complet ed [facility] INFLUENZA, UNSPECIFIED FORMULATION 2016 88 complet ed received at [facility] PNEUMOCOCCAL POLYSACCHARID E PPV23 2015 NONE 33 complet ed Right Deltoid [facility] INFLUENZA, UNSPECIFIED FORMULATION 2015 88 complet ed [facility] INFLUENZA, UNSPECIFIED FORMULATION 2013 88 complet ed [facility] INFLUENZA, UNSPECIFIED FORMULATION 2011 88 complet [facility] HPV, QUADRIVALENT 2011 SARA CHONG 62 complet ed [facility] INFLUENZA (HISTORICAL) 2010 88 complet ed [facility] INFLUENZA, UNSPECIFIED FORMULATION 2010 88 complet ed [facility] INFLUENZA (HISTORICAL) 2009 88 complet [facility] HEP A-HEP B 2009 104 complet [facility] INFLUENZA (HISTORICAL) 2009 88 complet [facility] HEP A-HEP B 2008 104 complet [facility] INFLUENZA (HISTORICAL) 2007 88 complet [facility] HEP A-HEP B 2007 104 complet ed [facility] MMR 2007 03 complet ed [facility] TDAP 2007 115 complet ed [facility] TDAP 2007 115 complet ed [facility] [id number] ULAR PERTUSSIS (ADULT) (HISTORICAL) 2006 139 complet ed [facility] Encounters Combined list of: 1) Encounters from Department of [facility] Affairs facilities going backup to the last 18 months, not all MD inpatient encounters are included; 2) Encounters from the Department of [facility] facilities going backup to 280 months. Location Location Details Encounter Type Encounter Number Reason For Visit Attending Provider ADM Date DC Date Status Disposition Source [facility] Outpatient Encounter [id number] Dar SHIRLEY 04/16 [facility] Outpatient Encounter [id number] DARNELL CORNEJO 08/24 [facility] Outpatient Encounter [id number] LISA BARRIENTOSDar HILea I 09/27 [facility] OFFICE O/P EST MOD 30 MIN [id number] Diagnos is: ICD-10- CM F31.31 Bipolar disorde r, current episode depress ed, mild Dar SHIRLEY 11/05 [facility] Outpatient Encounter [id number] OVERTURFBrody ESSE A 09/22 [facility] OFFICE O/P EST MOD 30 MIN [id number] Diagnos is: ICD-10- CM Z33.3 Pregnan t state, gestati onal carrier Dar SHIRLEY 09/23 [facility] Social History Combined list of available smoking, tobacco, and other 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 Social History Type Response Date Comment Sourc e Tobacco smoking status NHIS VA-TOBACCO QUIT 1 TO < 5 YRS 11/06/2023 [facility] History of tobacco use VA-TOBACCO FORMER USER 11/06/2023 [facility] History of tobacco use VA-TOBACCO FORMER USER 10/31/2022 [facility] History of tobacco use VA-TOBACCO USER S OME DAYS 11/11/2021 [facility] History of tobacco use VA-TOBACCO DOESNT USE WI 30 MIN WAKEUP 03/04/2020 [facility] History of tobacco use VA-TOBACCO QUIT < 1 YEAR 03/03/2019 [facility] History of tobacco use VA-TOBACCO DOESNT [...] of tobacco use CURRENT TOBACCO USER 03/25/2012 [facility] History of tobacco use CURRENT TOBACCO USER 06/23/2011 [facility] History of tobacco use CURRENT TOBACCO USER 05/30/2010 [facility]
--- NOTE | 2024-10-30 14:23 | OBADM ---
This patient, Aline Arriola, admitted to the OB room 115 for observation. Patient/family oriented to hospital policies and general routines including ID bracelet, bed and alarms, visiting hours, pain management, procedures, bathroom and other care routines, personal items, smoking policy, room service/diet, and visiting hours. Patient/Family are encouraged to report perceived risks to care and to ask questions if they do not understand what they are told or what they should do.
[2024-10-30 15:45] LABS: Add Urine Microscopic? YES; Appearance Urine Clear (Clear); Bacteria Urine Rare /hpf; Bilirubin Urine Negative (Negative); Blood Urine Negative (Negative); Color Urine Yellow (Yellow); Glucose Urine UA Negative (Negative); Ketones Urine Negative (Negative); Leukocyte Esterase Ur 1+ LEU/UL (Negative); Need Manual Microscopic Reviewed; Nitrate Urine Negative (Negative); Non Pathogenic Casts 0-2; Protein Urine Negative (Negative); Specific Grav Ur 1.021 (1.001-1.035); Squamous Epithelial Cell Urine Few /hpf (Few); Urobilinogen Urine 0.2 mg/dL (<2.0); WBC Urine 0-5 /hpf (0-3)
[2024-10-30] MEDS: TERBUTALINE SULFATE 1 MG/ML VIAL 0.25 MG SUB-Q ×2 (15:50→18:58)
--- NOTE | 2024-10-30 20:25 | PC.NURSE ---
Called Dr. Marin notified of two doses of terb, last being at 1858 and toco quiet and pt denies any ctx since then. Ok to D/C home with light duty and pelvic rest.
--- NOTE | 2024-11-03 09:14 | PM.OBTRLD ---
OB - Triage/Final Diagnosis Visit Information Date of evaluation: 10/30/24 Reason for evaluation: other (Threatened pre term labor) Comments/Additional reasons for admission: I have assessed the risk for this patient, Aline Arriola, and determined that she would benefit from observation care. Evaluation Laboratory results: Laboratory Tests 10/30/24 15:09 Urine Color Yellow Urine Appearance Clear Urine pH 7.0 Ur Specific [place] 1.021 Urine Protein Negative Urine Glucose (UA) Negative Urine Ketones Negative Ur Blood (Man) Negative Urine Nitrate Negative Urine Bilirubin Negative Urine Urobilinogen 0.2 Add Ur Microanalysis Reviewed Leukocyte Esterase Rfl 1+ H Urine RBC 3-5 H Urine WBC 0-5 Ur Squamous Epith Cells Few Urine Bacteria Rare Urine Casts 0-2
== END 2024-10-30 20:42 | disposition home or self-care (01) ==
PROVIDERS: Admitting Provider Obstetrics & Gynecology Gynecology; PCP Family Medicine; Visit Provider Obstetrics & Gynecology Gynecology
DX: O47.03 False labor before 37 completed weeks of gestation, third trimester (principal); Z3A.34 34 weeks gestation of pregnancy
CPT/HCPCS: 81001; 87086; 96372; G0378; G0379; J3105

== ENCOUNTER 2024-10-31 21:49 | Observation (INO) | payer OTHER, SELFPAY ==
[2024-10-31] VITALS (8 sets, daily range): BP systolic 104–113; BP diastolic 52–63; PULSE 75–87; O2SAT 97–99
--- OUTSIDE RECORDS SUMMARY | 2024-10-31 23:26 | XMS_ITS | Continuity of Care Document ---
Author Name [facility] Organization [facility] Care Team Providers Care Nuclear Plant Technical Advisor Name Role Phone [facility] Unavailable Unavailable Problems Combined list of problems from Department of Defense and Veterans Affairs facilities. It does not include entries that were removed or entered in error. Problem Status Onset Date Problem Type Date of Resolution Comments Source Allergic rhinitis due to allergen Active Condition [facility] Cervicalgia Active Condition [facility] Cervicovaginal cytology: Low grade squamous intraepithelial lesion (SNOMED CT 224711096) Active Condition May 10, 2012 Entered By: PETRA WOODWARD PA-C Comment: colposcopy 10/2011 [facility] CN - Constipation Active Condition [facility] Depressive disorder Active Condition [facility] Dysmenorrhea Active Condition [facility] Dysmenorrhoea Active Condition [facility] Active Condition May Entered By: [...] children [facility] Insomnia (SNOMED CT 849125148) Active Condition [facility] Irritable bowel syndrome characterised by alternating bowel habit Active Condition [facility] Low back pain (SNOMED CT 561808290) Active Condition [facility] Low Back Pain * (ICD-9-CM 724.2) Active Condition [facility] Lumbar radiculopathy Active Condition [facility] Oral contraception Active Condition [facility] [...] 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 [facility] Tinnitus Active Condition [facility] Tobacco use Active Condition [facility] Vitamin D deficiency Active Condition [facility] Diagnosis: ICD-10-CM Z33.3 state, gestational carrier Active Diagnosis [facility] Diagnosis: ICD-10-CM F31.31 Bipolar disorder, current episode depressed, mild Active Diagnosis [facility] Medications Combined list of outpatient [...] A DAY ORAL ACTIVE LUCIANO RIVERA 2020 [facility] HYDROCODONE 5/ACETAMINO PHEN 500MG TAB TAKE ONE TABLET BY MOUTH PRN ORAL ACTIVE ESTEBAN WALDRON 2009 [facility] IBUPROFEN TAB TAKE BY MOUTH EVERY 8 HOURS ORAL ACTIVE SADIE RAGLAND MD 2014 [facility] LISDEXAMFET AMINE DIMESYLATE 50MG CAP,ORAL TAKE 1 CAPSULE BY MOUTH ONCE A DAY ORAL ACTIVE MCQUAIDE, SAMANTA 2024 [facility] MULTIVITAMI N W/MINERALS () CAP/TAB TAKE BY MOUTH ONCE DAILY ORAL ACTIVE SADIE RAGLAND MD 2017 [facility] MULTIVITAMI NS W/MINERALS, CAP/TAB TAKE ONE TABLET BY MOUTH ONCE A DAY ORAL ACTIVE LUCIANO RIVERA 2020 [facility] NURSING CREAM,TOP W/LANOLIN APPLY LIGHTLY TO AFFECTED AREA(S) ONCE A DAY TOPICA L ACTIVE 09/24/2025 [id number] MCQUAIDE, 2024 30 [facility] TEMAZEPAM CAP,ORAL TAKE BY MOUTH [...] adverse reactions to drug (finding) active 2 [facility] Propensity to adverse reactions to drug (finding) Nightmares active 2 [facility] TRAZODONE Propensity to adverse reactions to drug (finding) active 2 [facility] VANCOMYCIN Propensity to adverse reactions to drug (finding) Eruption active [address] [facility] V[facility]COM[facility] Propensity to adverse reactions to drug (finding) Itching, Urticaria active 2 [facility] VANCOM[facility] Propensity to adverse reactions to drug (finding) Urticaria active 9 [facility] Immunizations Combined list of available immunizations from the Department of Defense and Veterans Affairs facilities. Immunization Series Date Given Administered By Site Reaction Lot Number CVX Code Drug Customer Care Associate Status Comments Source INFLUENZA, UNSPECIFIED FORMULATION 2021 88 complet ed [facility] COVID-19 (MODERNA), MRNA, LNP-S, PF, 100 MCG/0.5ML DOSE OR 50 MCG/0.25ML DOSE 2 2021 207 complet ed [facility] INFLUENZA, UNSPECIFIED FORMULATION 2020 88 complet ed [facility] COVID-19 (ZOHRA), VECTOR-NR, [id number], PF, 0.5 ML 1 2020 212 complet ed [facility] INFLUENZA, UNSPECIFIED FORMULATION 2019 88 complet ed [facility] INFLUENZA, UNSPECIFIED FORMULATION 2018 88 complet ed [facility] TDAP 2018 115 complet ed Right Deltoid [facility] TD (ADULT), 5 LF TETANUS TOXOID, PRESERVATIVE FREE, ADSORBED 2017 113 complet ed [facility] INFLUENZA, UNSPECIFIED FORMULATION 2016 88 complet ed received at [facility] PNEUMOCOCCAL POLYSACCHARID E PPV23 2015 NONE 33 complet ed Right Deltoid [facility] INFLUENZA, UNSPECIFIED FORMULATION 2015 88 complet ed [facility] INFLUENZA, UNSPECIFIED FORMULATION 2013 88 complet ed [facility] INFLUENZA, UNSPECIFIED FORMULATION 2011 88 complet [facility] HPV, QUADRIVALENT 2011 SARA CHONG 62 complet ed [facility] INFLUENZA (HISTORICAL) 2010 88 complet ed [facility] INFLUENZA, UNSPECIFIED FORMULATION 2010 88 complet ed [facility] INFLUENZA (HISTORICAL) 2009 88 complet [facility] HEP A-HEP B 2009 104 complet [facility] INFLUENZA (HISTORICAL) 2009 88 complet [facility] HEP A-HEP B 2008 104 complet [facility] INFLUENZA (HISTORICAL) 2007 88 complet [facility] HEP A-HEP B 2007 104 complet ed [facility] MMR 2007 03 complet ed [facility] TDAP 2007 115 complet ed [facility] TDAP 2007 115 complet [id number] ULAR PERTUSSIS (ADULT) (HISTORICAL) 2006 139 complet ed [facility] Encounters Combined list of: 1) Encounters from Department of [facility] Affairs facilities going backup to the last 18 months, not all [place] inpatient encounters are included; 2) Encounters from the Department of [facility] facilities going backup to 280 months. Location Location Details Encounter Type Encounter Number Reason For Visit Attending Provider ADM Date DC Date Status Disposition Source [facility] Outpatient Encounter [id number] Dar SHIRLEY 04/16 [facility] Outpatient Encounter [id number] DARNELL CORNEJO 08/24 [facility] Outpatient Encounter [id number] LISA BARRIENTOSDar HILea I 09/27 [facility] OFFICE O/P EST MOD 30 MIN [id number] Diagnos is: ICD-10- CM F31.31 Bipolar disorde r, current episode depress ed, mild Dar SHIRLEY 11/05 [facility] Outpatient Encounter [id number] OVERTURFBrody ESSE A 09/22 [facility] OFFICE O/P EST MOD 30 MIN [id number] Diagnos is: ICD-10- CM Z33.3 Pregnan t state, gestati onal carrier Dar SHIRLEY 09/23 [facility] Social History Combined list of available smoking, tobacco, and other 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 Social History Type Response Date Comment Sourc e Tobacco smoking status NHIS VA-TOBACCO QUIT 1 TO < 5 YRS 11/06/2023 [facility] History of tobacco use VA-TOBACCO FORMER USER 11/06/2023 [facility] History of tobacco use VA-TOBACCO FORMER USER 10/31/2022 [facility] History of tobacco use VA-TOBACCO USER S OME DAYS 11/11/2021 [facility] History of tobacco use VA-TOBACCO DOESNT USE WI 30 MIN WAKEUP 03/04/2020 [facility] History of tobacco use VA-TOBACCO QUIT < 1 YEAR 03/03/2019 [facility] History of tobacco use VA-TOBACCO DOESNT [...] use CURRENT TOBACCO USER 05/30/2010 [facility]
--- OUTSIDE RECORDS SUMMARY | 2024-10-31 23:26 | XMS_ITS | Referral Summary ---
Author Organization [facility] Address [address] [place] [address] Care Team Providers Care Tucking Machine Operator Name Role Phone No, Physician Primary Care Provider [phone] Randell Man MD Unavailable [phone] Encounters Date Type Department Care Team Description 09/25/2024 3:30 PM DOUGH MIXER OPERATOR Office Visit [facility] Surgery [address] [place] [address] Medical Office Building [address] [place] [address] Randell Man MD Hemorrhoids, unspecified [...] mouth 3 (three) times a day Active CMM50-onpe cb,wu-oolzu-xho -dha 27-1-50-250 mg combo pack Take by [...] on file Legal Sex Female 12:46 PM DOUGH MIXER OPERATOR Gender Identity Not on file Sexual Orientation Not on file Last Filed Vital Signs Vital Sign Reading Time Taken Comments Blood Pressure 132/80 09/25/2024 3:05 PM DOUGH MIXER OPERATOR Pulse 75 09/25/2024 3:05 PM DOUGH MIXER OPERATOR Temperature - - Respiratory Rate - - Oxygen Saturation 100% 09/25/2024 3:05 PM DOUGH MIXER OPERATOR Inhaled Oxygen Concentration - - Weight 79.8 kg (176 lb) 09/25/2024 3:05 PM DOUGH MIXER OPERATOR Height 167.6 cm (5' 6 ) 09/25/2024 3:05 PM DOUGH MIXER OPERATOR Body Mass Index 28.41 09/25/2024 3:05 PM DOUGH MIXER OPERATOR Plan of Treatment Not on file Insurance [facility] CHO[facility] CLAIMS Care Teams Tucking Machine Operator Relationship Specialty Start Date End Date No, Physician PCP - General 09/22/19 Randell Man MD [id number] [place] [address] Surgeon Colon and Rectal Surgery 09/25/24
--- OUTSIDE RECORDS SUMMARY | 2024-10-31 23:26 | XMS_ITS | Clinical Summary ---
Author Organization [facility] Address [address] [place] [id number] Care Team Providers Care Parks Recreation Coordinator Name Role Phone Unavailable Primary Care Provider [...] daily. 60 Capsule 1 07/21/2024 5:48 PM ELEVATOR INSPECTOR Active doxylamine (UNISOM) 25 mg Tablet Take by mouth. Activ e Active Problems Problem Noted Date Diagnosed Date Short cervix affecting 07/21/2024 Comments Yes Encounters Date Type Department Care Team Description 10/15/2024 External Device Data STL ABSTRACTION Provider, Abstract 10/15/2024 External Device Data STL ABSTRACTION Provider, Abstract 10/13/2024 7:08 AM CDT - 10/13/2024 11:59 PM CDT Hospital Encounter [facility] [address] [place] [address] Sade Marin MD Discharge Disposition: Home or Self Care 10/04/2024 External Device Data STL ABSTRACTION Provider, Abstract 10/03/2024 External Device Data STL ABSTRACTION Provider, Abstract 09/30/2024 External Device Data STL ABSTRACTION Provider, Abstract 09/17/2024 External Device Data STL ABSTRACTION Provider, Abstract 09/16/2024 External Device Data STL ABSTRACTION Provider, Abstract 08/21/2024 7:11 AM ELEVATOR INSPECTOR - 08/21/2024 11:59 PM ELEVATOR INSPECTOR Hospital Encounter [facility] [address] [place] [address] Miriam Chanel MD Discharge Disposition: Home or Self Care 08/20/2024 External Device Data STL ABSTRACTION Provider, Abstract 08/19/2024 External Device Data STL ABSTRACTION Provider, Abstract 08/12/2024 External Device Data STL ABSTRACTION Provider, Abstract from Last 3 Months Social History Tobacco [...] Sex Assigned at Female 07/21/2024 9:38 AM ELEVATOR INSPECTOR Legal Sex Female 7:37 PM CDT Gender Identity Not on file Sexual Orientation Not on file Last Filed Vital Signs Vital Sign Reading Time Taken Comments Blood Pressure 112/64 07/21/2024 5:15 PM ELEVATOR INSPECTOR Pulse 88 07/21/2024 5:17 PM ELEVATOR INSPECTOR Temperature 36.6 C (97.9 F) 07/21/2024 3:37 PM ELEVATOR INSPECTOR Respiratory Rate 22 07/21/2024 5:17 PM ELEVATOR INSPECTOR Oxygen Saturation 99% 07/21/2024 5:17 PM ELEVATOR INSPECTOR Inhaled Oxygen Concentration - - Weight 74.4 kg (164 lb) 07/21/2024 11:15 AM ELEVATOR INSPECTOR Height 167.6 cm (5' 6 ) 07/21/2024 11:15 AM ELEVATOR INSPECTOR Body Mass Index 26.47 07/21/2024 11:15 AM ELEVATOR INSPECTOR Plan of Treatment Upcoming Encounters Date Type Department Care Team (Late st Contact Info) Description 12/07/[address] [facility] Labor & [address] [place] [address] Odette Cruz MD [address] [place] [address] Health Maintenance Due Date Last Done Comments HPV/Cotest (21-29) 2010 HPV VACCINES (2 - 3-dose series) 11/30/2011 11/02/19 CERVICAL CANCER SCREENING 2019 HPV/Cotest (30-65) 2019 PAP SMEAR 2019 COVID-19 Vaccine ( - 2023-2 5 season) 2024 08/18/2021, 02/08/2021 [...] UP PER FETUS Routine 08/21/2024 7:47 AM ELEVATOR INSPECTOR History of delivery, currently from Last 3 Months Results * US OB FOLLOW UP PER FETUS (10/13/2024 7:41 AM CDT) Only the most recent of2 resultswithin the time period is included. Anatomical Region Laterality Modality Pelvis Ultrasound 10/13/2024 7:11 AM CDT Narrative 10/13/2024 8:23 AM CDT STL FOLLOW UP ----- Pat. Name: ALINE CERDA Study Date: 10/13/2024 7:11am Pat. NO: [id number] Referring MD: SADE MARIN MD Site: [place] [employer] Attorney: Holly Petit RDMS : 1990 Age: 34 ----- INDICATION ----- Advanced Maternal Age (AMA), Multigravida w/History Labor Screening Follow-Up Cervix, Incompetent with or without Cerclage CODING ----- Diagnoses Z3A.32: Weeks of gestation O34.33: Maternal care for cervical incompetence Z36.2: Encounter for other screening follow-up O09.213: Supervision of with history of pre-term labor O09.523: Supervision of elderly multigravida Procedures 89306: Ultrasound, uterus, real time with image documentation, [...] 4 lb 13 oz EFW by Hadlock ([id number]) Extremities / Bony Struc Biometry: FL / [...] and date of were verified by the real estate sales agent prior to the exam IMPRESSION ----- Impression: [...] - 10/13/2024 STL FOLLOW UP ----- Pat. Name:PRASHANT Maikol Date:10/13/2024 7:11am Pat. NO: [id number] :SADE MARIN MD [facility]:Holly Petit RDMS :1990Age:34 ----- INDICATION ----- Advanced Maternal Age (AMA), Multigravida w/History Labor Screening Follow-Up Cervix, Incompetent with or without Cerclage CODING ----- Diagnoses Z3A.32: Weeks of gestation O34.33: Maternal care for cervical incompetence Z36.2: Encounter for other screeningfollow-up O09.213: Supervision of with history ofpre-term labor O09.523: Supervision of elderly multigravida Procedures 20138: Ultrasound, uterus, real time withimage documentation, follow up, transabdominal approach per fetus HISTORY ----- OB History 3. Para 1 METHOD ----- Transabdominal ultrasound examination ----- Rao . Number of fetuses: 1 DATING ----- GA by prior [id number] w + 1 d CODY by prior [...] 4 lb 13 oz EFW by Hadlock ([id number]) Extremities / Bony Struc Biometry: FL / [...] and date of were verified by the real estate sales agent prior tothe exam IMPRESSION ----- Impression: Rao [...] from Last 3 Months Insurance [employer] [facility]
--- OUTSIDE RECORDS SUMMARY | 2024-10-31 23:26 | XMS_ITS | Clinical Summary ---
Author Organization [facility] Address [address] [place] [address] Care Team Providers Care Mathematics Academic Chair Name Role Phone No, Physician Primary Care Provider [phone] Randell Man MD Unavailable [phone] Allergies Active Allergy Reactions Criticality Noted Date Comments Zolpidem Other (See comments) Low 10/02/2019 Insomnia,nightmares. Vancomycin Hives Medium 10/02/2019 Medications ibuprofen (ADVIL,MOTRIN) 600 mg tablet Take 600 mg by mouth every 6 (six) hours as needed for pain Active baclofen (LIORESAL) 10 mg tablet Take 10 mg by mouth 3 (three) times a day Active [id number] cb,hl-nveyw-zio -dha 27-1-50-250 mg combo pack Take by [...] Department Care Team Description 09/25/2024 3:30 PM HAZARD MITIGATION OFFICER Office Visit [facility] Surgery [address] [facility] [address] [place] [address] Randell Man MD Hemorrhoids, unspecified [...] on file Legal Sex Female 12:46 PM HAZARD MITIGATION OFFICER Gender Identity Not on file Sexual Orientation Not on file Obstetrics History Last Filed Vital Signs Vital Sign Reading Time Taken Comments Blood Pressure 132/80 09/25/2024 3:05 PM HAZARD MITIGATION OFFICER Pulse 75 09/25/2024 3:05 PM HAZARD MITIGATION OFFICER Temperature - - Respiratory Rate - - Oxygen Saturation 100% 09/25/2024 3:05 PM HAZARD MITIGATION OFFICER Inhaled Oxygen Concentration - - Weight 79.8 kg (176 lb) 09/25/2024 3:05 PM HAZARD MITIGATION OFFICER Height 167.6 cm (5' 6 ) 09/25/2024 3:05 PM HAZARD MITIGATION OFFICER Body Mass Index 28.41 09/25/2024 3:05 PM HAZARD MITIGATION OFFICER Plan of Treatment Health Maintenance Due Date [...] patient's age to complete this topic Insurance [facility] CHO[facility] CLAIMS Care Teams Mathematics Academic Chair Relationship Specialty Start Date End Date No, Physician PCP - General 2/24/20 Randell Man MD [id number] [place] [address] Surgeon Colon and Rectal Surgery 09/25/24
--- OUTSIDE RECORDS SUMMARY | 2024-10-31 23:26 | XMS_ITS | Clinical Summary ---
Author Organization [facility] Address [address] [place] [address] Care Team Providers Care Cookie Mixer Helper Name Role Phone Benedict Spears MD Primary Care Provider [phone] Source Comments [facility],non-owned Affiliates and Associated Physician Practices is amultiple site organization consisting of ambulatory clinics and hospital sitesin [place], [place], [place] and [place]. This disclosure is being madepursuant to the Care Everywhere program and may not contain all information available regarding this patient. Last updated 18.[facility] [employer] Allergies Active Allergy Reactions Criticality Noted Date [...] Virus Chichi valent Vaccine 11/02/2011 INFLUENZA A [id number] VACCINE 08/08/2009 INFLUENZA VACCINE 04/14/2023, 1,03/30/2020,04/25,04/10/2017,05/20/2016,04/29/2014 ,04/29/2012,03/30/2011,06/15/2008 [...] this topic Medical Devices Implanted Type Area Manifest Clerk Device Identifier Shelf Expiration Date Model / Serial / Lot 1.6mm K Wires Implanted:Qty: 2 on 03/08/2022 by Ganesh Escalante MD at [facility] 10/25/2025 [id number] / [id number] / [id number] Procedures Procedure Name Priority Date/Time Associated Diagnosis Comments HIV-1 HIV-2 ANTIBODY + HIV P24 AG PANEL Routine 11/13/2022 10:20 AM CDT Visit for screening GTT 1 HR (50G) GESTATIONAL SCREEN Routine 11/13/2022 9:35 AM CDT Visit for screening HEPATITIS C ANTIBODY Routine 07/28/2022 5:05 PM ARC AIR OPERATOR screening encounter from Last 3 Months or Most Recently Relevant to Health Maintenance Results * HIV-1 HIV-2 ANTIBODY + HIV P24 AG PANEL (11/13/2022 10:20 AM CDT) [facility] HIV1/2 Ab + P24 Ag Non Reactive Non Reactive 11/13/2022 11:04 AM CDT [facility] Blood BLOOD SPECIMEN / Unknown Lab Venipuncture / Unknown 11/13/2022 10:20 AM CDT 11/13/2022 10:19 AM CDT Narrative [facility] - 11/13/2022 11:04 AM CDT No Laboratory evidence of HIV infection. Cristina GALLOWAY LAB - CHEMISTRY ORDERABLES Performing Organization Address [facility] Co de Phone Number [facility] [address] [place] [address] * GTT 1 HR (50G) GESTATIONAL SCREEN (11/13/2022 9:35 AM CDT) Glucose Dose Gestational 50 gm 11/13/2022 10:43 AM CDT [facility] Gestational Diabetes Screen 88 54 - <140 mg/dL 11/13/2022 10:43 AM CDT [facility] Blood BLOOD SPECIMEN / Unknown Lab Venipuncture / Unknown 11/13/2022 9:35 AM CDT 11/13/2022 10:19 AM CDT Cristina Mccann APRN-BRAD LAB - CHEMISTRY ORDERABLES Performing Organization Address [facility] Co de Phone Number [facility] [address] [place] [address] * HEPATITIS C ANTIBODY (07/28/2022 5:05 PM ARC AIR OPERATOR) [facility] HCV Antibody Screen Non Reactive Non Reactive 07/28/2022 6:06 PM ARC AIR OPERATOR [facility] Blood BLOOD SPECIMEN / Unknown Lab Venipuncture / Unknown 07/28/2022 5:05 PM ARC AIR OPERATOR 07/28/2022 5:20 PM ARC AIR OPERATOR Narrative [facility] - 07/28/2022 6:06 PM ARC AIR OPERATOR Non Reactive - Antibodies to Hepatitis C virus (HCV) were not detected, result does not exclude early acute HCV infection. Sade Marin MD LAB - CHEMISTRY ORD ERABLES [facility] [address] [place], [place] [id number] from Last 3 Months or Most Recently Relevant to Health Maintenance Care Teams Cookie Mixer Helper Relationship Specialty Start Date End Date Benedict Spears MD [address] [place] [address] RAYO Ramírez [phone] PCP - General Family Medicine 12/25/23
--- OUTSIDE RECORDS SUMMARY | 2024-10-31 23:26 | XMS_ITS | Data Portability ---
Author Organization [place] [facility] [employer], Main Office Address [address] [place] [address] Care Team Providers Care Hunter Guide Name Role Phone BENEDICT SPEARS Primary Care [...] bring MRI results. Annual labs in 12/21. [email or web address] Not available 12/13/2023 17:59:28 01/28/2024 01/28/2024 33 [...] bring MRI results. Annual labs in 12/21. [email or web address] Not available 01/28/2024 18:02:43 05/05/2024 05/05/2024 34 [...] by Ortho. Cont f/u with Psych at [facility] as per schedule. Cont f/u with Ortho at [facility] as per schedule. Cont f/u with [facility] as per schedule. Educated pt about alarming symptoms to monitor at home. HM: WWE - 03/21, normal as per pt. Cont f/u with Gyne as per schedule. Flu - Pt gets at her work. Tdap - 2020. Gardasil - Pt had it. F/u PRN/Annually. Pt to bring MRI results. Annual labs in 12/21. [email or web address] Not available 05/05/2024 18:01:30 Plan of Treatment Reminders Order Date Submit Date Provider Last Modified By Organization Details Last Modified Time Details Appointments Physical/ Annual Wellness 30 2024 04:30P Kenneth Spears MD Not available Not available Not available Lab lipid panel, serum [address] (Lab), [address] [place], [address], 04/28/2024 10:45:22 glycohemo globin, total, blood [address] (Lab), [address] [place], [address], 12/20/2023 07:59:24 CBC w/ auto diff [address] (Lab), [address] [place], [address], 12/20/2023 07:59:23 CMP, serum or plasma [address] (Lab), [address] [place], [address], 12/20/2023 07:59:23 lipid panel, serum [address] (Lab), [address] [place], [address], 12/20/2023 07:59:23 TSH, serum, reflex free T4 [address] (Lab), [address] [place], [address], 12/20/2023 07:59:23 urinalysi s complete, reflex culture [address] (Lab), [address] [place], [address], 12/20/2023 07:59:23 vitamin D, 25-hydrox y, total, serum [address] (Lab), [address] [place], [address], 12/20/2023 07:59:23 Referral psychiatr ist referral 2023 024 [email or web address] Roderick Mckeon MD, [address], [facility] [address], [place], [address], 12/20/2023 17:15:41 Procedures None recorded. Surgeries None recorded. Imaging None recorded. Medication Orders docusate sodium 100 mg capsule 2023 [facility] #75455, [address], [place], [id number], 05/05/2024 17:55:07 ciproflox acin 500 mg tablet [address] [facility] #41975, [address], [place], [id number], 05/05/2024 17:50:50 phenazopy ridine 200 mg tablet [address] [facility] #85870, [address], [place], [id number], 05/05/2024 17:50:58 lurasidon e 40 mg tablet [address] [facility] #30161, [address], [place], [id number], 05/05/2024 17:51:51 venlafaxi ne ER 75 mg capsule,e xtended release 24 hr 2023 [address]24 [address] [facility] [address], [address], [place], [id number], 05/05/2024 17:51:11 methylphe nidate ER 54 mg tablet,ex tended release 24 hr [address] [facility] #73901, [address] [facility], [place], [place], [id number], 05/05/2024 17:51:46 methylphe nidate ER 54 mg tablet,ex tended release 24 hr [address] [facility] #95508, [address] [facility], [place], [place], [id number], 05/05/2024 17:51:46 lurasidon e 40 mg tablet [address] [facility] #85816, [address] [facility], [place], [place], [id number], 05/05/2024 17:51:51 venlafaxi ne ER 75 mg capsule,e xtended release 24 hr [address] [facility] #68650, [address] [facility], [place], [place], [id number], 05/05/2024 17:51:11 methylphe nidate ER 36 mg tablet,ex tended release 24 hr 2023 024 [email or web address] [facility] #69022, [address], [place], [id number], 11/21/2023 13:16:12 triamcino lone acetonide 0.1 % topical cream 2023 024 REBECCA [facility] #23285, [address] [facility], [place], [place], [id number], 08/01/2023 14:50:38 Patient TargetsNo targets recorded. Patient Instructions Encounter Date Encounter Id Patient Instructions Last Modified By Organization Details Last Modified Time 01/28/2024 [id number] high cholesterol : care instructions Not available 01/28/2024 17:55:48 05/05/2024 [id number] high cholesterol : care instructions Not available [...] trime ster No observ ation record ed. [email or web address] [facility] [address], [place], [address], 05/05/2024 17:50:21 Result Notes None recorded. Problems Name Problem SNOMED Code Status Onset Date Resolution Date Notes Provider Name and Address Organization Details Recorded Time Mixed anxiety and depressive disorder 407897621 Active 2021 Not Available [facility] 3 00:58:23 Chronic constipati on 155319850 Active 2021 Not Available [facility] 3 00:58:23 Lumbar spondylosi s 973509073 Active 2021 Not Available [facility] 3 00:58:23 Bilateral tinnitus 6142739764165 Active 2021 Not Available [facility] 3 00:58:23 Hemorrhoid s 18933747 Active 2022 Maria Antonia Ding MD [address], [address], [place], [address] , [employer] 3 16:11:21 External hemorrhoid s 42191672 Active 2022 Maria Antonia Ding MD [address], [place], [address] , [facility] 3 12:35:27 Onychomyco sis of toenails 423542905 Active 2022 KASSIE Turner [address], [place], [address] , [facility] 3 08:34:08 Headache 22366492 Active 2022 Fredrick LeonardoCORINNE savageP [address], [address], [place], [address] , [employer] [place] [employer] [facility] 3 08:42:23 Pruritic rash 79309644 Active 2022 Fredrick LeonardoCORINNE savageP [address], [address], [place], [address] , [employer] [place] [employer] [facility] 3 08:47:49 Chronic back pain 322578145 Active 2022 Fredrick CORINNE SykesP [address], [address], [place], [address] , [employer] [place] [employer] [facility] [employer] 3 13:25:02 Poor concentrat ion 36550906 Active 2022 Maria Antonia Ding MD [address], [address], [place], [address] , [employer] - [employer] [facility] [employer] 3 14:21:11 Cough 88595840 Active 2022 Maria Antonia Ding MD [address], [address], [place], [address] , [employer] - [employer] [facility] [employer] 3 12:46:51 Eruption 126830198 Active 2023 Maria Antonia Ding MD [address], [address], [place], [address] , [employer] - [employer] [facility] 4 14:47:06 Pain in throat 914728396 Active 2023 Maria Antonia Ding MD [address], [address], [place], [address] , [employer] [place] [employer] [facility] 4 13:21:33 Attention deficit hyperactiv ity disorder 054734854 Active 2023 Maria Antonia Ding MD [address], [address], [place], [address] , [employer] [place] [employer] [facility] 4 17:15:32 Bipolar disorder 74510401 Active 2023 Benedict Spears MD [address], [address], [place], [address] , [employer] 4 17:33:41 Depressive disorder 86171712 Active 2023 Benedict Spears MD [address], [address], [place], [address] , [employer] [employer] [facility] 4 17:33:47 Anxiety disorder 210540094 Active 2023 Benedict Spears MD [address], [address], [place], [address] , [employer] 4 17:33:53 Chronic neck pain 6719961776322 Active 2023 Benedict Spears MD [address], [place] [address], [place], [address] , [place] [facility] [employer] [facility] 4 17:34:12 Chronic low back pain 819894807 Active 2023 Benedict Spears MD [address], [address], [place], [address] , [employer] [facility] 4 17:34:20 Overweight 707785972 Active 2023 Benedict Spears MD [address], [place] [address], [place], [address] , [facility] [employer] [facility] 4 17:34:41 Chronic idiopathic constipati on 65908445 Active 2023 Benedict Spears MD [address], [address], [place], [address] , [place] [employer] [facility] 4 17:34:55 Vitamin D deficiency 66088623 Active 2023 Benedict Spears MD [address], [address], [place], [address] , [place] [employer] [facility] 4 17:35:12 Attention deficit hyperactiv ity disorder, predominan tly inattentiv e type 66898383 Active 2023 Benedict Spears MD [address], [address], [place], [address] , [employer] 17:38:49 Urinary tract infectious disease 61238206 Active 2023 Benedict Spears MD [address], [address], [place], [address] , [employer] [place] 17:51:24 Hyperlipid emia 89628891 Active 2023 Benedict Spears MD [address], [address], [place], [address] , [employer] 17:54:30 Problem Notes None recorded. Procedures Surgical History Date Name Laterality Status Provider Name and Address Organization Details Recorded Time 03/14/20 23 excision of septum of uterus completed KASSIE Turner [address], [address], [place], [address], [employer] 04/03/2023 08:40:59 03/08/20 22 open reduction of fracture with internal fixation completed Not Available [facility] 09/28/2022 00:57:24 07/30/19 22 Date of Last Pap Smear completed Benedict Spears MD [address], [address], [place], [address], [employer] 12/13/2023 17:29:18 nasal septoplasty completed Not Available [facility] 09/28/2022 00:57:24 Imaging Results Imaging Date Name Status LastModified by Organiz ation Details LastModified Time 04/22/2024 US, obstetric, 1st trimester completed [email or web address] [facility] [address], [place], [address], 05/05/2024 17:50:21 Procedure Notes None recorded. Medical Equipment None Reported. Allergies Allergen ID Allergen Name Allergen Category Reaction Reaction Severity Criticality Documentation Date Start Date Code Code System Note Provider Name and Address Organization Details Recorded Time 44204 vancomyci n medicatio n Not available Not available Not available 09/28/2022 05636 RxNorm Red Man Not Available [employer] 3 00:59:51 92794 vaccine adjuvant system, AS01B liposomal medicatio n rash Not available Not available 09/28/2022 48354 UNK Not Available [facility] 3 00:59:52 Medications Name Sig Start [...] Updated DateTime 4 170.18 cm 27.3 kg/m2 20756.0 7 g 97.7 [degF] 94 /min 99 % 99 % 122 mm[Hg] 80 mm[Hg] Yashira Daniel RN [facility] [employer] 14:33:45 Date Recorded Body height Body mass index (BMI) Body weight Body temperature Heart rate Oxygen saturation Oxygen saturation in Arterial blood by Pulse oximetry Provider Name and Address Organization Details Last Updated DateTime 4 170.18 cm 27.6 kg/m2 00555.2 6 g 98 [degF] 87 /min 96 % 96 % Yashira Daniel RN [facility] [employer] 4 16:58:43 Date Recorded Systolic blood pressure Diastolic blood pressure Provider Name and Address Organization Details Last Updated DateTime 11/01/2023 138 mm[Hg] 79 mm[Hg] Maria Antonia Ding MD [address] [place] [address], [address], [place] [employer] [facility] [employer] 11/01/2023 17:07:43 Date Recorded Body height Body mass index (BMI) Body weight Body temperature Heart rate Respiratory rate Oxygen saturation Oxygen saturation in Arterial blood by Pulse oximetry Systolic blood pressure Diastolic blood pressure Provider Name and Address Organization Details Last Updated DateTime 4 170.18 cm 27.3 kg/m2 00682.0 7 g 98.1 [degF] 78 /min 16 /min 97 % 97 % 106 mm[Hg] 78 mm[Hg] Eleazar Calixto [place] [employer] 4 17:27:14 Date Recorded Body height Body mass index (BMI) Body weight Body temperature Heart rate Respiratory rate Oxygen saturation Oxygen saturation in Arterial blood by Pulse oximetry Systolic blood pressure Diastolic blood pressure Provider Name and Address Organization Details Last Updated DateTime 4 170.18 cm 25.5 kg/m2 43008.9 1 g 98.1 [degF] 76 /min 20 /min 98 % 98 % 110 mm[Hg] 70 mm[Hg] Eleazar Calixto [facility] 4 17:45:19 Date Recorded Body height Body mass index (BMI) Body weight Body temperature Heart rate Respiratory rate Oxygen saturation Oxygen saturation in Arterial blood by Pulse oximetry Systolic blood pressure Diastolic blood pressure Provider Name and Address Organization Details Last Updated DateTime 4 170.18 cm 24.6 kg/m2 73344 g 98.1 [degF] 80 /min 20 /min 98 % 98 % 102 mm[Hg] 70 mm[Hg] Eleazar Calixto [facility] 4 17:48:06 Social History Question Answer Notes LastModified by NightOwl ion Details LastModified Time Tobacco Smoking Status Never [facility] 08/01/2023 14:29:20 Do You Have An Advance Directive? No [email or web address] Information not available 12/13/2023 What Is Your Level Of Alcohol Consumption? Moderate Information not available 12/13/2023 What Is Your Level Of Caffeine Consumption? Moderate [email or web address] Information not available 12/13/2023 How Much Tobacco Do You Chew? 2-4/day [email or web address] Information not available 12/13/2023 What Type Of Diet Are You Following? REGULAR [id number] Information not available 09/28/2022 What Was The Date Of Your Most Recent Tobacco Screening? 02/09/2022 [email or web address] Information not available 08/01/2023 What Is Your Relationship Status? [email or web address] Information not available 12/13/2023 Do You Or Have You Ever Used Smokeless Tobacco? Former Smokeless Tobacco User [email or web address] Information not available 12/13/2023 How Much Tobacco Do You Smoke? No [email or web address] Information not available 12/13/2023 Do You Have Any Dietary Restrictions? No [email or web address] Information not available 08/01/2023 How Many Years Have You Used Smokeless Tobacco? 10 Information not available 12/13/2023 Sex: Unknown Functional Status Question Answer Note LastModified by Organization D etails LastModified Time What is your exercise level? Moderate [email or web address] Information not available 12/13/2023 Mental Status None recorded. Family History Relationship Description Onset Age of this Age Resolved Age Notes LastModified by Organization Details LastModified Time Father Heart disease [id number] Not available 09/28/2022 00:57:24 Mother Seizure disorder [email or web address] Not available 2023 17:29:07 Mother Seizure 1 [email or web address] Not available 12/13/2023 17:29:07 Maternal Grandmother [email or web address] 1 Not available 11/27 17:29:07 Medical History Condition Response BLINDNESS N RHEUMATIC FEVER N KIDNEY STONES N BLADDER PROBLEMS N MRSA N OTHER # 1 N POLIO N LUNG DISEASE/DISORDER N HISTORY OF DRUG ABUSE N RADIATION / CHEMOTHERAPY N COPD N Other # 2 N BLOOD DISEASES N SURGERY N EAR OR HEARING PROBLEMS N MUMPS N SHINGLES N FEMALE PROBLEMS / INFECTIONS N BOWEL PROBLEMS N DEPRESSION (INCLUDING POST ) N STROKE/TIA N THYROID DISEASE N ULCERS [...] HAVE YOU BEEN HOSPITALIZED OR SEEN IN [facility] IN THE PAST YEAR ? N ATHEROSCLEROSIS [...] PF 05/13/2023 completed Benedict Spears MD [address] [facility], [address], [place], [address], [employer] 12/13/2023 17:29:02 SARS-COV-2 (COVID-19) vaccine, UNSPECIFIED 02/15/2021 completed Benedict Spears MD [address] [facility], [address], [place], [address], [employer] 12/13/2023 17:29:02 SARS-COV-2 (COVID-19) vaccine, UNSPECIFIED 02/15/2022 completed Benedict Spears MD [address] [facility], [address], [place], [address], [employer] 12/13/2023 17:29:02 Past Encounters Encounter ID Performer Location Encounter Start Date Encounter Closed Date Diagnosis/Indication Diagnosis SNOMED-CT Code Diagnosis ICD10 Code Diagnosis Note [id number] [facility] Primary Care [facility] [address] [facility] [address] [place] [address] 02/09/2022 00:00:00 02/20/2022 16:24:03 [id number] S_G Primary Care [facility] [address] [facility] [address] [place] [address] 03/20/2022 00:00:00 03/20/2022 08:23:[id number] [facility] Primary Care [facility] jacobe [address] [place] [address] [address] [place] [place], [place] [address] 04/24/2022 00:00:00 04/24/2022 08:19:[id number] [facility] Primary Care Sander jamese [address] [place] [address] [address] [place] [address] 05/29/2022 00:00:00 05/29/2022 08:16:[id number] [facility] Primary Care Sander jamese [address] [place] [address] [address] [place] [address] 07/10/2022 00:00:00 07/10/2022 08:17:01 [id number] S_[facility] Primary Care [facility] jamese [address] [place] [address] [address] [place] [address] 08/09/2022 00:00:00 08/09/2022 08:21:00 [id number] Maria Antonia Ding MD [facility] Primary Care [place] [facility] j[facility]e [address] [place] [address] [address] [place] [address] 10/24/2022 12:07:21 10/24/2022 12:54:50 External hemorrhoids 43174302 K64.4 Avoid dry toilet paperIncre ase water/fibe r and avoid straining with stoolsSitz baths TID prnf/u in 1 week or sooner if needed [id number] KASSIE Turner S_[facility] Primary Care [place] [facility] jamese [address] [place] [address] [address] [place] [address] 04/03/2023 08:09:22 04/03/2023 09:52:54 Mixed anxiety and depressive disorder 404428557 F41.8 Improved but not to goal on current dose. Will add venlafaxin e 75mg back to the 150mg. Highly encouraged pt to consider counseling . Denies any SI/HI at this time. Pt to stop medication and be seen if s/e develop. Pt to call or send update through portal in 2 weeks. Onychomyco sis of toenails 573727201 B35.1 ChronicCon tinue with topical antifungal treatment. Unable to take oral meds as she is still breastfeed ing. Advised to perform brown mouthwash soaks and apply vapor rub to affected nails daily in the meantime.R TO 3-6 months for f/u Headache 80600992 R51.9 New problemNot able to manage with [...] breastfeed ing her 3 month-old. Pruritic rash 39489885 L 28.2 New problemLik tomy candidal. Advised to apply otc topical yeast medication to external tissues.Cu stomary discussion of prescribed medication benefits, side effects, and compliance was done. Patient was instructed on proper skin care. If no improvemen t over the next week, will consider rx strength medication . [id number] Maria Antonia Ding MD [facility] Primary Care [address] [place] [address] 08/01/2023 14:28:31 08/01/2023 14:52:45 Eruption 173090624 R21 eczemadisc ussed care of dry, sensitive skinshorte r, cooler showersavo id lotions/so aps/produc ts with perfumes/d yesemollie nt lotions regularly [id number] Maria Antonia Ding MD [facility] Primary Care [address] [place] [address] 11/01/2023 16:49:38 11/01/2023 17:18:35 Attention deficit hyperactivity disorder 480025455 F90.9 Dx by psychiatry failed nonstimula ntstrial of methylphen idate ER 36 mg dailyPt understand s this medication has risk for abuse/depe ndence and agrees to take it only as prescribed and to guard from loss/theft f/u in 4 weeks or sooner if needed [id number] Benedict Spears MD [address] [address] 12/13/2023 17:21:01 12/13/2023 17:58:15 Adult health examination 959125815 Z00.00 Bipolar disorder 4005396 4 F31.9 Depressive disorder 3548 9007 F32.A Anxiety disorder 8775532 06 F41.9 Chronic neck pain 904059 4577 107 M54.2 Chronic low back pain 27 8540190 M54.50 Overweight 763841885 E66 .3 Chronic id iopathic constipation 90975663 K59.04 Vitamin D deficiency 347 64352 E55.9 Attention deficit hyperactivity disorder, predominantly inattentive type 75981970 F90.0 [id number] Benedict Spears MD [place] [address] 01/28/2024 17:39:47 01/28/2024 17:59:48 Bipolar disorder 14786805 F31.9 Depressive disorder 3548 9007 F32.A Anxiety disorder 9851094 06 F41.9 Chronic neck pain 982343 3000 107 M54.2 Chronic low back pain 27 6421490 M54.50 Overweight 652783777 E66 .3 Chronic id iopathic constipation 38556338 K59.04 Vitamin D deficiency 347 93424 E55.9 Improved Attention deficit hyperactivity disorder, predominantly inattentive type 45634159 F90.0 Urinary tr act infectious disease 40582924 N39.0 Hyperlipidemia 57006462 E78.5 [id number] Benedict Spears MD [place] [address] 05/05/2024 17:37:46 05/05/2024 17:57:56 Depressive disorder 97451330 F32.A Bipolar disorder 7110048 4 F31.9 Anxiety disorder 4450140 06 F41.9 Chronic neck pain 266723 7069 107 M54.2 Chronic low back pain 27 1122942 M54.50 Chronic id iopathic constipation 57865403 K59.04 Vitamin D deficiency 347 25099 E55.9 Improved Attention deficit hyperactivity disorder, predominantly inattentive type 99033324 F90.0 Hyperlipidemia 05885026 E78.5 Diet controlled Health Concerns Section Related [...] - [facility] ( - PPO) Trevor Zeinab [id number] Aline Arriola 11/01/2023 1 [facility] - DOS PRIOR TO 2024 - [employer] - [place] ( - PPO) Trevorhiram Arriola [id number] Aline Arriola 12/13/2023 1 [place] - DOS PRIOR TO 2024 - [employer] - [place] ( - PPO) Trevorhiram Arriola [id number] Aline Arriola 01/28/2024 1 [place] - DOS PRIOR TO 2024 - [employer] - [place] ( - PPO) Trevorhiram Arriola [id number] Aline Arriola 05/05/2024 1 [place] - DOS PRIOR TO 2024 - [employer] - [place] ( - PPO) Trevorabimbola Arriola [id number] Aline Arriola Notes Date Note Type Note [...] Ding MD [address], [address], [place], [address], [facility] [employer] 08/29/2023 11:59:50 11/01/2023 text/html did not notice a ny improvement with nonstimulant medication for ADHD. She was doing telehealth with psychiatry and they referred her back here since they cannot prescribe stimulants from his state. No chest pain or sob. Focus/concentration issues affect her quality of life. Maria Antonia Ding MD [address], [address], [place], [address], [employer] 12/10/2023 09:49:55 12/13/2023 text/html New pt visit: 33 yo F is here to establish her care. Pt was seeing PCP at [facility] in the past. Pt needs refill on [...] and she is f/u with Ortho at [facility] for it. Benedict Spears MD [address], [facility] [address], [place], [address], [employer] 12/13/2023 17:59:42 01/28/2024 text/html Pt is here [...] and she is f/u with Ortho at [facility] for it. Benedict Spears MD [address], [facility] [address], [place], [address], [employer] 01/28/2024 18:03:20 05/05/2024 text/html Pt is here for f /u on her lab and chronic conditions. Doing overall better. Denies any problem with meds. Pt is 9 weeks . A0 and she is f/u with her OB for this. Her OB and her Psych has talked about her medications to continue during this . Pt is f/u with Psych at [facility] for her mood and is on meds by them. Denies any mood swings/SI/HI. Pt has chronic neck and low back pain due to workman's comp and she is f/u with Ortho at [facility] for it. Benedict Spears MD [address] [place] [address], [place], [address], [place] [facility] 05/05/2024 18:01:52 OBGyn Episode No OBEpisode recorded.
[2024-10-31] MEDS: TERBUTALINE SULFATE 1 MG/ML VIAL 0.25 MG SUB-Q (23:34)
[2024-10-31] MEDS: BETAMETHASONE SOD PHOS/ACETATE 30 MG/5 ML VIAL 12 MG IM (23:56)
[2024-11-01] VITALS (45 sets, daily range): BP systolic 91–117; BP diastolic 47–73; PULSE 84–111; O2SAT 82–100; BMI 29.3
[2024-11-01] MEDS: TERBUTALINE SULFATE 1 MG/ML VIAL 0.25 MG SUB-Q (01:34)
--- NOTE | 2024-11-01 03:01 | OBADM ---
This patient, Aline Arriola, admitted to the OB room Labor/Delivery/Recovery 119 for observation. Patient/family oriented to hospital policies and general routines including ID bracelet, bed and alarms, visiting hours, pain management, procedures, bathroom and other care routines, personal items, smoking policy, room service/diet, and visiting hours. Patient/Family are encouraged to report perceived risks to care and to ask questions if they do not understand what they are told or what they should do.
--- NOTE | 2024-11-04 05:42 | PM.OBTRLD ---
OB - Triage/Final Diagnosis Visit Information Reason for evaluation: threatened labor Comments/Additional reasons for admission: I have assessed the risk for this patient, Aline Arriola, and determined that she would benefit from observation care.
== END 2024-11-01 03:20 | disposition home or self-care (01) ==
PROVIDERS: Admitting Provider Obstetrics & Gynecology Gynecology; PCP Family Medicine; Visit Provider Obstetrics & Gynecology
DX: O47.03 False labor before 37 completed weeks of gestation, third trimester (principal); Z3A.34 34 weeks gestation of pregnancy
CPT/HCPCS: 96372; G0378; G0379; J0702; J3105

== ENCOUNTER 2024-11-01 11:59 | Outpatient (CLI) | payer OTHER, SELFPAY ==
--- OUTSIDE RECORDS SUMMARY | 2024-11-01 12:04 | XMS_ITS | Clinical Summary ---
Author Organization [facility] Address [address] [place] [address] Care Team Providers Care Box Closing Machine Operator Name Role Phone No, Physician Primary Care Provider [phone] Randell Man MD Unavailable [phone] Allergies Active Allergy Reactions Criticality Noted Date Comments Zolpidem Other (See comments) Low 10/02/2019 Insomnia,nightmares. Vancomycin Hives Medium 10/02/2019 Medications ibuprofen (ADVIL,MOTRIN) 600 mg tablet Take 600 mg by mouth every 6 (six) hours as needed for pain Active baclofen (LIORESAL) 10 mg tablet Take 10 mg by mouth 3 (three) times a day Active RXZ52-lyhg cb,ee-rfupc-glk -dha 27-1-50-250 mg combo pack Take by [...] Department Care Team Description 09/25/2024 3:30 PM AUTOMOBILE PARKER Office Visit [facility] Surgery [address] Medical Office [address] [place] [address] Randell Man MD Hemorrhoids, unspecified [...] on file Legal Sex Female 12:46 PM AUTOMOBILE PARKER Gender Identity Not on file Sexual Orientation Not on file Obstetrics History Last Filed Vital Signs Vital Sign Reading Time Taken Comments Blood Pressure 132/80 09/25/2024 3:05 PM AUTOMOBILE PARKER Pulse 75 09/25/2024 3:05 PM AUTOMOBILE PARKER Temperature - - Respiratory Rate - - Oxygen Saturation 100% 09/25/2024 3:05 PM AUTOMOBILE PARKER Inhaled Oxygen Concentration - - Weight 79.8 kg (176 lb) 09/25/2024 3:05 PM AUTOMOBILE PARKER Height 167.6 cm (5' 6 ) 09/25/2024 3:05 PM AUTOMOBILE PARKER Body Mass Index 28.41 09/25/2024 3:05 PM AUTOMOBILE PARKER Plan of Treatment Health Maintenance Due Date [...] to complete this topic Insurance [facility] CHOICE [facility] CLAIMS Care Teams Box Closing Machine Operator Relationship Specialty Start Date End Date No, Physician PCP - General 2/24/20 Randell Man MD [phone] [place] [address] Surgeon Colon and Rectal Surgery 09/25/24
--- OUTSIDE RECORDS SUMMARY | 2024-11-01 12:04 | XMS_ITS | Referral Summary ---
Author Organization [facility] Address [address] [place] [address] Care Team Providers Care Electrician Supervisor Airplane Name Role Phone No, Physician Primary Care Provider Randell Man MD Unavailable [phone] Encounters Date Type Department Care Team Description 09/25/2024 3:30 PM SUPPLY CHAIN DESIGN MANAGER Office Visit [facility] Surgery [address] [place] [address] Medical Office Building [address] [place] [address] Randell Man MD Hemorrhoids, unspecified [...] mouth 3 (three) times a day Active XHW09-pwxk cb,xp-spjfx-qng -dha 27-1-50-250 mg combo pack Take by [...] on file Legal Sex Female 12:46 PM SUPPLY CHAIN DESIGN MANAGER Gender Identity Not on file Sexual Orientation Not on file Last Filed Vital Signs Vital Sign Reading Time Taken Comments Blood Pressure 132/80 09/25/2024 3:05 PM SUPPLY CHAIN DESIGN MANAGER Pulse 75 09/25/2024 3:05 PM SUPPLY CHAIN DESIGN MANAGER Temperature - - Respiratory Rate - - Oxygen Saturation 100% 09/25/2024 3:05 PM SUPPLY CHAIN DESIGN MANAGER Inhaled Oxygen Concentration - - Weight 79.8 kg (176 lb) 09/25/2024 3:05 PM SUPPLY CHAIN DESIGN MANAGER Height 167.6 cm (5' 6 ) 09/25/2024 3:05 PM SUPPLY CHAIN DESIGN MANAGER Body Mass Index 28.41 09/25/2024 3:05 PM SUPPLY CHAIN DESIGN MANAGER Plan of Treatment Not on file Insurance [facility] CHOICE [facility] CLAIMS Care Teams Electrician Supervisor Airplane Relationship Specialty Start Date End Date No, Physician PCP - General 09/22/19 Randell Man MD [phone] [place] [address] Surgeon Colon and Rectal Surgery 09/25/24
--- OUTSIDE RECORDS SUMMARY | 2024-11-01 12:04 | XMS_ITS | Clinical Summary ---
Author Organization [facility] Address [address] [place] [address] Care Team Providers Care Whitewater Rafting Guide Name Role Phone Benedict Spears MD Primary Care Provider [phone] Source Comments [facility],non-owned Affiliates and Associated Physician Practices is amultiple site organization consisting of ambulatory clinics and hospital sitesin [place], [place], [place] and [place]. This disclosure is being madepursuant to the Care Everywhere program and may not contain all information available regarding this patient. Last updated 18.[facility] [employer] Allergies Active Allergy Reactions Criticality Noted Date [...] Virus Chichi valent Vaccine 11/02/2011 INFLUENZA A L2F4-74 VACCINE 08/08/2009 INFLUENZA VACCINE 04/14/2023, 1,03/30/2020,04/25,04/10/2017,05/20/2016,04/29/2014 ,04/29/2012,03/30/2011,06/15/2008 [...] this topic Medical Devices Implanted Type Area Abnormal Psychology Teacher Device Identifier Shelf Expiration Date Model / Serial / Lot 1.6mm K Wires Implanted:Qty: 2 on 03/08/2022 by Ganesh Escalante MD at [facility] 10/25/2025 [id number] / [id number] / [id number] Procedures Procedure Name Priority Date/Time Associated Diagnosis Comments HIV-1 HIV-2 ANTIBODY + HIV P24 AG PANEL Routine 11/13/2022 10:20 AM CDT Visit for screening GTT 1 HR (50G) GESTATIONAL SCREEN Routine 11/13/2022 9:35 AM CDT Visit for screening HEPATITIS C ANTIBODY Routine 07/28/2022 5:05 PM INTERVENTION SPECIALIST screening encounter from Last 3 Months or Most Recently Relevant to Health Maintenance Results * HIV-1 HIV-2 ANTIBODY + HIV P24 AG PANEL (11/13/2022 10:20 AM CDT) [facility] HIV1/2 Ab + P24 Ag Non Reactive Non Reactive 11/13/2022 11:04 AM CDT [facility] Blood BLOOD SPECIMEN / Unknown Lab Venipuncture / Unknown 11/13/2022 10:20 AM CDT 11/13/2022 10:19 AM CDT Narrative [facility] - 11/13/2022 11:04 AM CDT No Laboratory evidence of HIV infection. Cristina GALLOWAY LAB - CHEMISTRY ORDERABLES Performing Organization Address [facility] Co de Phone Number [facility] [address] [place] [address] * GTT 1 HR (50G) GESTATIONAL SCREEN (11/13/2022 9:35 AM CDT) Glucose Dose Gestational 50 gm 11/13/2022 10:43 AM CDT [facility] Gestational Diabetes Screen 88 54 - <140 mg/dL 11/13/2022 10:43 AM CDT [facility] Blood BLOOD SPECIMEN / Unknown Lab Venipuncture / Unknown 11/13/2022 9:35 AM CDT 11/13/2022 10:19 AM CDT Cristina Mccann APRN-BRAD LAB - CHEMISTRY ORDERABLES Performing Organization Address [facility] Co de Phone Number [facility] [address] [place] [address] * HEPATITIS C ANTIBODY (07/28/2022 5:05 PM INTERVENTION SPECIALIST) [facility] HCV Antibody Screen Non Reactive Non Reactive 07/28/2022 6:06 PM INTERVENTION SPECIALIST [facility] Blood BLOOD SPECIMEN / Unknown Lab Venipuncture / Unknown 07/28/2022 5:05 PM INTERVENTION SPECIALIST 07/28/2022 5:20 PM INTERVENTION SPECIALIST Narrative [facility] - 07/28/2022 6:06 PM INTERVENTION SPECIALIST Non Reactive - Antibodies to Hepatitis C virus (HCV) were not detected, result does not exclude early acute HCV infection. Sade Marin MD LAB - CHEMISTRY ORD ERABLES [facility] [address] [place], [place] [id number] from Last 3 Months or Most Recently Relevant to Health Maintenance Care Teams Whitewater Rafting Guide Relationship Specialty Start Date End Date Benedict Spears MD [address] [place] [address] RAYO Ramírez [phone] PCP - General Family Medicine 12/25/23
--- OUTSIDE RECORDS SUMMARY | 2024-11-01 12:04 | XMS_ITS | Clinical Summary ---
Author Organization [facility] Address [address] [place] [address] Care Team Providers Care Mail Examiner Name Role Phone Unavailable Primary Care Provider [...] daily. 60 Capsule 1 07/21/2024 5:48 PM TRAFFIC ENGINEERING TECHNICIAN Active doxylamine (UNISOM) 25 mg Tablet Take by mouth. Activ e Active Problems Problem Noted Date Diagnosed Date Short cervix affecting 07/21/2024 Comments Yes Encounters Date Type Department Care Team Description 10/15/2024 External Device Data STL ABSTRACTION Provider, Abstract 10/15/2024 External Device Data STL ABSTRACTION Provider, Abstract 10/13/2024 7:08 AM CDT - 10/13/2024 11:59 PM CDT Hospital Encounter [facility] and [facility] [address] [place] [address] Sade Marin MD Discharge Disposition: Home or Self Care 10/04/2024 External Device Data STL ABSTRACTION Provider, Abstract 10/03/2024 External Device Data STL ABSTRACTION Provider, Abstract 09/30/2024 External Device Data STL ABSTRACTION Provider, Abstract 09/17/2024 External Device Data STL ABSTRACTION Provider, Abstract 09/16/2024 External Device Data STL ABSTRACTION Provider, Abstract 08/21/2024 7:11 AM TRAFFIC ENGINEERING TECHNICIAN - 08/21/2024 11:59 PM TRAFFIC ENGINEERING TECHNICIAN Hospital Encounter [facility] [address] [place] [address] Miriam Chanel MD Discharge Disposition: Home or [...] Sex Assigned at Female 07/21/2024 9:38 AM TRAFFIC ENGINEERING TECHNICIAN Legal Sex Female 7:37 PM CDT Gender Identity Not on file Sexual Orientation Not on file Last Filed Vital Signs Vital Sign Reading Time Taken Comments Blood Pressure 112/64 07/21/2024 5:15 PM TRAFFIC ENGINEERING TECHNICIAN Pulse 88 07/21/2024 5:17 PM TRAFFIC ENGINEERING TECHNICIAN Temperature 36.6 C (97.9 F) 07/21/2024 3:37 PM TRAFFIC ENGINEERING TECHNICIAN Respiratory Rate 22 07/21/2024 5:17 PM TRAFFIC ENGINEERING TECHNICIAN Oxygen Saturation 99% 07/21/2024 5:17 PM TRAFFIC ENGINEERING TECHNICIAN Inhaled Oxygen Concentration - - Weight 74.4 kg (164 lb) 07/21/2024 11:15 AM TRAFFIC ENGINEERING TECHNICIAN Height 167.6 cm (5' 6 ) 07/21/2024 11:15 AM TRAFFIC ENGINEERING TECHNICIAN Body Mass Index 26.47 07/21/2024 11:15 AM TRAFFIC ENGINEERING TECHNICIAN Plan of Treatment Upcoming Encounters Date Type Department Care Team (Late st Contact Info) Description 12/07/2024 Hospital Encounter [facility] Labor & [address] [place] [address] Odette Cruz MD [address] [place] [address] Health Maintenance Due Date Last [...] UP PER FETUS Routine 08/21/2024 7:47 AM TRAFFIC ENGINEERING TECHNICIAN History of delivery, currently from Last 3 Months Results * US OB FOLLOW UP PER FETUS (10/13/2024 7:41 AM CDT) Only the most recent of2 resultswithin the time period is included. Anatomical Region Laterality Modality Pelvis Ultrasound 10/13/2024 7:11 AM CDT Narrative 10/13/2024 8:23 AM CDT STL FOLLOW UP ----- Pat. Name: ALINE CERAD Study Date: 10/13/2024 7:11am Pat. NO: [id number] Referring MD: SADE MARIN MD Site: [facility] Kettle Operator: Holly Petit RDMS : 1990 Age: 34 ----- INDICATION ----- Advanced Maternal Age (AMA), Multigravida w/History Labor Screening Follow-Up Cervix, Incompetent with or without Cerclage CODING ----- Diagnoses Z3A.32: Weeks of gestation O34.33: Maternal care for cervical incompetence Z36.2: Encounter for other screening follow-up O09.213: Supervision of with history of pre-term labor O09.523: Supervision of elderly multigravida Procedures 36377: Ultrasound, uterus, real time with image documentation, [...] 4 lb 13 oz EFW by Hadlock ([id number]) Extremities / Bony Struc Biometry: FL / [...] and date of were verified by the angle furnaceman prior to the exam IMPRESSION ----- Impression: [...] Pat. Name:PRASHANT Maikol Date:10/13/2024 7:11am Pat. NO: [id number] :SADE MARIN MD [facility]Holly Petit RDMS :1990Age:34 ----- INDICATION ----- Advanced Maternal Age (AMA), Multigravida w/History Labor Screening Follow-Up Cervix, Incompetent with or without Cerclage CODING ----- Diagnoses Z3A.32: Weeks of gestation O34.33: Maternal care for cervical incompetence Z36.2: Encounter for other screeningfollow-up O09.213: Supervision of with history ofpre-term labor O09.523: Supervision of elderly multigravida Procedures 85474: Ultrasound, uterus, real time withimage documentation, follow up, transabdominal approach per fetus HISTORY ----- OB History 3. Para 1 METHOD ----- Transabdominal ultrasound examination ----- Rao . Number of fetuses: 1 DATING ----- GA by prior [id number] w + 1 d CODY by prior [...] 4 lb 13 oz EFW by Hadlock ([id number]) Extremities / Bony Struc Biometry: FL / [...] and date of were verified by the angle furnaceman prior tothe exam IMPRESSION ----- Impression: Rao [...] from Last 3 Months Insurance [employer] [facility]
--- OUTSIDE RECORDS SUMMARY | 2024-11-01 12:05 | XMS_ITS | Patient Health Record ---
Author Organization [facility] Address [address] [place] [address] Care Team Providers Care Optical Lens Manufacturing Tech Name Role Phone Regan HENRY, [facility] Primary Care Provider UnavailJm Belcher Unavailable [phone] Migration, Provider Unavailable Unavailable Allergies Allergen (clinical [...] Oxazepam (BZO) Negative 0 - 300 ng/ml 9-hnbxxgqqje-5,2-puqfuwin-2, 3-diphenylpyrrolidine (EDDP) Negative 0 - 300 ng/ml Methamphetamine (MET) Negative 0 - 1000 ng/ml Methylenedioxymethamphetamine (MDMA) Negative 0 - 500 ng/ml Morphine (MOP 300/GXA5086) Negative 0 - 300 ng/ml Methadone (MTD) [...] HCl 20 MG TAKE 1 TABLET BY [facility] DAILY WITH FOOD for 90 Active [...] Problem Status W/U Status Risk Notes Problem 15327508 Generalized anxiety disorder (F41.1) Active confirmed Problem Attention deficit hyperactivity disorder (135290260) Attention deficit hyperactivity disorder (ADHD), combined type (F90.2) Active confirmed Problem 410939829 Depression, major, recurrent, mild (F33.0) Active confirmed Problem Moderate recurrent major depression (35792532) Moderate recurrent major depression (F33.1) Active confirmed Vital Signs Heart Rate 69 /min 04/16/2024 Blood pressure diastolic 83 mm Hg 04/16/2024 Height-cm 167.64 cm 04/16/2024 Weight-kg 73.48 kg 04/16/2024 Height 66in in 02/11/2024 Blood pressure systolic 125 mm Hg 04/16/2024 Weight 162 lbs 04/16/2024 BMI 26.14 kg/m2 04/16/2024 Procedures Procedure Date Ordered Date Performed Result Body Sit e ADHD Testing 02/11/2024 N/A Encounters Encounter Location Date Provider Diagnosis [facility] [address] [place] [address] 02/11/2024 Jm Waters Moderate recurrent major depression F33.1 ; Generalized anxiety disorder F41.1 and Attention deficit hyperactivity disorder (ADHD), combined type F90.2 [facility] [address] [place] [address] 03/13/2024 Jm Waters Moderate recurrent major depression F33.1 ; Generalized anxiety disorder F41.1 and Attention deficit hyperactivity disorder (ADHD), combined type F90.2 [facility] [address] [place] [address] 04/16/2024 Jm Waters Moderate recurrent major depression F33.1 ; Generalized anxiety disorder F41.1 ; Attention deficit hyperactivity disorder (ADHD), combined type F90.2 and First trimester Z34.91 [facility] [address] [place] [address] 06/13/2024 Mj Waters Moderate recurrent major depression F33.1 ; Generalized anxiety disorder F41.1 ; Attention deficit hyperactivity disorder (ADHD), combined type F90.2 and Depression, major, recurrent, mild F33.0 [facility], [facility] [address] [place] [address] 12/15/2023 Provider Migration [facility], [facility] [address] [place] [address] 12/16/2023 Provider Migration [facility], [facility] [address] [place] [address] 03/17/2024 Jm Waters [facility], [facility] [address] [place] [address] 04/24/2024 Jm Waters Attention deficit hyperactivity disorder (ADHD), combined type F90.2 [facility], [facility] [address] [place] [address] 08/19/2024 Jm Waters Attention deficit hyperactivity disorder (ADHD), combined type F90.2 [facility], [facility] [address] [place] [address] 08/20/2024 Jm Waters Attention deficit hyperactivity disorder (ADHD), combined type F90.2 [facility], [facility] [address] [place] [address] 02/28/2024 Jm Waters [facility], [facility] [address] [place] [address] 03/10/2024 Jm Waters [facility], [facility] [address] [place] [address] 03/10/2024 Jmphillip Briggsoza [facility], [facility] [address] [place] [address] 03/18/2024 Jm Waters [facility], [facility] [address] [place] [address] 05/12/2024 Jm Waters Attention deficit hyperactivity disorder (ADHD), combined type F90.2 [facility], [facility] [address] [place] [address] 06/06/2024 Jm Waters Attention deficit hyperactivity disorder (ADHD), combined type F90.2 [facility] [address] [place] [address] 07/20/2024 Jm Waters Attention deficit hyperactivity disorder (ADHD), combined type F90.2 [facility] [address] [place] [address] 08/15/2024 Jm Waters Attention deficit hyperactivity disorder (ADHD), combined type F90.2 [facility] [address] [place] [address] 08/18/2024 Jm Waters Attention deficit hyperactivity disorder (ADHD), combined type F90.2 [facility] [address] [place] [address] 10/19/2024 Jm Waters Attention deficit hyperactivity disorder [...] OBGYN regarding medication safety during - Utilize [email or web address][email or web address] for information on medication safety during and [...] OBGYN regarding medication safety during - Utilize [email or web address].[employer] for information on medication safety during and [...] Advise patient to check their insurance under [employer] for covered counselors offering virtual sessions. Follow-up: [...] reduced nausea. - Plan: Continue care with OB-JAVA DEVELOPMENT TEAM LEAD, including upcoming anatomy scan in June. Encourage patient to maintain a healthy lifestyle and report any concerns or changes in symptoms to the OB-JAVA DEVELOPMENT TEAM LEAD. 2. Depression, Anxiety: - Patient reports doing well on current medications and has approval from OB-JAVA DEVELOPMENT TEAM LEAD. - Continue Vilazodone 20 mg and Lisdexamfetamine [...] reduced nausea. - Plan: Continue care with OB-JAVA DEVELOPMENT TEAM LEAD, including upcoming anatomy scan in June. Encourage patient to maintain a healthy lifestyle and report any concerns or changes in symptoms to the OB-JAVA DEVELOPMENT TEAM LEAD. 2. Depression, Anxiety: - Patient reports doing well on current medications and has approval from OB-JAVA DEVELOPMENT TEAM LEAD. - Continue Vilazodone 20 mg and Lisdexamfetamine [...] reduced nausea. - Plan: Continue care with OB-JAVA DEVELOPMENT TEAM LEAD, including upcoming anatomy scan in June. Encourage patient to maintain a healthy lifestyle and report any concerns or changes in symptoms to the OB-JAVA DEVELOPMENT TEAM LEAD. 2. Depression, Anxiety: - Patient reports doing well on current medications and has approval from OB-JAVA DEVELOPMENT TEAM LEAD. - Continue Vilazodone 20 mg and Lisdexamfetamine [...] Advise patient to check their insurance under [employer] for covered counselors offering virtual sessions. Follow-up: [...] OBGYN regarding medication safety during - Utilize [email or web address].org for information on medication safety during and [...] Advise patient to check their insurance under [employer] for covered counselors offering virtual sessions. Follow-up: [...] patient to continue weekly counseling sessions with [facility] - Reevaluate the need for a [...] reduced nausea. - Plan: Continue care with OB-JAVA DEVELOPMENT TEAM LEAD, including upcoming anatomy scan in June. Encourage patient to maintain a healthy lifestyle and report any concerns or changes in symptoms to the OB-JAVA DEVELOPMENT TEAM LEAD. 2. Depression, Anxiety: - Patient reports doing well on current medications and has approval from OB-JAVA DEVELOPMENT TEAM LEAD. - Continue Vilazodone 20 mg and Lisdexamfetamine [...] OBGYN regarding medication safety during - Utilize [email or web address].org for information on medication safety during and [...] reduced nausea. - Plan: Continue care with OB-JAVA DEVELOPMENT TEAM LEAD, including upcoming anatomy scan in June. Encourage patient to maintain a healthy lifestyle and report any concerns or changes in symptoms to the OB-JAVA DEVELOPMENT TEAM LEAD. 2. Depression, Anxiety: - Patient reports doing well on current medications and has approval from OB-JAVA DEVELOPMENT TEAM LEAD. - Continue Vilazodone 20 mg and Lisdexamfetamine [...] Insured Coverage Start Date Coverage End Date [facility] [address] [place] [address] [id number] ZAFAR ARRIOLA Self - patient is the [...]
--- OUTSIDE RECORDS SUMMARY | 2024-11-01 12:05 | XMS_ITS | Continuity of Care Document ---
Author Name [facility] Organization [facility] Care Team Providers Care Wet Process Assistant Head Miller Name Role Phone [facility] Unavailable Unavailable Problems Combined list of problems from Department of Defense and Veterans Affairs facilities. It does not include entries that were removed or entered in error. Problem Status Onset Date Problem Type Date of Resolution Comments Source Allergic rhinitis due to allergen Active Condition [facility] Cervicalgia Active Condition [facility] Cervicovaginal cytology: Low grade squamous intraepithelial lesion (SNOMED CT 590004656) Active Condition May 10, 2012 Entered By: PETRA WOODWARD PA-C Comment: colposcopy 10/2011 [facility] CN - Constipation Active Condition [facility] Depressive disorder Active Condition [facility] Dysmenorrhea Active Condition [facility] Dysmenorrhoea Active Condition [facility] FAMILY HISTORY Active Condition May Entered By: [...] children [facility] Insomnia (SNOMED CT 295739765) Active Condition [facility] Irritable bowel syndrome characterised by alternating bowel habit Active Condition [facility] Low back pain (SNOMED CT 733164231) Active Condition [facility] Low Back Pain * (ICD-9-CM 724.2) Active Condition [facility] Lumbar radiculopathy Active Condition [facility] Oral contraception Active Condition [facility] [...] 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 [facility] Tinnitus Active Condition [facility] Tobacco use Active Condition [facility] Vitamin D deficiency Active Condition [facility] Diagnosis: ICD-10-CM Z33.3 state, gestational carrier Active Diagnosis [facility] Diagnosis: ICD-10-CM F31.31 Bipolar disorder, current episode depressed, mild Active Diagnosis [facility] Medications Combined list of outpatient medications from [...] A DAY ORAL ACTIVE LUCIANO RIVERA 2020 [facility] HYDROCODONE 5/ACETAMINO PHEN 500MG TAB TAKE ONE TABLET BY MOUTH PRN ORAL ACTIVE ESTEBAN WALDRON 2009 [facility] IBUPROFEN TAB TAKE BY MOUTH EVERY 8 HOURS ORAL ACTIVE SADIE RAGLAND MD 2014 [facility] LISDEXAMFET AMINE DIMESYLATE 50MG CAP,ORAL TAKE 1 CAPSULE BY MOUTH ONCE A DAY ORAL ACTIVE MCQUAIDE, SAMANTA 2024 [facility] MULTIVITAMI N W/MINERALS () CAP/TAB TAKE BY MOUTH ONCE DAILY ORAL ACTIVE SADIE RAGLAND MD 2017 [facility] MULTIVITAMI NS W/MINERALS, CAP/TAB TAKE ONE TABLET BY MOUTH ONCE A DAY ORAL ACTIVE LUCIANO RIVERA 2020 [facility] NURSING CREAM,TOP W/LANOLIN APPLY LIGHTLY TO AFFECTED AREA(S) ONCE A DAY TOPICA L ACTIVE 09/24/2025 [id number] MCQUAIDE, 2024 30 [facility] TEMAZEPAM CAP,ORAL TAKE BY MOUTH [...] adverse reactions to drug (finding) active 2 COUNT INCLUDES THE [facility] LUNESTA Propensity to adverse reactions to drug (finding) Nightmares active 2 COUNT INCLUDES THE [facility] TRAZODONE Propensity to adverse reactions to drug (finding) active 2 COUNT INCLUDES THE [facility] VANCOMYCIN Propensity to adverse reactions to drug (finding) Eruption active 0 [facility] VANCOMYCIN Propensity to adverse reactions to drug (finding) Itching, Urticaria active 2 COUNT INCLUDES THE [facility] VANCOMYCIN Propensity to adverse reactions to drug (finding) Urticaria active 9 [facility] Immunizations Combined list of available immunizations from the Department of Defense and Veterans Affairs facilities. Immunization Series Date Given Administered By Site Reaction Lot Number CVX Code Drug Chief Scientific Officer Status Comments Source INFLUENZA, UNSPECIFIED FORMULATION 2021 88 complet ed [facility] COVID-19 (MODERNA), MRNA, LNP-S, PF, 100 MCG/0.5ML DOSE OR 50 MCG/0.25ML DOSE 2 2021 207 complet ed [facility] INFLUENZA, UNSPECIFIED FORMULATION 2020 88 complet ed [facility] COVID-19 (ZOHRA), VECTOR-NR, RS-AD26, PF, 0.5 ML 1 2020 212 complet ed [facility] INFLUENZA, UNSPECIFIED FORMULATION 2019 88 complet ed [facility] INFLUENZA, UNSPECIFIED FORMULATION 2018 88 complet ed [facility] TDAP 2018 115 complet ed Right Deltoid [facility] TD (ADULT), 5 LF TETANUS TOXOID, PRESERVATIVE FREE, ADSORBED 2017 113 complet ed [facility] INFLUENZA, UNSPECIFIED FORMULATION 2016 88 complet ed received at [facility] PNEUMOCOCCAL POLYSACCHARID E PPV23 2015 NONE 33 complet ed Right Deltoid [facility] INFLUENZA, UNSPECIFIED FORMULATION 2015 88 complet ed [facility] INFLUENZA, UNSPECIFIED FORMULATION 2013 88 complet ed COUNT INCLUDES THE [facility] INFLUENZA, UNSPECIFIED FORMULATION 2011 88 complet [facility] HPV, QUADRIVALENT 2011 SARA CHONG 62 complet ed [facility] INFLUENZA (HISTORICAL) 2010 88 complet ed COUNT INCLUDES [facility] INFLUENZA, UNSPECIFIED FORMULATION 2010 88 complet ed [facility] INFLUENZA (HISTORICAL) 2009 88 complet [facility] HEP A-HEP B 2009 104 complet [facility] INFLUENZA (HISTORICAL) 2009 88 complet [facility] HEP A-HEP B 2008 104 complet [facility] INFLUENZA (HISTORICAL) 2007 88 complet [facility] HEP A-HEP B 2007 104 complet ed COUNT INCLUDES [facility] MMR 2007 03 complet ed COUNT INCLUDES [facility] TDAP 2007 115 complet ed COUNT INCLUDES [facility] TDAP 2007 115 complet ed [facility] HRJ-UTY-HIEPE ULAR PERTUSSIS (ADULT) (HISTORICAL) 2006 139 complet ed COUNT INCLUDES [facility] Encounters Combined list of: 1) Encounters from Department of [facility] Affairs facilities going backup to the last 18 months, not all [place] inpatient encounters are included; 2) Encounters from the Department of [facility] facilities going backup to 280 months. Location Location Details Encounter Type Encounter Number Reason For Visit Attending Provider ADM Date DC Date Status Disposition Source [facility] Outpatient Encounter [id number] Dar SHIRLEY 04/16 [facility] Outpatient Encounter [id number] DARNELL CORNEJO 08/24 [facility] Outpatient Encounter [id number] LISA BARRIENTOSDar HILea I 09/27 [facility] OFFICE O/P EST MOD 30 MIN [id number] Diagnos is: ICD-10- CM F31.31 Bipolar disorde r, current episode depress ed, mild Dar SHIRLEY 11/05 [facility] Outpatient Encounter [id number] OVERTURFBrody ESSE A 09/22 [facility] OFFICE O/P EST MOD 30 MIN [id number] Diagnos is: ICD-10- CM Z33.3 Pregnan t state, gestati onal carrier Dar SHIRLEY 09/23 [facility] Social History Combined list of available smoking, tobacco, and other 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 Social History Type Response Date Comment Sourc e Tobacco smoking status NHIS VA-TOBACCO QUIT 1 TO < 5 YRS 11/06/2023 [facility] History of tobacco use VA-TOBACCO FORMER USER 11/06/2023 [facility] History of tobacco use VA-TOBACCO FORMER USER 10/31/2022 [facility] History of tobacco use VA-TOBACCO USER S OME DAYS 11/11/2021 [facility] History of tobacco use VA-TOBACCO DOESNT USE WI 30 MIN WAKEUP 03/04/2020 [facility] History of tobacco use VA-TOBACCO QUIT < 1 YEAR 03/03/2019 [facility] History of tobacco use VA-TOBACCO DOESNT [...] use CURRENT TOBACCO USER 05/30/2010 [facility]
[2024-11-01] MEDS: BETAMETHASONE SOD PHOS/ACETATE 30 MG/5 ML VIAL 12 MG IM (12:09)
== END 2024-11-01 12:00 | disposition home or self-care (01) ==
LOC: ANHOBOP 12:02
PROVIDERS: PCP Family Medicine; Visit Provider Obstetrics & Gynecology Gynecology
DX: Z34.90 Encounter for supervision of normal pregnancy, unspecified, unspecified trimester (principal); Z3A.00 Weeks of gestation of pregnancy not specified
CPT/HCPCS: 96372; J0702

== ENCOUNTER 2024-11-02 08:12 | Inpatient (IN) | payer OTHER, SELFPAY ==
[2024-11-02] VITALS (54 sets, daily range): BP systolic 102–128; BP diastolic 60–85; PULSE 69–120; RESP 16–17; TEMP 36.3–36.8; O2SAT 86–100; BMI 29.2
--- OUTSIDE RECORDS SUMMARY | 2024-11-02 08:16 | XMS_ITS | Referral Summary ---
Author Organization [facility] Address [address] [place] [address] Care Team Providers Care Railway Engineer Name Role Phone No, Physician Primary Care Provider [phone] Randell Man MD Unavailable [phone] Encounters Date Type Department Care Team Description 09/25/2024 3:30 PM OPTOMETRY ASSISTANT Office Visit [facility] [address] [place] [address] Medical Office Building [address] [place] [address] Randell Man MD Hemorrhoids, unspecified [...] mouth 3 (three) times a day Active TEV79-woco cb,ph-jjzch-jfz -dha 27-1-50-250 mg combo pack Take by [...] on file Legal Sex Female 12:46 PM OPTOMETRY ASSISTANT Gender Identity Not on file Sexual Orientation Not on file Last Filed Vital Signs Vital Sign Reading Time Taken Comments Blood Pressure 132/80 09/25/2024 3:05 PM OPTOMETRY ASSISTANT Pulse 75 09/25/2024 3:05 PM OPTOMETRY ASSISTANT Temperature - - Respiratory Rate - - Oxygen Saturation 100% 09/25/2024 3:05 PM OPTOMETRY ASSISTANT Inhaled Oxygen Concentration - - Weight 79.8 kg (176 lb) 09/25/2024 3:05 PM OPTOMETRY ASSISTANT Height 167.6 cm (5' 6 ) 09/25/2024 3:05 PM OPTOMETRY ASSISTANT Body Mass Index 28.41 09/25/2024 3:05 PM OPTOMETRY ASSISTANT Plan of Treatment Not on file Insurance [facility] CHOICE [facility] CLAIMS Care Teams Railway Engineer Relationship Specialty Start Date End Date No, Physician PCP - General 09/22/19 Randell Man MD [phone] [place] [address] Surgeon Colon and Rectal Surgery 09/25/24
--- OUTSIDE RECORDS SUMMARY | 2024-11-02 08:16 | XMS_ITS | Clinical Summary ---
Author Organization [facility] Address [address] [place] [address] Care Team Providers Care Bogger Operator Name Role Phone No, Physician Primary Care Provider [phone] Randell Man MD Unavailable [phone] Allergies Active Allergy Reactions Criticality Noted Date Comments Zolpidem Other (See comments) Low 10/02/2019 Insomnia,nightmares. Vancomycin Hives Medium 10/02/2019 Medications ibuprofen (ADVIL,MOTRIN) 600 mg tablet Take 600 mg by mouth every 6 (six) hours as needed for pain Active baclofen (LIORESAL) 10 mg tablet Take 10 mg by mouth 3 (three) times a day Active QSQ04-rfos cb,we-vzuau-ugs -dha 27-1-50-250 mg combo pack Take by [...] Department Care Team Description 09/25/2024 3:30 PM BODY AND FENDER WORKER Office Visit [facility] Surgery [address] Medical Office Building [address] [place] [address] Randell Man MD Hemorrhoids, unspecified [...] on file Legal Sex Female 12:46 PM BODY AND FENDER WORKER Gender Identity Not on file Sexual Orientation Not on file Obstetrics History Last Filed Vital Signs Vital Sign Reading Time Taken Comments Blood Pressure 132/80 09/25/2024 3:05 PM BODY AND FENDER WORKER Pulse 75 09/25/2024 3:05 PM BODY AND FENDER WORKER Temperature - - Respiratory Rate - - Oxygen Saturation 100% 09/25/2024 3:05 PM BODY AND FENDER WORKER Inhaled Oxygen Concentration - - Weight 79.8 kg (176 lb) 09/25/2024 3:05 PM BODY AND FENDER WORKER Height 167.6 cm (5' 6 ) 09/25/2024 3:05 PM BODY AND FENDER WORKER Body Mass Index 28.41 09/25/2024 3:05 PM BODY AND FENDER WORKER Plan of Treatment Health Maintenance Due Date [...] patient's age to complete this topic Insurance [facility] CHOICE [facility] CLAIMS Care Teams Bogger Operator Relationship Specialty Start Date End Date No, Physician PCP - General 2/24/20 Randell Man MD [phone] [place] [address] Surgeon Colon and Rectal Surgery 09/25/24
--- OUTSIDE RECORDS SUMMARY | 2024-11-02 08:16 | XMS_ITS | Clinical Summary ---
Author Organization [facility] Address [address] [place] [address] Care Team Providers Care Fur Blender Name Role Phone Benedict Spears MD Primary Care Provider [phone] Source Comments [facility],non-owned Affiliates and Associated Physician Practices is amultiple site organization consisting of ambulatory clinics and hospital sitesin [place], [place], [place] and [place]. This disclosure is being madepursuant to the Care Everywhere program and may not contain all information available regarding this patient. Last updated 18.[facility] R-Squared Allergies Active Allergy Reactions Criticality Noted Date [...] Virus Chichi valent Vaccine 11/02/2011 INFLUENZA A S9M0-04 VACCINE 08/08/2009 INFLUENZA VACCINE 04/14/2023, 1,03/30/2020,04/25,04/10/2017,05/20/2016,04/29/2014 ,04/29/2012,03/30/2011,06/15/2008 [...] this topic Medical Devices Implanted Type Area Brass Wind Instrument Maker Device Identifier Shelf Expiration Date Model / Serial / Lot 1.6mm K Wires Implanted:Qty: 2 on 03/08/2022 by Ganesh Escalante MD at [facility] 10/25/2025 [id number] / [id number] / [id number] Procedures Procedure Name Priority Date/Time Associated Diagnosis Comments HIV-1 HIV-2 ANTIBODY + HIV P24 AG PANEL Routine 11/13/2022 10:20 AM CDT Visit for screening GTT 1 HR (50G) GESTATIONAL SCREEN Routine 11/13/2022 9:35 AM CDT Visit for screening HEPATITIS C ANTIBODY Routine 07/28/2022 5:05 PM OPTOMETRIC ASSISTANT screening encounter from Last 3 Months or Most Recently Relevant to Health Maintenance Results * HIV-1 HIV-2 ANTIBODY + HIV P24 AG PANEL (11/13/2022 10:20 AM CDT) [facility] HIV1/2 Ab + P24 Ag Non Reactive Non Reactive 11/13/2022 11:04 AM CDT [facility] Blood BLOOD SPECIMEN / Unknown Lab Venipuncture / Unknown 11/13/2022 10:20 AM CDT 11/13/2022 10:19 AM CDT Narrative [facility] - 11/13/2022 11:04 AM CDT No Laboratory evidence of HIV infection. Cristina GALLOWAY LAB - CHEMISTRY ORDERABLES Performing Organization Address [facility] Co de Phone Number [facility] [address] [place] [address] * GTT 1 HR (50G) GESTATIONAL SCREEN (11/13/2022 9:35 AM CDT) Glucose Dose Gestational 50 gm 11/13/2022 10:43 AM CDT [facility] Gestational Diabetes Screen 88 54 - <140 mg/dL 11/13/2022 10:43 AM CDT [facility] Blood BLOOD SPECIMEN / Unknown Lab Venipuncture / Unknown 11/13/2022 9:35 AM CDT 11/13/2022 10:19 AM CDT Cristina Mccann APRN-BRAD LAB - CHEMISTRY ORDERABLES Performing Organization Address [facility] Co de Phone Number [facility] [address] [place] [address] * HEPATITIS C ANTIBODY (07/28/2022 5:05 PM OPTOMETRIC ASSISTANT) [facility] HCV Antibody Screen Non Reactive Non Reactive 07/28/2022 6:06 PM OPTOMETRIC ASSISTANT [facility] Blood BLOOD SPECIMEN / Unknown Lab Venipuncture / Unknown 07/28/2022 5:05 PM OPTOMETRIC ASSISTANT 07/28/2022 5:20 PM OPTOMETRIC ASSISTANT Narrative [facility] - 07/28/2022 6:06 PM OPTOMETRIC ASSISTANT Non Reactive - Antibodies to Hepatitis C virus (HCV) were not detected, result does not exclude early acute HCV infection. Sade Marin MD LAB - CHEMISTRY ORD ERABLES [facility] [address] [place], [place] [phone] from Last 3 Months or Most Recently Relevant to Health Maintenance Care Teams Fur Blender Relationship Specialty Start Date End Date Benedict Spears MD [address] [place] [address] RAYO Ramírez [phone] PCP - General Family Medicine 12/25/23
--- OUTSIDE RECORDS SUMMARY | 2024-11-02 08:16 | XMS_ITS | Clinical Summary ---
Author Organization [facility] Address [address] [place] [address] Care Team Providers Care Trimmer Helper Name Role Phone Unavailable Primary Care Provider [...] daily. 60 Capsule 1 07/21/2024 5:48 PM SHORE WORKING SUPERVISOR Active doxylamine (UNISOM) 25 mg Tablet Take by mouth. Activ e Active Problems Problem Noted Date Diagnosed Date Short cervix affecting 07/21/2024 Comments Yes Encounters Date Type Department Care Team Description 10/15/2024 External Device Data [facility] ABSTRACTION Provider, Abstract 10/15/2024 External Device Data [facility] ABSTRACTION Provider, Abstract 10/13/2024 7:08 AM CDT - 10/13/2024 11:59 PM CDT Hospital Encounter [facility] Maternal and Health [facility] [address] [place] [address] Sade Marin MD Discharge Disposition: Home or Self Care 10/04/2024 External Device Data [facility] ABSTRACTION Provider, Abstract 10/03/2024 External Device Data [facility] ABSTRACTION Provider, Abstract 09/30/2024 External Device Data [facility] AB[facility]CTION Provider, Abstract 09/17/2024 External Device Data [facility] AB[facility] Provider, Abstract 09/16/2024 External Device Data [facility] Provider, Abstract 08/21/2024 7:11 AM SHORE WORKING SUPERVISOR - 08/21/2024 11:59 PM SHORE WORKING SUPERVISOR Hospital Encounter [facility] and Health [facility] [address] [place] [address] Miriam Chanel MD Discharge Disposition: Home or [...] Sex Assigned at Female 07/21/2024 9:38 AM SHORE WORKING SUPERVISOR Legal Sex Female 7:37 PM CDT Gender Identity Not on file Sexual Orientation Not on file Last Filed Vital Signs Vital Sign Reading Time Taken Comments Blood Pressure 112/64 07/21/2024 5:15 PM SHORE WORKING SUPERVISOR Pulse 88 07/21/2024 5:17 PM SHORE WORKING SUPERVISOR Temperature 36.6 C (97.9 F) 07/21/2024 3:37 PM SHORE WORKING SUPERVISOR Respiratory Rate 22 07/21/2024 5:17 PM SHORE WORKING SUPERVISOR Oxygen Saturation 99% 07/21/2024 5:17 PM SHORE WORKING SUPERVISOR Inhaled Oxygen Concentration - - Weight 74.4 kg (164 lb) 07/21/2024 11:15 AM SHORE WORKING SUPERVISOR Height 167.6 cm (5' 6 ) 07/21/2024 11:15 AM SHORE WORKING SUPERVISOR Body Mass Index 26.47 07/21/2024 11:15 AM SHORE WORKING SUPERVISOR Plan of Treatment Upcoming Encounters Date Type Department Care Team (Late st Contact Info) Description 12/07/2024 Hospital Encounter [facility] Labor & [address] [place] [address] Odette Cruz MD [address] [place] [address] Health Maintenance Due Date Last [...] UP PER FETUS Routine 08/21/2024 7:47 AM SHORE WORKING SUPERVISOR History of delivery, currently from Last 3 Months Results * US OB FOLLOW UP PER FETUS (10/13/2024 7:41 AM CDT) Only the most recent of2 resultswithin the time period is included. Anatomical Region Laterality Modality Pelvis Ultrasound 10/13/2024 7:11 AM CDT Narrative 10/13/2024 8:23 AM CDT ST[facility] FOLLOW UP ----- Pat. Name: ALINE CERDA Study Date: 10/13/2024 7:11am Pat. NO: [id number] Referring MD: SADE MARIN MD Site: [facility] Staffing Recruiter: Holly Petit RDMS : 1990 Age: 34 ----- INDICATION ----- Advanced Maternal Age (AMA), Multigravida w/History Labor Screening Follow-Up Cervix, Incompetent with or without Cerclage CODING ----- Diagnoses Z3A.32: Weeks of gestation O34.33: Maternal care for cervical incompetence Z36.2: Encounter for other screening follow-up O09.213: Supervision of with history of pre-term labor O09.523: Supervision of elderly multigravida Procedures 28432: Ultrasound, uterus, real time with image documentation, [...] 4 lb 13 oz EFW by Hadlock ([id number]) Extremities / Bony Struc Biometry: FL / [...] and date of were verified by the grinding machine tender prior to the exam IMPRESSION ----- Impression: [...] Pat. Name:PRASHANT Maikol Date:10/13/2024 7:11am Pat. NO: [id number] :SADE MARIN MD [facility]Holly Petit RDMS :1990Age:34 ----- INDICATION ----- Advanced Maternal Age (AMA), Multigravida w/History Labor Screening Follow-Up Cervix, Incompetent with or without Cerclage CODING ----- Diagnoses Z3A.32: Weeks of gestation O34.33: Maternal care for cervical incompetence Z36.2: Encounter for other screeningfollow-up O09.213: Supervision of with history ofpre-term labor O09.523: Supervision of elderly multigravida Procedures 38255: Ultrasound, uterus, real time withimage documentation, follow up, transabdominal approach per fetus HISTORY ----- OB History 3. Para 1 METHOD ----- Transabdominal ultrasound examination ----- Rao . Number of fetuses: 1 DATING ----- GA by prior [id number] w + 1 d CODY by prior [...] 4 lb 13 oz EFW by Hadlock ([id number]) Extremities / Bony Struc Biometry: FL / [...] and date of were verified by the grinding machine tender prior tothe exam IMPRESSION ----- Impression: Rao [...] from Last 3 Months Insurance [employer] [facility]
--- OUTSIDE RECORDS SUMMARY | 2024-11-02 08:16 | XMS_ITS | Data Portability ---
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 Annual labs in 12/21. [email or web address] Not available 12/13/2023 17:59:28 01/28/2024 01/28/2024 33 [...] bring MRI results. Annual labs in 12/21. [email or web address] Not available 01/28/2024 18:02:43 05/05/2024 05/05/2024 35 [...] by Ortho. Cont f/u with Psych at [place] as per schedule. Cont f/u with Ortho at [facility] as per schedule. Cont f/u with Gyne as per schedule. Educated pt about alarming symptoms to monitor at home. HM: WWE - 03/21, normal as per pt. Cont f/u with Gyne as per schedule. Flu - Pt gets at her work. Tdap - 2020. Gardasil - Pt had it. F/u PRN/Annually. Pt to bring MRI results. Annual labs in 12/21. [email or web address] Not available 05/05/2024 18:01:30 Plan of Treatment Reminders Order Date Submit Date Provider Last Modified By Organization Details Last Modified Time Details Appointments Physical/ Annual Wellness 30 2024 04:30P Kenneth Spears MD Not available Not available Not available Lab lipid panel, serum [address] (Lab), [address] [place], [address], 04/28/2024 10:45:22 glycohemo globin, total, blood [address] (Lab), [address] [place], [address], 12/20/2023 07:59:24 CBC w/ auto diff [address] (Lab), [address] [place], [address], 12/20/2023 07:59:23 CMP, serum or plasma [address] (Lab), [address] [place], [address], 12/20/2023 07:59:23 lipid panel, serum [address] (Lab), [address] [place], [address], 12/20/2023 07:59:23 TSH, serum, reflex free T4 [address] (Lab), [address] [place], [address], 12/20/2023 07:59:23 urinalysi s complete, reflex culture [address] (Lab), [address] [place], [address], 12/20/2023 07:59:23 vitamin D, 25-hydrox y, total, serum [address] (Lab), [address] [place], [address], 12/20/2023 07:59:23 Referral psychiatr ist referral 2023 024 [email or web address] Rodreick Mckeon MD, [address], [facility] [address], [place], [address], 12/20/2023 17:15:41 Procedures None recorded. Surgeries None recorded. Imaging None recorded. Medication Orders docusate sodium 100 mg capsule 2023 [facility] #56442, [address] [place], [place], [id number], 05/05/2024 17:55:07 ciproflox acin 500 mg tablet [address] [facility] #45465, [address] [place], [place], [id number], 05/05/2024 17:50:50 phenazopy ridine 200 mg tablet [address] [facility] #86276, [address] [place], [place], [id number], 05/05/2024 17:50:58 lurasidon e 40 mg tablet [address] [facility] #81389, [address] [place], [place], [id number], 05/05/2024 17:51:51 venlafaxi ne ER 75 mg capsule,e xtended release 24 hr 2023 [address]24 [address] [facility], [address] [place], [place], [id number], 05/05/2024 17:51:11 methylphe nidate ER 54 mg tablet,ex tended release 24 hr [address] [facility] #71899, [address] [facility], [place], [place], [id number], 05/05/2024 17:51:46 methylphe nidate ER 54 mg tablet,ex tended release 24 hr [address] [facility] #27437, [address] [facility], [place], [place], [id number], 05/05/2024 17:51:46 lurasidon e 40 mg tablet [address] [facility] #44305, [address] [facility], [place], [place], [id number], 05/05/2024 17:51:51 venlafaxi ne ER 75 mg capsule,e xtended release 24 hr [address] [facility] #72757, [address] [facility], [place], [place], [id number], 05/05/2024 17:51:11 methylphe nidate ER 36 mg tablet,ex tended release 24 hr 2023 024 [email or web address] [facility] #98414, [address] [place], [place], [id number], 11/21/2023 13:16:12 triamcino lone acetonide 0.1 % topical cream 2023 024 REBECCA [facility] #62371, [address] [facility], [place], [place], [id number], 08/01/2023 14:50:38 Patient TargetsNo targets recorded. Patient Instructions Encounter Date Encounter Id Patient Instructions Last Modified By Organization Details Last Modified Time 01/28/2024 [id number] high cholesterol : care instructions [email or web address] Not available 01/28/2024 17:55:48 05/05/2024 [id number] high cholesterol : care instructions [email or web address] Not available 05/05/2024 17:53:14 Reason for Referral [...] trime ster No observ ation record ed. [email or web address] [facility] [address], [place], [address], 05/05/2024 17:50:21 Result Notes None recorded. Problems Name Problem SNOMED Code Status Onset Date Resolution Date Notes Provider Name and Address Organization Details Recorded Time Mixed anxiety and depressive disorder 449186571 Active 2021 Not Available [facility] 3 00:58:23 Chronic constipati on 553392633 Active 2021 Not Available [facility] 3 00:58:23 Lumbar spondylosi s 667824637 Active 2021 Not Available [facility] 3 00:58:23 Bilateral tinnitus 6025527027796 Active 2021 Not Available [facility] 3 00:58:23 Hemorrhoid s 07664137 Active 2022 Maria Antonia Ding MD [address], [address], [place], [address] , [employer] [facility] 3 16:11:21 External hemorrhoid s 73872080 Active 2022 Maria Antonia Ding MD [address], [place], [address] , [employer] [facility] 3 12:35:27 Onychomyco sis of toenails 803335645 Active 2022 KASSIE Turner [address], [place], [address] , [facility] 3 08:34:08 Headache 38856318 Active 2022 Fredrick LeonardoCORINNE savageP [address], [address], [place], [address] , [employer] [place] [facility] 3 08:42:23 Pruritic rash 98835736 Active 2022 Fredrick LeonardoCORINNE savageP [address], [address], [place], [address] , [employer] [place] [facility] 3 08:47:49 Chronic back pain 522684274 Active 2022 Fredrick CORINNE SykesP [address], [address], [place], [address] , [employer] [place] [facility] [employer] 3 13:25:02 Poor concentrat ion 38985397 Active 2022 Maria Antonia Ding MD [address], [address], [place], [address] , [employer] [facility] [employer] [facility] [employer] 3 14:21:11 Cough 12140943 Active 2022 Maria Antonia Ding MD [address], [address], [place], [address] , [employer] [facility] [employer] 3 12:46:51 Eruption 723794911 Active 2023 Maria Antonia Ding MD [address], [address], [place], [address] , [employer] [facility] 4 14:47:06 Pain in throat 376553746 Active 2023 Maria Antonia Ding MD [address], [address], [place], [address] , [employer] [place] [facility] 4 13:21:33 Attention deficit hyperactiv ity disorder 285672852 Active 2023 Maria Antonia Ding MD [address], [address], [place], [address] , [employer] [place] [facility] 4 17:15:32 Bipolar disorder 06927708 Active 2023 Benedict Spears MD [address], [address], [place], [address] , [employer] [facility] 4 17:33:41 Depressive disorder 31172434 Active 2023 Benedict Spears MD [address], [address], [place], [address] , [employer] [facility] 4 17:33:47 Anxiety disorder 645623750 Active 2023 Benedict Spears MD [address], [address], [place], [address] , [employer] 4 17:33:53 Chronic neck pain 2940092139418 Active 2023 Benedict Spears MD [address], [place] [address], [place], [address] , [employer] [facility] [employer] [facility] 4 17:34:12 Chronic low back pain 727936484 Active 2023 Benedict Spears MD [address], [address], [place], [address] , [employer] [facility] 4 17:34:20 Overweight 262014842 Active 2023 Benedict Spears MD [address], [place] [address], [place], [address] , [employer] [facility] [employer] [facility] 4 17:34:41 Chronic idiopathic constipati on 21151446 Active 2023 Benedict Spears MD [address], [address], [place], [address] , [employer] [facility] [employer] [facility] 4 17:34:55 Vitamin D deficiency 86858405 Active 2023 Benedict Spears MD [address], [address], [place], [address] , [employer] [facility] [facility] 4 17:35:12 Attention deficit hyperactiv ity disorder, predominan tly inattentiv e type 13258055 Active 2023 Benedict Spears MD [address], [address], [place], [address] , [employer] 17:38:49 Urinary tract infectious disease 02483512 Active 2023 Benedict Spears MD [address], [address], [place], [address] , [employer] 17:51:24 Hyperlipid emia 43323053 Active 2023 Benedict Spears MD [address], [address], [place], [address] , [employer] 17:54:30 Problem Notes None recorded. Procedures Surgical History Date Name Laterality Status Provider Name and Address Organization Details Recorded Time 03/14/20 23 excision of septum of uterus completed KASSIE Turner [address], [address], [place], [address], [employer] 04/03/2023 08:40:59 03/08/20 22 open reduction of fracture with internal fixation completed Not Available [facility] 09/28/2022 00:57:24 07/30/19 22 Date of Last Pap Smear completed Benedict Spears MD [address], [address], [place], [address], [employer] 12/13/2023 17:29:18 nasal septoplasty completed Not Available [facility] 09/28/2022 00:57:24 Imaging Results Imaging Date Name Status LastModified by Organiz ation Details LastModified Time 04/22/2024 US, obstetric, 1st trimester completed [email or web address] [facility] [address], [place], [address], 05/05/2024 17:50:21 Procedure Notes None recorded. Medical Equipment None Reported. Allergies Allergen ID Allergen Name Allergen Category Reaction Reaction Severity Criticality Documentation Date Start Date Code Code System Note Provider Name and Address Organization Details Recorded Time 25374 vancomyci n medicatio n Not available Not available Not available 09/28/2022 83035 RxNorm Red Man Not Available [employer] 3 00:59:51 27171 vaccine adjuvant system, AS01B liposomal medicatio n rash Not available Not available 09/28/2022 66611 UNK Not Available [facility] 3 00:59:52 Medications Name Sig Start Date [...] Updated DateTime 4 170.18 cm 27.3 kg/m2 17680.0 7 g 97.7 [degF] 94 /min 99 % 99 % 122 mm[Hg] 80 mm[Hg] Yashira Daniel RN [facility] 14:33:45 Date Recorded Body height Body mass index (BMI) Body weight Body temperature Heart rate Oxygen saturation Oxygen saturation in Arterial blood by Pulse oximetry Provider Name and Address Organization Details Last Updated DateTime 4 170.18 cm 27.6 kg/m2 10625.2 6 g 98 [degF] 87 /min 96 % 96 % Yashira Daniel RN [facility] 4 16:58:43 Date Recorded Systolic blood pressure Diastolic blood pressure Provider Name and Address Organization Details Last Updated DateTime 11/01/2023 138 mm[Hg] 79 mm[Hg] Maria Antonia Ding MD [address] [place] [address], [address], [place] [employer] [facility] 11/01/2023 17:07:43 Date Recorded Body height Body mass index (BMI) Body weight Body temperature Heart rate Respiratory rate Oxygen saturation Oxygen saturation in Arterial blood by Pulse oximetry Systolic blood pressure Diastolic blood pressure Provider Name and Address Organization Details Last Updated DateTime 4 170.18 cm 27.3 kg/m2 30432.0 7 g 98.1 [degF] 78 /min 16 /min 97 % 97 % 106 mm[Hg] 78 mm[Hg] Eleazar Calixto [employer] [facility] 4 17:27:14 Date Recorded Body height Body mass index (BMI) Body weight Body temperature Heart rate Respiratory rate Oxygen saturation Oxygen saturation in Arterial blood by Pulse oximetry Systolic blood pressure Diastolic blood pressure Provider Name and Address Organization Details Last Updated DateTime 4 170.18 cm 25.5 kg/m2 54942.9 1 g 98.1 [degF] 76 /min 20 /min 98 % 98 % 110 mm[Hg] 70 mm[Hg] Eleazar Calixto [facility] 4 17:45:19 Date Recorded Body height Body mass index (BMI) Body weight Body temperature Heart rate Respiratory rate Oxygen saturation Oxygen saturation in Arterial blood by Pulse oximetry Systolic blood pressure Diastolic blood pressure Provider Name and Address Organization Details Last Updated DateTime 4 170.18 cm 24.6 kg/m2 12482 g 98.1 [degF] 80 /min 20 /min 98 % 98 % 102 mm[Hg] 70 mm[Hg] Eleazar Calixto [facility] 4 17:48:06 Social History Question Answer Notes LastModified by Hemp 4 [place] ion Details LastModified Time Tobacco Smoking Status Never [facility] 08/01/2023 14:29:20 Do You Have An Advance Directive? No [email or web address] Information not available 12/13/2023 What Is Your Level Of Alcohol Consumption? Moderate [email or web address] Information not available 12/13/2023 What Is Your Level Of Caffeine Consumption? Moderate Information not available 12/13/2023 How Much Tobacco Do You Chew? 2-4/day Information not available 12/13/2023 What Type Of Diet Are You Following? REGULAR [id number] Information not available 09/28/2022 What Was The Date Of Your Most Recent Tobacco Screening? 02/09/2022 [email or web address] Information not available 08/01/2023 What Is Your Relationship Status? [email or web address] Information not available 12/13/2023 Do You Or Have You Ever Used Smokeless Tobacco? Former Smokeless Tobacco User [email or web address] Information not available 12/13/2023 How Much Tobacco Do You Smoke? No [email or web address] Information not available 12/13/2023 Do You Have Any Dietary Restrictions? No [email or web address] Information not available 08/01/2023 How Many Years Have You Used Smokeless Tobacco? 10 [email or web address] Information not available 12/13/2023 Sex: Unknown Functional Status Question Answer Note LastModified by Organization D etails LastModified Time What is your exercise level? Moderate [email or web address] Information not available 12/13/2023 Mental Status None recorded. Family History Relationship Description Onset Age of this Age Resolved Age Notes LastModified by Organization Details LastModified Time Father Heart disease [id number] Not available 09/28/2022 00:57:24 Mother Seizure disorder [email or web address] Not available 2023 17:29:07 Mother Seizure 1 Not available 12/13/2023 17:29:07 Maternal Grandmother Seizure 1 [email or web address] Not available 11/27 17:29:07 Medical History Condition Response BLINDNESS N RHEUMATIC FEVER N KIDNEY STONES N BLADDER PROBLEMS N MRSA N OTHER # 1 N POLIO N LUNG DISEASE/DISORDER N HISTORY OF DRUG ABUSE N COPD N RADIATION / CHEMOTHERAPY N Other # 2 N BLOOD DISEASES N SURGERY N EAR OR HEARING PROBLEMS N MUMPS N SHINGLES N FEMALE PROBLEMS / INFECTIONS N DEPRESSION (INCLUDING POST ) N BOWEL PROBLEMS N STROKE/TIA N THYROID DISEASE N ULCERS N BENIGN PROSTATIC HYPERPLASIA N MEASLES N CERVICALGIA N HYPOTENSION N TB SKIN TEST N MYOCARDIAL INFARCTION N OBESITY N PARAPELGIA N GERD/NAUSEA N ANEURYSM N URINARY/BLADDER/KIDNEY PROBLEMS [...] HAVE YOU BEEN HOSPITALIZED OR SEEN IN [facility] IN THE PAST YEAR ? [...] PF 05/13/2023 completed Benedict Spears MD [address] [facility], [address], [place], [address], [employer] [facility] 12/13/2023 17:29:02 SARS-COV-2 (COVID-19) vaccine, UNSPECIFIED 02/15/2021 completed Benedict Spears MD [address] [facility], [address], [place], [address], [employer] 12/13/2023 17:29:02 SARS-COV-2 (COVID-19) vaccine, UNSPECIFIED 02/15/2022 completed Benedict Spears MD [address] [facility], [address], [place], [address], [employer] 12/13/2023 17:29:02 Past Encounters Encounter ID Performer Location Encounter Start Date Encounter Closed Date Diagnosis/Indication Diagnosis SNOMED-CT Code Diagnosis ICD10 Code Diagnosis Note [id number] [facility] Primary Care [facility] [address] [facility] [address] [facility] [place] [address] 02/09/2022 00:00:00 02/20/2022 16:24:03 [id number] S_G Primary Care [facility] [address] [facility] [address] [facility] [place] [address] 03/20/2022 00:00:00 03/20/2022 08:23:17 [id number] [facility] Primary Care [facility] [email or web address] [address] [place] [address] [address] [place], [place] [address] 04/24/2022 00:00:00 04/24/2022 08:19:45 [id number] [facility]_G Primary Care Sander jamese [address] [place] [address] [address] [place] [address] 05/29/2022 00:00:00 05/29/2022 08:16:56 [id number] [facility] Primary Care Sander jamese [address] [place] [address] [address] [place] [address] 07/10/2022 00:00:00 07/10/2022 08:17:01 [id number] S_G Primary Care Floriss[place]brenda jamese [address] [place] [address] [address] [place] [address] 08/09/2022 00:00:00 08/09/2022 08:21:00 [id number] Maria Antonia Ding MD [facility] Primary Care [place]brenda jamese [address] [place] [address] [address] [place] [address] 10/24/2022 12:07:21 10/24/2022 12:54:50 External hemorrhoids 02998459 K64.4 Avoid dry toilet paperIncre ase water/fibe r and avoid straining with stoolsSitz baths TID prnf/u in 1 week or sooner if needed [id number] KASSIE Turner S_[facility] Primary Care [place]brenda jamese [address] [place] [address] [address] [place] [address] 04/03/2023 08:09:22 04/03/2023 09:52:54 Mixed anxiety and depressive disorder 838500210 F41.8 Improved but not to goal on current dose. Will add venlafaxin e 75mg back to the 150mg. Highly encouraged pt to consider counseling . Denies any SI/HI at this time. Pt to stop medication and be seen if s/e develop. Pt to call or send update through portal in 2 weeks. Onychomyco sis of toenails 549124355 B35.1 ChronicCon tinue with topical antifungal treatment. Unable to take oral meds as she is still breastfeed ing. Advised to perform brown mouthwash soaks and apply vapor rub to affected nails daily in the meantime.R TO 3-6 months for f/u Headache 72841824 R51.9 New problemNot able to manage with [...] breastfeed ing her 3 month-old. Pruritic rash 41320158 L 28.2 New problemLik tomy candidal. Advised to apply otc topical yeast medication to external tissues.Cu stomary discussion of prescribed medication benefits, side effects, and compliance was done. Patient was instructed on proper skin care. If no improvemen t over the next week, will consider rx strength medication . [id number] Maria Antonia Ding MD [facility] Primary Care [address] [place] [address] 08/01/2023 14:28:31 08/01/2023 14:52:45 Eruption 857079601 R21 eczemadisc ussed care of dry, sensitive skinshorte r, cooler showersavo id lotions/so aps/produc ts with perfumes/d yesemollie nt lotions regularly [id number] Maria Antonia Ding MD [facility] Primary Care [address] [place] [address] 11/01/2023 16:49:38 11/01/2023 17:18:35 Attention deficit hyperactivity disorder 379153546 F90.9 Dx by psychiatry failed nonstimula ntstrial of methylphen idate ER 36 mg dailyPt understand s this medication has risk for abuse/depe ndence and agrees to take it only as prescribed and to guard from loss/theft f/u in 4 weeks or sooner if needed [id number] Benedict Spears MD [address] [address] 12/13/2023 17:21:01 12/13/2023 17:58:15 Adult health examination 975863661 Z00.00 Bipolar disorder 5058552 4 F31.9 Depressive disorder 3548 9007 F32.A Anxiety disorder 1909524 06 F41.9 Chronic neck pain 962862 9338 107 M54.2 Chronic low back pain 27 4677211 M54.50 Overweight 490996217 E66 .3 Chronic id iopathic constipation 02945379 K59.04 Vitamin D deficiency 347 31459 E55.9 Attention deficit hyperactivity disorder, predominantly inattentive type 10281441 F90.0 [id number] Benedict Spears MD [place] [address] 01/28/2024 17:39:47 01/28/2024 17:59:48 Bipolar disorder 30339084 F31.9 Depressive disorder 3548 9007 F32.A Anxiety disorder 7435568 06 F41.9 Chronic neck pain 101087 3190 107 M54.2 Chronic low back pain 27 9090692 M54.50 Overweight 145503781 E66 .3 Chronic id iopathic constipation 08154154 K59.04 Vitamin D deficiency 347 55412 E55.9 Improved Attention deficit hyperactivity disorder, predominantly inattentive type 88749093 F90.0 Urinary tr act infectious disease 32039927 N39.0 Hyperlipidemia 40460953 E78.5 [id number] Benedict Spears MD [place] [address] 05/05/2024 17:37:46 05/05/2024 17:57:56 Depressive disorder 51564841 F32.A Bipolar disorder 3052565 4 F31.9 Anxiety disorder 3931974 06 F41.9 Chronic neck pain 763062 4178 107 M54.2 Chronic low back pain 27 1680525 M54.50 Chronic id iopathic constipation 80271930 K59.04 Vitamin D deficiency 347 46339 E55.9 Improved Attention deficit hyperactivity disorder, predominantly inattentive type 57660773 F90.0 Hyperlipidemia 80015612 E78.5 Diet controlled Health Concerns Section Related [...] - [facility] ( - PPO) Trevor Zeinab [id number] Aline Arriola 11/01/2023 1 E[facility] - DOS PRIOR TO 2024 - [employer] - [place] ( - PPO) Trevorhiram Arriola [id number] Aline Arriola 12/13/2023 1 [facility] - DOS PRIOR TO 2024 - [employer] - [place] ( - PPO) Trevorhiram Arriola [id number] Aline Arriola 01/28/2024 1 EAST - DOS PRIOR TO 2024 - [employer] - [place] ( - PPO) Trevorhiram Arriola [id number] Aline Arriola 05/05/2024 1 [place]AST - DOS PRIOR TO 2024 - [employer] - [place] ( - PPO) Trevorabimbola Arriola [id number] Aline Arriola Notes Date Note Type Note [...] Ding MD [address], [address], [place], [address], [facility] 08/29/2023 11:59:50 11/01/2023 text/html did not notice a ny improvement with nonstimulant medication for ADHD. She was doing telehealth with psychiatry and they referred her back here since they cannot prescribe stimulants from his state. No chest pain or sob. Focus/concentration issues affect her quality of life. Maria Antonia Ding MD [address], [address], [place], [address], [employer] 12/10/2023 09:49:55 12/13/2023 text/html New pt visit: 33 yo F is here to establish her care. Pt was seeing PCP at [place] in the past. Pt needs refill on [...] and she is f/u with Ortho at [facility] for it. Benedict Spears MD [address], [facility] [address], [place], [address], [employer] 12/13/2023 17:59:42 01/28/2024 text/html Pt is here [...] and she is f/u with Ortho at [facility] for it. Benedict Spears MD [address], [facility] [address], [place], [address], [employer] 01/28/2024 18:03:20 05/05/2024 text/html Pt is here for f /u on her lab and chronic conditions. Doing overall better. Denies any problem with meds. Pt is 9 weeks . A0 and she is f/u with her OB for this. Her OB and her Psych has talked about her medications to continue during this . Pt is f/u with Psych at [place] for her mood and is on meds by them. Denies any mood swings/SI/HI. Pt has chronic neck and low back pain due to workman's comp and she is f/u with Ortho at [facility] for it. Benedict Spears MD [address] [place] [address], [place], [address], [place] [facility] 05/05/2024 18:01:52 OBGyn Episode No OBEpisode recorded.
--- OUTSIDE RECORDS SUMMARY | 2024-11-02 08:17 | XMS_ITS | Continuity of Care Document ---
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 It does not include entries that were removed or entered in error. Problem Status Onset Date Problem Type Date of Resolution Comments Source Allergic rhinitis due to allergen Active Condition [facility] Cervicalgia Active Condition [facility] Cervicovaginal cytology: Low grade squamous intraepithelial lesion (SNOMED CT 527304634) Active Condition May 10, 2012 Entered By: PETRA WOODWARD PA-C Comment: colposcopy 10/2011 [facility] CN - Constipation Active Condition [facility] Depressive disorder Active Condition [facility] Dysmenorrhea Active Condition [facility] Dysmenorrhoea Active Condition [facility] FAMILY HISTORY Active Condition May Entered By: [...] children [facility] Insomnia (SNOMED CT 353459994) Active Condition [facility] Irritable bowel syndrome characterised by alternating bowel habit Active Condition [facility] Low back pain (SNOMED CT 972255952) Active Condition [facility] Low Back Pain * (ICD-9-CM 724.2) Active Condition [facility] Lumbar radiculopathy Active Condition [facility] Oral contraception Active Condition [facility] [...] 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 [facility] Tinnitus Active Condition [facility] Tobacco use Active Condition [facility] Vitamin D deficiency Active Condition [facility] Diagnosis: ICD-10-CM Z33.3 state, gestational carrier Active Diagnosis [facility] Diagnosis: ICD-10-CM F31.31 Bipolar disorder, current episode depressed, mild Active Diagnosis [facility] Medications Combined list of outpatient medications from [...] A DAY ORAL ACTIVE LUCIANO RIVERA 2020 [facility] HYDROCODONE 5/ACETAMINO PHEN 500MG TAB TAKE ONE TABLET BY MOUTH PRN ORAL ACTIVE ESTEBAN WALDRON 2009 [facility] IBUPROFEN TAB TAKE BY MOUTH EVERY 8 HOURS ORAL ACTIVE SADIE RAGLAND MD 2014 [facility] LISDEXAMFET AMINE DIMESYLATE 50MG CAP,ORAL TAKE 1 CAPSULE BY MOUTH ONCE A DAY ORAL ACTIVE MCQUAIDE, SAMANTA 2024 [facility] MULTIVITAMI N W/MINERALS () CAP/TAB TAKE BY MOUTH ONCE DAILY ORAL ACTIVE SADIE RAGLAND MD 2017 [facility] MULTIVITAMI NS W/MINERALS, CAP/TAB TAKE ONE TABLET BY MOUTH ONCE A DAY ORAL ACTIVE LUCIANO RIVERA 2020 [facility] NURSING CREAM,TOP W/LANOLIN APPLY LIGHTLY TO AFFECTED AREA(S) ONCE A DAY TOPICA L ACTIVE 09/24/2025 [id number] MCQUAIDE, 2024 30 [facility] TEMAZEPAM CAP,ORAL TAKE BY [...] adverse reactions to drug (finding) active 2 [facility] LUNESTA Propensity to adverse reactions to drug (finding) Nightmares active 2 [facility] TRAZODONE Propensity to adverse reactions to drug (finding) active 2 [facility] VANCOMYCIN Propensity to adverse reactions to drug (finding) Eruption active [address] [facility] VANCOMYCIN Propensity to adverse reactions to drug (finding) Itching, Urticaria active 2 [facility] VANCOMYCIN Propensity to adverse reactions to drug (finding) Urticaria active 9 [facility] Immunizations Combined list of available immunizations from the Department of Defense and Veterans Affairs facilities. Immunization Series Date Given Administered By Site Reaction Lot Number CVX Code Drug Baby Formula Mixer Status Comments Source INFLUENZA, UNSPECIFIED FORMULATION 2021 88 complet ed [facility] COVID-19 (MODERNA), MRNA, LNP-S, PF, 100 MCG/0.5ML DOSE OR 50 MCG/0.25ML DOSE 2 2021 207 complet ed [facility] INFLUENZA, UNSPECIFIED FORMULATION 2020 88 complet ed [facility] COVID-19 (ZOHRA), VECTOR-NR, RS-AD26, PF, 0.5 ML 1 2020 212 complet ed [facility] INFLUENZA, UNSPECIFIED FORMULATION 2019 88 complet ed [facility] INFLUENZA, UNSPECIFIED FORMULATION 2018 88 complet ed [facility] TDAP 2018 115 complet ed Right Deltoid [facility] TD (ADULT), 5 LF TETANUS TOXOID, PRESERVATIVE FREE, ADSORBED 2017 113 complet ed [facility] INFLUENZA, UNSPECIFIED FORMULATION 2016 88 complet ed received at [facility] PNEUMOCOCCAL POLYSACCHARID E PPV23 2015 NONE 33 complet ed Right Deltoid [facility] INFLUENZA, UNSPECIFIED FORMULATION 2015 88 complet ed [facility] INFLUENZA, UNSPECIFIED FORMULATION 2013 88 complet ed [facility] INFLUENZA, UNSPECIFIED FORMULATION 2011 88 complet [facility] HPV, QUADRIVALENT 2011 SARA CHONG 62 complet ed [facility] INFLUENZA (HISTORICAL) 2010 88 complet ed [facility] INFLUENZA, UNSPECIFIED FORMULATION 2010 88 complet ed [facility] INFLUENZA (HISTORICAL) 2009 88 complet [facility] HEP A-HEP B 2009 104 complet [facility] INFLUENZA (HISTORICAL) 2009 88 complet [facility] HEP A-HEP B 2008 104 complet [facility] INFLUENZA (HISTORICAL) 2007 88 complet [facility] HEP A-HEP B 2007 104 complet ed [facility] MMR 2007 03 complet ed [facility] TDAP 2007 115 complet ed [facility] TDAP 2007 115 complet ed [facility] SPF-[id number]-[id number] ULAR PERTUSSIS (ADULT) (HISTORICAL) 2006 139 complet ed [facility] Encounters Combined list of: 1) Encounters from Department of [facility] Affairs facilities going backup to the last 18 months, not all [place] inpatient encounters are included; 2) Encounters from the Department of [facility] [place] facilities going backup to 280 months. Location Location Details Encounter Type Encounter Number Reason For Visit Attending Provider ADM Date DC Date Status Disposition Source [facility] Outpatient Encounter [id number] Dar SHIRLEY 04/16 [facility] Outpatient Encounter [id number] DARNELL CORNEJO 08/24 [facility] Outpatient Encounter [id number] LISA BARRIENTOSDar HILea I 09/27 [facility] OFFICE O/P EST MOD 30 MIN [id number] Diagnos is: ICD-10- CM F31.31 Bipolar disorde r, current episode depress ed, mild Dar SHIRLEY 11/05 [facility] Outpatient Encounter [id number] OVERTURFBrody ESSE A 09/22 [facility] OFFICE O/P EST MOD 30 MIN [id number] Diagnos is: ICD-10- CM Z33.3 Pregnan t state, gestati onal carrier Dar SHIRLEY 09/23 [facility] Social History Combined list of available smoking, tobacco, and other 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 Social History Type Response Date Comment Sourc e Tobacco smoking status NHIS VA-TOBACCO QUIT 1 TO < 5 YRS 11/06/2023 [facility] History of tobacco use VA-TOBACCO FORMER USER 11/06/2023 [facility] History of tobacco use VA-TOBACCO FORMER USER 10/31/2022 [facility] History of tobacco use VA-TOBACCO USER S OME DAYS 11/11/2021 [facility] History of tobacco use VA-TOBACCO DOESNT USE WI 30 MIN WAKEUP 03/04/2020 [facility] History of tobacco use VA-TOBACCO QUIT < 1 YEAR 03/03/2019 [facility] History of tobacco use VA-TOBACCO [...] use CURRENT TOBACCO USER 05/30/2010 [facility]
[2024-11-02] MEDS: ACETAMINOPHEN 500 MG TABLET 1000 MG PO (08:58)
[2024-11-02 09:01] LABS: Basophils Percent Auto 0.1 % (0.2-1.2); Hematocrit 37.8 % (37.0-47.0); Hemoglobin 12.4 g/dL (12.0-15.0); Immature Granulocyte Absolute 0.18 K/mm3 (0.00-0.031); Immature Granulocyte Percent A 1.2 % (0-0.5); Lymphocytes Absolute Auto 1.36 K/mm3 (0.9-3.2); Lymphocytes Percent Auto 9.3 % (18.3-44.2); Mean Corpuscular HGB Conc 32.8 g/dl (32-36); Mean Corpuscular Hemoglobin 29.6 pg (26-34); Mean Corpuscular Volume 90.2 fl (80-100); Mean Platelet Volume 11.2 fl (7.4-10.4); Monocytes Absolute Auto 1.2 K/mm3 (0.1-0.6); Monocytes Percent Auto 8.2 % (2.6-8.5); Neutrophils Absolute Auto 11.8 K/mm3 (1.3-6.7); Neutrophils Percent Auto 81.2 % (45.5-73.1); Platelet Count Result 214 k/mm3 (150-375); Red Blood Count 4.19 M/mm3 (4.2-5.4); Red Cell Distribution Width 12.5 % (11.5-14.5); White Blood Count 14.6 K/mm3 (4.5-10.0)
[2024-11-02] MEDS: LACTATED RINGERS 1,000 ML 125 ML IV CONT (09:05)
--- NOTE | 2024-11-02 09:06 | PM.IMHP ---
H&P: HPI History of Present Illness Date/Time: 11/02/24 09:06 Chief Complaint: Rupture of membranes at 35 weeks Narrative: This is a 34-year-old 3 para [id number] who is EDC is 12/07/2024 by early ultrasound presents at 35 weeks gestation with ruptured membranes she had a very complicated history including a previous T-incision for and breech at 32 weeks she had a septum removed in April. She also has anxiety. The B strep is pending at this point. She is grossly ruptured and her cerclage which was placed by Maternal Medicine was removed by me today. Review of Systems Review of Systems: All systems reviewed & are unremarkable except as noted in HPI and below PMFSH Past Medical History Medical History and not yet delivered labor Healthy female adult Surgical History Surgical History No pertinent past surgical history Family History Family History Mother Seizure Grandparent Seizure Social History Social History Smoking status: Never smoker Second hand tobacco smoke exposure: No Substance use: current Do You Feel Safe in your Home?: Yes Lack of Transportation: No Lack of Food: Never True Current Housing: I Have Housing Concerned About Future Housing: No Difficulty Paying Gas/Electric Bills: No Difficulty Paying for Meds: No Currently Unemployed: No Education: Bachelor's Degree Difficulty w/ Childcare or Family Care: No Spiritual care concerns: No Meds Home Medications and Allergies Home Medications ?Medication ?Instructions ?Recorded ?Confirmed ?Type doxylamine succinate 25 mg tablet 25 mg PO DAILY 10/06/21 10/30/24 History (Unisom (doxylamine)) [id number] 1 mg 1 tablet PO DAILY 10/06/21 10/30/24 History tablet cholecalciferol (vitamin D3) 125 125 mcg PO DAILY 10/20/24 10/30/24 History mcg (5,000 unit) capsule docusate sodium 100 mg capsule 100 mg PO BID 10/20/24 10/30/24 History lisdexamfetamine 50 mg capsule 50 mg PO QAM 10/20/24 10/30/24 History (Vyvanse) progesterone micronized 100 mg 200 mg vaginal TID 10/20/24 10/30/24 History vaginal insert vilazodone 20 mg tablet 20 mg PO DAILY 10/20/24 10/30/24 History magnesium oxide 500 mg capsule 500 mg PO HS 10/30/24 10/30/24 History nifedipine 10 mg capsule 10 mg PO Q6H PRN Cramps #60 caps 11/01/24 Rx Allergies Allergy/AdvReac Type Severity Reaction Status Date / Time vancomycin Allergy Unknown Verified 10/30/24 19:52 Vital Signs Vital Signs - 24 hr 11/02/24 08:27 11/02/24 08:31 11/02/24 08:50 Pulse Rate 116 H 120 H 117 H Blood Pressure 121/74 122/73 128/73 11/02/24 09:01 Pulse Rate 113 H Blood Pressure 102/75 Exam Const: General: cooperative, healthy appearing and comfortable Nutritional Appearance: average body habitus Orientation/consciousness: oriented to person, oriented to place and oriented to time HENMT: Head: normal to inspection Resp: Effort & Inspection: normal respiratory effort Cardio: Rate: regular rate Rhythm: regular rhythm Heart sounds: S1 normal heart sound present and S2 normal heart sound present GI: Inspection: normal to inspection : External Female Exam: normal external appearance Speculum Exam - Vagina: normal appearance of the vagina Speculum Exam - Cervix: normal appearance of the cervix (The cerclage was moved clear fluid is seen) H&P: Results Labs Labs: Short CBC 11/02/24 Range/Units 08:53 WBC 14.6 H (4.5-10.0) K/mm3 Hgb 12.4 (12.0-15.0) g/dL Hct 37.8 (37.0-47.0) % Plt Count 214 (150-375) k/mm3 Assessment and Plan Assessment and plan (1) labor: Qualifiers: labor trimester: third trimester labor delivery status: with delivery in third trimester Fetus number: single or unspecified fetus Qualified Code(s): O60.14X0 - labor third trimester with delivery third trimester, not applicable or unspecified Code(s): O60.00 - labor without delivery, unspecified trimester Status: Acute (2) Delivery by section using T-shaped incision: Code(s): O82 - Encounter for delivery without indication Status: Acute (3) premature rupture of membranes: Code(s): O42.919 - premature rupture of membranes, unspecified as to length of time between rupture and onset of labor, unspecified trimester Status: Acute Plan The cerclage has been removed. Will proceed with repeat low-transverse section. She did receive steroids x2
[2024-11-02 09:21] LABS: OBXCEM ROM Plus Positive (Negative)
[2024-11-02] MEDS: FAMOTIDINE 20 MG/2 ML VIAL IV PUSH (09:33)
[2024-11-02] MEDS: ONDANSETRON INJ 4 MG/2 ML VIAL IV PUSH (09:33)
[2024-11-02] MEDS: ceFAZolin 2 GM/D5W 50 ML 2 GM/50 ML BAG IVPB (09:40)
[2024-11-02 09:44] LABS: Syphilis IgG/IgM Antibody Negative (Negative)
[2024-11-02 09:58] LABS: HIV 1/2 Ab P24 Ag Result Negative (Negative)
--- NOTE | 2024-11-02 10:25 | P.PNAN_ITS ---
Anes - Initial Pre Proc Eval Procedure: C/S Date/Time: 11/02/24 10:25 Surgeon: Leslie Pre Op Diagnosis: previous C/s Pre Op Diagnosis: Leaking Patient Data Age: 34 Gender: F Height: 1.68 m Weight: 82 kg Last Vital Signs Pulse 102 H 11/02/24 09:31 BP 128/76 11/02/24 09:31 O2 Del Method Room Air 11/02/24 09:08 Allergies Allergy/AdvReac Type Severity Reaction Status Date / Time vancomycin Allergy Unknown Verified 10/30/24 19:52 Home Medications ?Medication ?Instructions ?Recorded ?Confirmed ?Type doxylamine succinate 25 mg tablet 25 mg PO DAILY 10/06/21 10/30/24 History (Unisom (doxylamine)) [id number] 1 mg 1 tablet PO DAILY 10/06/21 10/30/24 History tablet cholecalciferol (vitamin D3) 125 125 mcg PO DAILY 10/20/24 10/30/24 History mcg (5,000 unit) capsule docusate sodium 100 mg capsule 100 mg PO BID 10/20/24 10/30/24 History lisdexamfetamine 50 mg capsule 50 mg PO QAM 10/20/24 10/30/24 History (Vyvanse) progesterone micronized 100 mg 200 mg vaginal TID 10/20/24 10/30/24 History vaginal insert vilazodone 20 mg tablet 20 mg PO DAILY 10/20/24 10/30/24 History magnesium oxide 500 mg capsule 500 mg PO HS 10/30/24 10/30/24 History nifedipine 10 mg capsule 10 mg PO Q6H PRN Cramps #60 caps 11/01/24 Rx hydrocodone 5 mg-acetaminophen 325 1 tablet PO Q4H PRN pain #30 tabs 11/02/24 Rx mg tablet Laboratory Tests 11/02/24 11/02/24 08:53 09:08 WBC 14.6 H K/mm3 (4.5-10.0) RBC 4.19 L M/mm3 (4.2-5.4) Hgb 12.4 g/dL (12.0-15.0) Hct 37.8 % (37.0-47.0) MCV 90.2 fl (80-100) MCH 29.6 pg (26-34) MCHC 32.8 g/dl (32-36) RDW 12.5 % (11.5-14.5) Plt Count 214 k/mm3 (150-375) MPV 11.2 H fl (7.4-10.4) Immature Gran % (Auto) 1.2 H % (0-0.5) Neut % (Auto) 81.2 H % (45.5-73.1) Lymph % (Auto) 9.3 L % (18.3-44.2) George % (Auto) 8.2 % (2.6-8.5) Eos % (Auto) 0.0 % (0-4.4) Baso % (Auto) 0.1 L % (0.2-1.2) Lymph # (Auto) 1.36 K/mm3 (0.9-3.2) George # (Auto) 1.2 H K/mm3 (0.1-0.6) Eos # (Auto) 0.0 K/mm3 (0-0.3) Baso # (Auto) 0.0 K/mm3 (0.0-0.1) Abs Immat Gran (auto) 0.18 H K/mm3 (0.00-0.031) Absolute Neuts (auto) 11.8 H K/mm3 (1.3-6.7) Absolute Nucleated RBC 0.000 K/mm3 (0.0-0.012) Nucleated RBC % 0.0 % (0.0-0.2) Membranes Rupture Rom plus positive (Negative) Syphilis IgG/IgM Ab Negative (Negative) HIV 1&2 Ab/P24 Ag 4thGn Negative (Negative) Blood Type A Negative Antibody Screen Negative Patient hx anesthesia problems: none Family hx anesthesia problems: none Results Review: All pre-operative results and documents have been reviewed as part of the pre- operative evaluation. [facility] Past Medical History Medical History and not yet delivered labor Healthy female adult Surgical History Surgical History No pertinent past surgical history Family History Family History Mother Seizure Grandparent Seizure Social History Social History Smoking status: Never smoker Second hand tobacco smoke exposure: No Substance use: current Do You Feel Safe in your Home?: Yes Lack of Transportation: No Lack of Food: Never True Current Housing: I Have Housing Concerned About Future Housing: No Difficulty Paying Gas/Electric Bills: No Difficulty Paying for Meds: No Currently Unemployed: No Education: Bachelor's Degree Difficulty w/ Childcare or Family Care: No Spiritual care concerns: No Anes - Eval Final PreProcedure Day of Procedure 11/02/24 10:25 Patient weight: obese Heart: regular rate and rhythm Lungs: clear to auscultation and normal air movement Airway: Mallampati scale class II Neurological: alert and oriented Last oral intake: >/= 8 hours ASA classification: II Emergent: no Anesthetic plan: proceed Anesthesia type and monitoring: regional spinal and standard monitoring Results Review: All pre-operative results and documents have been reviewed as part of the pre- operative evaluation. Informed Consent: The patient's anesthetic plan and its attendant risks and benefits were discussed with the patient/family/POA. Questions were solicited and answers provided to the satisfaction of the patient/family/POA.
--- NOTE | 2024-11-02 10:29 | W.PM.OBCSD ---
OB - Delivery Note Procedure Delivery date: 11/02/24 Pre-op diagnosis: Premature Rupture of Membranes and Previous Delivery Post-op Diagnosis: Same Induction method: None Delivery monitor: External FHT and External Uterine Prior to decision for section, ACOG/SMFM labor guidelines were considered and discussed with the patient and staff. Decision made to proceed with the section.: Yes Procedure Performed: Repeat Surgeon: Jaiden Cooney MD Anesthesia type: Spinal Description of Procedure/Findings: Patient was admitted with spontaneous rupture membranes at term she had a cerclage that a previous the placed in had a previous T'd incision the cerclage was removed after gross rupture of membranes was noted. After obtained formed consent she was taken back prepped draped in normal sterile fashion placed in supine position. Under excellent spinal anesthetic the abdomen was entered in Pfannenstiel fashion progressive layers of fascia fascia incised in midline carried up about fashion bilaterally. Underlying muscles sharply dissected. Parietal perineum male by Tiffanie clamps and by sharp dissection. This was carried superiorly and inferiorly dome of the bladder. Bladder blade was placed. Bladder flap was formed. Bladder blade returned. Low-transverse incision made head delivered the KILO position. Anterior posterior shoulder delivered spontaneously. Cord clamped x2 and cut infant passed off the table with an excellent cry. Placenta delivered intact manually. Uterus delivered on the abdomen moist wrapped in a moist towel. After assuring no membranes or debris remained in the uterus, the uterus was closed with continuous running locking 0 Vicryl from lateral edge to lateral edge. This followed by 2nd imbricating running locking 0 Vicryl from lateral edge to lateral edge. Hemostasis was assured. There was a large fibroid at the near the corneal of the left fallopian tube ovaries and tubes otherwise appeared within normal limits. The uterus was returned to the abdomen when hemostasis was assured. The laps removed and accounted for and the hysterotomy incision inspected 1 last time noted be hemostatic. The fascia closed with continuous running 0 Vicryl from lateral edge to lateral edge irrigation subcutaneous layer and the skin closed with 4 Monocryl and glue QBL was 630cc. All sponge, needle, instrument counts were correct. There were no immediate complications Specimen: No Estimated Blood Loss: 630 Drains: No Packing: No Pathology: None sent Complications: No immediate complications Condition: Stable Disposition: PACU Baby Date of : 11/02/24 Time of : 10:07 Gestational Age by Date: 34 Infant gender: Male Weight (pounds): 6 Weight (ounces): 3 presentation: vertex position: Right Occiput Anterior Placenta delivery description: Manual Removal Cord Vessel Description: 3 Vessels score one minute: 8 score five minutes: 9
--- NOTE | 2024-11-02 10:33 | P.DS_ITS ---
DS: Admitting Diagnosis Discharge Date 11/06/2024 Admitting Diagnosis rupture membranes/previous section DS: Discharge Diagnosis Discharge Diagnosis (1) Delivery by section using T-shaped incision: Code(s): O82 - Encounter for delivery without indication Status: Acute (2) premature rupture of membranes: Code(s): O42.919 - premature rupture of membranes, unspecified as to length of time between rupture and onset of labor, unspecified trimester Status: Acute DS: Summary Hospital Course Reason for hospitalization: Patient was admitted with ruptured membranes at 35 weeks gestation she had history of labor and delivery and a T'd . She had cerclage placed by [facility] and this was removed on admission and she underwent low-transverse section Hospital Course: Patient's hospital course was unremarkable. She remained afebrile. She was up, voiding without difficulty, eating regular diet, ambulating, and generally was without complaints. Time Spent with Patient Time attestation: Total time spent providing and/or coordinating discharge services: Exam Const: General: cooperative, healthy appearing and comfortable Nutritional Appearance: average body habitus Orientation/consciousness: oriented to person, oriented to place and oriented to time HENMT: Head: normal to inspection Resp: Effort & Inspection: normal respiratory effort Cardio: Rate: regular rate Rhythm: regular rhythm Heart sounds: S1 normal heart sound present and S2 normal heart sound present GI: Inspection: normal to inspection : External Female Exam: normal external appearance Speculum Exam - Vagina: normal appearance of the vagina Speculum Exam - Cervix: normal appearance of the cervix (The cerclage was moved clear fluid is seen) DS: Data Data Completed and Pending Labs on day of discharge: Labs from last 24 hours 11/02/24 11/02/24 09:08 08:53 WBC 14.6 H RBC 4.19 L Hgb 12.4 Hct 37.8 MCV 90.2 MCH 29.6 MCHC 32.8 RDW 12.5 Plt Count 214 MPV 11.2 H Immature Gran % (Auto) 1.2 H Neut % (Auto) 81.2 H Lymph % (Auto) 9.3 L [place] % (Auto) 8.2 Eos % (Auto) 0.0 Baso % (Auto) 0.1 L Lymph # (Auto) 1.36 [place] # (Auto) 1.2 H Eos # (Auto) 0.0 Baso # (Auto) 0.0 Abs Immat Gran (auto) 0.18 H Absolute Neuts (auto) 11.8 H Absolute Nucleated RBC 0.000 Nucleated RBC % 0.0 Membranes Rupture Rom plus positive Syphilis IgG/IgM Ab Negative HIV 1&2 Ab/P24 Ag 4thGn Negative Blood Type A Negative Antibody Screen Negative Discharge Plan Discharge Attending physician on discharge: Jaiden Gan Consulting providers: Aung Angel; Bryn Wild Discharging Clinician: Sade Marin Patient Disposition: Home Activity: may shower, no straining, may drive after 2 weeks and pelvic rest Diet: heart healthy Wound Care Instructions: follow printed instructions Discharge Instructions: Education: Follow-Up: Call your delivering provider's office for an appointment to be seen in: call for appointment BREAST CARE: * Wear a snug supportive bra. * For engorgement discomfort: Breast Feeding: * Apply warm moist washcloths * Express milk as needed to relieve engorgement * Wear loose clothing * For sore nipples: * Identify correct latch-on * Apply warm moist washcloths before and after nursing * Air dry nipples after nursing * May apply Lansinoh cream to nipples ABDOMINAL INCISION: (if applicable) * Allow incision to air dry * Do NOT use lotions for powders on your incision * When showering, allow soap and water to run over the incision, but do not wash incision EPISIOTOMY/PERINEAL CARE: * Until bleeding stops, use your brittany bottle after urinating * Change your pad frequently throughout the day * No tub baths until seen by your physician - You may shower ACTIVITY: * Rest as much as possible. * Do not exercise or lift anything heavier than your baby (such as laundry or other children.) * Avoid stairs or driving as much as possible. * Do not put anything into the vagina. No douching, tampons, or sexual activity until seen by physician. NOTIFY PHYSICIAN IF YOU HAVE ANY QUESTIONS OR IF ANY OF THE FOLLOWING SYMPTOMS OCCUR: * If your incision becomes red, swollen, or more painful than what you have experienced in the hospital. * If your vaginal bleeding becomes foul smelling. * If your vaginal bleeding becomes more heavy than a period or if your bleeding changes from pink to bright red. However, you may pass an occasional walnut- sized clot once or twice for the first week . * If you experience a sharp, shooting pain in you calves. * If you discover a hard, reddened area on your breast or if you experience flu- like symptoms. DIET: * Eat regular, well-balanced meals. * Drink plenty of fluids daily. If , drink to thirst. Pumping Plan? You are exclusively pumping at discharge. It is important to pump regularly and consistently to help initiate your milk supply. Regular milk removal is necessary for continued milk production. You need to pump at least 8 times every 24 hours. You can use hands on pumping to get better results with pumping and to encourage your breasts to produce more milk. Hands on pumping instructions:? * Massage your breasts before applying the breast pump.? * Pump both breasts at once. Use your hands to massage and compress while you pump.? * Stop pumping when the milk stops flowing? * Massage your breasts again? * End the pumping session by pumping or hand expressing one breast at a time while massaging and compressing your breast. Go back and forth between each breast until the milk stops flowing.? * Allow 25 minutes to complete this routine??? It is important to be sure you have a well-fitted pump flange. Consult your pump manual for recommended flange sizing or consult a professional.?? YOU SHOULD SET YOUR PUMP TO THE HIGHEST COMFORTABLE LEVEL. INCREASE THE SUCTION GRADUALLY UNTIL YOU REACH THE CORRECT SETTING. PUMPING SHOULD NOT HURT.? ? CONSULT YOUR PUMP MANUAL FOR GUIDANCE ON PUMP SETTINGS AND FUNTIONS. MOST PUMPS RECOMMEND 1-2 MINUTES OF THE QUICK ?MASSAGE? MODE, THEN SWITCHING TO THE SLOWER ?EXPRESSION? MODE FOR THE REMAINDER OF THE PUMPING SESSION.?Pump each breast for 10-15 minutes. Pumping will help stimulate your breasts to produce milk.? Follow the collection and storage sheet given to you in the Mom and Baby Guide. Remember to keep track of all feedings/elimination on the blue worksheet provided.? ? Clean your pump parts between each pumping session according to the guidelines in your pump manual. It is recommended that you use a basin that is reserved for washing pump parts that is separate from your sink to prevent contamination. If you are pumping for an ill or infant, you should disinfect your pump parts once a day by boiling them in hot water for 5 minutes after cleaning.? ? Ways to increase your milk supply:? * Increase frequency of pumping (10-12 times every 24 hours)? * Lots of skin to skin (if infant is able), especially before pumping? * Use warm washcloths before pumping and gentle breast massage before and during pumping? * Reduce stress, relax with music, get plenty of rest, and drink to thirst? * Warm pump flanges with warm water before pumping? * Pump until the milk stops flowing, then pump for 2 more minutes to fully empty the breast? * Pump at least once through the night, milk shouldn?t remain in the breast for longer than 4 hours? * Power pumping: Pump for 15-20 minutes, rest for 10 minutes, pump for 10, rest for 10, pump for 10. Do this routine 1-2 times a day for several days or until you notice an increase in milk supply. Pump normally between power pumping sessions.? ? You may contact the Team at [phone] for questions and appointments.? These discharge instructions have been explained to me and I have received a copy.? Patient Language: [place] Stand Alone Forms: General Discharge Information Follow-up/Referrals: Sade Marin MD [Physician] - Discharge Medications: New hydrocodone-acetaminophen 5-325 mg tablet 1 tablet PO Q4H PRN (Reason: pain) Qty: 30 0RF norethindrone (contraceptive) 0.35 mg tablet 0.35 mg PO DAILY Qty: 84 3RF Rx Instructions: start in 3 weeks Continued sxrekgrb-vrx-Js-FA 1 mg Tablet 1 tablet PO DAILY lisdexamfetamine [Vyvanse] 50 mg capsule 50 mg PO QAM vilazodone 20 mg tablet 20 mg PO DAILY cholecalciferol (vitamin D3) 125 mcg (5,000 unit) capsule 125 mcg PO DAILY docusate sodium 100 mg capsule 100 mg PO BID magnesium oxide 500 mg capsule 500 mg PO HS Discontinued Unisom (doxylamine) 25 mg Tablet 25 mg PO DAILY progesterone micronized 100 mg insert 200 mg vaginal TID nifedipine 10 mg capsule 10 mg PO Q6H PRN (Reason: Cramps) Qty: 60 0RF Date of admission: 11/02/24 08:12 Primary Care Provider: [facility] Admitting Provider: Jaiden Gan Attending physician on admission: Sade Marin Condition: Stable
[2024-11-02] MEDS: LIDOCAINE 5% PATCH 1 PATCH TRANSDERM (12:00)
[2024-11-02] MEDS: OXYTOCIN 30 UNITS/NS 500 ML 30 UNITS/500 ML BAG 125 UNITS IV CONT (12:16)
[2024-11-02] MEDS: MORPHINE SULFATE INJ (*CRX) 10 MG/ML AMP 2.5 MG IV PUSH (12:20)
--- NOTE | 2024-11-02 13:30 | SUR.PREOP ---
pt remains in the recovery room while waiting for baby to be transferred. pt VSS. Recovery over 1244.
[2024-11-02] MEDS: DEXTROSE 5%/0.45% SOD CHL 1,000 ML 125 ML IV CONT (14:31)
[2024-11-02] MEDS: HYDROcodone/acetaminophen (*CRX) 10-325 MG TABLET 1 TAB PO ×2 (14:31→17:38)
[2024-11-02] MEDS: SIMETHICONE 80 MG TAB.CHEW PO ×2 (14:31→16:30)
[2024-11-02] MEDS: ACETAMINOPHEN 325 MG TABLET 650 MG PO ×2 (14:32→20:56)
[2024-11-02] MEDS: KETOROLAC 15 MG/ML VIAL (*BKC) IV PUSH ×2 (14:32→20:57)
[2024-11-02] MEDS: DOCUSATE SODIUM 100 MG CAPSULE PO (16:30)
--- NOTE | 2024-11-02 16:44 | OBPPTRN ---
Patient transferred to post room #282 via (stretcher). Support person present. Oriented to unit, room, information board, rooming in, admission packet and security measures. Patient verbalizes understanding.
[2024-11-02] MEDS: MAGNESIUM OXIDE 400 MG TABLET PO ×2 (21:56→22:21)
[2024-11-02] MEDS: MULTIVIT/MIN/PREN/FOL AC/IRON TABLET 1 TAB PO (21:56)
[2024-11-02] MEDS: CHOLECALCIFEROL 5,000 UNITS TABLET 5000 UNITS BY MOUTH (21:57)
[2024-11-03] MEDS: HYDROcodone/acetaminophen (*CRX) 5-325 MG TABLET 1 TAB PO ×2 (00:02→05:26)
[2024-11-03] MEDS: LANOLIN (LANSINOH) 7.5 GM CREAM 1 APPLIC TOPICAL (00:04)
[2024-11-03] MEDS: diphenhydrAMINE HCl CAP 25 MG CAPSULE PO (00:40)
[2024-11-03] MEDS: ACETAMINOPHEN 325 MG TABLET 650 MG PO ×4 (03:27→22:09)
[2024-11-03] MEDS: IBUPROFEN 600 MG TABLET PO ×4 (03:28→22:08)
[2024-11-03 05:48] LABS: Basophils Percent Auto 0.3 % (0.2-1.2); Eosinophils Percent Auto 0.2 % (0-4.4); Hematocrit 30.6 % (37.0-47.0); Hemoglobin 10.1 g/dL (12.0-15.0); Immature Granulocyte Absolute 0.13 K/mm3 (0.00-0.031); Lymphocytes Absolute Auto 1.81 K/mm3 (0.9-3.2); Lymphocytes Percent Auto 13.5 % (18.3-44.2); Mean Corpuscular Hemoglobin 30.3 pg (26-34); Mean Corpuscular Volume 91.9 fl (80-100); Mean Platelet Volume 10.8 fl (7.4-10.4); Monocytes Absolute Auto 0.9 K/mm3 (0.1-0.6); Monocytes Percent Auto 6.5 % (2.6-8.5); Neutrophils Absolute Auto 10.6 K/mm3 (1.3-6.7); Neutrophils Percent Auto 78.5 % (45.5-73.1); Platelet Count Result 181 k/mm3 (150-375); Red Blood Count 3.33 M/mm3 (4.2-5.4); Red Cell Distribution Width 12.5 % (11.5-14.5); White Blood Count 13.4 K/mm3 (4.5-10.0)
[2024-11-03] MEDS: SIMETHICONE 80 MG TAB.CHEW PO ×2 (07:22→16:16)
[2024-11-03] MEDS: DOCUSATE SODIUM 100 MG CAPSULE PO ×2 (07:23→16:16)
[2024-11-03 07:35] VITALS: BP 111/70; PULSE 85; RESP 18; O2SAT 99
--- NOTE | 2024-11-03 08:49 | P.PNOB_ITS ---
OB - PN: Subj Subjective Date/time seen: 11/03/24 08:49 Patient comments: no complaints and pain well controlled baby status: doing well (extubated already) OB - PN: Obj Data Labs 11/03/24 05:18 Labs: Laboratory Results - last 24 hr 11/02/24 11/02/24 11/03/24 08:53 09:08 05:18 WBC 14.6 H 13.4 H RBC 4.19 L 3.33 L Hgb 12.4 10.1 L Hct 37.8 30.6 L MCV 90.2 91.9 MCH 29.6 30.3 MCHC 32.8 33.0 RDW 12.5 12.5 Plt Count 214 181 MPV 11.2 H 10.8 H Immature Gran % (Auto) 1.2 H 1.0 H Neut % (Auto) 81.2 H 78.5 H Lymph % (Auto) 9.3 L 13.5 L [place] % (Auto) 8.2 6.5 Eos % (Auto) 0.0 0.2 Baso % (Auto) 0.1 L 0.3 Lymph # (Auto) 1.36 1.81 [place] # (Auto) 1.2 H 0.9 H Eos # (Auto) 0.0 0.0 Baso # (Auto) 0.0 0.0 Abs Immat Gran (auto) 0.18 H 0.13 H Absolute Neuts (auto) 11.8 H 10.6 H Absolute Nucleated RBC 0.000 0.000 Nucleated RBC % 0.0 0.0 Membranes Rupture Rom plus positive Syphilis IgG/IgM Ab Negative HIV 1&2 Ab/P24 Ag 4thGn Negative Blood Type A Negative Antibody Screen Negative OB - PN A/P Plan day: 1 Plan: routine care Time Spent With Patient Time: Total time spent is greater than 50% in coordination of care (as documented) at patient's floor/unit and/or counseling patient: Exam 2 Narrative: inc c/d/i : Bimanual exam- vagina & uterus: other (Uterus firm, nt @U)
--- NOTE | 2024-11-03 09:33 | WPDANLDPN2 ---
Anes-Prog Note L&D Date/Time: 11/03/24 09:33 Comfortable throughout: section Neuraxial method: spinal Epidural/Spinal procedure site: clean & non-tender Neuro status: Neuro function grossly intact. Cardiovascular status: normal Respiratory status: normal Airway patency: baseline Mental status: baseline Post-Op hydration status: normal Vital Signs: Last Vital Signs Temp 36.5 C 11/02/24 23:50 Pulse 85 11/03/24 07:35 Resp 18 11/03/24 07:35 BP 111/70 11/03/24 07:35 Pulse Ox 99 11/03/24 07:35 O2 Del Method Room Air 11/03/24 07:23 Pain score (VAS): 2 I/O: Intake & Output 11/02/24 11/03/24 11/03/24 23:59 07:59 15:59 Intake Total 1740 500 Output Total 2150 1800 Balance -410 -1300 Post-procedural complaints: none Patient feedback: Patient satisfied with anesthetic care.
--- NOTE | 2024-11-03 09:33 | WPDANLDNPN2 ---
Anes-Prog Note L&D-Neuraxial Date/Time: 11/03/24 09:33 Neuraxial medications: intrathecal PF morphine Opiod-related complaints: none Patient feedback: Patient satisfied with post-operative pain management.
[2024-11-03] MEDS: HYDROcodone/acetaminophen (*CRX) 10-325 MG TABLET 1 TAB PO ×3 (10:21→19:15)
--- NOTE | 2024-11-03 10:35 | PC.NURSE ---
Patient left on 6 hour pass to [facility] at 1030 am.
[2024-11-03 16:00] VITALS: BP 101/66; PULSE 79; RESP 18; TEMP 36.5; O2SAT 100
[2024-11-03] MEDS: LIDOCAINE 5% PATCH 1 PATCH TRANSDERM (16:19)
--- NOTE | 2024-11-03 17:07 | PC.NURSE ---
Patient returned to floor at 1630 (6 hour day pass to [facility] to see infant).
--- NOTE | 2024-11-03 17:11 | PC.NURSE ---
Patient returned to floor at 1600 (6 hour day pass to [facility] to see infant).
[2024-11-03 20:00] VITALS: BP 118/82; PULSE 84; RESP 14; TEMP 36.9; O2SAT 100
[2024-11-03] MEDS: CHOLECALCIFEROL 5,000 UNITS TABLET 5000 UNITS BY MOUTH (22:08)
[2024-11-03] MEDS: MULTIVIT/MIN/PREN/FOL AC/IRON TABLET 1 TAB PO (22:08)
[2024-11-03] MEDS: MAGNESIUM OXIDE 400 MG TABLET PO (22:08)
[2024-11-04 00:30] VITALS: BP 101/63; PULSE 76; RESP 16; TEMP 36.9; O2SAT 100
[2024-11-04] MEDS: HYDROcodone/acetaminophen (*CRX) 5-325 MG TABLET 1 TAB PO ×2 (00:34→08:31)
[2024-11-04] MEDS: IBUPROFEN 600 MG TABLET PO ×3 (04:15→17:21)
[2024-11-04] MEDS: ACETAMINOPHEN 325 MG TABLET 650 MG PO ×2 (04:15→17:20)
[2024-11-04 04:17] VITALS: BP 95/57; PULSE 57; RESP 14; TEMP 37; O2SAT 100
[2024-11-04 07:45] VITALS: BP 103/66; PULSE 76; RESP 18; TEMP 36.4; O2SAT 98
--- NOTE | 2024-11-04 07:57 | P.PNOB_ITS ---
OB - PN: Subj Subjective Date/time seen: 11/04/24 07:57 Patient comments: no complaints and pain well controlled baby status: doing well OB - PN: Obj Data Labs 11/03/24 05:18 OB - PN A/P Plan day: 2 Plan: routine care Time Spent With Patient Time: Total time spent is greater than 50% in coordination of care (as documented) at patient's floor/unit and/or counseling patient: Exam 2 Narrative: inc c/d/i : Bimanual exam- vagina & uterus: other (Uterus firm, nt @U)
[2024-11-04] MEDS: SIMETHICONE 80 MG TAB.CHEW PO ×3 (08:30→17:20)
[2024-11-04] MEDS: DOCUSATE SODIUM 100 MG CAPSULE PO ×2 (08:30→17:22)
[2024-11-04] MEDS: HYDROcodone/acetaminophen (*CRX) 10-325 MG TABLET 1 TAB PO ×3 (12:45→21:08)
--- NOTE | 2024-11-04 13:00 | PC.NURSE ---
This patient went on a pass to visit infant in NICU.
[2024-11-04 17:15] VITALS: BP 123/88; PULSE 85; RESP 16; TEMP 36.5; O2SAT 100
[2024-11-04] MEDS: MULTIVIT/MIN/PREN/FOL AC/IRON TABLET 1 TAB PO (21:08)
[2024-11-04] MEDS: MAGNESIUM OXIDE 400 MG TABLET PO (21:08)
[2024-11-04] MEDS: CHOLECALCIFEROL 5,000 UNITS TABLET 5000 UNITS BY MOUTH (21:08)
[2024-11-05 00:25] VITALS: BP 94/55; PULSE 79; RESP 18; TEMP 36.8; O2SAT 99
[2024-11-05] MEDS: IBUPROFEN 600 MG TABLET PO ×3 (00:25→12:53)
[2024-11-05] MEDS: LIDOCAINE 5% PATCH 1 PATCH TRANSDERM (00:25)
[2024-11-05] MEDS: ACETAMINOPHEN 325 MG TABLET 650 MG PO ×3 (00:25→12:53)
[2024-11-05 07:50] VITALS: BP 121/80; PULSE 77; RESP 16; TEMP 36.6; O2SAT 99
[2024-11-05] MEDS: DOCUSATE SODIUM 100 MG CAPSULE PO (08:02)
[2024-11-05] MEDS: HYDROcodone/acetaminophen (*CRX) 5-325 MG TABLET 1 TAB PO (08:02)
[2024-11-05] MEDS: SIMETHICONE 80 MG TAB.CHEW PO ×2 (08:02→12:52)
--- NOTE | 2024-11-05 08:10 | PC.NURSE ---
Reviewed standard discharge information with patient including pumping, milk production and transition to breast when baby is able. Mom requested a larger size flange due to some rubbing. 27mm flange given and mom is encouraged to use a small amount of lanolin before pumping if it seems to help. Offered outpatient resources with WIC referral and Services at [place]. Patient has the Mom/Baby Guide for further education and reference for common concerns, phone numbers, and guidance on when to call the doctor. A pumping plan was added to mom?s discharge plan. Patient states that she has no further questions or concerns regarding . ?
--- NOTE | 2024-11-05 08:11 | P.PNOB_ITS ---
OB - PN: Subj Subjective Date/time seen: 11/05/24 08:11 Patient comments: no complaints and pain well controlled (less pain over last day) [place] baby status: doing well OB - PN: Obj Data Labs 11/03/24 05:18 OB - PN A/P Plan day: 3 Plan: routine care and follow up 6 weeks (and 1 week incision check) Time Spent With Patient Time: Total time spent is greater than 50% in coordination of care (as documented) at patient's floor/unit and/or counseling patient: Exam 2 Narrative: inc c/d/i : Bimanual exam- vagina & uterus: other (Uterus firm, nt @U)
--- NOTE | 2024-11-05 10:52 | PC.NURSE ---
Patient instucted on viewing the discharge video Mother & Baby Care, The First Two Weeks . Patient was given the opportunity and encouraged to ask questions. Patient verbalized understanding of information shared and has been given the mother/baby guide for home reference.
[2024-11-05] MEDS: HYDROcodone/acetaminophen (*CRX) 10-325 MG TABLET 1 TAB PO (12:53)
== END 2024-11-05 12:50 | disposition home or self-care (01) | DRG 786 ==
LOC: ANHOBOP 08:15 → ANHLDR 08:17 → ANHOBOP 08:37 → ANHLDR 08:37 → ANHOB2 14:09
PROVIDERS: Admitting Provider Obstetrics & Gynecology; PCP Family Medicine; Visit Provider Obstetrics & Gynecology Gynecology
PROC: 10D00Z1 Extraction of Products of Conception, Low, Open Approach (ICD-10-PCS; CPT 59514; principal; 2024-11-02 09:30)
DX: O42.013 Preterm premature rupture of membranes, onset of labor within 24 hours of rupture, third trimester (principal); O60.14X0 Preterm labor third trimester with preterm delivery third trimester, not applicable or unspecified; Z37.0 Single live birth; Z3A.35 35 weeks gestation of pregnancy; O34.218 Maternal care for other type scar from previous cesarean delivery
CPT/HCPCS: 36415; 84112; 85025; 86593; 86703; 86850; 86900; 86901; A9270; G0432; J0690; J1200; J1885; J2270; J2274; J2405; J2590; J7120

== ENCOUNTER 2025-03-13 16:49 | Outpatient (CLI) | payer OTHER, SELFPAY ==
--- NOTE | ~2025-03-13 | XR_ITS ---
XR abdomen obstructive series 03/13/2025 17:15 INDICATION: Chronic idiopathic constipation TECHNIQUE: KUB COMPARISON: None FINDINGS: Bowel gas pattern is normal. Moderate colonic fecal loading. There is no evidence of free a ir, mass, organomegaly, ascites or obstruction. No abnormal calculi are seen. The bones appear inta ct. IMPRESSION: 1: No acute abdominal abnormality identified. Reviewed, dictated and finalized at location A.
--- OUTSIDE RECORDS SUMMARY | 2025-03-13 16:58 | XMS_ITS | Continuity of Care Document ---
Author Name [facility] Organization [facility] Care Team Providers Care Gifted Program Teacher Name Role Phone [facility] Unavailable Unavailable Problems Combined list of problems from Department of Defense and Veterans Affairs facilities. It does not include entries that were removed or entered in error. Problem Status Onset Date Problem Type Date of Resolution Comments Source Allergic rhinitis due to allergen Active Condition [facility] Cervicalgia Active Condition [facility] Cervicovaginal cytology: Low grade squamous intraepithelial lesion (SNOMED CT 744050672) Active Condition May 10, 2012 Entered By: PETRA WOODWARD PA-C Comment: colposcopy 10/2011 [facility] CN - Constipation Active Condition [facility] Depressive disorder Active Condition [facility] Dysmenorrhea Active Condition [facility] Dysmenorrhoea Active Condition [facility] FAMILY HISTORY Active Condition May Entered [...] children [facility] Insomnia (SNOMED CT 086895392) Active Condition [facility] Irritable bowel syndrome characterised by alternating bowel habit Active Condition [facility] Low back pain (SNOMED CT 516066986) Active Condition [facility] Low Back Pain * (ICD-9-CM 724.2) Active Condition [facility] Lumbar radiculopathy Active Condition [facility] Oral contraception Active Condition [facility] [...] 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 DoD HERNIATED INTERVERTEBRAL DISC LUMBAR Active Condition DoD NICOTINE DEPENDENCE Active Condition DoD LUMBAR RADICULOPATHY Active Condition DoD LUMBAGO Active Condition [facility] BULGING DISC (L5 - S1) Active Condition Do[facility] visit for: services physical Active Condition [facility] ASSESSMENT OF PATIENT CONDITION WORK-RELATED Active Condition [facility] PHARYNGITIS Inactive Condition [facility] VIRAL SYNDROME Inactive Condition Do[facility] HERNIATED DISC (L5 - S1) RIGHT Active Condition DoD tingling (paresthesia) Active Condition DoD joint pain, localized in the hip Active Condition DoD FINGER SPRAIN RIGHT HAND Active Condition DoD NON-NEOPLASTIC NEVUS Active Condition DoD foot pain (soft tissue) Active Condition Do[facility] UPPER RESPIRATORY INFECTION Active Condition DoD PATELLOFEMORAL SYNDROME Active Condition Do[facility] visit for: screening exam Active Condition Do[facility] ACUTE MENISCAL TEAR Active Condition DoD dizziness Inactive Condition [facility] Services Fitting Monofocals (Not For Aphakia) Active Condition DoD KNEE SPRAIN Active Condition DoD severe menstrual pain (dysmenorrhea) Active Condition DoD PLANTAR FASCIITIS Inactive Condition St retches ordered and demonstrated. DoD CONGENITAL FOOT DEFORMITY - TALIPES CAVUS Inactive Condition Power Steps, arch supports issued. DoD ASTIGMATISM Active Condition DoD visit for: examination of subpopulation Active Condition [facility] visit for: ears / hearing exam Inactive Condition [facility] Patient Education - Injury Prevention Active Condition Do[facility] ASSESS PATIENT CONDITION WORK-RELATED OCCUPATIONAL DISEASE Active Condition [facility] Diagnosis: ICD-10-CM Z33.3 state, gestational carrier Active Diagnosis [facility] Diagnosis: ICD-10-CM F31.31 Bipolar disorder, current episode depressed, mild Active Diagnosis [facility] Medications Combined list of outpatient medications [...] A DAY ORAL ACTIVE LUCIANO RIVERA 2020 [facility] FLUCONAZOLE (FLUCONAZOL E), 150 MG, TABLET, ORAL, [facility], 1 ea. BLIST PACK Active [id number] 2023 1 Pharmac y Data Transac [...] ONCE A DAY ORAL ACTIVE SAMANTA SHIRLEY 2024 [facility] LURASIDONE HCL (lurasidone HCl), 40 MG, TABLET, ORAL, [employer] [facility], 30 ea. BOTTLE Active [id number] 2023 30 Pharmac y Data Transac tion Service Facilit y LURASIDONE HCL (lurasidone HCl), 40 MG, TABLET, ORAL, [employer], 30 ea. BOTTLE Active [id number] 2023 30 Pharmac y Data Transac tion Service Facilit y METHYLPHENI DATE ER (methylphen idate HCl), 54 MG, TAB ER 24, ORAL, [employer] [facility], 100 ea. BOTTLE Active [id number] 2023 30 Pharmac y Data Transac tion Service Facilit y MULTIVITAMI N W/MINERALS () CAP/TAB TAKE BY MOUTH ONCE DAILY ORAL ACTIVE SADIE RAGLAND MD 2017 [facility] MULTIVITAMI NS W/MINERALS, CAP/TAB TAKE ONE TABLET BY MOUTH ONCE A DAY ORAL ACTIVE LUCIANO RIVERA 2020 [facility] NITROFURANT OIN MONO-MACRO (nitrofuran toin monohydrate /macrocryst als), 100 MG, CAPSULE, ORAL, [employer], 100 ea. BOTTLE Active [id number] 4 2023 10 Pharmac y Data Transac tion Service Facilit y NURSING CREAM,TOP W/LANOLIN APPLY LIGHTLY TO AFFECTED AREA(S) ONCE A DAY TOPICA L ACTIVE 09/24/2025 [id number] 5 SAMANTA SHIRLEY 2024 30 [facility] TEMAZEPAM CAP,ORAL TAKE BY MOUTH EVERY DAY ORAL ACTIVE SCHOENEKIMMIE ER,ESTEBAN Cooper 2009 [facility] Tretionin ([employer] 1 TUBE in 1 CARTON > 20 g in 1 TUBE Active [id number] 12/25/19 2 4 2023 20 Pharmac y Data Transac tion Service Facilit y VENLAFAXINE HCL ER (VENLAFAXIN E HCL), 150 MG, CAP ER 24H, ORAL, [employer], 90 ea. BOTTLE Cancele d [id number] : 2023 0 Pharmac y Data Transac tion Service Facilit y VENLAFAXINE HCL ER (VENLAFAXIN E HCL), 75 MG, CAP ER 24H, ORAL, [employer], 90 ea. BOTTLE Active [id number] 2023 30 Pharmac y Data Transac tion Service Facilit y VENLAFAXINE HCL ER (VENLAFAXIN E HCL), 75 MG, CAP ER 24H, ORAL, [employer], 90 ea. BOTTLE Active [id number] 2023 30 Pharmac y Data Transac tion Service Facilit y Allergies, Adverse Reactions, Alerts Combined list of allergies from Department of Defense and Veterans Affairs facilities. It does not include entries that were removed or entered in error. Substance Category Reaction Severity Reaction type Status Date Reported Comments Source AMBIEN Propensity to adverse reactions to drug (finding) active 2 [facility] LUNESTA Propensity to adverse reactions to drug (finding) Nightmares active 2 [facility] TRAZODONE Propensity to adverse reactions to drug (finding) active 2 [facility] VANCOMYCIN Propensity to adverse reactions to drug (finding) Eruption active 0 [facility] VANCOMYCIN Propensity to adverse reactions to drug (finding) Itching, Urticaria active 2 [facility] VANCOMYCIN Propensity to adverse reactions to drug (finding) Urticaria active 9 [facility] VANCOMYCIN HCL (VANCOMYCIN HCL) Drug allergy (disorder) Rash active 9 [facility] Treatment [facility] [place] [address] Immunizations Combined list of available immunizations from the Department of Defense and Veterans Affairs facilities. Immunization Series Date Given Administered By Site Reaction Lot Number CVX Code Drug Vascular Technologist Status Comments Source INFLUENZA, UNSPECIFIED FORMULATION 2021 88 complet ed HISTORICA L INFORMATI ON - SOURCE UNSPECIFI , [facility] COVID-19 (MODERNA), MRNA, LNP-S, PF, 100 MCG/0.5ML DOSE OR 50 MCG/0.25ML DOSE 2 2021 207 complet ed [facility] COVID-19, mRNA, LNP-S, PF, 100 mcg or 50 mcg dose 2021 Waqas CLIFTON [employer] (MOD) Not Given COVID-19, mRNA, LNP-S, PF, 100 mcg or 50 mcg dose DoD INFLUENZA, UNSPECIFIED FORMULATION 2020 88 complet ed [facility] COVID-19 (ZOHRA), VECTOR-NR, [id number]-AD26, PF, 0.5 ML 1 2020 212 complet ed [facility] COVID-19 vaccine, vector-nr, rS-Ad26, PF, 0.5 mL 2020 [employer] (JSN) Not Given COVID-19 vaccine, vector-nr , rS-Ad26, PF, 0.5 mL DoD INFLUENZA, UNSPECIFIED FORMULATION 2019 88 complet ed [facility] INFLUENZA, UNSPECIFIED FORMULATION 2018 88 complet ed [facility] TDAP 2018 115 complet ed Right Deltoid [facility] TD (ADULT), 5 LF TETANUS TOXOID, PRESERVATIVE FREE, ADSORBED 2017 113 complet ed [facility] INFLUENZA, UNSPECIFIED FORMULATION 2016 88 complet ed received at [facility] PNEUMOCOCCAL POLYSACCHARID E PPV23 2015 NONE 33 complet ed Right Deltoid [facility] INFLUENZA, UNSPECIFIED FORMULATION 2015 88 complet ed [facility] INFLUENZA, UNSPECIFIED FORMULATION 2013 88 complet ed [facility] INFLUENZA, UNSPECIFIED FORMULATION 2011 88 complet [facility] HPV, QUADRIVALENT 2011 SARA CHONG 62 complet ed [facility] INFLUENZA (HISTORICAL) 2010 88 complet [facility] Influenza, seasonal, injectable 1 2010 [id number] [employer] (SKB) complet ed Influenza , seasonal, injectabl e DoD INFLUENZA, UNSPECIFIED FORMULATION 2010 88 complet ed [facility] INFLUENZA (HISTORICAL) 2009 88 complet [facility] influenza virus vaccine, split virus (incl. purified surface antigen)-reti matthew CODE 1 2009 [id number] Unknown (UNK) comple t ed influenza virus vaccine, split virus (incl. purified surface antigen)- retired CODE [facility] anthrax vaccine 2 2009 [id number] [employer] [place] ([facility]) complet ed anthrax vaccine DoD HEP A-HEP B 2009 104 complet [facility] anthrax vaccine 1 2009 [id number] [employer] [place] ([facility]) complet ed anthrax vaccine DoD vaccinia (smallpox) vaccine 1 2009 [id number] 75 [facility] ([facility]) complet ed vaccinia (smallpox ) vaccine DoD typhoid Vi capsular polysaccharid e vaccine 1 2009 [id number] Sanofi Pasteur (PMC) complet ed typhoid Vi capsular polysacch aride vaccine [facility] INFLUENZA (HISTORICAL) 2009 88 complet [facility] influenza virus vaccine, split virus (incl. purified surface antigen)-reti red CODE 1 2009 UNK 15 Unknown (UNK) comple t influenza virus vaccine, split virus (incl. purified surface antigen)- retired CODE [facility] Novel influenza-H1N 1-09, injectable 1 2009 UNK 127 Unknown (UNK) comple t Novel influenza -A9N2-71, injectabl e DoD HEP A-HEP B 2008 104 complet [facility] hepatitis A and hepatitis B vaccine 3 2008 [id number] 104 [employer] (SKB) complet ed hepatitis A and hepatitis B vaccine DoD INFLUENZA (HISTORICAL) 2007 88 complet [facility] influenza virus vaccine, live, attenuated, for intranasal use 1 2007 [id number] [employer] (MED) complet influenza virus vaccine, live, attenuate d, for intranasa l use DoD HEP A-HEP B 2007 104 complet [facility] hepatitis A and hepatitis B vaccine 2 2007 [id number] 104 [employer] (SKB) complet hepatitis A and hepatitis B vaccine [facility] MMR 2007 03 complet [facility] measles, mumps and rubella virus vaccine 1 2007 UNK 03 Unknown (UNK) Not Given measles, mumps and rubella virus vaccine DoD varicella virus vaccine 1 2007 UNK 21 Unknown (UNK) Not Given varicella virus vaccine DoD TDAP 2007 115 complet ed [facility] poliovirus vaccine, inactivated 1 2007 [id number] Sanofi Pasteur (PMC) complet ed polioviru s vaccine, inactivat ed [facility] hepatitis A and hepatitis B vaccine 1 2007 [id number] 3AA 104 [employer] (SKB) complet ed hepatitis A and hepatitis B vaccine DoD meningococcal polysaccharid e (groups A, C, Y and W-135) diphtheria toxoid conjugate vaccine (MCV4P) 1 2007 [id number] 114 Sanofi Pasteur (PMC) complet ed meningoco ccal polysacch aride (groups A, C, Y and W-135) diphtheri a toxoid conjugate vaccine (MCV4P) [facility] tetanus toxoid, reduced diphtheria toxoid, and acellular pertu is vaccine, adsorbed 1 2007 [id number] 115 Sanofi Pasteur (PMC) complet ed tetanus toxoid, reduced diphtheri a toxoid, and acellular pertussis vaccine, adsorbed DoD TDAP 2007 115 complet ed [facility] [id number] ULAR PERTUSSIS (ADULT) (HISTORICAL) 2006 139 complet [facility] Encounters Combined list of: 1) Encounters from Department of Veterans Affairs facilities going backup to the last 18 months, not all VA inpatient encounters are included; 2) Encounters from the Department of Defense facilities going backup to 280 months. Location Location Details Encounter Type Encounter Number Reason For Visit Attending Provider ADM Date DC Date Status Disposition Source [facility] GERARD Corea(IEP Hearing Conservat ion Exam) OUTPATIENT [id number] LUKECOCO 02/03 Released w/o Limitations [facility] G[facility] Corea(IEP Hearing Conserv ation Exam) [facility] Corea(IEP Optometry ) OUTPATIENT [id number] ISIDRO IBARRA 02/10 Released w/o Limitations [facility] Corea(IEP Optomet ry) [facility] G[facility] Corea(C-TMC Er Module) OUTPATIENT [id number] foot pain BETZAIDA WEEMS 03/12 Released with Work/Duty Limitations [facility] [place] [place] [address](FMS , [employer]) OUTPATIENT [id number] SCALL SOILA STANTON 04/20 Released with Work/Duty Limitations [facility] [place] [address](F MS, [employer]) [place] [address](BDO Optometry [facility] OUTPATIENT [id number] CARLYN Farrell 04/27 Released w/o Limitations [facility] [place] [address](B DO Optomet ry [facility] [place] [address](FMS , [employer]) OUTPATIENT [id number] SCALL SARAH RENAE 05/04 Released with Work/Duty Limitations [facility] [place] [address](F MS, [employer]) [place] [address](FMS , [employer]) OUTPATIENT [id number] SCALL YONATAN MEDELLIN M 05/12 Released w/o Limitations [facility] [place] [address](F MS, [employer]) [place] [address](FMS , [employer]) OUTPATIENT [id number] SELFCAR HECTOR MEEK 05/19 Released w/o Limitations [facility] [place] [address](F MS, [employer]) [place] [address](FMS , [employer]) OUTPATIENT [id number] SCALL YONATAN MEDELLIN M 05/21 Released w/o Limitations [facility] [place] [address](F MS, [employer]) [place] [address](FMS , [employer]) OUTPATIENT [id number] SELFCAR Octavia RAMON ABRAM 05/27 Released w/o Limitations [facility] [place] [address](F MS, [employer] [employer]) [place] [address](FMS , [employer]) OUTPATIENT [id number] SELF CARE ORTETONYABHISHEK YENNY, TALA 06/03 Released w/o Limitations [facility] [place] [address](F MS, [employer]) [place] [address](FMS , [employer]) OUTPATIENT [id number] WALK/TR ERMIAS GARAY L 06/12 Released w/o Limitations [facility] [place] [address](F MS, [employer]) [place] [address](FMS , [employer]) OUTPATIENT [id number] SCALL SANTO BANGURA L 06/16 Released w/o Limitations [facility] [place] [address](F MS, [employer]) [place] [address](FMS , [employer]) OUTPATIENT [id number] SELFCAR E GRETTA, TY L 06/16 Released w/o Limitations [facility] [place] [address](F MS, [employer]) [place] [address](FMS , [employer]) OUTPATIENT [id number] CINDY CHAO 07/07 Released w/o Limitations [facility] [place] [address](F MS, [employer]) [place] [address](Ort hotic Prostheti c Lab [facility]) OUTPATIENT [id number] NUVIA Perez 07/07 Released w/o Limitations [facility] [place] [address](O rthotic Prosthe tic Lab [facility]) [place] [address](FMS , [employer]) OUTPATIENT [id number] SARAH PRINCE 07/16 Released with Work/Duty Limitations [facility] [place] [address](F MS, [employer]) [facility] [place]) OUTPATIENT [id number] GURPREET JIMENEZ 11/09 Released w/o Limitations [facility] [place] [facility] [place] OUTPATIENT [id number] right back and leg sx NIEBUHR, KYRA A 11/09 Released w/o Limitations [facility] [place] [place] OUTPATIENT [id number] right anterio r pelvis and right leg sx NIEBUHR, KYRA A 11/10 Released w/o Limitations [facility] [place] [place] [facility] [place] OUTPATIENT [id number] [facility] GURPREET PANDEY 11/10 Released with Work/Duty Limitations [facility] [place] [facility] [place] OUTPATIENT [id number] right pelvis and leg sx NIEBUHR, KYRA A 11/11 Released w/o Limitations [facility] [place] [place] [facility] [place] OUTPATIENT [id number] right low back and leg sx NIEBUHR, KYRA A 11/15 Released w/o Limitations [facility] [place] [place] [facility] [place] [place] [facility] OUTPATIENT [id number] inproce ssing CHIARELLI, PETRA NEBZYDOS 11/17 Released w/o Limitations [facility] [place] [facility] [facility] [place] [facility] OUTPATIENT [id number] c/o dizzine ss, bodyach es, headach e, sorethr oat CHIARELLI, PETRA NEBZYDOS 11/18 Sick at Home/Quarter s [facility] [place] [facility] [facility] [place] [facility] OUTPATIENT [id number] [facility] SIMA JARAMILLO YANET R 11/18 Released with Work/Duty Limitations [facility] [place] [facility] [place] [facility] [place] [facility] OUTPATIENT [id number] Herniat ed disc (L5 - S1) right NENA HOLLAND Mauri 11/19 Released with Work/Duty Limitations [facility] [place] [facility] [facility] [place] [facility] OUTPATIENT [id number] SIMA JARAMILLO YANET R 11/25 Released with Work/Duty Limitations [facility] [place] [facility] [facility] [place] [facility] OUTPATIENT [id number] initial f/u HUONG PENN 11/29 Released w/o Limitations [facility] [place] [facility] [facility] [place] [id number] Pas entered the order MARYANA MAY R 11/30 Released w/o Limitations [facility] [place] [facility] [place] [facility] OUTPATIENT [id number] Weekly Case Managem ent Appoint [facility] SIMA JARAMILLO YANET R 11/30 Released with Work/Duty Limitations [facility] [place] [facility] [facility] [place] [id number] MARYANA MAY R 12/02 Released w/o Limitations [facility] [place] [facility] [place] [id number] MARYANA MAY R 12/03 Released w/o Limitations [facility] [place] [facility] [place] [facility] OUTPATIENT [id number] GAO CLINT, YANET R 12/07 Released with Work/Duty Limitations [facility] [place] [facility] [facility] [place] [id number] MAZOMANIEMARYANA R 12/08 Released w/o Limitations [facility] [place] [facility] [place] [facility] OUTPATIENT [id number] c/o sleepin HUONG Brandon 12/10 Released with Work/Duty Limitations [facility] [place] [facility] [facility] [place] [id number] MAZOMANIEMARYANA R 12/10 Released w/o Limitations [facility] [place] [facility] [place] [facility] OUTPATIENT [id number] SIMA BASSEZ, YANET R 12/14 Released with Work/Duty Limitations [facility] [place] [facility] [facility] [place] [facility] OUTPATIENT [id number] SIMA ALEXISTANEZ, YANET R 12/21 Released w/o Limitations [facility] [place] [facility] [place] [facility] [place] [id number] MAZOMANIEMARYANA R 12/23 Released w/o Limitations [facility] [place] [facility] [place] [id number] follow up after PT NENA HOLLAND 12/23 Released with Work/Duty Limitations [facility] [place] [facility] [place] [id number] MAZOMANIEMARYANA R 12/28 Released w/o Limitations [facility] [place] [facility] [place] [facility] OUTPATIENT [id number] SIMA JARAMILLO YANET R 12/28 Released w/o Limitations [facility] [place] [facility] [facility] [place] [facility] OUTPATIENT [id number] med refill/ issue BOTU, BANKOLE O 12/29 Released with Work/Duty Limitations [facility] [place] [facility] [facility] [place] [facility] OUTPATIENT [id number] SIMA JARAMILLO YANET R 01/04 Released w/o Limitations [facility] [place] [facility] [facility] [place] [facility] OUTPATIENT [id number] LILY GUTIERREZ R 01/05 Released with Work/Duty Limitations [facility] [place] [facility] [facility] [place] [id number] MARYANA MAY R 01/07 Released w/o Limitations [facility] [place] [facility] [place] [facility] OUTPATIENT [id number] JAZ CHACKO 01/11 Released w/o Limitations [facility] [place] [facility] [facility] [place] [facility] OUTPATIENT [id number] periodi c f/u BOTU, BANKOLE O 01/14 Released with Work/Duty Limitations [facility] [place] [facility] [facility] [facility]) [place] [id number] MARYANA MAY R 01/18 Released w/o Limitations [facility] [facility] [place]) [place] [id number] SERGIO TINSLEY 01/19 Released w/o Limitations [facility] [place] [facility] [place] [facility] [id number] LISA MARSHALL Lea 01/19 Released w/o Limitations [facility] [place] [facility] [place] [facility] [place] [id number] f/u from ER for left had injury LILY GUTIERREZ 01/20 Released with Work/Duty Limitations [facility] [place] [facility] [facility] [place] [id number] SERGIO TINSLEY 01/21 Released w/o Limitations [facility] [place] [facility] [place] [facility] [id number] YANET GU 01/24 Released w/o Limitations [facility] [place] [facility] [place] [id number] SERGIO TINSLEY 01/25 Released w/o Limitations [facility] [place] [facility] [place] [id number] PAM RESENDIZ 01/25 Released w/o Limitations [facility] [place] [facility] [place] [id number] SERGIO TINSLEY 01/27 Released w/o Limitations [facility] [place] [facility] [place] [id number] follow up after PT NENA HOLLAND 01/27 Released with Work/Duty Limitations [facility] [place] [facility] [place] [facility] [id number] [facility] periodi c f/u BOTU, BANKOLE O 02/01 Released with Work/Duty Limitations [facility] [facility] [place] [facility] [facility] [place] [facility] [id number] SIMA JARAMILLO, YANET R 02/01 Released with Work/Duty Limitations [facility] [place] [facility] [place] [id number] HUYEN HORTON Berenice 02/03 Released w/o Limitations [facility] [place] [facility] [place] [facility] [id number] SIMA JARAMILLO, YANET R 02/08 Released with Work/Duty Limitations [facility] [place] [facility] [place] [id number] f/u MARYANA MAY R 02/08 Released w/o Limitations [facility] [place] [facility] [place] [facility] [id number] DYSMENO RRHEA ANA GOLDSMITH 02/14 Released w/o Limitations [facility] [place] [facility] [facility] [place] [facility] [id number] RAZA VIERA R 02/15 Released with Work/Duty Limitations [facility] [place] [facility] [place] [id number] MAXIMILIANO RAZA R 02/22 Released with Work/Duty Limitations [facility] [facility] [place] [facility] [place] [facility] [id number] med refill LILY GUTIERREZ R 02/22 Released with Work/Duty Limitations [facility] [place] [facility] [place] [facility] [id number] wtu periodi c f/u BOTU, BANKOLE O 03/01 Released with Work/Duty Limitations [place] [facility] [place] [facility] [place] [facility] [id number] RAZA VIERA 03/01 Released with Work/Duty Limitations [place] [facility] [place] [facility] [place] [id number] f/u per MARYANA Pond R 03/02 Released w/o Limitations [facility] [place] [facility] [place] [facility] [id number] YANET GU R 03/08 Released with Work/Duty Limitations [place] [facility] [place] [facility] [place] [id number] MARYANA MAY R 03/08 Released w/o Limitations [facility] [facility] [place] [facility] [place] [id number] PAM RESENDIZ 03/11 Released w/o Limitations [facility] [place] [facility] [place] [id number] SERGIO TINSLEY 03/14 Released w/o Limitations [facility] [place] [facility] [place] [facility] [id number] SIMA JARAMILLO YANET R 03/15 Released with Work/Duty Limitations [facility] [place] [facility] [place] [facility] [place] [id number] c/o of vomitin g BOTU, BANKOLE O 03/15 Released with Work/Duty Limitations [facility] [place] [place] OUTPATIENT [id number] SERGIO TINSLEY 03/16 Released w/o Limitations [facility] [place]) [facility] [place] OUTPATIENT [id number] Weekly Case Managem ent Appoint ment YANET GU 03/25 Released with Work/Duty Limitations [facility] [place]) [facility] [place] OUTPATIENT [id number] SERGIO TINSLYE 03/28 Released w/o Limitations [facility] [place] [place] OUTPATIENT [id number] YANET GU 03/28 Released with Work/Duty Limitations [facility] [place]) [facility] [place] OUTPATIENT [id number] fMARYANA Carreon 03/31 Released w/o Limitations [facility] [place]) [facility] Outpatient Encounter [id number] DARNELL CORNEJO [facility]24 [facility] Encounter [id number] LUTHER BARRIENTOS I 09/27 [facility] OFFICE O/P EST MOD 30 MIN [id number] Diagnos is: ICD-10- CM F31.31 Bipolar disorde r, current episode depress ed, mild MCQUAIDE,T HERESA 11/05 [facility] En[facility] [id number] OVERTBrody ZAVALA A 09/22 [facility] OFF[facility] O/P EST MOD 30 MIN [id number] Diagnos is: ICD-10- CM Z33.3 Pregnan t state, gestati onal carrier Dar SHIRLEY HERE 09/23 [facility] Procedures Combined list of: 1) Procedures from Department of [facility] Affairs facilities going back up to thelast 18 months, not all [place] non-surgical procedures are included; 2) All procedures from the Department of Defense facilities. Procedure Procedure Type Code Date Perfomer Comments [facility] HEPATITIS A AND HEPATITIS B VACCINE (HEPA-HEPB), ADULT DOSAGE, FOR INTRAMUSCULAR USE 04/06/20 08 [facility] ORTHOTIC(S) MANAGEMENT AND TRAINING (INCLUDING ASSESSMENT AND FITTING WHEN NOT OTHERWISE REPORTED),UPPER EXTREMITY(IES),LOW ER EXTREMITY(IES) AND/OR TRUNK,INITIAL ORTHOTIC(S) ENCOUNTER,EACH 15 MINUTES 03/12/20 08 [facility] FITTING OF SPECTACLES, EXCEPT FOR APHAKIA; MONOFOCAL 02/11/20 08 [facility] BUPRENORPHINE IMPLANT, 74.2 MG 02/06/20 08 [facility] EAR MOLD/INSERT, NOT DISPOSABLE, ANY TYPE 02/04/20 08 [facility] COLLECTION OF VENOUS BLOOD BY VENIPUNCTURE 02/03/20 08 [facility] INJECTION, KETOROLAC TROMETHAMINE, PER 15 MG 08/01/19 09 [facility] FOOT, ARCH SUPPORT, REMOVABLE, PREMOLDED, LONGITUDINAL, EACH 07/07/20 08 [facility] BUPRENORPHINE IMPLANT, 74.2 MG 05/15/20 08 [facility] FITTING OF SPECTACLES, EXCEPT FOR APHAKIA; MONOFOCAL 04/27/20 08 [facility] LIGHT COMPRESSION BANDAGE, ELASTIC, KNITTED/WOVEN, WIDTH LESS THAN THREE INCHES, PER YARD 04/18/20 08 [facility] THERAPEUTIC PROCEDURE, 1 OR MORE AREAS, EACH 15 MINUTES; THERAPEUTIC EXERCISES TO DEVELOP STRENGTH AND ENDURANCE, RANGE OF MOTION AND FLEXIBILITY 03/31/20 10 [facility] APPLICATION OF A MODALITY TO 1 OR MORE AREAS; HOT OR COLD PACKS 03/28/20 10 [facility] APPLICATION OF A MODALITY TO 1 OR MORE AREAS; ELECTRICAL STIMULATION (MANUAL), EACH 15 MINUTES 03/16/20 10 APPLICATION OF A MODALITY TO 1 OR MORE AREAS; HOT OR COLD PACKS 03/14/20 10 APPLICATION OF A MODALITY TO 1 OR MORE AREAS; ELECTRICAL STIMULATION (MANUAL), EACH 15 MINUTES 03/11/20 10 APPLICATION OF A MODALITY TO 1 OR MORE AREAS; ELECTRICAL STIMULATION (MANUAL), EACH 15 MINUTES 03/08/20 10 [facility] THERAPEUTIC PROCEDURE, 1 OR MORE AREAS, EACH 15 MINUTES; THERAPEUTIC EXERCISES TO DEVELOP STRENGTH AND ENDURANCE, RANGE OF MOTION AND FLEXIBILITY 03/02/20 [facility] CASE MANAGEMENT, EACH 15 MINUTES 03/01/20 10 [facility] CASE MANAGEMENT, EACH 15 MINUTES 02/23/20 10 [facility] CASE MANAGEMENT, EACH 15 MINUTES 02/16/20 10 [facility] INDIVIDUAL PSYCHOTHERAPY, INSIGHT ORIENTED, BEHAVIOR MODIFYING AND/OR SUPPORTIVE, IN AN OFFICE OR OUTPATIENT FACILITY, APPROXIMATELY 45 TO 50 MINUTES [id number] WITH THE PATIENT 02/12/20 [facility] PSYCHIATRIC DIAGNOSTIC INTERVIEW EXAMINATION 02/10/20 [facility] THERAPEUTIC PROCEDURE, 1 OR MORE AREAS, EACH 15 MINUTES; THERAPEUTIC EXERCISES TO DEVELOP STRENGTH AND ENDURANCE, RANGE OF MOTION AND FLEXIBILITY 02/09/20 APPLICATION OF A MODALITY TO 1 OR MORE AREAS; ELECTRICAL STIMULATION (MANUAL), EACH 15 MINUTES 02/04/20 10 [facility] COORDINATED CARE FEE, MAINTENANCE RATE 02/03/20 APPLICATION OF A MODALITY TO 1 OR MORE AREAS; HOT OR COLD PACKS 01/28/20 10 [facility] THERAPEUTIC PROCEDURE, 1 OR MORE AREAS, EACH 15 MINUTES; THERAPEUTIC EXERCISES TO DEVELOP STRENGTH AND ENDURANCE, RANGE OF MOTION AND FLEXIBILITY 01/26/20 10 APPLICATION OF A MODALITY TO 1 OR [...] OUTPATIENT FACILITY, APPROXIMATELY 20 TO 30 MINUTES [id number] WITH THE PATIENT 01/06/20 10 [facility] APPLICATION OF A MODALITY TO 1 OR MORE AREAS; ELECTRICAL STIMULATION (MANUAL), EACH 15 MINUTES 12/29/19 10 [facility] APPLICATION OF A MODALITY TO 1 OR MORE AREAS; TRACTION, MECHANICAL 12/24/19 10 [facility] THERAPEUTIC PROCEDURE, 1 OR MORE AREAS, EACH 15 MINUTES; THERAPEUTIC EXERCISES TO DEVELOP STRENGTH AND ENDURANCE, RANGE OF MOTION AND FLEXIBILITY 12/11/19 10 [facility] PHYSICAL THERAPY RE-EVALUATION 12/09/19 10 [facility] THERAPEUTIC PROCEDURE, 1 OR MORE AREAS, EACH 15 MINUTES; THERAPEUTIC EXERCISES TO DEVELOP STRENGTH AND ENDURANCE, RANGE OF MOTION AND FLEXIBILITY 12/04/19 10 [facility] APPLICATION OF A MODALITY TO 1 OR MORE AREAS; TRACTION, MECHANICAL 12/03/19 10 [facility] APPLICATION OF A MODALITY TO 1 OR MORE AREAS; ELECTRICAL STIMULATION (MANUAL), EACH 15 MINUTES 12/01/19 10 [facility] INFECTIOUS AGENT ANTIGEN DETECTION BY IMMUNOASSAY WITH DIRECT OPTICAL (IE, VISUAL) OBSERVATION; STREPTOCOCCUS, GROUP A 11/20/19 10 [facility] INDIVIDUAL PSYCHOTHERAPY, INSIGHT ORIENTED, BEHAVIOR MODIFYING AND/OR SUPPORTIVE, IN AN OFFICE OR OUTPATIENT FACILITY, APPROXIMATELY 20 TO 30 MINUTES [id number] WITH THE PATIENT 11/19/19 10 [facility] APPLICATION OF A MODALITY TO 1 OR MORE AREAS; TRACTION, MECHANICAL 11/16/19 10 [facility] SELF-CARE/HOME MANAGMENT TRAIN (EG,ACT OF DAILY LIVING (ADL) &COMPENSAT TRAIN,MEAL PREPARATION,SAFETY PROCS,AND INSTRUCT IN USE OF ASST TECHNOLOGY DEV/ADPT EQUIP) DIR ONE-ON-ONE CONT,EA 15 MINUTES 11/12/19 10 [facility] APPLICATION OF A MODALITY TO 1 OR MORE AREAS; ULTRASOUND, EACH 15 MINUTES 11/11/19 10 [facility] APPLICATION OF A MODALITY TO 1 OR MORE AREAS; HOT OR COLD PACKS 11/10/19 10 [facility] SCREENING TEST OF VISUAL ACUITY, QUANTITATIVE, BILATERAL 10/07/19 10 [facility] IMMUNIZATION ADMINISTRATION (INCLUDES PERCUTANEOUS, INTRADERMAL, SUBCUTANEOUS, OR INTRAMUSCULAR INJECTIONS); EACH ADDITIONAL VACCINE (SINGLE OR COMBINATION VACCINE/TOXOID) 10/07/19 10 [facility] Physical Therapy: ___ Se ion Segments, 15 Minutes Each Physical Therapy: ___ Session Segments, 15 Minutes Each [id number] 03/31/20 10 MARYANA MAY [facility] Physical Medicine Physical Therapy Re-Evaluation Physical Medicine Physical Therapy Re-Evaluation 07140 03/31/20 10 MARYANA MAY [facility] Modalities Heat Hot Packs Modalities Heat Hot Packs 86760 03/28/20 10 WALKER, SERGIO M [facility] Modalities Electrical Stimulation Modalities Electrical Stimulation 90355 03/28/20 10 WALKER, SERGIO M [facility] Modalities Heat Hot Packs Modalities Heat Hot Packs 94027 03/16/20 10 WALKER, SERGIO M DoD Modalities Electrical Stimulation Modalities Electrical Stimulation 72283 03/16/20 10 WALKER, SERGIO M [facility] Modalities Heat Hot Packs Modalities Heat Hot Packs 62955 03/14/20 10 WALKER, SERGIO M [facility] Modalities Electrical Stimulation Modalities Electrical Stimulation 92937 03/14/20 10 WALKER, SERGIO M DoD Modalities Electrical Stimulation Modalities Electrical Stimulation 32105 03/11/20 10 ASTRID, PAM L DoD Modalities Heat Hot Packs Modalities Heat Hot Packs 96390 03/11/20 10 ASTRID, October [facility] Modalities Electrical Stimulation Modalities Electrical Stimulation 27036 03/08/20 10 LALOMARYANA PARTIDA [facility] Physical Therapy: ___ Se ion Segments, 15 Minutes Each Physical Therapy: ___ Session Segments, 15 Minutes Each [id number] 03/08/20 10 LALOMARYANA PARTIDA [facility] Physical Medicine Physical Therapy Re-Evaluation Physical Medicine Physical Therapy Re-Evaluation 04254 03/08/20 10 MAZOMANIEBRADMARYANA Ranjith [facility] Modalities Heat Hot Packs Modalities Heat Hot Packs 65333 03/07/20 10 CLIFFORDHUYEN [facility] Modalities Electrical Stimulation Modalities Electrical Stimulation 19432 03/07/20 10 HUYEN HORTON [facility] Physical Therapy: ___ Se ion Segments, 15 Minutes Each Physical Therapy: ___ Session Segments, 15 Minutes Each 04891 03/02/20 10 MAZOMANIEMARYANA [facility] Physical Medicine Physical Therapy Re-Evaluation Physical Medicine Physical Therapy Re-Evaluation 19734 03/02/20 10 MAZOMANIEMARYANA R [facility] Social Work Individual Outpatient Counseling 20-30 Minutes Social Work Individual Outpatient Counseling 20-30 Minutes 12541 03/02/20 10 RAZ DODSON [facility] Case Management, each 15 minutes 03/01/20 10 RAZA VIERA [facility] Case Management, each 15 minutes 02/24/20 10 RAZA VIERA [facility] Case Management, each 15 minutes 02/18/20 10 RAZA VIERA Psychiatric Evaluation Comprehensive Examination Psychiatric Evaluation Comprehensive Examination 89918 02/15/20 10 KATIE COOK [facility] Social Work Individual Outpatient Counseling 45-50 Minutes Social Work Individual Outpatient Counseling 45-50 Minutes 57809 02/12/20 10 KEITHPAM [facility] Physical Therapy: ___ Se ion Segments, 15 Minutes Each Physical Therapy: ___ Session Segments, 15 Minutes Each [id number] 02/09/20 10 LALOMARYANA PARTIDA [facility] Physical Medicine Physical Therapy Re-Evaluation Physical Medicine Physical Therapy Re-Evaluation 97435 02/09/20 10 MAZOMANIEMARYANA R [facility] Modalities Heat Hot Packs Modalities Heat Hot Packs 99964 02/04/20 10 SERGIO TINSLEY M [facility] Modalities Electrical Stimulation Modalities Electrical Stimulation 18255 02/04/20 10 SERGIO TINSLEY M [facility] Social Work Individual Outpatient Counseling 20-30 Minutes Social Work Individual Outpatient Counseling 20-30 Minutes 78194 02/03/20 10 RAZ DODSON [facility] Modalities Electrical Stimulation Modalities Electrical Stimulation 02553 02/02/20 10 SERGIO TINSLEY M [facility] Modalities Heat Hot Packs Modalities Heat Hot Packs 35778 02/02/20 10 SERGIO TINSLEY M [facility] Modalities Electrical Stimulation Modalities Electrical Stimulation 61191 01/28/20 10 SERGIO TINSLEY M [facility] Modalities Heat Hot Packs Modalities Heat Hot Packs 61414 01/28/20 10 SERGIO TINSLEY M [facility] Physical Therapy: ___ Se ion Segments, 15 Minutes Each Physical Therapy: ___ Session Segments, 15 Minutes Each 08728 01/28/20 10 SERGIO TINSLEY M [facility] Physical Therapy: ___ Se ion Segments, 15 Minutes Each Physical Therapy: ___ Session Segments, 15 Minutes Each 25498 01/27/20 10 ASTRID PAM [facility] Modalities Heat Hot Packs Modalities Heat Hot Packs 19389 01/25/20 10 SERGIO TINSLEY M [facility] Modalities Electrical Stimulation Modalities Electrical Stimulation 57418 01/25/20 10 SERGIO TINSLEY M [facility] Case Management, each 15 minutes 01/21/20 10 LISA MARSHALL [facility] Modalities Electrical Stimulation Modalities Electrical Stimulation 66379 01/19/20 10 MARYANA MAY [facility] Physical Medicine Physical Therapy Re-Evaluation Physical Medicine Physical Therapy Re-Evaluation 96493 01/19/20 10 MAZOMANIEMARYANA [facility] Psychiatric Evaluation Comprehensive Examination Psychiatric Evaluation Comprehensive Examination 34999 01/08/20 10 RAZ DODSON [facility] Modalities Electrical Stimulation Modalities Electrical Stimulation 12430 01/08/20 10 MAZOMANIERAULCA R [facility] Modalities Traction Modalities Traction 85688 01/08/20 10 MAZOMANIERAULCA R [facility] Physical Medicine Physical Therapy Re-Evaluation Physical Medicine Physical Therapy Re-Evaluation 32000 01/08/20 10 MAZOMANIE MARYANA R [facility] Modalities Electrical Stimulation Modalities Electrical Stimulation 75246 12/29/[address] [place], [place] [id number] R [facility] Modalities Traction Modalities Traction 29535 12/29/[address] [place], [place] [id number] R [facility] Physical Medicine Physical Therapy Re-Evaluation Physical Medicine Physical Therapy Re-Evaluation 72563 12/29/19 10 MAZOMANIERAULCA R [facility] Modalities Traction Modalities Traction 98393 12/24/[address] [place], [place] [id number] R [facility] Modalities Electrical Stimulation Modalities Electrical Stimulation 26998 12/24/[address] [place], [place] [id number] R [facility] Physical Medicine Physical Therapy Re-Evaluation Physical Medicine Physical Therapy Re-Evaluation 49967 12/24/[address] [place], [place] [id number] [facility] Physical Therapy: ___ Se ion Segments, 15 Minutes Each Physical Therapy: ___ Session Segments, 15 Minutes Each 24060 12/11/[address] [place], [place] [id number] [facility] Physical Medicine Physical Therapy Re-Evaluation Physical Medicine Physical Therapy Re-Evaluation 77964 12/11/[address] [place], [place] [id number] [facility] Modalities Electrical Stimulation Modalities Electrical Stimulation 76686 12/11/[address] [place], [place] [id number] [facility] Physical Medicine Physical Therapy Re-Evaluation Physical Medicine Physical Therapy Re-Evaluation 93790 12/09/[address] [place], [place] [id number] [facility] Physical Therapy: ___ Se ion Segments, 15 Minutes Each Physical Therapy: ___ Session Segments, 15 Minutes Each 88671 12/09/[address] [place], [place] [id number] [facility] Modalities Electrical Stimulation Modalities Electrical Stimulation 28359 12/09/[address] [place], [place] [id number] [facility] Physical Therapy: ___ Se ion Segments, 15 Minutes Each Physical Therapy: ___ Session Segments, 15 Minutes Each 92829 12/04/[address] [place] [address], MARYANA R [facility] Modalities Electrical Stimulation Modalities Electrical Stimulation 36169 12/04/[address] [place] [address], MARYANA R [facility] Physical Medicine Physical Therapy Re-Evaluation Physical Medicine Physical Therapy Re-Evaluation 46853 12/04/[address] [place], [place] [id number] [facility] Modalities Traction Modalities Traction 48702 12/03/19 10 LALO, MARYANA R [facility] Modalities Electrical Stimulation Modalities Electrical Stimulation 32069 12/03/19 10 LALO, MARYANA R [facility] Physical Medicine Physical Therapy Re-Evaluation Physical Medicine Physical Therapy Re-Evaluation 64126 12/03/19 10 LALO, MARYANA R [facility] Modalities Electrical Stimulation Modalities Electrical Stimulation 13418 12/01/19 10 LALO, MARYANA R [facility] Modalities Traction Modalities Traction 84433 12/01/19 10 MAZOMANIERAULCA R [facility] Physical Medicine Physical Therapy Evaluation Physical Medicine Physical Therapy Evaluation 80792 12/01/19 10 MAZOMANIERAULCA R [facility] Social Work Individual Outpatient Counseling 20-30 Minutes Social Work Individual Outpatient Counseling 20-30 Minutes 27088 11/19/19 10 RAZ DODSON [facility] Traction Pelvic Traction Pelvic 75057 11/16/19 10 KYRA MASSEY Phys Therapy Education Self Care Training - Per 15 Minutes Phys Therapy Education Self Care Training - Per 15 Minutes 44489 11/16/19 10 KYRA MASSEY Exercises A isted Exercises For ROM Exercises Assisted Exercises For ROM 78187 11/16/19 10 KYRA MASSEY Phys Therapy Education Self Care Training - Per 15 Minutes Phys Therapy Education Self Care Training - Per 15 Minutes 67038 11/12/19 10 KYRA MASSEY Modalities Heat Hot Packs Modalities Heat Hot Packs 59325 11/12/19 10 [facility] MASSE[facility] Modalities Electrical Stimulation Unattended Modalities Electrical Stimulation Unattended 89114 11/12/19 10 KYRA MASSEY Exercises A isted Exercises For ROM Exercises Assisted Exercises For ROM 71060 11/12/19 10 KYRA MASSEY Modalities Ultrasound Modalities Ultrasound 18439 11/11/19 10 KYRA MASSEY [facility] Physical Therapy Neuromuscular Re-education Physical Therapy Neuromuscular Re-education 66197 11/11/19 10 KYRA MASSEY 30 min of one on one time with physical therapist for neuromuscular re-education techniques and counterstrain techniques for the right rectus femoris muscle. [facility] Physical Medicine Physical Therapy Evaluation Physical Medicine Physical Therapy Evaluation 99747 11/10/19 10 KYRA MASSEY [facility] Physical Therapy Neuromuscular Re-education Physical Therapy Neuromuscular Re-education 00966 11/10/19 10 KYRA MASSEY [facility] Modalities Cryotherapy Cold Packs Modalities Cryotherapy Cold Packs 41064 11/10/19 10 KYRA MASSEY Foot, arch support, removable, premolded, longitudinal, each 07/20/20 08 NUVIA BEY [facility] Spectacles Services Fitting Monofocals (Not For Aphakia) Spectacles Services Fitting Monofocals (Not For Aphakia) 98905 04/27/20 08 CARLYN TRIPP [facility] Physical Therapy Education Orthotics Training 03/12/20 08 BETZAIDA WEEMS [facility] Spectacles Services Fitting Monofocals (Not For Aphakia) Spectacles Services Fitting Monofocals (Not For Aphakia) 93288 02/12/20 08 ISIDRO IBARRA [facility] Screening Test Of Visual Acuity, Quantitative, Bilateral Screening Test Of Visual Acuity, Quantitative, Bilateral 59125 02/12/20 08 ISIDRO IBARRA [facility] Determination Of Refractive State Determination Of Refractive State [address] 02/12/20 08 ISIDRO IBARRA [facility] Audiometry Group Testing Audiometry Group Testing 45243 02/05/20 08 COCO BUTLER Ear mold/insert, not disposable, any type 02/05/20 08 COCO BUTLER Social History Combined list of available smoking, tobacco, and other 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 Social History Type Response Date Comment Sour e Tobacco smoking status NHIS VA-TOBACCO FORMER USER 11/06/2023 [facility] History of tobacco use VA-TOBACCO QUIT 1 TO < 5 YRS 11/06/2023 [facility] History of tobacco use VA-TOBACCO FORMER USER 10/31/2022 [facility] History of tobacco use VA-TOBACCO USER S OME DAYS 11/11/2021 [facility] History of tobacco use VA-TOBACCO USER E VERY DAY 03/04/2020 [facility] History of tobacco use VA-TOBACCO QUIT < 1 YEAR 03/03/2019 [facility] History of tobacco use VA-TOBACCO DOESNT [...] of tobacco use CURRENT TOBACCO USER 03/25/2012 [facility] History of tobacco use CURRENT TOBACCO USER 06/23/2011 [facility] History of tobacco use CURRENT TOBACCO USER 05/30/2010 [facility] This section is an empty social history section. [facility] Plan of Care List of future care activities from Department of Veterans Affairs facilities. Additional future care activities may be listed in the Assessment and Plan section. Date/Time Care Activity Care Activity Detail Facili ty 05/15/2025 AMBULATORY - MEDICINE AMBULATORY - MEDICI [facility]
--- OUTSIDE RECORDS SUMMARY | 2025-03-13 16:58 | XMS_ITS | Patient Health Record ---
Author Organization [facility] As Knome [facility] Address [address] [place] [address] Care Team Providers Care Flaring Machine Operator Name Role Phone Regan HENRY, [facility] Primary Care Provider UnavailJm Belcher Unavailable [phone] Allergies Allergen (clinical drug ingredient) Drug/Non Drug Allergy documented on EMR Reaction Allergy Type Onset Date Status VACCINE ADJUVANT SYSTEM, AS01B LIPOSOMAL (uncoded) Unknown Allergy Active zolpidem Ambien CR anaphylaxis Drug Allergy Activ e trazodone traZODone HCl shortness of breath Drug Allergy Active vancomycin Vancomycin Unknown Drug Allergy Activ e Reason For Referral No Information Medications Medication SIG (Take, Route, Frequency, Duration) Notes Start Date End Date Status Escitalopram Oxalate 20 MG TAKE 1 TABLET BY MOUTH EVERY DAY Oral prescribed Jono Active Vilazodone HCl 20 MG 1 tablet with food Orally Once a day; Duration: 90 days Active Vyvanse 50 MG 1 capsule in the morning Orally Once a day; Duration: 30 days must use brand name 02/20/2025 Active Lisdexamfetamine Dimesylate 50 MG 1 capsule in the morning Orally Once a day; Duration: 30 days 11/20/2024 Active Vilazodone HCl 20 MG TAKE 1 TABLET BY MOUTH DAILY WITH FOOD; Duration: 90 Active Social History Tobacco Use: Social History Observation Description Date Details (start date - stop date) Unknown Sex Assigned At : Social History Observation Description Sex Assigned At Female Tobacco Control (Standard) Question Answer Notes Tobacco use: Uses tobacco in other forms When did you start smoking? 07/30/2009 When [...] Problem Status W/U Status Risk Notes Problem Generalized anxiety disorder (34363022) Generalized anxiety disorder (F41.1) Active confirmed Problem Attention deficit hyperactivity disorder (739450941) Attention deficit hyperactivity disorder (ADHD), combined type (F90.2) Active confirmed Problem Mild recurrent major depression (02795302) Depression, major, recurrent, mild (F33.0) Active confirmed Problem Moderate recurrent major depression (20629480) Moderate recurrent major depression (F33.1) Active confirmed Vital Signs Heart Rate 82 /min 02/20/2025 Height-cm 167.64 cm 02/20/2025 Blood pressure diastolic 79 mm Hg 02/20/2025 Weight-kg 77.11 kg 02/20/2025 Blood pressure systolic 114 mm Hg 02/20/2025 Weight 170 lbs 02/20/2025 BMI 27.44 kg/m2 02/20/2025 Encounters Encounter Location Date Provider Diagnosis [facility] [address] [place] [address] 03/13/2024 Jm Briggsoza Moderate recurrent major depression F33.1 ; Generalized anxiety disorder F41.1 and Attention deficit hyperactivity disorder (ADHD), combined type F90.2 [facility] [address] [place] [address] 04/16/2024 Jm Waters Moderate recurrent major depression F33.1 ; Generalized anxiety disorder F41.1 ; Attention deficit hyperactivity disorder (ADHD), combined type F90.2 and First trimester Z34.91 [facility] [address] [place] [address] 06/13/2024 Jm Briggsoza Moderate recurrent major depression F33.1 ; Generalized anxiety disorder F41.1 ; Attention deficit hyperactivity disorder (ADHD), combined type F90.2 and Depression, major, recurrent, mild F33.0 [facility], [facility] [address] [place] [address] 11/20/2024 Jm Waters [facility], [facility] [address] [place] [address] 11/21/2024 Jm Waters Generalized anxiety disorder F41.1 ; Depression, major, recurrent, mild F33.0 ; Encounter for screening for cardiovascular disorders Z13.6 ; Encounter for screening for depression Z13.31 and Attention deficit hyperactivity disorder (ADHD), combined type F90.2 [facility], [facility] [address] [place] [address] 02/20/2025 Jm Waters Generalized anxiety disorder F41.1 ; Depression, major, recurrent, mild F33.0 and Attention deficit hyperactivity disorder (ADHD), combined type F90.2 [facility], [facility] [address] [place] [address] 03/17/2024 Jm Waters [facility], [facility] [address] [place] [address] 04/24/2024 Jm Waters Attention deficit hyperactivity disorder (ADHD), combined type F90.2 [facility], [facility] [address] [place] [address] 08/19/2024 Jm Waters Attention deficit hyperactivity disorder (ADHD), combined type F90.2 [facility], [facility] [address] [place] [address] 08/20/2024 Jm Waters Attention deficit hyperactivity disorder (ADHD), combined type F90.2 [facility], [facility] [address] [place] [address] 03/18/2024 Jm Waters [facility], [facility] [address] [place] [address] 05/12/2024 Jm Waters Attention deficit hyperactivity disorder (ADHD), combined type F90.2 [facility], [facility] [address] [place] [address] 06/06/2024 Jm Waters Attention deficit hyperactivity disorder (ADHD), combined type F90.2 [facility], [facility] [address] [place] [address] 07/20/2024 Jm Waters Attention deficit hyperactivity disorder (ADHD), combined type F90.2 [facility], [facility] [address] [place] [address] 08/15/2024 Jm Waters Attention deficit hyperactivity disorder (ADHD), combined type F90.2 [facility], [facility] [address] [place] [address] 08/18/2024 Jm Waters Attention deficit hyperactivity disorder (ADHD), combined type F90.2 [facility], [facility] [address] [place] [address] 10/19/2024 Jm Waters Attention deficit hyperactivity disorder (ADHD), combined type F90.2 [facility], [facility] [address] [place] [address] 11/20/2024 Jm Waters Attention deficit hyperactivity disorder (ADHD), combined type F90.2 [facility], [facility] [address] [place] [address] 12/12/2024 Jm Waters [facility], [facility] [address] [place] [address] 12/12/2024 Jm Waters [facility], [facility] [address] [place] [address] 12/21/2024 Jm Waters Attention deficit hyperactivity disorder (ADHD), combined type F90.2 [facility], [facility] [address] [place] [address] 01/18/2025 Jm Waters Attention deficit hyperactivity disorder (ADHD), combined type F90.2 [facility], [facility] [address] [place] [address] 01/21/2025 Jm Waters [facility], [facility] [address] [place] [address] 01/22/2025 Jm Waters [facility], [facility] [address] [place] [address] 02/17/2025 Jm Waters Assessments Encounter Date Diagnosis (ICD Code) Assessment Notes Treatment Notes Treatment Clinical Notes Section Notes 03/13/2024 Moderate recurrent major depression (ICD-10 - [...] Continue vilazodone at 20 mg daily. 3. Medication-induce d fatigue: - Patient reports fatigue and low [...] Advise patient to check their insurance under [employer] for covered counselors offering virtual sessions. Follow-up: [...] patient to continue weekly counseling sessions with [facility] - Reevaluate the need for a change [...] concerns or issues arise between appointments 06/13/2024 Moderate recurrent major depression (ICD-10 - F33.1) 1. (14 weeks): - Patient reports feeling better in the second trimester, with improved energy levels and reduced nausea. - Plan: Continue care with [facility] S[facility], including upcoming anatomy scan in June. Encourage patient to maintain a healthy lifestyle and report any concerns or changes in symptoms to the [facility] SENATOR. 2. Depression, Anxiety: - Patient reports doing well on current medications and has approval from [facility]. - Continue Vilazodone 20 mg and Lisdexamfetamine [...] disorder (ADHD), combined type (ICD-10 - F90.2) 11/20/2024 Attention deficit hyperactivity disorder (ADHD), combined type (ICD-10 - F90.2) 11/21/2024 Generalized anxiety disorder (ICD-10 - F41.1) 05/12/2024 Attention deficit hyperactivity disorder (ADHD), combined type (ICD-10 - F90.2) 06/06/2024 Attention deficit hyperactivity disorder (ADHD), combined type (ICD-10 - F90.2) 06/13/2024 Generalized anxiety disorder (ICD-10 - F41.1) 1. (14 weeks): - Patient reports feeling better in the second trimester, with improved energy levels and reduced nausea. - Plan: Continue care with [facility] S[facility], including upcoming anatomy scan in June. Encourage patient to maintain a healthy lifestyle and report any concerns or changes in symptoms to the OB-U[facility] SENATOR. 2. Depression, Anxiety: - Patient reports doing well on current medications and has approval from [facility]. - Continue Vilazodone 20 mg and Lisdexamfetamine 50 mg - Plan: Refill Lisdexamfetamine prescription and ensure the generic version is being dispensed. Follow up in three months or sooner if needed for medication adjustments or concerns. 12/21/2024 Attention deficit hyperactivity disorder (ADHD), combined type (ICD-10 - F90.2) 01/18/2025 Attention deficit hyperactivity disorder (ADHD), combined type (ICD-10 - F90.2) 02/20/2025 Generalized anxiety disorder (ICD-10 - F41.1) 02/20/2025 Depression, major, recurrent, mild (ICD-10 - F33.0) 04/24/2024 Attention deficit hyperactivity disorder (ADHD), combined type (ICD-10 - F90.2) Electronic Prior Authorization was requested for Lisdexamfetamine Dimesylate 50 MG Capsule. Provider can order medication once approval received. 11/21/2024 Depression, major, recurrent, mild (ICD-10 - F33.0) 02/20/2025 Attention deficit hyperactivity disorder (ADHD), combined type (ICD-10 - F90.2) 06/13/2024 Attention deficit hyperactivity disorder (ADHD), combined type (ICD-10 - F90.2) 1. (14 weeks): - Patient reports feeling better in the second trimester, with improved energy levels and reduced nausea. - Plan: Continue care with [facility] S[facility], including upcoming anatomy scan in June. Encourage patient to maintain a healthy lifestyle and report any concerns or changes in symptoms to the [facility] SENATOR. 2. Depression, Anxiety: - Patient reports doing well on current medications and has approval from [facility]. - Continue Vilazodone 20 mg and Lisdexamfetamine [...] Continue vilazodone at 20 mg daily. 3. Medication-induce d fatigue: - Patient reports fatigue and low [...] Advise patient to check their insurance under [employer] for covered counselors offering virtual sessions. Follow-up: - Schedule a follow-up appointment to assess the effectiveness of the adjusted medication regimen and discuss progress in finding a virtual counselor. 03/13/2024 Attention deficit hyperactivity disorder (ADHD), combined [...] Continue vilazodone at 20 mg daily. 3. Medication-induce d fatigue: - Patient reports fatigue and low [...] Advise patient to check their insurance under [employer] for covered counselors offering virtual sessions. Follow-up: [...] [facility] - Reevaluate the need for a change [...] any concerns or issues arise between appointments 11/21/2024 Encounter for screening for cardiovascular disorders (ICD-10 - Z13.6) 06/13/2024 Depression, major, recurrent, mild (ICD-10 - F33.0) 1. (14 weeks): - Patient reports feeling better in the second trimester, with improved energy levels and reduced nausea. - Plan: Continue care with [facility], including upcoming anatomy scan in June. Encourage patient to maintain a healthy lifestyle and report any concerns or changes in symptoms to the OB-U[facility] SENATOR. 2. Depression, Anxiety: - Patient reports doing well on current medications and has approval from [facility]. - Continue Vilazodone 20 mg and Lisdexamfetamine 50 mg - Plan: Refill Lisdexamfetamine prescription and ensure the generic version is being dispensed. Follow up in three months or sooner if needed for medication adjustments or concerns. 11/21/2024 Encounter for screening for depression (ICD-10 - Z13.31) 11/21/2024 Attention deficit hyperactivity disorder (ADHD), combined type (ICD-10 - F90.2) 06/13/2024 Other 14 weeks 1. (14 weeks): - Patient reports feeling better in the second trimester, with improved energy levels and reduced nausea. - Plan: Continue care with [facility], including upcoming anatomy scan in June. Encourage patient to maintain a healthy lifestyle and report any concerns or changes in symptoms to the OB-U[facility] SENATOR. 2. Depression, Anxiety: - Patient reports doing well on current medications and has approval from [facility]. - Continue Vilazodone 20 mg and Lisdexamfetamine 50 mg - Plan: Refill Lisdexamfetamine prescription and ensure the generic version is being dispensed. Follow up in three months or sooner if needed for medication adjustments or concerns. 11/21/2024 Blanca Arriola is a patient who recently delivered a baby boy via and is currently taking vilazodone and Vyvanse for management of depression and anxiety. Depression and Anxiety Assessment: Patient reports feeling okay with good energy levels and motivation. She denies any current depressive symptoms, anger issues, or bonding difficulties with the . No thoughts of self-harm or harm to the baby are reported. The patient is currently on vilazodone 20 mg for depression and anxiety management. Plan: - Decrease vilazodone to 10 mg PO qHS with a snack - Patient informed that medication can be broken as it is not extended-relea se - Advised to monitor for any changes in mood or anxiety symptoms with dose reduction - Follow up in one month to assess response to medication adjustment - Continue current dose if patient experiences worsening of symptoms with dose reduction Attention Deficit Hyperactivity Disorder (ADHD) Assessment: Patient is currently managed on Vyvanse for ADHD. The medication appears to be effective when used in combination with vilazodone. Plan: - Continue Vyvanse 50 mg PO daily (brand name) - Refill Vyvanse prescription for 3 months - Emphasize to pharmacy the importance of dispensing brand name Vyvanse, not generic lisdexamfetami ne Care Assessment: Patient recently delivered via and reports being sore and experiencing some chaos associated with caring for a . The baby spent two weeks in the NICU for feeding difficulties but is now home. Patient reports disrupted sleep due to care requirements. Plan: - Encourage adherence to follow-up appointments with [facility] for recovery - Advise on importance of rest and self-care during the period - Recommend sleep hygiene strategies compatible with feeding schedule the note is transcribed using speech recognition software. It is a reflection of a visit with the patient. It might have some inaccuracy, including medication names and transcribing errors, though efforts have been made to correct them. 02/20/2025 Blanca Arriola, a patient, reports significant improvement in mood and anxiety following a recent vacation, with ongoing fatigue due to nighttime feedings of her 3-month-old infant. Mood and Anxiety Assessment: Patient reports significant improvement in mood and anxiety symptoms following a recent vacation. She describes feeling like a whole different person and back to myself. Previously experienced ridiculous crazy anxiety, frustration, anger, and insomnia, which have now resolved. Patient attributes some of the previous symptoms to hormonal changes. Currently denies any concerns related to depression or anxiety. Plan: - Continue current medication regimen: - Vyvanse (lisdexamfetamine ) - Escitalopram - Vilazodone (taken at night) - Follow up in 4 months Attention Deficit Hyperactivity Disorder (ADHD) Assessment: Patient continues to manage ADHD symptoms with medication. No specific concerns or changes reported during this visit. Plan: - Continue Vyvanse 50 mg - Refill Vyvanse prescription - Send to [facility] pharmacy - Specify brand name formulation Care Assessment: Patient is 3 months , experiencing fatigue due to frequent nighttime feedings. is reported to wake 2-3 times per night for feeding, consuming 4-4.5 ounces every 2 hours. Patient is supplementing with bottle feeding. Plan: - Educate on introduction of solid foods: - Recommend waiting until 6 months of age to introduce cereal - Advise to watch for signs of readiness (e.g., interest in food, reaching for food, licking lips) - Encourage continuation of current feeding practices until 6 months, as appropriate the note is transcribed using speech recognition software. It is a reflection of a visit with the patient. It might have some inaccuracy, including medication names and transcribing errors, though efforts have been made to correct them. Plan Of Treatment Pending Test Test Name Order Date UDT 11/21/2024 ADHD Testing 02/11/2024 Next Appt Details Provider Name:Jm mccarty, 06/24/2025 04:45:00 PM, [address], [address], [place], [address], Insurance Providers Payer Name Payer Address Payer Phone Subscriber Number Group Number Insured Name Patient Relationship to Insured Coverage Start Date Coverage End Date [facility] [address] [place] [address] [id number] ZAFAR ARRIOLA Self - patient is the [...]
--- OUTSIDE RECORDS SUMMARY | 2025-03-13 16:58 | XMS_ITS | Clinical Summary ---
Author Organization [facility] Address [address] [place] [address] Care Team Providers Care Can Handler Name Role Phone No, Physician Primary Care Provider [phone] Randell Man MD Unavailable [phone] Allergies Active Allergy Reactions Criticality Noted Date Comments Zolpidem Other (See comments) Low 10/02/2019 Insomnia,nightmares. Vancomycin Hives Medium 10/02/2019 Medications ibuprofen (ADVIL,MOTRIN) 600 mg tablet Take 600 mg by mouth every 6 (six) hours as needed for pain Active baclofen (LIORESAL) 10 mg tablet Take 10 mg by mouth 3 (three) times a day Active [id number] cb,mx-lkmix-evi -dha 27-1-50-250 mg combo pack Take by [...] Active Active Problems No known active problems Surgical History Surgery Date Site/Laterality Comments SECTION [...] on file Legal Sex Female 12:46 PM MEDIA SERVICES DIRECTOR Gender Identity Not on file Sexual Orientation Not on file Obstetrics History Last Filed Vital Signs Vital Sign Reading Time Taken Comments Blood Pressure 132/80 09/25/2024 3:05 PM MEDIA SERVICES DIRECTOR Pulse 75 09/25/2024 3:05 PM MEDIA SERVICES DIRECTOR Temperature - - Respiratory Rate - - Oxygen Saturation 100% 09/25/2024 3:05 PM MEDIA SERVICES DIRECTOR Inhaled Oxygen Concentration - - Weight 79.8 kg (176 lb) 09/25/2024 3:05 PM MEDIA SERVICES DIRECTOR Height 167.6 cm (5' 6) 09/25/2024 3:05 PM MEDIA SERVICES DIRECTOR Body Mass Index 28.41 09/25/2024 3:05 PM MEDIA SERVICES DIRECTOR Plan of Treatment Health Maintenance Due Date Last Done Comments Cervical Cancer Screening 1989 Depression Screening 1989 Hepatitis C Screening 1989 Varicella Vaccines (1 of 2 - 13+ 2-dose series) 2002 Regular Well Visit/Exam 18-64 2007 HPV Vaccines (2 - 3-dose series) 11/30/2011 11/02/2011 Covid-19 Vaccine ( season) 2024 08/18/2021, 02/08/2021 Influenza Vaccine (#1) 2025 3, 04/14/2023, 04/29/2022, Additional history exists DTaP/Tdap/Td Vaccine (8 - Td or Tdap) 03/14/2029 03/14/2019, 07/11/2018, 07/20/2017, Additional history exists Hepatitis B Screening Completed 10/05/2009 , 03/06/2009, 04/02/2008, Additional history exists Pneumococcal vaccine <65 Aged Out 06/15/2016 No longer eligible based on patient's age to complete this topic Insurance [facility] [employer] [employer] Care Teams Can Handler Relationship Specialty Start Date End Date No, Physician PCP - General 09/22/19 Randell Man MD [id number] [place] [address] Surgeon Colon and Rectal Surgery 09/25/24
--- OUTSIDE RECORDS SUMMARY | 2025-03-13 16:58 | XMS_ITS | Clinical Summary ---
Author Organization [facility] Address [address] [place] [phone] Care Team Providers Care Irish Moss Gatherer Name Role Phone Unavailable Primary Care Provider [...] daily. 60 Capsule 1 07/21/2024 5:48 PM VENIPUNCTURIST Active doxylamine (UNISOM) 25 mg Tablet Take by mouth. Activ e Active Problems Problem Noted Date Diagnosed Date Short cervix affecting 07/21/2024 Comments Yes Encounters Date Type Department Care Team Description 03/03/2025 External Device Data [facility] ABSTRACTION Provider, Abstract 02/11/2025 External Device Data [facility] ABSTRACTION Provider, Abstract 02/10/2025 External Device Data [facility] ABSTRACTION Provider, Abstract 01/20/2025 External Device Data [facility] ABSTRACTION Provider, Abstract 01/13/2025 External Device Data [facility] ABSTRACTION Provider, Abstract 12/18/2024 External Device Data [facility] ABSTRACTION Provider, Abstract 12/16/2024 External Device Data [facility] ABSTRACTION Provider, Abstract from Last 3 Months Social History Tobacco Use Types Packs/Day Years Used Date Smoking Tobacco: Never Smokeless Tobacco: Never Tobacco Cessation:Counseling Given: Not Answered Alcohol Use Standard Drinks/Week Comments Yes 1 (1 standard drink = 0.6 oz pur e alcohol) per week Comments Yes Sex and Gender Information Value Date Recorded Sex Assigned at Female 07/21/2024 9:38 AM VENIPUNCTURIST Legal Sex Female 7:37 PM CDT Gender Identity Not on file Sexual Orientation Not on file Last Filed Vital Signs Vital Sign Reading Time Taken Comments Blood Pressure 112/64 07/21/2024 5:15 PM VENIPUNCTURIST Pulse 88 07/21/2024 5:17 PM VENIPUNCTURIST Temperature 36.6 C (97.9 F) 07/21/2024 3:37 PM VENIPUNCTURIST Respiratory Rate 22 07/21/2024 5:17 PM VENIPUNCTURIST Oxygen Saturation 99% 07/21/2024 5:17 PM VENIPUNCTURIST Inhaled Oxygen Concentration - - Weight 74.4 kg (164 lb) 07/21/2024 11:15 AM VENIPUNCTURIST Height 167.6 cm (5' 6) 07/21/2024 11:15 AM VENIPUNCTURIST Body Mass Index 26.47 07/21/2024 11:15 AM VENIPUNCTURIST Plan of Treatment Health Maintenance Due Date Last Done Comments HPV/Cotest (21-29) 2010 HPV VACCINES (2 - 3-dose series) 11/30/2011 11/02/19 12 CERVICAL CANCER SCREENING 2019 HPV/Cotest (30-65) 2019 PAP SMEAR 2019 COVID-19 Vaccine (3 - 2023-2 5 season) 2024 08/18/2021, 02/08/2021 INFLUENZA VACCINE (#1) 2025 , 05/13/2023, 06/03/2011, Additional history exists DTAP/TDAP/TD VACCINES (6 - T d or Tdap) 03/14/2029 03/14/2019, 07/11/2018, 02/05/2008, Additional history exists RSV VACCINE (60+ or ) (1 - 1-dose 75+ series) 2064 HEPATITIS B VACCINES Completed 10/05/2009, 03/06/2009, 04/02/2008, Additional history exists Insurance RX [facility]
--- OUTSIDE RECORDS SUMMARY | 2025-03-13 16:58 | XMS_ITS | Clinical Summary ---
Author Organization [facility] Address [address] [place] [address] Care Team Providers Care Sand Sifter Name Role Phone Benedict Spears MD Primary Care Provider [phone] Source Comments [facility],non-owned Affiliates and Associated Physician Practices is amultiple site organization consisting of ambulatory clinics and hospital sitesin [place], [place], [place] and [place]. This disclosure is being madepursuant to the Care Everywhere program and may not contain all information available regarding this patient. Last updated 18.[facility] Allergies Active Allergy Reactions Criticality Noted Date Comments Zolpidem Other Medium 10/02/2019 Insomnia,nightmares. Lunesta Other,Psychiatric Medium 05/10/2012 Night walking, nightmares Trazodone Shortness of Breath High 05/10/2012 Vancomycin Itching,Rash Medium 10/02/2021 Medications * Be aware that medications may not be up to date on this document. Alwaysverify current medications with the patient. docusate sodium (Colace) 100 MG capsule Take 1 (one) capsule by mouth 2 times daily as needed for Constipation 30 capsule 2 Active vitamin D (Cholecacifero l) 125 MCG (5000 UT) capsule Take 1 (one) capsule by mouth once daily 0 Active MV-Min-Fe Fum-FA-DHA (/FOLI C ACID+DHA PO) Take 1 tablet by mouth once daily 5 Active cyclobenzaprin e (Flexeril) 10 MG tablet Take 1 (one) tablet by mouth 3 times daily as needed for Muscle Spasms 10 tablet 3 Active amoxicillin-cl avulanate (Augmentin) 875-125 MG tablet Take 1 (one) tablet by mouth 2 times daily with morning and evening meal for 7 days 14 tablet 4 Active Additional Information Patient taking differently:875 mg Oral 2 TIMES DAILY WITH MEALS,Ends 11/22/23- TS, Reported on 11/15/2023 Vyvanse 30 MG capsule 4 Active vilazodone (Viibryd) 20 MG tablet Active methylPREDNISo lone (Medrol Dosepak) 4 MG tablet Take by mouth as directed Take as directed by mouth per package instructions. 21 tablet 4 Active amoxicillin-cl avulanate (Augmentin) 875-125 MG tablet TAKE ONE TABLET BY MOUTH 2 TIMES A DAY WITH MORNING AND EVENING MEAL FOR 7 DAYS 14 tablet 4 Active tretinoin (Retin-A) 0.05 % creamIndicatio ns:Acne vulgaris APPLY TOPICALLY TO THE AFFECTED AREA AT BEDTIME FOR ACNE 20 g 1 5 Active ondansetron, disintegrating , (Zofran ODT) 4 MG tablet Take 1 (one) tablet by mouth every 6 hours as needed for Nausea/Vomiting Allow tablet to dissolve on the tongue 20 tablet 4 024 Discontin ued(No Pharm No AVS) Active Problems Problem Noted [...] Date Resolved Date Cough 07/19/2023 10/30/2023 11/27/2023 Encounters Date Type Department Care Team Description 01/27/2025 Refill [facility] - Orthopedic Surgery [address] [place] [phone] Nita Benjamin PA-C Refill Request from Last 3 Months Immunizations Immunization Administration Dates Next Due INFLUENZA VACCINE, TRIV. 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 Gender Identity Not on file Sexual Orientation [...] 9:36 AM CDT Height 167.6 cm (5' 6) 04/18/2024 9:36 AM CDT Body Mass Index 26.31 04/18/2024 9:36 AM CDT Plan of Treatment Health Maintenance Due Date Last Done Comments PAP SMEAR 2010 HPV VACCINE (2 - 3-dose series) 11/30/2011 11/02/2011 COVID-19 VACCINE ( season) 2024 08/18/2021, 02/08/2021 DEPRESSION SCREENING 07/30/2024 INFLUENZA VACCINE (#1) 2025 , 04/14/2023, 04/29/2022, Additional history exists DTAP/TDAP/TD VACCINES (6 - Td or Tdap) [...] Completed 07/28/2022 HIV SCREENING Completed 11/13/2022, 07/28/2022 HIB VACCINE Aged Out No longer eligi ble based on patient's age to complete this topic MENINGOCOCCAL (Group B) VACCINE SHARED DECISION-MAKING Aged Out No longer eligible based on patient's age to complete this topic Medical Devices Implanted Type Area Cream Buyer Device Identifier Shelf Expiration Date Model / Serial / Lot 1.6mm K Wires Implanted:Qty: 2 on 03/08/2022 by Ganesh Escalante MD at [facility] 10/25/2025 [id number] / [id number] / [id number] Procedures Procedure Name Priority Date/Time Associated Diagnosis Comments HIV-1 HIV-2 ANTIBODY + HIV P24 AG PANEL Routine 11/13/2022 10:20 AM CDT Visit for screening GTT 1 HR (50G) GESTATIONAL SCREEN Routine 11/13/2022 9:35 AM CDT Visit for screening HEPATITIS C ANTIBODY Routine 07/28/2022 5:05 PM 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 Cristina Mccann [facility] - CHEMISTRY ORDERAB LES Final Result Performing Organization Address City/[facility]/ZIP Co de Phone Number [facility] [address] [place] [phone] * GTT 1 HR (50G) GESTATIONAL SCREEN (11/13/2022 9:35 AM CDT) Pathologist [facility] Glucose Dose Gestational 50 gm 11/13/2022 10:43 AM CDT [facility] Gestational Diabetes Screen 88 54 - <140 mg/dL 11/13/2022 10:43 AM CDT [facility] Blood BLOOD SPECIMEN / Unknown Lab Venipuncture / Unknown 11/13/2022 9:35 AM CDT 11/13/2022 10:19 AM CDT Cristina Mccann [facility] - CHEMISTRY ORDERAB LES Final Result [facility] [address] [place] [id number] * HEPATITIS C ANTIBODY (07/28/2022 5:05 PM MOTORCYCLE 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 Sade Marin MD LAB - CHEMISTRY ORDERABLES Final Result [facility] [address] [place] [address] from Last 3 Months or Most Recently Relevant to Health Maintenance Insurance [facility] Care Teams Sand Sifter Relationship Specialty Start Date End Date Benedict Spears MD [address] [place] [phone] PCP - General Family Medicine 12/25/23
== END 2025-03-13 16:50 | disposition home or self-care (01) ==
PROVIDERS: PCP Family Medicine; Visit Provider Family Medicine
DX: K59.04 Chronic idiopathic constipation (principal)
CPT/HCPCS: 74019